=== PATIENT | male | born 1960 | race Caucasian/White ===

== ENCOUNTER 2024-03-27 13:15 | Inpatient (IN) | payer MEDICAID ==
[~2024-03-27] VITALS: Ht 172.7 cm; Wt 81.8 kg
--- NOTE | 2024-03-27 13:41 | ED.PDOC ---
GI ASSESSMENT HPI Comments 63y M who presents to the ED via EMS for chief complaint of GI bleed. Per EMS, pt is heavy drinker and states he drinks beer daily and states he has had bloody emesis episode last night at approx 2230. Pt states he had last drink 1 days ago prior to emesis episode. Pt now in the ED,noted to have shaking chills in the ED. EMS states they noted bloody emesis in bag prior to ED arrival and was hypotensive upon ED arrival. Pt otherwise denies chest pain, shortness of breath, fever, cough, chills, diarrhea, headache or dizziness. Pt otherwise denies any other symptoms at this time. Chief Complaint: GI Bleed Time Seen by MD: 13:38 Primary Care Provider: NONE Reviewed Notes: Medications, Allergies Allergies: Coded Allergies: NO KNOWN ALLERGIES (Unverified , 03/15/16) Information Source: Patient, Emergency Med Personnel Mode of Arrival: EMS Brought in by: EMS Past Medical History PAST MEDICAL HISTORY: DM Surgical History: Denies all surgeries Family History Family History: Unknown Social History Smoker: Cigarettes Alcohol: Heavy Drugs: Denies Drug Use Lives In: Home Constitutional: denies: chills, diaphoresis, fatigue, fever, malaise, sweats, weakness, others EENTM: denies: blurred vision, double vision, ear bleeding, ear discharge, ear drainage, ear pain, ear ringing, eye pain, eye redness, hearing loss, mouth pain, mouth swelling, nasal discharge, nose bleeding, nose congestion, nose pain, photophobia, tearing, throat pain, throat swelling, voice changes, others Respiratory: denies: cough, hemoptysis, orthopnea, SOB at rest, shortness of breath, SOB with excertion, stridor, wheezing, others Cardiovascular: denies: chest pain, dizzy spells, diaphoresis, Dyspnea on exertion, edema, irregular heart beat, left arm pain, lightheadedness, palpitations, PND, syncope, others Gastrointestinal: reports: hematemesis, nausea, vomiting; denies: abdomen distended, abdominal pain, blood streaked bowels, constipated, diarrhea, dysphagia, difficulty swallowing, melena, poor appetite, poor fluid intake, rectal bleeding, rectal pain, others Genitourinary: denies: burning, dysuria, flank pain, frequency, hematuria, incontinence, penile discharge, penile sore, pain, testicle pain, testicle swelling, urgency, others Neurological: denies: dizziness, fainting, headache, left sided numbness, left sided weakness, numbness, paresthesia, pre-existing deficit, right sided numbness, right sided weakness, seizure, speech problems, tingling, tremors, weakness, others Musculoskeletal: denies: back pain, gout, joint pain, joint swelling, muscle pain, muscle stiffness, neck pain, others Integumetry: denies: bruises, change in color, change in hair/nails, dryness, laceration, lesions, lumps, rash, wounds, others Allergic/Immunocompromised: denies: Difficulty Healing, Frequent Infections, Hives, Itching, others Hematologic/Lymphatic: denies: anemia, blood clots, easy bleeding, easy bruising, swollen glands, others Endocrine: denies: excessive hunger, excessive sweating, excessive thirst, excessive urination, flushing, intolerance to cold, intolerance to heat, unex plained weight gain, unexplained weight loss, others Psychiatric: denies: anxiety, bipolar disorder, depression, hopeless, panic disorder, schizophrenia, sleepless, suicidal, others All Other Systems: Reviewed and Negative Physical Exam General Appearance: Moderate Distress HEENT: Scleral Icterus (L), Scleral Icterus (R) Neck: Full Range of Motion, Non-Tender, Normal, Normal Inspection Respiratory: Chest Non-Tender, Lungs Clear, No Accessory Muscle Use, No Respiratory Distress, Normal Breath Sounds Cardiovascular: No Edema, No JVD, No Murmur, No Gallop, Normal Peripheral Pulses, Regular Rate/Rhythm Breast Exam: Deferred Gastrointestinal: Distended Genitalia: Deferred Pelvic: Deferred Rectal: Deferred Extremities: No calf tenderness, Normal capillary refill, Normal inspection, Normal range of motion, Non-tender, No pedal edema Musculoskeletal : Apperance: Normal Neurologic: Alert Cerebellar Function: NOT DONE Reflexes: NOT DONE Skin: Jaundice Peripheral Pulses: 3+ Radial (R), 3+ Radial (L) Lymphatic: No Adenopathy Was a procedure done? Was a procedure done?: No GI differential Dx Differential Diagnosis: Constipation, Diverticular disease, Esophagitis, Gastritis/PUD, Gastroenteritis, GI hemorrhage, Dehydration, Diabetes/ DKA, Esophageal Varicies, Stress Ulcer Other Differential Diagnosis esophageal varices, ETOH abuse, ETOH withdrawal, liver disease X-Ray, Labs, Meds, VS Vital Signs Date Time Temp Pulse Resp B/P (MAP) Pulse Ox O2 Delivery O2 Flow Rate FiO2 03/27/24 14:20 98 13 91/61 (71) 96 03/27/24 14:20 94 Room Air* 0 21 03/27/24 14:08 100 19 96/63 (74) 90 03/27/24 13:26 98.6 98 16 101/60 (74) 100 Lab Test 03/27/24 13:41 Range/Units White Blood Count 19.2 H 4.4-10.8 10^3/uL Red Blood Count 2.99 L 4.5-5.90 10^6/uL Hemoglobin 10.7 L 13.5-17.5 g/dL Hematocrit 31.3 L 41.0-53.0 % Mean Corpuscular Volume 104.6 H 80.0-100.0 fL Mean Corpuscular Hemoglobin 35.6 H 28.0-32.0 pg Mean Corpuscular Hemoglobin Concent 34.1 32.0-36.0 g/dL Red Cell Distribution Width 13.4 11.8-14.3 % Platelet Count 164 140-450 10^3/uL Mean Platelet Volume 8.8 6.9-10.8 fL Neutrophils (%) (Auto) 87.2 H 37.0-80.0 % Lymphocytes (%) (Auto) 6.8 L 10.0-50.0 % Monocytes (%) (Auto) 5.9 0.0-12.0 % Eosinophils (%) (Auto) 0.0 0.0-7.0 % Basophils (%) (Auto) 0.1 0.0-2.0 % Neutrophils # (Auto) 16.8 H 1.6-8.6 10 ^3/uL Lymphocytes # (Auto) 1.3 0.4-5.4 10 ^3/uL Monocytes # (Auto) 1.1 0-1.3 10 ^3/uL Eosinophils # (Auto) 0 0-0.8 10 ^3/uL Basophils # (Auto) 0 0-0.2 10 ^3/uL Nucleated Red Blood Cells 0.0 % Sodium Level 134 L 136-145 mmol/L Potassium Level 5.3 H 3.5-5.1 mmol/L Chloride Level 98 98-107 mmol/L Carbon Dioxide Level 21 20-31 mmol/L Anion Gap 15 5-15 Blood Urea Nitrogen 38 H 9-23 mg/dL Creatinine 1.32 H 0.700-1.30 mg/dL Glomerular Filtration Rate Calc 61 >90 mL/min BUN/Creatinine Ratio 28.8 H 10.0-20.0 Serum Glucose 247 H 74-106 mg/dL Calcium Level 8.3 L 8.7-10.4 mg/dL Total Bilirubin 2.3 H 0.2-1.0 mg/dL Aspartate Amino Transferase (AST) 71 H 13-40 U/L Alanine Aminotransferase (ALT) 36 7-40 U/L Alkaline Phosphatase 121 H 46-116 U/L Total Protein 5.7 5.7-8.2 g/dL Albumin 2.8 L 3.2-4.8 g/dL Plasma/Serum Blood Alcohol < 3.0 <10 mg/dL Current Medications Medications (Trade) Dose Ordered Sig/Peg Route Start Time Stop Time Status Last Admin Thiamine HCl 100 mg ONCE ONCE IV 03/27/24 13:45 03/27/24 13:46 DC 03/27/24 14:11 Lorazepam (Ativan Inj) 1 mg ONCE ONCE IV 03/27/24 13:45 03/27/24 13:46 DC 03/27/24 14:11 Pantoprazole Sodium 50 ml @ 10 mls/hr Q5H ONCE IV 03/27/24 13:45 03/27/24 18:44 03/27/24 14:11 PROCEDURE(s): ABPL - CT AB PEL WO CON-NO ORAL OR IV IMPRESSION: 1. Colonic diverticulosis with no CT evidence for diverticulitis. 2. No small bowel obstruction. Normal-appearing appendix. 3. Heterogeneous liver with numerous small subcentimeter low-attenuation lesions, possibly very small cysts or biliary hamartomas, too small to characterize. 4. Increased density in the gallbladder, possible sludge and/or small gallstones. 5. Small to moderate fat containing umbilical hernia. Minimal stranding in the hernia sac. Strangulation not excluded. Correlate with clinical findings. 6. Additional findings as detailed above. Patient alert. Shaking. Alcohol withdrawal. Vitals stable. Last drink was yesterday. States that he drinks beer. Has been drinking for many years. Establish intravenous access. Was given fluids. Was given thiamine. Possible esophageal varices. Was given Protonix. Reviewed his history. Explained to the patient. Time of 1ST Reevaluation: 14:10 Reevaluation 1ST: Unchanged Patient Education/Counseling: Diagnosis, Treatment Family Education/Counseling: No Family Present Departure 1 Departure Time of Disposition: 13:43 Impression: Primary Impression: GI bleed Qualified Codes: K92.2 - Gastrointestinal hemorrhage, unspecified Additional Impressions: Alcohol withdrawal Qualified Codes: F10.939 - Alcohol use, unspecified with withdrawal, unspecified Liver disease Disposition: ADMITTED INPATIENT Admit to: Med Surg Condition: Guarded Critical Care Note Critical Care Time?: Yes (45 min-critical care time only) Stability Stability form required: No Heart Score Heart Score: Heart Score Response (Comments) Value History N/A 0 EKG N/A 0 Age N/A 0 Risk Factors N/A 0 Troponin N/A 0 Total 0 I personally scribed for PARKER TILLMAN MD ([email or web address]) on 03/27/24 at 13:41. Electronically submitted by Mj Caal ([email or web address]). I personally scribed for PARKER TILLMAN MD (SHIVA) on 03/27/24 at 16:59. Electronically submitted by Mj PERALTA). PARKER TILLMAN MD Mar 27, 2024 13:41
[2024-03-27 14:05] LABS: Basophils # (auto) 0 10 ^3/uL (0-0.2); Basophils % (auto) 0.1 % (0.0-2.0); Eosinophils # (auto) 0 10 ^3/uL (0-0.8); Hematocrit 31.3 % (41.0-53.0); Hemoglobin 10.7 g/dL (13.5-17.5); Lymphocytes # (auto) 1.3 10 ^3/uL (0.4-5.4); Lymphocytes % (auto) 6.8 % (10.0-50.0); Mean Corpuscular Hemoglobin 35.6 pg (28.0-32.0); Mean Corpuscular Hgb Conc. 34.1 g/dL (32.0-36.0); Mean Corpuscular Volume 104.6 fL (80.0-100.0); Monocytes # (auto) 1.1 10 ^3/uL (0-1.3); Monocytes % (auto) 5.9 % (0.0-12.0); Neutrophils # (auto) 16.8 10 ^3/uL (1.6-8.6); Neutrophils % (auto) 87.2 % (37.0-80.0); Platelet Count (auto) 164 10^3/uL (140-450); Red Blood Cells 2.99 10^6/uL (4.5-5.90); Red Cell Distribution Width 13.4 % (11.8-14.3); White Blood Cell 19.2 10^3/uL (4.4-10.8)
[2024-03-27] MEDS: PANTOPRAZOLE 40mg/50ML NS AE 50 ML IV ONE (14:11)
[2024-03-27] MEDS: LORazepam 2MG/ML-1ML VIAL IV ONE (14:11)
[2024-03-27] MEDS: THIAMINE 100mg/ml INJ (200mg/2ml VIAL) IV ONE (14:11)
[2024-03-27 14:16] LABS: Alanine Aminotransferase 36 U/L (7-40); Albumin 2.8 g/dL (3.2-4.8); Alkaline Phosphatase 121 U/L (46-116); Anion Gap 15 (5-15); Aspartate Aminotransferase 71 U/L (13-40); BUN/Creatinine Ratio 28.8 (10.0-20.0); Blood Alcohol < 3.0 mg/dL (<10); Blood Urea Nitrogen 38 mg/dL (9-23); Calcium 8.3 mg/dL (8.7-10.4); Carbon Dioxide 21 mmol/L (20-31); Chloride 98 mmol/L (98-107); Glucose 247 mg/dL (74-106); Potassium 5.3 mmol/L (3.5-5.1); Sodium 134 mmol/L (136-145)
[2024-03-27 14:17] LABS: Bilirubin, Total 2.3 mg/dL (0.2-1.0); Total Protein 5.7 g/dL (5.7-8.2)
[2024-03-27 14:20] VITALS: O2SAT 94
--- NOTE | 2024-03-27 14:27 | DVH ---
CLINICAL INFORMATION: 63 years old, Male; gibleed. TECHNIQUE: Axial CT images of the abdomen and pelvis were obtained without IV contrast. Coronal and sagittal reformatted images were obtained, reviewed, and stored. Evaluation of the parenchymal organs is limited without IV contrast. Evaluation of the bowel and mesentery is limited without oral contra st. All CT scans at this medical facility are performed using dose modulation techniques as appropria te to a performed exam including the following: Automated exposure control was utilized; adjustment o f the MA and/or KV according to patient size; and use of iterative reconstruction technique. CTDIvol = 6.51 mGy DLP = 350.31 mGy-cm COMPARISON: None FINDINGS: Lung bases: Lung bases are clear. Liver: Heterogeneous liver with numerous small subcentimeter low-attenuation lesions, possibly cysts or biliary hamartomas. Too small to characterize. Biliary: Increased density within the gallbladder, possibly sludge and/or small gallstones. Spleen: Unremarkable. Pancreas: Grossly unremarkable in its noncontrast enhanced appearance. Adrenal glands: Unremarkable. No mass. Kidneys: No hydronephrosis. No renal or ureteral calculi. Aorta/Vascular: Dense arterial calcification. No abdominal aortic aneurysm. Retroperitoneum: No mass or lymphadenopathy. Bowel/mesentery: No small bowel obstruction. Appendix is visualized and appears unremarkable. Scatte red colonic diverticula. No inflammatory stranding is seen to suggest diverticulitis. Pelvic organs: Grossly unremarkable. Bladder: Grossly unremarkable. Abdominal wall: Small to moderate fat containing umbilical hernia. Minimal stranding within the corky ia sac. Bones: No acute fracture or suspicious intraosseous lesion. IMPRESSION: 1. Colonic diverticulosis with no CT evidence for diverticulitis. 2. No small bowel obstruction. Normal-appearing appendix. 3. Heterogeneous liver with numerous small subcentimeter low-attenuation lesions, possibly very small cysts or biliary hamartomas, too small to characterize. 4. Increased density in the gallbladder, possible sludge and/or small gallstones. 5. Small to moderate fat containing umbilical hernia. Minimal stranding in the hernia sac. Strangula tion not excluded. Correlate with clinical findings. 6. Additional findings as detailed above.
[2024-03-27 19:20] LABS: Urine Bacteria FEW /hpf (None Seen); Urine Blood Negative /uL (Negative); Urine Clarity Clear (Clear); Urine Color Light-Orange (Yellow); Urine Hyaline Cast FEW /lpf (0 - 2); Urine Mucus FEW (None Seen); Urine Protein, UAD Negative (Negative); Urine Specific Gravity 1.017 (1.001-1.035); Urine Sperm PRESENT /hpf (None Seen); Urine Urobilinogen Normal (Negative); Urine WBC 1 /hpf (0 - 3); Urine pH 5.5 (5.0-9.0)
[2024-03-27] MEDS: SODIUM CHLORIDE 0.9% 1,000 ML IV ONE ×2 (19:22→21:23)
[2024-03-27 20:09] VITALS: PULSE 105; RESP 16; O2SAT 96
[2024-03-27] MEDS: CEFEPIME 2GM/50ML NS 50 ML IV ONE (21:14)
[2024-03-27] MEDS: PANTOPRAZOLE 40 MG/10 ML VIAL INJ IV ONE (21:14)
[2024-03-27] MEDS: PANTOPRAZOLE 40mg/50ML NS AE 50 ML IV SCH (21:30)
[2024-03-27] MEDS: SODIUM CHLORIDE 0.9% 1,000 ML IV SCH (21:30)
[2024-03-27] MEDS ORDERED: ONDANSETRON HCL 4 MG/2 ML VIAL IV PRN (21:30)
[2024-03-27] MEDS ORDERED: DEXTROSE (50%) 50ML SYRG IV PRN (21:30)
[2024-03-27] MEDS ORDERED: NITROGLYCERIN 0.4 MG SL TAB SL PRN (21:30)
[2024-03-27] MEDS ORDERED: MORPHINE SULFATE INJ 2 MG/ml SYRG IV PRN (21:30)
[2024-03-27] MEDS ORDERED: chlordiazePOXIDE HCL 25 MG CAP PO PRN (21:30)
[2024-03-27 21:41] LABS: Basophils # (auto) 0 10 ^3/uL (0-0.2); Basophils % (auto) 0.2 % (0.0-2.0); Eosinophils # (auto) 0 10 ^3/uL (0-0.8); Hemoglobin 8.8 g/dL (13.5-17.5); Lymphocytes # (auto) 2.9 10 ^3/uL (0.4-5.4); Lymphocytes % (auto) 17.7 % (10.0-50.0); Monocytes # (auto) 1.6 10 ^3/uL (0-1.3); Platelet Count (auto) 138 10^3/uL (140-450)
[2024-03-27 21:43] LABS: Hematocrit 25.4 % (41.0-53.0); Mean Corpuscular Hemoglobin 35.7 pg (28.0-32.0); Mean Corpuscular Hgb Conc. 34.7 g/dL (32.0-36.0); Mean Corpuscular Volume 103.1 fL (80.0-100.0); Monocytes % (auto) 9.5 % (0.0-12.0); Neutrophils # (auto) 11.9 10 ^3/uL (1.6-8.6); Neutrophils % (auto) 72.6 % (37.0-80.0); Red Blood Cells 2.47 10^6/uL (4.5-5.90); Red Cell Distribution Width 13.4 % (11.8-14.3); White Blood Cell 16.4 10^3/uL (4.4-10.8)
[2024-03-27 21:45] LABS: Chloride 105 mmol/L (98-107); Potassium 4.5 mmol/L (3.5-5.1); Sodium 138 mmol/L (136-145)
[2024-03-27 21:46] LABS: Anion Gap 4 (5-15); Carbon Dioxide 29 mmol/L (20-31)
[2024-03-27 21:47] LABS: Calcium 7.6 mg/dL (8.7-10.4)
[2024-03-27 21:51] LABS: Glucose 195 mg/dL (74-106)
[2024-03-27 21:52] LABS: BUN/Creatinine Ratio 43.5 (10.0-20.0); Blood Urea Nitrogen 40 mg/dL (9-23)
[2024-03-27] MEDS: SODIUM ZIRCONIUM CYCL 10 GM PAK PO ONE (22:04)
[2024-03-27] MEDS: ALBUMIN 5% 250 ML IV ONE (22:06)
[2024-03-27 23:15] VITALS: BP 87/46; PULSE 88; RESP 18; O2SAT 94
[2024-03-27] MEDS: PHENYLEPHRINE IV 250 ML IV SCH (23:28)
[2024-03-27 23:30] VITALS: BP 91/49; PULSE 84; RESP 19; O2SAT 95
[2024-03-27 23:45] VITALS: BP 77/36; PULSE 89; RESP 15; O2SAT 95
[2024-03-27 23:55] LABS: INR 1.41 (0.9-1.15); Partial Thromboplastin Time 29.9 SEC (24.5-34.5); Prothrombin Time 14.8 sec (9.3-11.8)
[2024-03-28] VITALS (100 sets, daily range): BP systolic 74–131; BP diastolic 30–68; PULSE 64–98; RESP 11–21; TEMP 98–99.2; O2SAT 92–100
[2024-03-28] MEDS: ACCU-CHEK COMFORT CURVE STRIP VI SCH (00:52)
[2024-03-28] MEDS: InsuLIN REG 1unit/0.01ml Soln (100units/ml) SC SCH (01:00)
[2024-03-28 05:10] LABS: Basophils # (auto) 0.1 10 ^3/uL (0-0.2); Basophils % (auto) 0.5 % (0.0-2.0); Eosinophils # (auto) 0.1 10 ^3/uL (0-0.8); Eosinophils % (auto) 0.3 % (0.0-7.0); Hematocrit 24.4 % (41.0-53.0); Hemoglobin 8.3 g/dL (13.5-17.5); Lymphocytes # (auto) 4.9 10 ^3/uL (0.4-5.4); Lymphocytes % (auto) 21.8 % (10.0-50.0); Mean Corpuscular Hgb Conc. 33.9 g/dL (32.0-36.0); Mean Corpuscular Volume 103.2 fL (80.0-100.0); Monocytes # (auto) 1.7 10 ^3/uL (0-1.3); Monocytes % (auto) 7.5 % (0.0-12.0); Neutrophils # (auto) 15.6 10 ^3/uL (1.6-8.6); Neutrophils % (auto) 69.9 % (37.0-80.0); Platelet Count (auto) 158 10^3/uL (140-450); Red Blood Cells 2.37 10^6/uL (4.5-5.90); Red Cell Distribution Width 13.5 % (11.8-14.3); White Blood Cell 22.4 10^3/uL (4.4-10.8)
[2024-03-28 05:11] LABS: Alanine Aminotransferase 28 U/L (7-40); Albumin 2.7 g/dL (3.2-4.8); Alkaline Phosphatase 93 U/L (46-116); Anion Gap 5 (5-15); Aspartate Aminotransferase 59 U/L (13-40); BUN/Creatinine Ratio 38.1 (10.0-20.0); Calcium 7.5 mg/dL (8.7-10.4); Carbon Dioxide 27 mmol/L (20-31); Chloride 111 mmol/L (98-107); Glucose 128 mg/dL (74-106); Potassium 3.6 mmol/L (3.5-5.1); Sodium 143 mmol/L (136-145)
[2024-03-28 05:12] LABS: Bilirubin, Total 1.7 mg/dL (0.2-1.0); Total Protein 4.9 g/dL (5.7-8.2)
[2024-03-28] MEDS: NOREPINEPHRINE 8 MG/250ML KIT 250 ML IV SCH ×2 (05:15→12:06)
[2024-03-28 05:17] LABS: Blood Urea Nitrogen 24 mg/dL (9-23)
--- NOTE | 2024-03-28 06:49 | DVHHP2 ---
History of Present Illness Reason for Visit: GI bleed History of Present Illness 63-year-old male presents for evaluation of GI bleed. Patient reports a one day history of coffee-ground emesis. He reports being a heavy drinker and having his last drink yesterday prior to the event. Denies any dizziness, chest pain or shortness for breath. Denies melena. No other acute complaints reported. Past Medical History Diabetes mellitus, liver cirrhosis Past Surgical History Denies Family History Noncontributory Smoke: <1 pack per day ALCOHOL: heavy Drugs: None Review of Systems Review of Systems Constituitional: Negative for fever HENT: Negative for Headache, Negative for Sore Throat Eyes: Negative for pain and change in vision Respirartory: Negative for Shortness of Breath Cardiovascular: Negative for Chest Pain Gastrointestinal: Negative for abdominal pain, swelling Endocrine: Negative for polyuria, Polydipsia Genitourinary: Negative for dysuria Musculoskeletal: Negative for skeletal pain Skin Negative for rash Neurological: Negative for headache and weakness All other systems reviewed and negative Allergies: Coded Allergies: NO KNOWN ALLERGIES (Unverified , 03/15/16) Medications Current Medications Medications Dose Ordered Sig/Peg Route Start Time Stop Time Status Last Admin Dose Admin Chlordiazepoxide HCl 25 mg Q6HPRN PRN PO 03/27/24 21:30 Folic Acid 1 mg/ Magnesium Sulfate 8 meq/ Multivitamins 10 ml/Thiamine HCl 100 mg/Sodium Chloride 1,013.2 ml @ 126.247 mls/hr DAILY@1800 INJ 03/28/24 18:00 Sodium Chloride 1,000 ml @ 85 mls/hr [id number] IV 03/27/24 21:30 03/27/24 21:30 85 MLS/HR Ceftriaxone Sodium 50 ml @ 100 mls/hr DAILY@09 IV 03/28/24 09:00 Pantoprazole Sodium 50 ml @ 10 mls/hr Q5H IV 03/27/24 21:30 03/28/24 02:22 10 MLS/HR Diagnostic Test (Pha) 1 strip Q6HR 03/28/24 00:00 03/28/24 05:36 1 STRIP Insulin Human Regular Q6HR SC 03/28/24 00:00 03/28/24 01:00 3 UNITS Dextrose 50 ml UD PRN IV 03/27/24 21:30 Ondansetron HCl 4 mg Q4HP PRN IV 03/27/24 21:30 Nitroglycerin 0.4 mg Q5MINP PRN SL 03/27/24 21:30 Morphine Sulfate 2 mg Q30M PRN IV 03/27/24 21:30 Phenylephrine HCl 250 ml @ 30 mls/hr Q8H20M IV 03/27/24 23:15 03/28/24 05:14 135 MLS/HR Norepinephrine Bitartrate 250 ml @ 3.75 mls/hr Q24H IV 03/28/24 05:15 Exam Vital Signs Vital Signs Date Time Temp Pulse Resp B/P (MAP) Pulse Ox O2 Delivery O2 Flow Rate FiO2 03/28/24 06:15 85 12 108/45 (66) 95 03/28/24 06:00 Nasal Cannula* 2 03/28/24 04:00 98.1 98.1 Exam Gen: 63-year-old in mild distress Skin: Warm, dry, normal color and texture, no rash. HEENT: Normocephalic atraumatic, mucous membranes moist and pink. Neck: Cervical and supraclavicular nodes normal without enlargement, trachea is midline, thyroid gland is normal without masses. Pulmonary: Clear to auscultation and percussion bilaterally. Cardiac: Regular rate and rhythm. No murmur Abdomen: Soft, nontender, nondistended, bowel sounds present all 4 quadrants, no guarding, no rigidity, no organomegaly. Extremities: No cyanosis, clubbing, no edema Neuro: Cranial nerves II through XII grossly intact, normal affect and speech, no focal motor deficits. Labs/Xrays ORDERING PHYSICIAN: PARKER TILLMAN MD PROCEDURE(s): ABPL - CT AB PEL WO CON-NO ORAL OR IV REASON: gibleed ORDER NUMBER(s): [id number], ACCESSION NUMBER(s): [id number] CLINICAL INFORMATION: 63 years old, Male; gibleed. TECHNIQUE: Axial CT images of the abdomen and pelvis were obtained without IV contrast. Coronal and sagittal reformatted images were obtained, reviewed, and stored. Evaluation of the parenchymal organs is limited without IV contrast. Evaluation of the bowel and mesentery is limited without oral contrast. All CT scans at this medical facility are performed using dose modulation techniques as appropriate to a performed exam including the following: Automated exposure control was utilized; adjustment of the MA and/or KV according to patient size; and use of iterative reconstruction technique. CTDIvol = 6.51 mGy DLP = 350.31 mGy-cm COMPARISON: None FINDINGS: Lung bases: Lung bases are clear. Liver: Heterogeneous liver with numerous small subcentimeter low-attenuation lesions, possibly cysts or biliary hamartomas. Too small to characterize. Biliary: Increased density within the gallbladder, possibly sludge and/or small gallstones. Spleen: Unremarkable. Pancreas: Grossly unremarkable in its noncontrast enhanced appearance. Adrenal glands: Unremarkable. No mass. Kidneys: No hydronephrosis. No renal or ureteral calculi. Aorta/Vascular: Dense arterial calcification. No abdominal aortic aneurysm. Retroperitoneum: No mass or lymphadenopathy. Bowel/mesentery: No small bowel obstruction. Appendix is visualized and appears unremarkable. Scattered colonic diverticula. No inflammatory stranding is seen to suggest diverticulitis. Pelvic organs: Grossly unremarkable. Bladder: Grossly unremarkable. Abdominal wall: Small to moderate fat containing umbilical hernia. Minimal stranding within the hernia sac. Bones: No acute fracture or suspicious intraosseous lesion. IMPRESSION: 1. Colonic diverticulosis with no CT evidence for diverticulitis. 2. No small bowel obstruction. Normal-appearing appendix. 3. Heterogeneous liver with numerous small subcentimeter low-attenuation lesions, possibly very small cysts or biliary hamartomas, too small to characterize. 4. Increased density in the gallbladder, possible sludge and/or small gallstones. 5. Small to moderate fat containing umbilical hernia. Minimal stranding in the hernia sac. Strangulation not excluded. Correlate with clinical findings. 6. Additional findings as detailed above. Labs Test 03/28/24 05:35 03/28/24 04:44 03/27/24 21:10 03/27/24 19:01 Range/Units POC Glucose 131 H 70-106 mg/dl White Blood Count 22.4 #H 4.4-10.8 10^3/uL Red Blood Count 2.37 L 4.5-5.90 10^6/uL Hemoglobin 8.3 L 13.5-17.5 g/dL Hematocrit 24.4 L 41.0-53.0 % Mean Corpuscular Volume 103.2 H 80.0-100.0 fL Mean Corpuscular Hemoglobin 35.0 H 28.0-32.0 pg Mean Corpuscular Hemoglobin Concent 33.9 32.0-36.0 g/dL Red Cell Distribution Width 13.5 11.8-14.3 % Platelet Count 158 140-450 10^3/uL Mean Platelet Volume 8.4 6.9-10.8 fL Neutrophils (%) (Auto) 69.9 37.0-80.0 % Lymphocytes (%) (Auto) 21.8 10.0-50.0 % Monocytes (%) (Auto) 7.5 0.0-12.0 % Eosinophils (%) (Auto) 0.3 0.0-7.0 % Basophils (%) (Auto) 0.5 0.0-2.0 % Neutrophils # (Auto) 15.6 H 1.6-8.6 10 ^3/uL Lymphocytes # (Auto) 4.9 0.4-5.4 10 ^3/uL Monocytes # (Auto) 1.7 H 0-1.3 10 ^3/uL Eosinophils # (Auto) 0.1 0-0.8 10 ^3/uL Basophils # (Auto) 0.1 0-0.2 10 ^3/uL Nucleated Red Blood Cells 0.0 % Sodium Level 143 # 136-145 mmol/L Potassium Level 3.6 3.5-5.1 mmol/L Chloride Level 111 H 98-107 mmol/L Carbon Dioxide Level 27 20-31 mmol/L Anion Gap 5 5-15 Blood Urea Nitrogen 24 #H 9-23 mg/dL Creatinine 0.63 L 0.700-1.30 mg/dL Glomerular Filtration Rate Calc 107 >90 mL/min BUN/Creatinine Ratio 38.1 H 10.0-20.0 Serum Glucose 128 H 74-106 mg/dL Calcium Level 7.5 L 8.7-10.4 mg/dL Total Bilirubin 1.7 H 0.2-1.0 mg/dL Aspartate Amino Transferase (AST) 59 H 13-40 U/L Alanine Aminotransferase (ALT) 28 7-40 U/L Alkaline Phosphatase 93 46-116 U/L Total Protein 4.9 L 5.7-8.2 g/dL Albumin 2.7 L 3.2-4.8 g/dL Prothrombin Time 14.8 H 9.3-11.8 sec Prothrombin Time INR 1.41 H 0.9-1.15 Activated Partial Thromboplast Time 29.9 24.5-34.5 SEC Urine Color Light-orange Yellow Urine Clarity Clear Clear Urine pH 5.5 5.0-9.0 Urine Specific [place] 1.017 1.001-1.035 Urine Protein Negative Negative Urine Ketones Trace Negative Urine Blood Negative Negative /uL Urine Nitrite Negative Negative Urine Bilirubin Negative Negative Urine Urobilinogen Normal Negative mg/dL Urine Leukocyte Esterase Negative Negative /uL Urine RBC 2 0 - 3 /hpf Urine WBC 1 0 - 3 /hpf Urine Squamous Epithelial Cells Few <5 /hpf Urine Bacteria Few H None Seen /hpf Urine Hyaline Casts Few 0 - 2 /lpf Urine Mucus Few None Seen Urine Sperm Present None Seen /hpf Urine Glucose Normal Normal mg/dL Test 03/27/24 13:41 Range/Units Plasma/Serum Blood Alcohol < 3.0 <10 mg/dL Assessment/Plan Assessment/Plan Assessment GI bleed Alcohol withdrawal Leukocytosis Liver cirrhosis Acute kidney injury Diabetes mellitus Hypotension Plan Admit the patient to ICU to the hospitalist Continue Beau-Synephrine GI consult NPO Maintenance IV fluids Continue treatment per orders. Total critical care time excluding procedures performed is 50 minutes. Plan discussed with: Patient My Orders Orders - SHAILESH BORREGO AGACNP Procedure Category Date Status Time Blood Culture ELZA 03/27/24 In Process 21:18 * Gi Dvh It Web Development Consultant CONS 03/27/24 Transmitted 21:18 Chlordiazepoxide Hcl PHA 03/27/24 In Process Capsule (Librium Ca 21:30 Folic Acid... PHA 03/28/24 In Process 18:00 Sodium Chloride 0.9% PHA 03/27/24 In Process 21:30 Ceftriaxone 1gm/50ml PHA 03/28/24 In Process D5w (Rocephin) 09:00 Pantoprazole PHA 03/27/24 In Process 40mg/50ml Ns Ae 21:30 Glucose Blood PHA 03/28/24 In Process (Accu-Chek Comfort 00:00 Insulin R (Human) PHA 03/28/24 In Process (Insulin R) 00:00 Dextrose 50% Syringe PHA 03/27/24 In Process 21:30 Admit ADMIT 03/27/24 Transmitted 21:18 Ondansetron Hcl PHA 03/27/24 In Process (Zofran) 21:30 Npo (Nothing By DIET 03/28/24 Transmitted Mouth) Diet Breakfast Condition: Fair [facility] 03/27/24 In Process 21:18 Bedrest With Bathroom [facility] 03/27/24 In Process Privileg 21:18 Nitroglycerin [facility] 03/27/24 In Process Sublingual (Ntrostat 21:30 Morphine Sulfate PHA 03/27/24 In Process Injection 21:30 Stat Ekg For Chest [facility] 03/27/24 In Process Pain 21:18 Notify Md Of Changes [facility] 03/27/24 In Process From Base 21:18 Roper Operator For [facility] 03/27/24 In Process 24 Hours 21:18 Emergency Dysrhythmia [facility] 03/27/24 In Process Protocol 21:18 Rhythm Strips Once [facility] 03/27/24 In Process Every Shift 21:18 Oxygen By Nasal RT 03/27/24 Transmitted Cannula 21:18 Phenylephrine Iv PHA 03/27/24 In Process (Phenylephrine/Ns) 23:15 Transfer Orders XFER 03/27/24 Transmitted 23:03 Norepinephrine 8 PHA 03/28/24 In Process Mg/250ml Kit 05:15 Date of Service: Mar 27, 2024 Billing Provider: SHAILESH BORREGO Common Visit Codes: [id number] CARE 30-74 MIN SHAILESH BORREGO Mar 28, 2024 06:49
[2024-03-28] MEDS: cefTRIAXone 1GM/50ML D5W 50 ML IV SCH (07:43)
[2024-03-28] MEDS ORDERED: FOLIC ACID 1 MG in D5W 5% 50 ML INJ SCH (14:30)
[2024-03-28] MEDS ORDERED: OCTREOTIDE ACETATE 500 MCG in SODIUM CHL 0.9% 99 ML IV SCH (14:30)
[2024-03-28 14:43] LABS: Basophils # (auto) 0.1 10 ^3/uL (0-0.2); Eosinophils # (auto) 0.1 10 ^3/uL (0-0.8); Eosinophils % (auto) 0.5 % (0.0-7.0); Hemoglobin 8.1 g/dL (13.5-17.5); Lymphocytes # (auto) 3.5 10 ^3/uL (0.4-5.4); Red Cell Distribution Width 13.7 % (11.8-14.3)
[2024-03-28 14:44] LABS: Basophils % (auto) 0.3 % (0.0-2.0); Hematocrit 24.2 % (41.0-53.0); Lymphocytes % (auto) 20.5 % (10.0-50.0); Mean Corpuscular Hgb Conc. 33.4 g/dL (32.0-36.0); Mean Corpuscular Volume 104.8 fL (80.0-100.0); Monocytes # (auto) 1.5 10 ^3/uL (0-1.3); Monocytes % (auto) 8.7 % (0.0-12.0); Neutrophils # (auto) 11.9 10 ^3/uL (1.6-8.6); Nucleated Red Blood Cells % 0.1 %; Platelet Count (auto) 135 10^3/uL (140-450); Red Blood Cells 2.31 10^6/uL (4.5-5.90); White Blood Cell 17.1 10^3/uL (4.4-10.8)
[2024-03-28 14:58] LABS: Chloride 114 mmol/L (98-107); Potassium 3.5 mmol/L (3.5-5.1); Sodium 144 mmol/L (136-145)
[2024-03-28 14:59] LABS: Anion Gap 6 (5-15); Calcium 7.4 mg/dL (8.7-10.4); Carbon Dioxide 24 mmol/L (20-31)
[2024-03-28 15:04] LABS: BUN/Creatinine Ratio 26.8 (10.0-20.0); Blood Urea Nitrogen 15 mg/dL (9-23); Glucose 181 mg/dL (74-106)
[2024-03-28] MEDS: OCTREOTIDE ACETATE 500 MCG in SODIUM CHL 0.9% 99 ML IV SCH (15:15)
--- NOTE | 2024-03-28 15:23 | DVH ---
AP portable chest REASON FOR EXAM: CENTRAL LINE PLACEMENT Technique: AP portable chest FINDINGS: Central line tip in the high superior vena cava. Heart size is enlarged. There are no infil trates or effusions. Degenerative changes in the thoracic spine. IMPRESSION: 1. Central line tip high superior vena cava above the atriocaval junction
--- NOTE | 2024-03-28 16:24 | DVHPN2 ---
Subjective 63-year-old male with alcohol use disorder, and history of alcohol withdrawal admitted for GI bleed. Patient is seen by me today during rounds On phenylephrine peripherally, map of 60s, vomiting stopped, he reported having melena for the past couple of weeks. Has been taking ibuprofen for years. Seen by GI, unstable to scope. Placed triple-lumen catheter, switch from phenylephrine to Levophed, monitor H&H Q 12, start octreotide and IV ppi. POCUS done today and interpreted by me Cardiac: Technically difficult study, no pericardial effusion, IVC 1-2 cm with more than 50% excursion on inspiration Lung: No B-lines Total critical care time spent on this patient more than 30 minutes including evaluation, chart review, formulating plan and communication with team, excluding any procedures Reviewed: Care Plan, H&P, Labs, Medications, Previous Orders, Radiology Changes from previous H/P or p: No Changes Objective Vitals Vital Signs Date Time Temp Pulse Resp B/P (MAP) Pulse Ox O2 Delivery O2 Flow Rate FiO2 03/28/24 16:07 16 99 Room Air* 0 21 03/28/24 13:53 75/35 03/28/24 13:47 77 03/28/24 12:00 99.2 99.2 Intake/Output Intake and Output 03/28/24 07:00 Intake Total 2606.000 ml Output Total 450 ml Balance 2156.000 ml Intake Oral 100 ml IV Total 2506.000 ml Output Urine Total 450 ml Exam Alert, oriented x3 PERRLA Right IJ TLC No JVD Clear breath sounds bilaterally S1-S2 regular rate Abdomen soft nontender Equal strength bilaterally on upper and lower extremities No lower extremity edema Medications Current Medications Medications Dose Ordered Sig/Peg Route Start Time Stop Time Status Last Admin Dose Admin Folic Acid 1 mg/ Magnesium Sulfate 8 meq/ Multivitamins 10 ml/Thiamine HCl 100 mg/Sodium Chloride 1,013.2 ml @ 126.247 mls/hr DAILY@1800 INJ 03/28/24 18:00 Sodium Chloride 1,000 ml @ 85 mls/hr [id number] IV 03/27/24 21:30 03/28/24 09:50 85 MLS/HR Ceftriaxone Sodium 50 ml @ 100 mls/hr DAILY@09 IV 03/28/24 09:00 03/28/24 07:43 100 MLS/HR Pantoprazole Sodium 50 ml @ 10 mls/hr Q5H IV 03/27/24 21:30 03/28/24 09:45 10 MLS/HR Diagnostic Test (Pha) 1 strip Q6HR 03/28/24 00:00 03/28/24 11:52 1 STRIP Insulin Human Regular Q6HR SC 03/28/24 00:00 03/28/24 01:00 3 UNITS Dextrose 50 ml UD PRN IV 03/27/24 21:30 Ondansetron HCl 4 mg Q4HP PRN IV 03/27/24 21:30 Nitroglycerin 0.4 mg Q5MINP PRN SL 03/27/24 21:30 Morphine Sulfate 2 mg Q30M PRN IV 03/27/24 21:30 Norepinephrine Bitartrate 250 ml @ 3.75 mls/hr Q24H IV 03/28/24 12:15 03/28/24 12:06 3.75 MLS/HR Octreotide Acetate 500 mcg/ Sodium Chloride 100 ml @ 10 mls/hr Q10H IV 03/28/24 15:15 Laboratory Results Laboratory Tests 03/28/24 14:24 Chemistry Test 03/27/24 21:10 03/28/24 04:44 03/28/24 14:24 Calcium Level 7.6 mg/dL (8.7-10.4) L 7.5 mg/dL (8.7-10.4) L 7.4 mg/dL (8.7-10.4) L Albumin 2.7 g/dL (3.2-4.8) L Total Protein 4.9 g/dL (5.7-8.2) L Coagulation Test 03/27/24 21:10 Prothrombin Time 14.8 sec (9.3-11.8) H Prothrombin Time INR 1.41 (0.9-1.15) H Activated Partial Thromboplast Time 29.9 SEC (24.5-34.5) LFT Test 03/28/24 04:44 Alanine Aminotransferase (ALT) 28 U/L (7-40) Alkaline Phosphatase 93 U/L (46-116) Aspartate Amino Transferase (AST) 59 U/L (13-40) H Total Bilirubin 1.7 mg/dL (0.2-1.0) H Urinalysis Test 03/27/24 19:01 Urine Color Light-orange (Yellow) Urine Clarity Clear (Clear) Urine pH 5.5 (5.0-9.0) Urine Specific [place] 1.017 (1.001-1.035) Urine Protein Negative (Negative) Urine Ketones Trace (Negative) Urine Blood Negative /uL (Negative) Urine Nitrite Negative (Negative) Urine Bilirubin Negative (Negative) Urine Urobilinogen Normal mg/dL (Negative) Urine Leukocyte Esterase Negative /uL (Negative) Urine RBC 2 /hpf (0 - 3) Urine WBC 1 /hpf (0 - 3) Urine Squamous Epithelial Cells Few /hpf (<5) Urine Bacteria Few /hpf (None Seen) H Urine Hyaline Casts Few /lpf (0 - 2) Urine Mucus Few (None Seen) Urine Sperm Present /hpf (None Seen) Urine Glucose Normal mg/dL (Normal) Labs and/or images reviewed: Labs reviewed by me, Image(s) reviewed by me Assessment/Plan Assessment/Plan Not Possible hemorrhagic shock, can not rule out septic shock Upper GI bleed Alcohol use disorder History of alcohol withdrawal Possible cirrhosis Possible peptic ulcer disease Hypokalemia Macrocytic anemia Elevated INR Transaminitis Admit to ICU TLC placed in a Continue with Levophed, maintain map above 60 GI consult appreciated, stabilization prior to scope Continue with octreotide Continue with IV ppi Transfuse to keep hemoglobin above7 Bolus1 L NS Collect blood culture Vanc and a ertapenem empirically H&H every12 hours [facility] protocol Librium taper P.r.n. 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 W/Octreotide 15:15 Date of Service: Mar 28, 2024 Billing Provider: YUE MELGOZA MD Common Visit Codes: [id number] INP/OBS CARE(HIGH), [id number] CARE 30-74 MIN, PROCEDURE ONLY (Cardiac point of care ultrasound [id number]) YUE MELGOZA MD Mar 28, 2024 16:24
[2024-03-28] MEDS: SODIUM CHLORIDE 0.9% 1,000 ML IV ONE (16:35)
--- NOTE | 2024-03-28 16:38 | DVHNC2 ---
Central Line Recorder of insertion practice: Roll Forming Supervisor Occupation of hearing care professional: Attending Physician Indication: Hypotension Room prepared for procedure: Yes Roll Forming Supervisor performed hand hygien: Yes Maximal sterile barrier precau: Mask/Eye shield, Sterile gown, Cap, Sterlie gloves, Large sterlie drape Skin Preparation: Chlorhexidine gluconate Skin preparation completely dr: Yes Insertion site: Right, Internal jugular Central line catheter type: [id number] dialysis Number of lumens: 3 Post Assessment: Chest X-Ray, Proper placement, No Pneumothorax Informed consent obtained: Yes Risks/benefits/alt described: Yes Date of Service: Mar 28, 2024 Billing Provider: YUE MELGOZA MD Cardiology Common Codes: PROCEDURE ONLY (78588) YUE MELGOZA MD Mar 28, 2024 16:38
[2024-03-28] MEDS: FOLIC ACID 1 MG, MAGNESIUM SULF SDV 50% 8 MEQ, MULTIPLE VITAMIN 10 ML, THIAMINE INJ 100... INJ SCH (17:17)
[2024-03-28] MEDS: OCTREOTIDE ACETATE 500 MCG in D5W 5% 99 ML IV SCH (18:03)
[2024-03-28] MEDS: OCTREOTIDE ACETATE 100 MCG in SODIUM CHL 0.9% 50 ML IV ONE (18:03)
[2024-03-28] MEDS ORDERED: VANCOMYCIN PER PHARMACY 0 MG IV SCH (20:15)
[2024-03-28] MEDS: VANCOMYCIN 1GM/200ML PREMIX IV SCH (20:50)
--- NOTE | 2024-03-28 23:02 | DVH ---
INDICATION: Pain. TECHNIQUE: Multiple real-time sonographic images of the abdomen were obtained. COMPARISON: None FINDINGS: Hepatic parenchyma appears echogenic suggesting steatosis.. The liver measures 17.8 cm. No intrahepatic biliary ductal dilatation is noted. The gallbladder wall measures 0.74 cm and is . thickened. Sludge is noted in the gallbladder. The common duct measures 8.9 mm which is dilated. No pericholecystic fluid is noted. Negative ultrasoun d Garcia's sign is elicited. The right kidney measures 11.58 cm. No hydronephrosis. The pancreas is not well visualized due to obscuration from bowel gas. IMPRESSION: 1. Thickened gallbladder wall with sludge in the gallbladder and dilated common bile duct of 8.9 mm. There is a small amount of pericholecystic fluid. A negative ultrasound Garcia's sign is elicited.
[2024-03-29] VITALS (92 sets, daily range): BP systolic 82–116; BP diastolic 32–69; PULSE 65–110; RESP 8–27; TEMP 98.3–98.8; O2SAT 86–100
[2024-03-29] MEDS: OCTREOTIDE ACETATE 100 MCG/ML VL ONE (01:59)
[2024-03-29 02:46] LABS: Basophils # (auto) 0.2 10 ^3/uL (0-0.2); Basophils % (auto) 1.2 % (0.0-2.0); Eosinophils # (auto) 0.2 10 ^3/uL (0-0.8); Eosinophils % (auto) 1.7 % (0.0-7.0); Hematocrit 25.1 % (41.0-53.0); Hemoglobin 8.1 g/dL (13.5-17.5); Lymphocytes # (auto) 2.9 10 ^3/uL (0.4-5.4); Lymphocytes % (auto) 20.4 % (10.0-50.0); Mean Corpuscular Hemoglobin 34.7 pg (28.0-32.0); Mean Corpuscular Hgb Conc. 32.2 g/dL (32.0-36.0); Mean Corpuscular Volume 108.1 fL (80.0-100.0); Monocytes # (auto) 1.2 10 ^3/uL (0-1.3); Monocytes % (auto) 8.8 % (0.0-12.0); Neutrophils # (auto) 9.5 10 ^3/uL (1.6-8.6); Neutrophils % (auto) 67.9 % (37.0-80.0); Nucleated Red Blood Cells % 0.1 %; Platelet Count (auto) 141 10^3/uL (140-450); Red Blood Cells 2.32 10^6/uL (4.5-5.90); Red Cell Distribution Width 14.2 % (11.8-14.3)
[2024-03-29 02:48] LABS: Chloride 114 mmol/L (98-107); Potassium 3.5 mmol/L (3.5-5.1); Sodium 145 mmol/L (136-145)
[2024-03-29 02:49] LABS: Calcium 7.3 mg/dL (8.7-10.4); Carbon Dioxide 22 mmol/L (20-31)
[2024-03-29 02:54] LABS: BUN/Creatinine Ratio 15.1 (10.0-20.0); Blood Urea Nitrogen 8 mg/dL (9-23); Glucose 130 mg/dL (74-106)
[2024-03-29 02:55] LABS: Magnesium 2.1 mg/dL (1.6-2.6)
[2024-03-29 02:56] LABS: Phosphorus 2.4 mg/dL (2.4-5.1)
[2024-03-29 03:52] LABS: Anion Gap 9 (5-15)
[2024-03-29] MEDS ORDERED: VANCOMYCIN 1GM/200ML PREMIX IV ONE (06:00)
--- NOTE | 2024-03-29 06:12 | DVHINCON2 ---
GI Consult Consult Note Date of Consultation: March 28, 2024 Chief Complaint: GI bleed history Referring Physician: Cirilo H&P: Patient is a 63-year-old male with a history of alcohol abuse, admitted with coffee-ground emesis. Patient has a prior history of diabetes. Patient has no prior history of GI bleed. He drinks beer heavily and daily. He denies history of melena. Patient was admitted with findings consistent with anemia from GI bleeding as well as chronic disease with macrocytosis due to nutritional deficiencies associated with his alcohol abuse history. He denies any fevers or chills, chest pain or shortness of breath. Patient did have leukocytosis as well. But once the patient was stabilized GI consultation was obtained for evaluation. Patient is currently on Protonix drip. Past Medical History: As above Past Surgical History: Noncontributory Social History: Heavy alcohol abuse Family History: No Gastrointestinal diseases or malignancies Current Medications Medications (Trade) Dose Ordered Sig/Peg Route Start Time Stop Time Status Last Admin Dose Admin Folic Acid 1 mg/ Magnesium Sulfate 8 meq/ Multivitamins 10 ml/Thiamine HCl 100 mg/Sodium Chloride 1,013.2 ml @ 126.247 mls/hr DAILY@1800 INJ 03/28/24 18:00 03/28/24 17:17 126.247 MLS/HR Sodium Chloride 1,000 ml @ 85 mls/hr [id number] IV 03/27/24 21:30 03/28/24 21:50 85 MLS/HR Pantoprazole Sodium 50 ml @ 10 mls/hr Q5H IV 03/27/24 21:30 03/29/24 01:35 10 MLS/HR Diagnostic Test (Pha) (Accu-Chek Comfort Curve T) 1 strip Q6HR 03/28/24 00:00 03/28/24 23:57 1 STRIP Insulin Human Regular (InsuLIN R) Q6HR SC 03/28/24 00:00 03/28/24 23:58 2 UNITS Dextrose 50 ml UD PRN IV 03/27/24 21:30 Ondansetron HCl (Zofran) 4 mg Q4HP PRN IV 03/27/24 21:30 Nitroglycerin (Ntrostat Sublingual) 0.4 mg Q5MINP PRN SL 03/27/24 21:30 Morphine Sulfate 2 mg Q30M PRN IV 03/27/24 21:30 Norepinephrine Bitartrate 250 ml @ 3.75 mls/hr Q24H IV 03/28/24 12:15 03/29/24 02:27 15 MLS/HR Thiamine HCl 100 mg DAILY IV 03/29/24 10:00 Folic Acid 1 mg/ Dextrose 50.2 ml @ 200 mls/hr Q16M INJ 03/28/24 14:30 Cancel Lorazepam (Ativan Inj) 1 mg Q2HPRN PRN IV 03/28/24 14:30 Octreotide Acetate 500 mcg/ Dextrose 100 ml @ 10 mls/hr Q10H IV 03/28/24 17:30 03/29/24 02:00 10 MLS/HR Ertapenem 1 gm/ Sodium Chloride 50 ml @ 100 mls/hr DAILY IV 03/29/24 10:00 Vancomycin HCl 0 ml @ 0 mls/hr UD IV 03/28/24 20:15 Review of Systems: Denies chest pain new line denies fevers or chills Denies dysuria or hematuria Denies arthralgias or myalgias Dorsalis history of stroke or seizure Denies history of hypothyroidism dose of diabetes Denies any significant rashes or bruises Vital Signs Date Time Temp Pulse Resp B/P (MAP) Pulse Ox O2 Delivery O2 Flow Rate FiO2 03/29/24 05:22 87/37 03/29/24 04:30 76 14 90 03/29/24 02:09 Room Air* 0 21 03/29/24 00:00 98.6 98.6 Physical exam: General: Alert and oriented HEENT: NC/AT, PERRLA, opiate clear Chest CTA bilateral Heart: RRR, Abdomen: Mild epigastric tenderness to palpation egaly Extremities: no edema, no cyanosis Neurological: CN II-XII intact, sensation intact in all extremities, 5+ strength in all extremities, no asterixis Labs: Laboratory Tests Test 03/27/24 13:41 03/27/24 19:01 03/27/24 21:10 03/28/24 00:50 Range/Units White Blood Count 19.2 H 16.4 H 4.4-10.8 10^3/uL Red Blood Count 2.99 L 2.47 L 4.5-5.90 10^6/uL Hemoglobin 10.7 L 8.8 #L 13.5-17.5 g/dL Hematocrit 31.3 L 25.4 #L 41.0-53.0 % Mean Corpuscular Volume 104.6 H 103.1 H 80.0-100.0 fL Mean Corpuscular Hemoglobin 35.6 H 35.7 H 28.0-32.0 pg Mean Corpuscular Hemoglobin Concent 34.1 34.7 32.0-36.0 g/dL Red Cell Distribution Width 13.4 13.4 11.8-14.3 % Platelet Count 164 138 L 140-450 10^3/uL Mean Platelet Volume 8.8 8.7 6.9-10.8 fL Neutrophils (%) (Auto) 87.2 H 72.6 37.0-80.0 % Lymphocytes (%) (Auto) 6.8 L 17.7 10.0-50.0 % Monocytes (%) (Auto) 5.9 9.5 0.0-12.0 % Eosinophils (%) (Auto) 0.0 0.0 0.0-7.0 % Basophils (%) (Auto) 0.1 0.2 0.0-2.0 % Neutrophils # (Auto) 16.8 H 11.9 H 1.6-8.6 10 ^3/uL Lymphocytes # (Auto) 1.3 2.9 0.4-5.4 10 ^3/uL Monocytes # (Auto) 1.1 1.6 H 0-1.3 10 ^3/uL Eosinophils # (Auto) 0 0 0-0.8 10 ^3/uL Basophils # (Auto) 0 0 0-0.2 10 ^3/uL Nucleated Red Blood Cells 0.0 0.0 % Sodium Level 134 L 138 136-145 mmol/L Potassium Level 5.3 H 4.5 3.5-5.1 mmol/L Chloride Level 98 105 98-107 mmol/L Carbon Dioxide Level 21 29 20-31 mmol/L Anion Gap 15 4 L 5-15 Blood Urea Nitrogen 38 H 40 H 9-23 mg/dL Creatinine 1.32 H 0.92 0.700-1.30 mg/dL Glomerular Filtration Rate Calc 61 93 >90 mL/min BUN/Creatinine Ratio 28.8 H 43.5 H 10.0-20.0 Serum Glucose 247 H 195 H 74-106 mg/dL Calcium Level 8.3 L 7.6 L 8.7-10.4 mg/dL Total Bilirubin 2.3 H 0.2-1.0 mg/dL Aspartate Amino Transferase (AST) 71 H 13-40 U/L Alanine Aminotransferase (ALT) 36 7-40 U/L Alkaline Phosphatase 121 H 46-116 U/L Total Protein 5.7 5.7-8.2 g/dL Albumin 2.8 L 3.2-4.8 g/dL Plasma/Serum Blood Alcohol < 3.0 <10 mg/dL Urine Color Light-orange Yellow Urine Clarity Clear Clear Urine pH 5.5 5.0-9.0 Urine Specific [place] 1.017 1.001-1.035 Urine Protein Negative Negative Urine Ketones Trace Negative Urine Blood Negative Negative /uL Urine Nitrite Negative Negative Urine Bilirubin Negative Negative Urine Urobilinogen Normal Negative mg/dL Urine Leukocyte Esterase Negative Negative /uL Urine RBC 2 0 - 3 /hpf Urine WBC 1 0 - 3 /hpf Urine Squamous Epithelial Cells Few <5 /hpf Urine Bacteria Few H None Seen /hpf Urine Hyaline Casts Few 0 - 2 /lpf Urine Mucus Few None Seen Urine Sperm Present None Seen /hpf Urine Glucose Normal Normal mg/dL Prothrombin Time 14.8 H 9.3-11.8 sec Prothrombin Time INR 1.41 H 0.9-1.15 Activated Partial Thromboplast Time 29.9 24.5-34.5 SEC POC Glucose 179 H 70-106 mg/dl Test 03/28/24 04:44 03/28/24 05:35 03/28/24 11:44 03/28/24 14:24 Range/Units White Blood Count 22.4 #H 17.1 H 4.4-10.8 10^3/uL Red Blood Count 2.37 L 2.31 L 4.5-5.90 10^6/uL Hemoglobin 8.3 L 8.1 L 13.5-17.5 g/dL Hematocrit 24.4 L 24.2 L 41.0-53.0 % Mean Corpuscular Volume 103.2 H 104.8 H 80.0-100.0 fL Mean Corpuscular Hemoglobin 35.0 H 35.0 H 28.0-32.0 pg Mean Corpuscular Hemoglobin Concent 33.9 33.4 32.0-36.0 g/dL Red Cell Distribution Width 13.5 13.7 11.8-14.3 % Platelet Count 158 135 L 140-450 10^3/uL Mean Platelet Volume 8.4 8.3 6.9-10.8 fL Neutrophils (%) (Auto) 69.9 70.0 37.0-80.0 % Lymphocytes (%) (Auto) 21.8 20.5 10.0-50.0 % Monocytes (%) (Auto) 7.5 8.7 0.0-12.0 % Eosinophils (%) (Auto) 0.3 0.5 0.0-7.0 % Basophils (%) (Auto) 0.5 0.3 0.0-2.0 % Neutrophils # (Auto) 15.6 H 11.9 H 1.6-8.6 10 ^3/uL Lymphocytes # (Auto) 4.9 3.5 0.4-5.4 10 ^3/uL Monocytes # (Auto) 1.7 H 1.5 H 0-1.3 10 ^3/uL Eosinophils # (Auto) 0.1 0.1 0-0.8 10 ^3/uL Basophils # (Auto) 0.1 0.1 0-0.2 10 ^3/uL Nucleated Red Blood Cells 0.0 0.1 % Sodium Level 143 # 144 136-145 mmol/L Potassium Level 3.6 3.5 3.5-5.1 mmol/L Chloride Level 111 H 114 H 98-107 mmol/L Carbon Dioxide Level 27 24 20-31 mmol/L Anion Gap 5 6 5-15 Blood Urea Nitrogen 24 #H 15 9-23 mg/dL Creatinine 0.63 L 0.56 L 0.700-1.30 mg/dL Glomerular Filtration Rate Calc 107 111 >90 mL/min BUN/Creatinine Ratio 38.1 H 26.8 H 10.0-20.0 Serum Glucose 128 H 181 H 74-106 mg/dL Calcium Level 7.5 L 7.4 L 8.7-10.4 mg/dL Total Bilirubin 1.7 H 0.2-1.0 mg/dL Aspartate Amino Transferase (AST) 59 H 13-40 U/L Alanine Aminotransferase (ALT) 28 7-40 U/L Alkaline Phosphatase 93 46-116 U/L Total Protein 4.9 L 5.7-8.2 g/dL Albumin 2.7 L 3.2-4.8 g/dL POC Glucose 131 H 167 H 70-106 mg/dl Lactic Acid Level 1.3 0.4-2.0 mmol/L Troponin I High Sensitivity 9 </=54 ng/L Test 03/28/24 17:07 03/28/24 23:42 03/29/24 02:26 Range/Units POC Glucose 189 H 141 H 70-106 mg/dl White Blood Count 14.0 H 4.4-10.8 10^3/uL Red Blood Count 2.32 L 4.5-5.90 10^6/uL Hemoglobin 8.1 L 13.5-17.5 g/dL Hematocrit 25.1 L 41.0-53.0 % Mean Corpuscular Volume 108.1 H 80.0-100.0 fL Mean Corpuscular Hemoglobin 34.7 H 28.0-32.0 pg Mean Corpuscular Hemoglobin Concent 32.2 32.0-36.0 g/dL Red Cell Distribution Width 14.2 11.8-14.3 % Platelet Count 141 140-450 10^3/uL Mean Platelet Volume 8.2 6.9-10.8 fL Neutrophils (%) (Auto) 67.9 37.0-80.0 % Lymphocytes (%) (Auto) 20.4 10.0-50.0 % Monocytes (%) (Auto) 8.8 0.0-12.0 % Eosinophils (%) (Auto) 1.7 0.0-7.0 % Basophils (%) (Auto) 1.2 0.0-2.0 % Neutrophils # (Auto) 9.5 H 1.6-8.6 10 ^3/uL Lymphocytes # (Auto) 2.9 0.4-5.4 10 ^3/uL Monocytes # (Auto) 1.2 0-1.3 10 ^3/uL Eosinophils # (Auto) 0.2 0-0.8 10 ^3/uL Basophils # (Auto) 0.2 0-0.2 10 ^3/uL Nucleated Red Blood Cells 0.1 % Sodium Level 145 136-145 mmol/L Potassium Level 3.5 3.5-5.1 mmol/L Chloride Level 114 H 98-107 mmol/L Carbon Dioxide Level 22 20-31 mmol/L Anion Gap 9 5-15 Blood Urea Nitrogen 8 L 9-23 mg/dL Creatinine 0.53 L 0.700-1.30 mg/dL Glomerular Filtration Rate Calc 113 >90 mL/min BUN/Creatinine Ratio 15.1 10.0-20.0 Serum Glucose 130 H 74-106 mg/dL Calcium Level 7.3 L 8.7-10.4 mg/dL Phosphorus Level 2.4 2.4-5.1 mg/dL Magnesium Level 2.1 1.6-2.6 mg/dL Random Vancomycin Level 17.4 H 5-10 ug/mL Imaging: IMPRESSION: 1. Colonic diverticulosis with no CT evidence for diverticulitis. 2. No small bowel obstruction. Normal-appearing appendix. 3. Heterogeneous liver with numerous small subcentimeter low-attenuation lesions, possibly very small cysts or biliary hamartomas, too small to characterize. 4. Increased density in the gallbladder, possible sludge and/or small gallstones. 5. Small to moderate fat containing umbilical hernia. Minimal stranding in the hernia sac. Strangulation not excluded. Correlate with clinical findings. 6. Additional findings as detailed above. Assessment: # # alcohol abuse # hematemesis # anemia # transaminitis # leukocytosis # hepatomegaly Plan: 1. Follow H&H 2. Continue with Protonix and current medication 3. Alcohol withdrawal precautions 4. Continue antibiotics 5. Consider EGD when stable THOMAS MI MD Mar 29, 2024 06:12
[2024-03-29] MEDS: THIAMINE 100mg/ml INJ (200mg/2ml VIAL) IV SCH (09:00)
[2024-03-29] MEDS: ERTAPENEM SOD INJ 1 GM in SODIUM CHL 0.9% 50 ML IV SCH (09:32)
--- NOTE | 2024-03-29 11:46 | DVHPN2 ---
Subjective 63-year-old male with alcohol use disorder, and history of alcohol withdrawal admitted for GI bleed. Patient is seen by me today during rounds On Levophed, titrating down, maintain map above 65. IV hydration. Pending stabilization for GI to scope. Continue with octreotide and PPI drip Total critical care time spent on this patient more than 30 minutes including evaluation, chart review, formulating plan and communication with team, excluding any procedures Reviewed: Care Plan, H&P, Labs, Medications, Previous Orders, Radiology Changes from previous H/P or p: No Changes Objective Vitals Vital Signs Date Time Temp Pulse Resp B/P (MAP) Pulse Ox O2 Delivery O2 Flow Rate FiO2 03/29/24 09:33 108/57 03/29/24 08:00 86 03/29/24 06:45 13 95 03/29/24 06:15 Room Air* 0 21 03/29/24 04:00 98.7 98.7 Intake/Output Intake and Output 03/29/24 07:00 Intake Total 3724.25 ml Output Total 3575 ml Balance 149.25 ml IV Total 3724.25 ml Output Urine Total 3575 ml Exam Alert, oriented x3 PERRLA Right IJ TLC No JVD Clear breath sounds bilaterally S1-S2 regular rate Abdomen soft nontender Equal strength bilaterally on upper and lower extremities No lower extremity edema Medications Current Medications Medications Dose Ordered Sig/Peg Route Start Time Stop Time Status Last Admin Dose Admin Folic Acid 1 mg/ Magnesium Sulfate 8 meq/ Multivitamins 10 ml/Thiamine HCl 100 mg/Sodium Chloride 1,013.2 ml @ 126.247 mls/hr DAILY@1800 INJ 03/28/24 18:00 03/28/24 17:17 126.247 MLS/HR Sodium Chloride 1,000 ml @ 85 mls/hr [id number] IV 03/27/24 21:30 03/29/24 09:01 85 MLS/HR Pantoprazole Sodium 50 ml @ 10 mls/hr Q5H IV 03/27/24 21:30 03/29/24 06:34 10 MLS/HR Diagnostic Test (Pha) 1 strip Q6HR 03/28/24 00:00 03/29/24 06:24 1 STRIP Insulin Human Regular Q6HR SC 03/28/24 00:00 03/28/24 23:58 2 UNITS Dextrose 50 ml UD PRN IV 03/27/24 21:30 Ondansetron HCl 4 mg Q4HP PRN IV 03/27/24 21:30 Nitroglycerin 0.4 mg Q5MINP PRN SL 03/27/24 21:30 Morphine Sulfate 2 mg Q30M PRN IV 03/27/24 21:30 Norepinephrine Bitartrate 250 ml @ 3.75 mls/hr Q24H IV 03/28/24 12:15 03/29/24 02:27 15 MLS/HR Thiamine HCl 100 mg DAILY IV 03/29/24 10:00 03/29/24 09:00 100 MG Folic Acid 1 mg/ Dextrose 50.2 ml @ 200 mls/hr Q16M INJ 03/28/24 14:30 Cancel Lorazepam 1 mg Q2HPRN PRN IV 03/28/24 14:30 Octreotide Acetate 500 mcg/ Dextrose 100 ml @ 10 mls/hr Q10H IV 03/28/24 17:30 03/29/24 02:00 10 MLS/HR Ertapenem 1 gm/ Sodium Chloride 50 ml @ 100 mls/hr DAILY IV 03/29/24 10:00 03/29/24 09:32 100 MLS/HR Vancomycin HCl 0 ml @ 0 mls/hr UD IV 03/28/24 20:15 Vancomycin HCl 250 ml @ 200 mls/hr Q12H IV 03/29/24 16:00 Laboratory Results Laboratory Tests 03/29/24 02:26 Chemistry Test 03/28/24 14:24 03/29/24 02:26 Calcium Level 7.4 mg/dL (8.7-10.4) L 7.3 mg/dL (8.7-10.4) L Magnesium Level 2.1 mg/dL (1.6-2.6) Phosphorus Level 2.4 mg/dL (2.4-5.1) Urinalysis Test 03/27/24 19:01 Urine Color Light-orange (Yellow) Urine Clarity Clear (Clear) Urine pH 5.5 (5.0-9.0) Urine Specific [place] 1.017 (1.001-1.035) Urine Protein Negative (Negative) Urine Ketones Trace (Negative) Urine Blood Negative /uL (Negative) Urine Nitrite Negative (Negative) Urine Bilirubin Negative (Negative) Urine Urobilinogen Normal mg/dL (Negative) Urine Leukocyte Esterase Negative /uL (Negative) Urine RBC 2 /hpf (0 - 3) Urine WBC 1 /hpf (0 - 3) Urine Squamous Epithelial Cells Few /hpf (<5) Urine Bacteria Few /hpf (None Seen) H Urine Hyaline Casts Few /lpf (0 - 2) Urine Mucus Few (None Seen) Urine Sperm Present /hpf (None Seen) Urine Glucose Normal mg/dL (Normal) Microbiology Microbiology Date/Time Source Procedure Growth Status 03/27/24 22:40 Blood Blood Culture - Preliminary NO GROWTH AFTER 24 HOURS OF INCUBATION. Resulted Labs and/or images reviewed: Labs reviewed by me, Image(s) reviewed by me Assessment/Plan Assessment/Plan Possible hemorrhagic shock, can not rule out septic shock Upper GI bleed Alcohol use disorder History of alcohol withdrawal Possible cirrhosis Possible peptic ulcer disease Hypokalemia Macrocytic anemia Elevated INR Transaminitis Admit to ICU TLC placed in a Continue with Levophed, maintain map above 60 GI consult appreciated, stabilization prior to scope Continue with octreotide Continue with IV ppi Transfuse to keep hemoglobin above7 Bolus1 L NS Collect blood culture Vanc and a ertapenem empirically H&H every12 hours [facility] protocol Librium taper P.r.n. 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 [phone] Plan discussed with: Patient My Orders Orders - YUE MELGOZA MD Procedure Category Date Status Time Communication Order ORDERS 03/28/24 Transmitted 12:02 Norepinephrine 8 PHA 03/28/24 In Process Mg/250ml Kit 12:15 Chest Portable XY 03/28/24 Resulted 14:46 Thiamine Inj PHA 03/29/24 In Process 10:00 Lorazepam 2mg/Ml Inj PHA 03/28/24 In Process (Ativan Inj) 14:30 D5w 5% (Dextrose 5%) PHA 03/28/24 In Process W/Octreotide Acetat 17:30 LIVER US 03/28/24 Resulted 19:09 Strict I & O JOHNNA 03/28/24 In Process 19:10 Ertapenem Sod Inj PHA 03/29/24 In Process (Invanz) 10:00 Vancomycin Per JOHNNA 03/28/24 In Process Pharmacy Protoc 19:11 Mrsa Screen ELZA 03/28/24 Logged 19:11 Vancomycin Per PHA 03/28/24 In Process Pharmacy 20:15 Echo 2d Mode Cardiac US 03/29/24 Logged DOP 16:31 Vancomycin PHA 03/29/24 In Process 1.25gm/250ml 16:00 Vancomycin,Trough LAB 03/31/24 Verified 03:00 Complete Blood Count LAB 03/30/24 Verified 04:00 Creatinine LAB 03/30/24 Verified 04:00 Vancomycin Per JOHNNA 03/29/24 In Process Pharmacy Protoc 08:40 Date of Service: Mar 29, 2024 Billing Provider: YUE MELGOZA MD Common Visit Codes: [id number] INP/OBS CARE(HIGH), [id number] CARE 30-74 MIN YUE MELGOZA MD Mar 29, 2024 11:46
[2024-03-29] MEDS: SODIUM PHOSPHATES 20 MEQ in SODIUM CHL 0.9% 100 ML IV ONE (13:19)
--- NOTE | 2024-03-29 15:45 | DVHSR ---
APPROVED REPORT EXAM: Two-dimensional and M-mode echocardiogram with Doppler and color Doppler. Blood Pressure: 104/45 mmHg INDICATION Shock RISK FACTORS Height: 5'8", Weight: 180 DIMENSIONS LVDd4.9 (3.8-5.7cm)LA (2D)4.4 (1.9-4.0cm)Aortic Root3.8 (2.0-3.7cm) LVDs2.5 (2.5-4.0cm)LA (MM) (1.9-4.0cm)Aortic Cusp Exc1.8 (1.5-2.0cm) EF (%) 80.0 (55-70%)Rt. Atrium5.0 (1.9-4.0cm)Asc. Aorta3.3 cm IVSd0.9 (0.7-1.1cm)RV (D) (1.8-2.4cm) PWd0.8 (0.7-1.1cm) Mitral Valve MitralMitral Stenosis E wave0.77m/sMV Mean GR.mmHg A wave0.73m/sMV Peak GR.mmHg E/A ratio1.12D MVAcm2 DECEL [id number] 1/2 Timems Aortic Valve Aortic ValveAortic Stenosis V11.43m/Mary Jo Mean GR.5mmHg V21.58m/Mary Jo Peak GR.10mmHg LVOT Diameter2.3 (1.8-2.4cm)Doppler AVA3.76cm2 Pulmonic Valve V20.87m/s Tricuspid Valve TR Velocity2.35m/s [id number] Other Information Quality : Technically LimitedRhythm : Technically limited study due to body habitus. Conclusion Normal left ventricular size and dimension. Normal left ventricular systolic function estimated ejec tion fraction 55%. There is a grade 1 diastolic dysfunction. Normal right ventricular size and dimension. Normal right ventricular systolic function. Normal biatrial size and dimension. Normal aortic valve structure and function. Normal mitral valve structure and function. Normal tricuspid valve structure and function. The pulmonary valve is grossly normal No pericardial effusion.
[2024-03-29] MEDS: VANCOMYCIN 1.25GM/250ML 250 ML IV SCH (17:32)
[2024-03-29] MEDS: LORazepam 2MG/ML-1ML VIAL IV PRN (17:42)
[2024-03-30] VITALS (83 sets, daily range): BP systolic 87–126; BP diastolic 42–72; PULSE 66–86; RESP 8–26; TEMP 98–98.7; O2SAT 86–100
[2024-03-30 04:58] LABS: Basophils # (auto) 0 10 ^3/uL (0-0.2); Basophils % (auto) 0.2 % (0.0-2.0); Eosinophils # (auto) 0.3 10 ^3/uL (0-0.8); Hemoglobin 7.6 g/dL (13.5-17.5); Neutrophils # (auto) 6.7 10 ^3/uL (1.6-8.6)
[2024-03-30 05:00] LABS: Eosinophils % (auto) 3.2 % (0.0-7.0); Hematocrit 22.4 % (41.0-53.0); Lymphocytes # (auto) 1.7 10 ^3/uL (0.4-5.4); Lymphocytes % (auto) 17.4 % (10.0-50.0); Mean Corpuscular Hgb Conc. 33.7 g/dL (32.0-36.0); Monocytes % (auto) 10.3 % (0.0-12.0); Neutrophils % (auto) 68.9 % (37.0-80.0); Platelet Count (auto) 118 10^3/uL (140-450); Red Cell Distribution Width 13.7 % (11.8-14.3); White Blood Cell 9.7 10^3/uL (4.4-10.8)
--- NOTE | 2024-03-30 11:43 | DVHPN2 ---
Subjective 63-year-old male with alcohol use disorder, and history of alcohol withdrawal admitted for GI bleed. Patient is seen by me today during rounds 1. On Levophed, titrating down, maintain map above 65. IV hydration. Pending stabilization for GI to scope. Continue with octreotide and PPI drip 2. Levophed titrating down and off, turned on again overnight now running on to. Turned off during rounds. Called patient's son [phone] as per patient's request as he is the power of banking attorney to get consent for EGD. Total critical care time spent on this patient more than 30 minutes including evaluation, chart review, formulating plan and communication with team, excluding any procedures More than 30 minutes spent in advanced care planning, including discussing code status, medical decision maker, goals of care and disposition planning. Reviewed: Care Plan, H&P, Labs, Medications, Previous Orders, Radiology Changes from previous H/P or p: No Changes Objective Vitals Vital Signs Date Time Temp Pulse Resp B/P (MAP) Pulse Ox O2 Delivery O2 Flow Rate FiO2 03/30/24 11:31 70 18 98/57 (71) 99 03/30/24 10:00 Nasal Cannula* 2 28 03/30/24 08:01 98.7 98.7 Intake/Output Intake and Output 03/30/24 07:00 Intake Total 4369.000 ml Output Total 2180 ml Balance 2189.000 ml Intake Oral 0 ml IV Total 4369.000 ml Output Urine Total 2180 ml Exam Alert, oriented x3 PERRLA Right IJ TLC No JVD Clear breath sounds bilaterally S1-S2 regular rate Abdomen soft nontender Equal strength bilaterally on upper and lower extremities No lower extremity edema Medications Current Medications Medications Dose Ordered Sig/Peg Route Start Time Stop Time Status Last Admin Dose Admin Folic Acid 1 mg/ Magnesium Sulfate 8 meq/ Multivitamins 10 ml/Thiamine HCl 100 mg/Sodium Chloride 1,013.2 ml @ 126.247 mls/hr DAILY@1800 INJ 03/28/24 18:00 03/29/24 17:42 126.247 MLS/HR Sodium Chloride 1,000 ml @ 85 mls/hr [id number] IV 03/27/24 21:30 03/30/24 08:53 85 MLS/HR Pantoprazole Sodium 50 ml @ 10 mls/hr Q5H IV 03/27/24 21:30 03/30/24 07:37 10 MLS/HR Diagnostic Test (Pha) 1 strip Q6HR 03/28/24 00:00 03/30/24 06:47 1 STRIP Insulin Human Regular Q6HR SC 03/28/24 00:00 03/29/24 12:45 3 UNITS Dextrose 50 ml UD PRN IV 03/27/24 21:30 Ondansetron HCl 4 mg Q4HP PRN IV 03/27/24 21:30 Nitroglycerin 0.4 mg Q5MINP PRN SL 03/27/24 21:30 Morphine Sulfate 2 mg Q30M PRN IV 03/27/24 21:30 Norepinephrine Bitartrate 250 ml @ 3.75 mls/hr Q24H IV 03/28/24 12:15 03/29/24 02:27 15 MLS/HR Thiamine HCl 100 mg DAILY IV 03/29/24 10:00 03/30/24 09:03 100 MG Folic Acid 1 mg/ Dextrose 50.2 ml @ 200 mls/hr Q16M INJ 03/28/24 14:30 Cancel Lorazepam 1 mg Q2HPRN PRN IV 03/28/24 14:30 03/29/24 17:42 1 MG Octreotide Acetate 500 mcg/ Dextrose 100 ml @ 10 mls/hr Q10H IV 03/28/24 17:30 03/30/24 08:58 10 MLS/HR Ertapenem 1 gm/ Sodium Chloride 50 ml @ 100 mls/hr DAILY IV 03/29/24 10:00 03/30/24 09:08 100 MLS/HR Vancomycin HCl 0 ml @ 0 mls/hr UD IV 03/28/24 20:15 Vancomycin HCl 250 ml @ 200 mls/hr Q12H IV 03/29/24 16:00 03/30/24 03:46 200 MLS/HR Laboratory Results Laboratory Tests 03/29/24 02:26 03/30/24 04:38 Urinalysis Test 03/27/24 19:01 Urine Color Light-orange (Yellow) Urine Clarity Clear (Clear) Urine pH 5.5 (5.0-9.0) Urine Specific [place] 1.017 (1.001-1.035) Urine Protein Negative (Negative) Urine Ketones Trace (Negative) Urine Blood Negative /uL (Negative) Urine Nitrite Negative (Negative) Urine Bilirubin Negative (Negative) Urine Urobilinogen Normal mg/dL (Negative) Urine Leukocyte Esterase Negative /uL (Negative) Urine RBC 2 /hpf (0 - 3) Urine WBC 1 /hpf (0 - 3) Urine Squamous Epithelial Cells Few /hpf (<5) Urine Bacteria Few /hpf (None Seen) H Urine Hyaline Casts Few /lpf (0 - 2) Urine Mucus Few (None Seen) Urine Sperm Present /hpf (None Seen) Urine Glucose Normal mg/dL (Normal) Microbiology Microbiology Date/Time Source Procedure Growth Status 03/27/24 22:40 Blood Blood Culture - Preliminary NO GROWTH AFTER 48 HOURS OF INCUBATION. Resulted Labs and/or images reviewed: Labs reviewed by me, Image(s) reviewed by me Assessment/Plan Assessment/Plan Possible hemorrhagic shock, can not rule out septic shock Upper GI bleed Alcohol use disorder History of alcohol withdrawal Possible cirrhosis Possible peptic ulcer disease Hypokalemia Macrocytic anemia Elevated INR Transaminitis Admit to ICU TLC placed in left IJ Titrate down Levophed IV NS bolus GI consult appreciated, stabilization prior to scope Continue with octreotide Continue with IV ppi Transfuse to keep hemoglobin above7 Collect blood culture Vanc and a ertapenem empirically H&H every12 hours CIWA protocol Librium taper P.r.n. Ativan Keep potassium 4, phosphorus 3,magnesium2 Strict I&O Daily weights Keep him blood glucose between 150-200 Prognosis poor Condition critical Power of banking attorney Josseline Berg (son) [phone] Code status full code Plan discussed with: Patient My Orders Orders - YUE MELGOZA MD Procedure Category Date Status Time Basic Metabolic Panel LAB 03/31/24 Verified 04:00 Complete Blood Count LAB 03/31/24 Verified 04:00 Mrsa Screen ELZA 03/30/24 In Process 09:30 Date of Service: Mar 30, 2024 Billing Provider: YUE MELGOZA MD Common Visit Codes: [id number] INP/OBS CARE(HIGH), [id number] CARE 30-74 MIN Secondary Visit Codes: [id number] CARE PLAN 30 MINUTES YUE MELGOZA MD Mar 30, 2024 11:43
[2024-03-30] MEDS: SODIUM CHLORIDE 0.9% 1,000 ML IV ONE (12:32)
[2024-03-30] MEDS ORDERED: LIDOCAINE VISCOUS 2% 15ML UD ONE (15:25)
--- NOTE | 2024-03-30 16:07 | DVHOP2 ---
Operative Report DATE OF OPERATION: 03/30/24 PROCEDURE: Upper Endoscopy with biopsy. PREOPERATIVE INDICATION: The patient is a 63 -year-old male undergoing endoscopy for anemia and melena and GI bleed POSTOPERATIVE DIAGNOSES: 1. Moderate to severe duodenitis with postbulbar superficial duodenal ulcers Mario classification C with no active bleeding 2. Moderate gastropathy gastritis and antral gastric erosions 3. 1-2 cm sliding-type hiatal hernia with grade B erosive esophagitis 4. Otherwise normal examination up to the 2nd and 3rd part of the duodenum with no fresh or old blood in the stomach no active GI bleeding and no evidence of varices PROCEDURE PERFORMED BY: Farhan Lassiter GI NURSE: Rodrigue SCOPE: Olympus videoendoscope. ASA CLASS: 3. PREOPERATIVE MEDICATIONS: Dr. Teresita Brown PROCEDURE IN DETAIL: After obtaining an informed consent, the patient was placed on left lateral decubitus position. The patient was then sedated with the above medications. A bite block was placed between his teeth. The endoscope was then passed through the oropharynx, into the esophagus, and through the stomach and pylorus up to the second and third part of the duodenum. The endoscope was then withdrawn. The 2nd and 3rd part of the duodenum were normal. Duodenal bulb and postbulbar area showed [id number] duodenitis Patient had superficial duodenal ulcers and erosions Mario classification C with no visible vessel. Duodenal biopsies were obtained There was no fresh or old blood in the upper GI tract. The pre-pyloric area and antrum showed gastritis with erosions On retroflexion the patient had moderate gastropathy involving the proximal stomach. Gastric biopsies were obtained. The endoscope was then withdrawn into the distal esophagus where he had a 1-2 cm sliding-type hiatal hernia with grade B erosive esophagitis The remaining distal and proximal esophagus and oropharynx were unremarkable. There were no varices The patient tolerated the procedure well without difficulty. COMPLICATIONS : None SPECIMENS: Duodenal biopsies Gastric biopsies DISPOSITION: Transfer back to the floor Stable PLAN: 1. Await for biopsy result 2. Will place pt on Protonix 40 mg bid and three Carafate suspension 1 g p.o. 4 times a day 3. Full liquid diet advance to soft mechanical 4. DC aspirin NSAIDs smoking alcohol 5. Taper off IV octreotide drip 6. If hemoglobin drops below 7.5 we will transfuse him 1 unit PRBC and 1 unit of FFP, continue to monitor labs FARHAN LASSITER MD Mar 30, 2024 16:06
[2024-03-30] MEDS: SUCRALFATE 1 GM/10 ML ORAL SUSP PO SCH (17:25)
[2024-03-30] MEDS: FERROUS SULFATE 325mg EC TAB PO SCH (17:25)
[2024-03-31] VITALS (66 sets, daily range): BP systolic 75–142; BP diastolic 31–103; PULSE 60–108; RESP 12–35; TEMP 97.8–99; O2SAT 34–100
[2024-03-31 05:18] LABS: Chloride 112 mmol/L (98-107); Potassium 3.4 mmol/L (3.5-5.1); Sodium 141 mmol/L (136-145)
[2024-03-31 05:19] LABS: Anion Gap 7 (5-15); Calcium 7.4 mg/dL (8.7-10.4); Carbon Dioxide 22 mmol/L (20-31)
[2024-03-31 05:24] LABS: Blood Urea Nitrogen 9 mg/dL (9-23)
[2024-03-31 05:30] LABS: Glucose 258 mg/dL (74-106)
[2024-03-31 05:35] LABS: Basophils # (auto) 0.1 10 ^3/uL (0-0.2); Basophils % (auto) 0.5 % (0.0-2.0); Eosinophils # (auto) 0 10 ^3/uL (0-0.8); Hematocrit 28.4 % (41.0-53.0); Hemoglobin 9.1 g/dL (13.5-17.5); Lymphocytes # (auto) 0.9 10 ^3/uL (0.4-5.4); Lymphocytes % (auto) 6.5 % (10.0-50.0); Mean Corpuscular Hemoglobin 34.8 pg (28.0-32.0); Mean Corpuscular Hgb Conc. 32.2 g/dL (32.0-36.0); Mean Corpuscular Volume 108.3 fL (80.0-100.0); Monocytes # (auto) 0.7 10 ^3/uL (0-1.3); Monocytes % (auto) 5.4 % (0.0-12.0); Neutrophils # (auto) 11.8 10 ^3/uL (1.6-8.6); Neutrophils % (auto) 87.6 % (37.0-80.0); Platelet Count (auto) 154 10^3/uL (140-450); Red Blood Cells 2.62 10^6/uL (4.5-5.90); Red Cell Distribution Width 14.1 % (11.8-14.3); White Blood Cell 13.5 10^3/uL (4.4-10.8)
--- NOTE | 2024-03-31 08:42 | DVHPN2 ---
Subjective 63-year-old male with alcohol use disorder, and history of alcohol withdrawal admitted for GI bleed. Patient is seen by me today during rounds 1. On Levophed, titrating down, maintain map above 65. IV hydration. Pending stabilization for GI to scope. Continue with octreotide and PPI drip 2. Levophed titrating down and off, turned on again overnight now running on to. Turned off during rounds. Called patient's son [phone] as per patient's request as he is the power of eclectic doctor to get consent for EGD. 3. Status post EGD, duodenitis with for his classification C duodenal ulcer, erosive gastritis and hiatal hernia. Continue levo today we will use IV bolus to keep blood pressure up, DC octreotide and Protonix IV drip switch to Protonix IV push and sucralfate per GI. Social service consult for smoking cessation and alcohol cessation. Downgrade to the OU Total critical care time spent on this patient more than 30 minutes including evaluation, chart review, formulating plan and communication with team, excluding any procedures Reviewed: Care Plan, H&P, Labs, Medications, Previous Orders, Radiology Changes from previous H/P or p: No Changes Objective Vitals Vital Signs Date Time Temp Pulse Resp B/P (MAP) Pulse Ox O2 Delivery O2 Flow Rate FiO2 03/31/24 08:00 98.2 83 122/65 (84) 96 98.2 03/31/24 06:15 18 03/31/24 06:00 Nasal Cannula* 2 28 Intake/Output Intake and Output 03/31/24 07:00 Intake Total 4179.582 ml Output Total 1900 ml Balance 2279.582 ml Intake Oral 900 ml IV Total 3279.582 ml Output Urine Total 1900 ml Exam Alert, oriented x3 PERRLA Right IJ TLC No JVD Clear breath sounds bilaterally S1-S2 regular rate Abdomen soft nontender Equal strength bilaterally on upper and lower extremities No lower extremity edema Medications Current Medications Medications Dose Ordered Sig/Peg Route Start Time Stop Time Status Last Admin Dose Admin Folic Acid 1 mg/ Magnesium Sulfate 8 meq/ Multivitamins 10 ml/Thiamine HCl 100 mg/Sodium Chloride 1,013.2 ml @ 126.247 mls/hr DAILY@1800 INJ 03/28/24 18:00 03/30/24 17:25 126.247 MLS/HR Sodium Chloride 1,000 ml @ 85 mls/hr [id number] IV 03/27/24 21:30 03/30/24 08:53 85 MLS/HR Pantoprazole Sodium 50 ml @ 10 mls/hr Q5H IV 03/27/24 21:30 03/31/24 00:30 10 MLS/HR Diagnostic Test (Pha) 1 strip Q6HR 03/28/24 00:00 03/31/24 05:50 1 STRIP Insulin Human Regular Q6HR SC 03/28/24 00:00 03/31/24 05:45 8 UNITS Dextrose 50 ml UD PRN IV 03/27/24 21:30 Ondansetron HCl 4 mg Q4HP PRN IV 03/27/24 21:30 Nitroglycerin 0.4 mg Q5MINP PRN SL 03/27/24 21:30 Morphine Sulfate 2 mg Q30M PRN IV 03/27/24 21:30 Norepinephrine Bitartrate 250 ml @ 3.75 mls/hr Q24H IV 03/28/24 12:15 03/31/24 02:41 3.75 MLS/HR Thiamine HCl 100 mg DAILY IV 03/29/24 10:00 03/30/24 09:03 100 MG Folic Acid 1 mg/ Dextrose 50.2 ml @ 200 mls/hr Q16M INJ 03/28/24 14:30 Cancel Lorazepam 1 mg Q2HPRN PRN IV 03/28/24 14:30 03/29/24 17:42 1 MG Octreotide Acetate 500 mcg/ Dextrose 100 ml @ 10 mls/hr Q10H IV 03/28/24 17:30 03/30/24 22:57 10 MLS/HR Ertapenem 1 gm/ Sodium Chloride 50 ml @ 100 mls/hr DAILY IV 03/29/24 10:00 03/30/24 09:08 100 MLS/HR Sucralfate 1 gm QID@0600,1130,1700,2200 PO 03/30/24 17:00 03/30/24 21:18 1 GM Folic Acid 1 mg DAILY PO 03/31/24 10:00 Ferrous Sulfate 325 mg BIDWM PO 03/30/24 18:00 03/30/24 17:25 325 MG Laboratory Results Laboratory Tests 03/31/24 04:53 Chemistry Test 03/31/24 04:53 Calcium Level 7.4 mg/dL (8.7-10.4) L Urinalysis Test 03/27/24 19:01 Urine Color Light-orange (Yellow) Urine Clarity Clear (Clear) Urine pH 5.5 (5.0-9.0) Urine Specific [place] 1.017 (1.001-1.035) Urine Protein Negative (Negative) Urine Ketones Trace (Negative) Urine Blood Negative /uL (Negative) Urine Nitrite Negative (Negative) Urine Bilirubin Negative (Negative) Urine Urobilinogen Normal mg/dL (Negative) Urine Leukocyte Esterase Negative /uL (Negative) Urine RBC 2 /hpf (0 - 3) Urine WBC 1 /hpf (0 - 3) Urine Squamous Epithelial Cells Few /hpf (<5) Urine Bacteria Few /hpf (None Seen) H Urine Hyaline Casts Few /lpf (0 - 2) Urine Mucus Few (None Seen) Urine Sperm Present /hpf (None Seen) Urine Glucose Normal mg/dL (Normal) Microbiology Microbiology Date/Time Source Procedure Growth Status 03/30/24 09:28 Nose MRSA Screen - Final Complete 03/27/24 22:40 Blood Blood Culture - Preliminary NO GROWTH AFTER 72 HOURS OF INCUBATION. Resulted Assessment/Plan Assessment/Plan Possible hemorrhagic shock, can not rule out septic shock Upper GI bleed, status post EGD, gastropathy gastritis, duodenitis with force see ulcer, no active bleeding Alcohol use disorder History of alcohol withdrawal Possible cirrhosis Hypokalemia Macrocytic anemia Elevated INR Transaminitis Admit to ICU TLC placed in left IJ Discontinue vanc, continue with ertapenem IV NS bolus GI consult appreciated, stabilization prior to scope Switch PPI to Protonix 40 IV b.i.d. Sucralfate for GI Discontinue octreotide DC levo Removed TLC tomorrow Social service consult for alcohol and smoking cessation Transfuse to keep hemoglobin above7 Collect blood culture H&H daily CIWA protocol Librium taper P.r.n. Ativan Keep potassium 4, phosphorus 3,magnesium2 Strict I&O Daily weights Keep him blood glucose between 150-200 Prognosis poor Condition critical Power of eclectic doctor Josseline Berg (son) [phone] Code status full code Plan discussed with: Patient My Orders Orders - YUE MELGOZA MD Procedure Category Date Status Time Pantoprazole PHA 03/31/24 Logged (Protonix) 10:00 Insulin Lantus PHA 03/31/24 Logged (Glargine) (Lantus) 08:45 Potassium Effervesent PHA 03/31/24 Logged Tab (Klor-Con/Ef) 08:45 Date of Service: Mar 31, 2024 Billing Provider: YUE MELGOZA MD Common Visit Codes: [id number] INP/OBS CARE(HIGH), [id number] CARE 30-74 MIN YUE MELGOZA MD Mar 31, 2024 08:42
[2024-03-31] MEDS: PANTOPRAZOLE 40 MG/10 ML VIAL INJ IV SCH (09:05)
[2024-03-31] MEDS: FOLIC ACID 1 MG TAB PO SCH (09:05)
[2024-03-31] MEDS: POTASSIUM EFFERVESENT TAB 25 MEQ PO ONE (09:06)
[2024-03-31] MEDS: INSULIN LANTUS (GLARGINE) 1 /0.01ml (100units/ml) SC SCH (09:07)
[2024-03-31] MEDS: MAGNESIUM OXIDE 400 MG TAB PO SCH (17:20)
[2024-03-31] MEDS: MULTIPLE VITAMIN TAB PO SCH (17:20)
[2024-03-31] MEDS ORDERED: MULTIPLE VITAMIN TAB PO ONE (18:00)
[2024-03-31] MEDS ORDERED: MAGNESIUM OXIDE 400 MG TAB PO ONE (18:00)
[2024-03-31] MEDS ORDERED: THIAMINE HCL 100 MG TAB PO ONE (18:00)
[2024-03-31] MEDS ORDERED: FOLIC ACID 1 MG TAB PO ONE (18:00)
--- NOTE | 2024-03-31 18:01 | DVHPN2 ---
Progress Note Date Seen: Mar 31, 2024 Resident Creating Document: CISCO DOMINGUEZ RESIDENT Medical Necessity Reason Pt with a Central, PICC or Fol: Yes The following are medically ne: PICC Line, Clark Catheter Medical Necessity Reason This is a 63-year-old male with a history of diabetes, and alcohol abuse who was admitted with coffee-ground emesis. Patient has no prior history of GI bleed. He drinks beer daily heavily, but denied any history of melena. In the ED patient was found to have anemia with a hemoglobin level of 10.7, hematocrit of 31.3, and platelet level of 164. Patient admitted for anemia likely from the upper GI as well as chronic disease with macrocytosis due to nutritional deficiencies associated with his alcohol abuse history. He denies any fevers or chills, chest pain or shortness of breath. Patient did have leukocytosis as well. Subjective Review of Systems Constitutional: No fever no chills no feeling of malaise HEENT: No headache, no ear pain, no ear discharges no conjunctivitis or scleral icterus Cardiovascular: Denies chest pain, palpitation, orthopnea, PND, pedal edema Respiratory: Patient denies cough, sputum production, shortness of breath, hemoptysis, GI: patient is status post EGD. Evidence of varices, but no bleeding. : Denies dysuria or hematuria Endocrine: Denies history of hypothyroidism Remy: no easy bruising, no bleeding disorders, epistasis, Psych: Denies depression, carlo, suicidal ideation Objective vital signs Vital Sign Date Time Temp Pulse Resp B/P (MAP) Pulse Ox O2 Delivery O2 Flow Rate FiO2 03/31/24 15:15 96 17 109/55 (73) 96 03/31/24 14:00 Nasal Cannula* 2 28 03/31/24 12:00 98.8 98.8 Total Intake and Output 03/30/24 03/30/24 03/31/24 14:59 22:59 06:59 Intake Total 938.75 ml 1971.955 ml 1377.627 ml Output Total 1200 ml 700 ml Balance 938.75 ml 771.955 ml 677.627 ml medications Current Medications Medications Dose Ordered Sig/Peg Route Start Time Stop Time Status Last Admin Dose Admin Folic Acid 1 mg/ Magnesium Sulfate 8 meq/ Multivitamins 10 ml/Thiamine HCl 100 mg/Sodium Chloride 1,013.2 ml @ 126.247 mls/hr DAILY@1800 INJ 03/28/24 18:00 03/31/24 17:59 03/30/24 17:25 126.247 MLS/HR Sodium Chloride 1,000 ml @ 85 mls/hr [id number] IV 03/27/24 21:30 03/31/24 10:12 85 MLS/HR Diagnostic Test (Pha) 1 strip Q6HR 03/28/24 00:00 03/31/24 17:20 1 STRIP Insulin Human Regular Q6HR SC 03/28/24 00:00 03/31/24 17:23 2 UNITS Dextrose 50 ml UD PRN IV 03/27/24 21:30 Ondansetron HCl 4 mg Q4HP PRN IV 03/27/24 21:30 Nitroglycerin 0.4 mg Q5MINP PRN SL 03/27/24 21:30 Morphine Sulfate 2 mg Q30M PRN IV 03/27/24 21:30 Thiamine HCl 100 mg DAILY IV 03/29/24 10:00 03/31/24 09:07 100 MG Folic Acid 1 mg/ Dextrose 50.2 ml @ 200 mls/hr Q16M INJ 03/28/24 14:30 Cancel Lorazepam 1 mg Q2HPRN PRN IV 03/28/24 14:30 03/29/24 17:42 1 MG Octreotide Acetate 500 mcg/ Dextrose 100 ml @ 10 mls/hr Q10H IV 03/28/24 17:30 03/31/24 07:35 10 MLS/HR Ertapenem 1 gm/ Sodium Chloride 50 ml @ 100 mls/hr DAILY IV 03/29/24 10:00 03/31/24 09:07 100 MLS/HR Sucralfate 1 gm QID@0600,1130,1700,2200 PO 03/30/24 17:00 03/31/24 17:20 1 GM Folic Acid 1 mg DAILY PO 03/31/24 10:00 03/31/24 09:05 1 MG Ferrous Sulfate 325 mg BIDWM PO 03/30/24 18:00 03/31/24 17:20 325 MG Pantoprazole Sodium 40 mg BID IV 03/31/24 10:00 03/31/24 09:05 40 MG Insulin Glargine 9 units QAM SC 03/31/24 08:45 03/31/24 09:07 9 UNITS Multivitamins 1 tab DAILY PO 03/31/24 18:00 03/31/24 17:20 1 TAB Magnesium Oxide 400 mg DAILY PO 03/31/24 18:00 03/31/24 17:20 400 MG Examination General examination-patient is alert and oriented x3 HEENT- PERRLA, no icterus sclera Cardiovascular- S1-S2 audible, rate and rhythm regular, no murmur Respiratory- CTAB, no wheeze or rhonchi Gastrointestinal-abdomen abdomen is soft and nontender, patient is status post EGD yesterday. Had his fall 1st bowel movement this morning during my round it was dark in color this is likely due to the iron tablets that I gave to the patient we will continue to follow Musculoskeletal-Equal strength bilaterally on upper and lower extremities Lower extremity- no leg edema Psychiatry- denies depression or SI or HI Skin- jaundice or rashes noted laboratory and microbiology Laboratory Tests 03/31/24 04:53 Test 03/31/24 04:53 Range/Units Serum Glucose 258 #H 74-106 mg/dL Microbiology Date/Time Source Procedure Growth Status 03/30/24 09:28 Nose MRSA Screen - Final Complete 03/27/24 22:40 Blood Blood Culture - Preliminary NO GROWTH AFTER 72 HOURS OF INCUBATION. Resulted Problem List/Assessment/Plan Problem List/Assessment/Plan 1. Anemia and upper GI bleed status post EGD --> Moderate to severe duodenitis with postbulbar superficial duodenal ulcers Mario classification C with no active bleeding --> Moderate gastropathy gastritis and antral gastric erosions --> Sliding-type hiatal hernia with grade B erosive esophagitis 2. Alcohol abuse--> Extensive education on alcohol cessation 3. Transaminitis--> Trending down 4. leukocytosis--> Trending down 5. Hepatomegaly Plan Continue protonix 40 mg bid and three Carafate suspension 1 g p.o. 4 times a day Soft mechanical DC aspirin NSAIDs, smoking, alcohol Recommended out patient follow up in the GI clinic with Dr. Lassiter Goal of care discussed for more than 19 minutes: Full code Case and plan discussed with Dr. Lassiter Plan discussed with: Patient, Other (Nurses) Dietary Evaluation Review Comments: Avoid aocohol, join a rehab program. Advance diet to as tolerated after NPO and any needed procedures. Monitor PO intake to meet 75% of his needs Expected Outcomes/Goals: Recovered alcoholic. CISCO DOMINGUEZ RESIDENT Mar 31, 2024 18:01
[2024-04-01] VITALS (24 sets, daily range): BP systolic 82–135; BP diastolic 28–70; PULSE 56–78; RESP 12–22; TEMP 97.9–98.7; O2SAT 89–100
[2024-04-01] MEDS: SODIUM CHLORIDE 0.9% 500 ML IV ONE (05:00)
[2024-04-01] MEDS ORDERED: NOREPINEPHRINE 8 MG/250ML KIT 250 ML IV SCH (06:15)
--- NOTE | 2024-04-01 08:38 | DVHPN2 ---
Subjective 63-year-old male with alcohol use disorder, and history of alcohol withdrawal admitted for GI bleed. Patient is seen by me today during rounds 1. On Levophed, titrating down, maintain map above 65. IV hydration. Pending stabilization for GI to scope. Continue with octreotide and PPI drip 2. Levophed titrating down and off, turned on again overnight now running on to. Turned off during rounds. Called patient's son [phone] as per patient's request as he is the power of commonwealth attorney to get consent for EGD. 3. Status post EGD, duodenitis with for his classification C duodenal ulcer, erosive gastritis and hiatal hernia. Continue levo today we will use IV bolus to keep blood pressure up, DC octreotide and Protonix IV drip switch to Protonix IV push and sucralfate per GI. Social service consult for smoking cessation and alcohol cessation. Downgrade to the OU 4. patient took out TLC overnight, hypotensive episode resolved with IV bolus, levo was not restarted. starting midodrine and bolus + maintenance. downgrade to tele. Total critical care time spent on this patient more than 30 minutes including evaluation, chart review, formulating plan and communication with team, excluding any procedures Reviewed: Care Plan, H&P, Labs, Medications, Previous Orders, Radiology Changes from previous H/P or p: No Changes Objective Vitals Vital Signs Date Time Temp Pulse Resp B/P (MAP) Pulse Ox O2 Delivery O2 Flow Rate FiO2 04/01/24 08:01 58 19 110/53 (72) 96 04/01/24 07:00 98.3 98.3 04/01/24 06:00 Nasal Cannula* 2 28 Intake/Output Intake and Output 04/01/24 07:00 Intake Total 3305 ml Balance 3305 ml Intake Oral 500 ml IV Total 2805 ml # Voids 8 # Bowel Movements 4 Exam Alert, oriented x3 PERRLA no hematoma on RIJ, wound from TLC suture No JVD Clear breath sounds bilaterally S1-S2 regular rate Abdomen soft nontender Equal strength bilaterally on upper and lower extremities no asterixis No lower extremity edema Medications Current Medications Medications Dose Ordered Sig/Peg Route Start Time Stop Time Status Last Admin Dose Admin Sodium Chloride 1,000 ml @ 85 mls/hr [id number] IV 03/27/24 21:30 04/01/24 05:55 85 MLS/HR Diagnostic Test (Pha) 1 strip Q6HR 03/28/24 00:00 04/01/24 06:16 1 STRIP Insulin Human Regular Q6HR SC 03/28/24 00:00 04/01/24 06:15 2 UNITS Dextrose 50 ml UD PRN IV 03/27/24 21:30 Ondansetron HCl 4 mg Q4HP PRN IV 03/27/24 21:30 Nitroglycerin 0.4 mg Q5MINP PRN SL 03/27/24 21:30 Morphine Sulfate 2 mg Q30M PRN IV 03/27/24 21:30 Thiamine HCl 100 mg DAILY IV 03/29/24 10:00 03/31/24 09:07 100 MG Folic Acid 1 mg/ Dextrose 50.2 ml @ 200 mls/hr Q16M INJ 03/28/24 14:30 Cancel Lorazepam 1 mg Q2HPRN PRN IV 03/28/24 14:30 03/29/24 17:42 1 MG Octreotide Acetate 500 mcg/ Dextrose 100 ml @ 10 mls/hr Q10H IV 03/28/24 17:30 04/01/24 07:41 10 MLS/HR Ertapenem 1 gm/ Sodium Chloride 50 ml @ 100 mls/hr DAILY IV 03/29/24 10:00 03/31/24 09:07 100 MLS/HR Sucralfate 1 gm QID@0600,1130,1700,2200 PO 03/30/24 17:00 04/01/24 06:16 1 GM Folic Acid 1 mg DAILY PO 03/31/24 10:00 03/31/24 09:05 1 MG Ferrous Sulfate 325 mg BIDWM PO 03/30/24 18:00 04/01/24 07:40 325 MG Pantoprazole Sodium 40 mg BID IV 03/31/24 10:00 03/31/24 21:54 40 MG Insulin Glargine 9 units QAM SC 03/31/24 08:45 04/01/24 06:16 9 UNITS Multivitamins 1 tab DAILY PO 03/31/24 18:00 03/31/24 17:20 1 TAB Magnesium Oxide 400 mg DAILY PO 03/31/24 18:00 03/31/24 17:20 400 MG Norepinephrine Bitartrate 250 ml @ 3.75 mls/hr Q24H IV 04/01/24 06:15 Laboratory Results Laboratory Tests 03/31/24 04:53 Urinalysis Test 03/27/24 19:01 Urine Color Light-orange (Yellow) Urine Clarity Clear (Clear) Urine pH 5.5 (5.0-9.0) Urine Specific [place] 1.017 (1.001-1.035) Urine Protein Negative (Negative) Urine Ketones Trace (Negative) Urine Blood Negative /uL (Negative) Urine Nitrite Negative (Negative) Urine Bilirubin Negative (Negative) Urine Urobilinogen Normal mg/dL (Negative) Urine Leukocyte Esterase Negative /uL (Negative) Urine RBC 2 /hpf (0 - 3) Urine WBC 1 /hpf (0 - 3) Urine Squamous Epithelial Cells Few /hpf (<5) Urine Bacteria Few /hpf (None Seen) H Urine Hyaline Casts Few /lpf (0 - 2) Urine Mucus Few (None Seen) Urine Sperm Present /hpf (None Seen) Urine Glucose Normal mg/dL (Normal) Microbiology Microbiology Date/Time Source Procedure Growth Status 03/30/24 09:28 Nose MRSA Screen - Final Complete 03/27/24 22:40 Blood Blood Culture - Preliminary NO GROWTH AFTER 72 HOURS OF INCUBATION. Resulted Labs and/or images reviewed: Labs reviewed by me, Image(s) reviewed by me Assessment/Plan Assessment/Plan Possible hemorrhagic shock, can not rule out septic shock, improved hypotension likely from cirrhosis Upper GI bleed, status post EGD, gastropathy gastritis, duodenitis with force see ulcer, no active bleeding Alcohol use disorder History of alcohol withdrawal Possible cirrhosis Hypokalemia Macrocytic anemia Elevated INR Transaminitis downgrade to tele TLC removed Discontinue vanc, continue with ertapenem IV NS bolus GI consult appreciated, stabilization prior to scope Switch PPI to Protonix 40 IV b.i.d. Sucralfate for GI Discontinue octreotide DC levo Social service consult for alcohol and smoking cessation Transfuse to keep hemoglobin above7 Collect blood culture, NGTD H&H daily out of window for withdrawal P.r.n. Ativan Keep potassium 4, phosphorus 3,magnesium2 Strict I&O iv bolus and maintenance Daily weights midodrine 10mg TID Keep him blood glucose between 150-200 Prognosis poor Condition critical Power of commonwealth attorney Josseline Berg (son) [phone] Code status full code Plan discussed with: Patient My Orders Orders - YUE MELGOZA MD Procedure Category Date Status Time Insulin Lantus PHA 03/31/24 In Process (Glargine) (Lantus) 08:45 Transfer Orders XFER 03/31/24 Transmitted 08:42 Midodrine Tablet PHA 04/01/24 Logged (Proamatine Tablet) 12:00 Transfer Orders XFER 04/01/24 Transmitted 08:28 Complete Blood Count LAB 04/01/24 Logged 08:28 Basic Metabolic Panel LAB 04/01/24 Logged 08:28 Magnesium LAB 04/01/24 Logged 08:28 Phosphorus LAB 04/01/24 Logged 08:28 Date of Service: Apr 01, 2024 Billing Provider: YUE MELGOZA MD Common Visit Codes: [id number] INP/OBS CARE(HIGH), [id number] CARE 30-74 MIN YUE MELGOZA MD Apr 01, 2024 08:38
[2024-04-01] MEDS: SODIUM CHLORIDE 0.9% 1,000 ML IV ONE ×2 (09:36→13:45)
[2024-04-01] MEDS ORDERED: THIAMINE HCL 100 MG TAB PO SCH (10:00)
[2024-04-01] MEDS ORDERED: MAGNESIUM OXIDE 400 MG TAB PO SCH (10:00)
[2024-04-01] MEDS ORDERED: FOLIC ACID 1 MG TAB PO SCH (10:00)
[2024-04-01] MEDS ORDERED: MULTIPLE VITAMIN TAB PO SCH (10:00)
[2024-04-01 10:38] LABS: Chloride 112 mmol/L (98-107); Potassium 2.8 mmol/L (3.5-5.1); Sodium 142 mmol/L (136-145)
[2024-04-01 10:39] LABS: Anion Gap 4 (5-15); Calcium 7.3 mg/dL (8.7-10.4); Carbon Dioxide 26 mmol/L (20-31)
[2024-04-01 10:42] LABS: Basophils # (auto) 0 10 ^3/uL (0-0.2); Basophils % (auto) 0.2 % (0.0-2.0); Eosinophils # (auto) 0.2 10 ^3/uL (0-0.8); Hemoglobin 7.7 g/dL (13.5-17.5); Monocytes # (auto) 1.8 10 ^3/uL (0-1.3); Red Cell Distribution Width 13.7 % (11.8-14.3); White Blood Cell 13.2 10^3/uL (4.4-10.8)
[2024-04-01 10:44] LABS: BUN/Creatinine Ratio 11.1 (10.0-20.0); Blood Urea Nitrogen 6 mg/dL (9-23); Glucose 172 mg/dL (74-106)
[2024-04-01 10:45] LABS: Eosinophils % (auto) 1.6 % (0.0-7.0); Hematocrit 22.4 % (41.0-53.0); Lymphocytes # (auto) 1.9 10 ^3/uL (0.4-5.4); Lymphocytes % (auto) 14.1 % (10.0-50.0); Magnesium 1.6 mg/dL (1.6-2.6); Mean Corpuscular Hemoglobin 36.1 pg (28.0-32.0); Mean Corpuscular Hgb Conc. 34.4 g/dL (32.0-36.0); Mean Corpuscular Volume 105.1 fL (80.0-100.0); Monocytes % (auto) 13.5 % (0.0-12.0); Neutrophils # (auto) 9.3 10 ^3/uL (1.6-8.6); Neutrophils % (auto) 70.6 % (37.0-80.0); Platelet Count (auto) 112 10^3/uL (140-450); Red Blood Cells 2.13 10^6/uL (4.5-5.90)
[2024-04-01 10:46] LABS: Phosphorus 1.6 mg/dL (2.4-5.1)
[2024-04-01] MEDS: MIDODRINE HCL 10 MG TAB PO SCH (11:37)
[2024-04-01] MEDS: POTASSIUM EFFERVESENT TAB 25 MEQ PO ONE (11:37)
[2024-04-01] MEDS: MAGNESIUM SULFATE 1GM/100ML 100 ML IV SCH (11:38)
[2024-04-01] MEDS: POTASSIUM CHL 20MEQ/100ML 100 ML IV SCH (13:42)
--- NOTE | 2024-04-01 17:47 | DVHPN2 ---
Progress Note Date Seen: Apr 01, 2024 Resident Creating Document: CISCO DOMINGUEZ Medical Necessity Reason Pt with a Central, PICC or Fol: Yes The following are medically ne: PICC Line, Clark Catheter Medical Necessity Reason S/P EGD for coffee-ground emesis. Downgrade to tele per PRIMARY team Subjective Review of Systems Constitutional: No fever no chills no feeling of malaise HEENT: No headache, no ear pain, no ear discharges no conjunctivitis or scleral icterus Cardiovascular: Denies chest pain, palpitation, orthopnea, PND, pedal edema Respiratory: Patient denies cough, sputum production, shortness of breath, hemoptysis, GI: S/P EGD. Evidence of varices, but no bleeding. : Denies dysuria or hematuria Endocrine: Denies history of hypothyroidism Remy: no easy bruising, no bleeding disorders, epistasis, Psych: Denies depression, carlo, suicidal ideation Objective vital signs Vital Sign Date Time Temp Pulse Resp B/P (MAP) Pulse Ox O2 Delivery O2 Flow Rate FiO2 04/01/24 17:00 69 18 120/63 (82) 98 04/01/24 16:00 98.2 98.2 04/01/24 16:00 Nasal Cannula* 2 28 Total Intake and Output 03/31/24 03/31/24 04/01/24 15:00 23:00 07:00 Intake Total 870 ml 1260 ml 1175 ml Balance 870 ml 1260 ml 1175 ml medications Current Medications Medications Dose Ordered Sig/Peg Route Start Time Stop Time Status Last Admin Dose Admin Sodium Chloride 1,000 ml @ 85 mls/hr [id number] IV 03/27/24 21:30 04/01/24 05:55 85 MLS/HR Diagnostic Test (Pha) 1 strip Q6HR 03/28/24 00:00 04/01/24 11:38 1 STRIP Insulin Human Regular Q6HR SC 03/28/24 00:00 04/01/24 11:49 2 UNITS Dextrose 50 ml UD PRN IV 03/27/24 21:30 Ondansetron HCl 4 mg Q4HP PRN IV 03/27/24 21:30 Nitroglycerin 0.4 mg Q5MINP PRN SL 03/27/24 21:30 Morphine Sulfate 2 mg Q30M PRN IV 03/27/24 21:30 Thiamine HCl 100 mg DAILY IV 03/29/24 10:00 04/01/24 09:36 100 MG Folic Acid 1 mg/ Dextrose 50.2 ml @ 200 mls/hr Q16M INJ 03/28/24 14:30 Cancel Lorazepam 1 mg Q2HPRN PRN IV 03/28/24 14:30 03/29/24 17:42 1 MG Ertapenem 1 gm/ Sodium Chloride 50 ml @ 100 mls/hr DAILY IV 03/29/24 10:00 04/01/24 09:45 100 MLS/HR Sucralfate 1 gm QID@0600,1130,1700,2200 PO 03/30/24 17:00 04/01/24 16:48 1 GM Folic Acid 1 mg DAILY PO 03/31/24 10:00 04/01/24 09:36 1 MG Ferrous Sulfate 325 mg BIDWM PO 03/30/24 18:00 04/01/24 07:40 325 MG Pantoprazole Sodium 40 mg BID IV 03/31/24 10:00 04/01/24 09:36 40 MG Insulin Glargine 9 units QAM SC 03/31/24 08:45 04/01/24 06:16 9 UNITS Multivitamins 1 tab DAILY PO 03/31/24 18:00 04/01/24 09:36 1 TAB Magnesium Oxide 400 mg DAILY PO 03/31/24 18:00 04/01/24 09:36 400 MG Midodrine 10 mg TID@0600,1200,1800 PO 04/01/24 12:00 04/01/24 11:37 10 MG Ferric Sodium Gluconate Complex 110 ml @ 110 mls/hr DAILY@1200 IV 04/02/24 12:00 04/06/24 12:59 Examination General examination-patient is alert and oriented x3 HEENT- PERRLA, no icterus sclera Cardiovascular- S1-S2 audible, rate and rhythm regular, no murmur Respiratory- CTAB, no wheeze or rhonchi Abdomen- Distended, hard. dry. BS+, Hepatomegaly Musculoskeletal-Equal strength bilaterally on upper and lower extremities Lower extremity- +1 pitting edema Psychiatry- denies depression or SI or HI Skin- dry laboratory and microbiology Laboratory Tests 04/01/24 10:17 Test 04/01/24 10:17 Range/Units Serum Glucose 172 H 74-106 mg/dL Microbiology Date/Time Source Procedure Growth Status 03/30/24 09:28 Nose MRSA Screen - Final Complete 03/27/24 22:40 Blood Blood Culture - Preliminary NO GROWTH AFTER 72 HOURS OF INCUBATION. Resulted Problem List/Assessment/Plan Problem List/Assessment/Plan 1. Anemia and upper GI bleed status post EGD --> Moderate to severe duodenitis with postbulbar superficial duodenal ulcers Mario classification C with no active bleeding --> Moderate gastropathy gastritis and antral gastric erosions --> Sliding-type hiatal hernia with grade B erosive esophagitis --> Hgb/Hct: 7.7/22.4 2. Alcohol abuse--> Extensive education on alcohol cessation 3. Transaminitis--> Trending down 4. leukocytosis--> Trending down 5. Hepatomegaly Plan IV iron given Monitor lab closely Continue protonix 40 mg bid and three Carafate suspension 1 g p.o. 4 times a day Soft mechanical DC aspirin NSAIDs, smoking, alcohol Downgrade to tele per PRIMARY team Recommended outpatient follow up in the GI clinic with Dr. Lassiter for outpatient colonoscopy Goal of care discussed for more than 19 minutes: Full code Case and plan discussed with Dr. Lassiter Plan discussed with: Patient Dietary Evaluation Review Comments: Avoid aocohol, join a rehab program. Advance diet to as tolerated after NPO and any needed procedures. Monitor PO intake to meet 75% of his needs Expected Outcomes/Goals: Recovered alcoholic. CISCO DOMINGUEZ RESIDENT Apr 01, 2024 17:47
[2024-04-02] VITALS (7 sets, daily range): BP systolic 96–115; BP diastolic 47–65; PULSE 68–86; RESP 18–20; TEMP 98–100.2; O2SAT 92–100
--- NOTE | 2024-04-02 08:40 | MEDREC ---
[facility] ASP Intervention Section I [facility] ASP Intervention: Review courses of therapy (PATIENT HAS BEEN ON ANTIBIOTICS FOR EMPIRIC TREATMENT. FINAL BLOOD CULTURE RESULTED NO GROWTH. PLEASE CONSIDER DISCONTINUE ANTIBIOTICS IF THERE IS NO MORE CONCERN FOR INFECTION) JIHAN PITT Apr 02, 2024 08:40
[2024-04-02 09:59] LABS: Basophils # (auto) 0 10 ^3/uL (0-0.2); Basophils % (auto) 0.3 % (0.0-2.0); Eosinophils % (auto) 1.2 % (0.0-7.0); Hemoglobin 8.7 g/dL (13.5-17.5); Neutrophils # (auto) 8.7 10 ^3/uL (1.6-8.6); White Blood Cell 12.8 10^3/uL (4.4-10.8)
[2024-04-02 10:01] LABS: Eosinophils # (auto) 0.1 10 ^3/uL (0-0.8); Hematocrit 25.4 % (41.0-53.0); Lymphocytes # (auto) 1.9 10 ^3/uL (0.4-5.4); Lymphocytes % (auto) 14.9 % (10.0-50.0); Mean Corpuscular Hemoglobin 36.3 pg (28.0-32.0); Mean Corpuscular Hgb Conc. 34.4 g/dL (32.0-36.0); Mean Corpuscular Volume 105.6 fL (80.0-100.0); Monocytes % (auto) 15.4 % (0.0-12.0); Neutrophils % (auto) 68.2 % (37.0-80.0); Platelet Count (auto) 129 10^3/uL (140-450); Red Cell Distribution Width 14.1 % (11.8-14.3)
[2024-04-02 10:44] LABS: Alanine Aminotransferase 53 U/L (7-40); Albumin 2.4 g/dL (3.2-4.8); Alkaline Phosphatase 146 U/L (46-116); Anion Gap 5 (5-15); Aspartate Aminotransferase 93 U/L (13-40); Calcium 7.3 mg/dL (8.7-10.4); Carbon Dioxide 25 mmol/L (20-31); Chloride 111 mmol/L (98-107); Glucose 153 mg/dL (74-106); Sodium 141 mmol/L (136-145)
[2024-04-02 10:45] LABS: Total Protein 4.9 g/dL (5.7-8.2)
[2024-04-02 10:57] LABS: BUN/Creatinine Ratio 9.6 (10.0-20.0); Blood Urea Nitrogen < 5 mg/dL (9-23)
[2024-04-02] MEDS: SODIUM FERR GLUC 62.5MG/5ML 110 ML IV SCH (12:10)
[2024-04-02] MEDS ORDERED: MIDO10TA3 PO ×2 (12:45→13:01)
[2024-04-02] MEDS ORDERED: PANT40TA2 PO ×2 (12:45→13:01)
[2024-04-02] MEDS ORDERED: SUCR1SUS26 PO ×2 (12:45→13:01)
--- NOTE | 2024-04-02 12:47 | DVHDS2 ---
Discharge Summary Date of Admission Mar 27, 2024 at 21:18 Date of Discharge: Apr 02, 2024 Labs/Diagnostic Data: Laboratory Results Test 04/02/24 11:44 04/02/24 09:35 04/01/24 10:17 03/29/24 15:05 POC Glucose 171 mg/dl (70-106) White Blood Count 12.8 10^3/uL (4.4-10.8) Red Blood Count 2.40 10^6/uL (4.5-5.90) Hemoglobin 8.7 g/dL (13.5-17.5) Hematocrit 25.4 % (41.0-53.0) Mean Corpuscular Volume 105.6 fL (80.0-100.0) Mean Corpuscular Hemoglobin 36.3 pg (28.0-32.0) Mean Corpuscular Hemoglobin Concent 34.4 g/dL (32.0-36.0) Red Cell Distribution Width 14.1 % (11.8-14.3) Platelet Count 129 10^3/uL (140-450) Mean Platelet Volume 8.6 fL (6.9-10.8) Neutrophils (%) (Auto) 68.2 % (37.0-80.0) Lymphocytes (%) (Auto) 14.9 % (10.0-50.0) Monocytes (%) (Auto) 15.4 % (0.0-12.0) Eosinophils (%) (Auto) 1.2 % (0.0-7.0) Basophils (%) (Auto) 0.3 % (0.0-2.0) Neutrophils # (Auto) 8.7 10 ^3/uL (1.6-8.6) Lymphocytes # (Auto) 1.9 10 ^3/uL (0.4-5.4) Monocytes # (Auto) 2.0 10 ^3/uL (0-1.3) Eosinophils # (Auto) 0.1 10 ^3/uL (0-0.8) Basophils # (Auto) 0 10 ^3/uL (0-0.2) Nucleated Red Blood Cells 0.0 % Sodium Level 141 mmol/L (136-145) Potassium Level 3.0 mmol/L (3.5-5.1) Chloride Level 111 mmol/L (98-107) Carbon Dioxide Level 25 mmol/L (20-31) Anion Gap 5 (5-15) Blood Urea Nitrogen < 5 mg/dL (9-23) Creatinine 0.52 mg/dL (0.700-1.30) Glomerular Filtration Rate Calc 113 mL/min (>90) BUN/Creatinine Ratio 9.6 (10.0-20.0) Serum Glucose 153 mg/dL (74-106) Calcium Level 7.3 mg/dL (8.7-10.4) Total Bilirubin 1.0 mg/dL (0.2-1.0) Aspartate Amino Transferase (AST) 93 U/L (13-40) Alanine Aminotransferase (ALT) 53 U/L (7-40) Alkaline Phosphatase 146 U/L (46-116) Total Protein 4.9 g/dL (5.7-8.2) Albumin 2.4 g/dL (3.2-4.8) Phosphorus Level 1.6 mg/dL (2.4-5.1) Magnesium Level 1.6 mg/dL (1.6-2.6) Ammonia 15 umol/L (11-32) Test 03/29/24 02:26 03/28/24 14:24 03/27/24 21:10 03/27/24 19:01 Random Vancomycin Level 17.4 ug/mL (5-10) Lactic Acid Level 1.3 mmol/L (0.4-2.0) Troponin I High Sensitivity 9 ng/L (</=54) Prothrombin Time 14.8 sec (9.3-11.8) Prothrombin Time INR 1.41 (0.9-1.15) Activated Partial Thromboplast Time 29.9 SEC (24.5-34.5) Urine Color Light-orange (Yellow) Urine Clarity Clear (Clear) Urine pH 5.5 (5.0-9.0) Urine Specific [place] 1.017 (1.001-1.035) Urine Protein Negative (Negative) Urine Ketones Trace (Negative) Urine Blood Negative /uL (Negative) Urine Nitrite Negative (Negative) Urine Bilirubin Negative (Negative) Urine Urobilinogen Normal mg/dL (Negative) Urine Leukocyte Esterase Negative /uL (Negative) Urine RBC 2 /hpf (0 - 3) Urine WBC 1 /hpf (0 - 3) Urine Squamous Epithelial Cells Few /hpf (<5) Urine Bacteria Few /hpf (None Seen) Urine Hyaline Casts Few /lpf (0 - 2) Urine Mucus Few (None Seen) Urine Sperm Present /hpf (None Seen) Urine Glucose Normal mg/dL (Normal) Test 03/27/24 13:41 Plasma/Serum Blood Alcohol < 3.0 mg/dL (<10) Other Laboratory Tests 04/02/24 09:35 Brief Hx & Hospital Course: 63-year-old male presents for evaluation of GI bleed. Patient reports a one day history of coffee-ground emesis. He reports being a heavy drinker and having his last drink yesterday prior to the event. CT abdomen without con shows no acute process. liver ultrasound shows gallbladder with sludge and dilated common bile duct. Labs show leukocytosis, anemia with hemoglobin 10, neutrophilia, macrocytosis, JAYLENE with creatinine 1.3, hyperkalemia, hyperbilirubinemia at 2.3. Patient is admitted for upper GI bleed, started on PPI b.i.d. he did require Levophed initially. Octreotide and PPI drips were continued. EGD is done showing duodenal ulcer, erosive gastritis and hiatal hernia. Levo and octreotide or discontinued and Protonix was switched to IV push and Carafate. Monitoring and started. Patient improves, without any further hematemesis or melena. Hemoglobin is stable. Plan is made with GI to follow-up outpatient. Oxygen is weaned off, he is saturating well on room air. See see list below for final discharge plan. diagnosis: hypotension likely from cirrhosis Upper GI bleed, status post EGD, gastropathy gastritis, duodenitis with force see ulcer, no active bleeding Alcohol use disorder History of alcohol withdrawal Possible cirrhosis Hypokalemia Macrocytic anemia Elevated INR Transaminitis discharge plan - start midodrine 10mg 3x/day -Continue protonix 40 mg 2x/day and three Carafate suspension 1g 4x/day - diet to remain Soft mechanical . avoid any aspirin NSAIDs, smoking, alcohol - f/u with GI outpatient - f/u with PCP for discharge review - continue other home meds not mentioned above. Visitation and planning required 35 minutes Condition at Discharge: Fair Final Diagnosis/Problems List Upper GI bleed, status post EGD, gastropathy gastritis, duodenitis Discharge Disposition: Home Discharge Instruct/Medications Diet: Cardiac 2g Na,low cholest Diet comment: low salt. Activity: No Restrictions, As Tolerated Follow Up/Referral: GI, PCP Medications: as below Discharge Statement: "Patient was advised to return to the ER or call 911 if any headaches, dizziness, shortness of breath, chest pain, abdominal pain, bleeding, fevers, or worsening of medical condition. Patient was counseled about treatment plan, medications, possible side effects, patientverbalized understanding. All questions were answered to the best of my ability. This discharge took greater then 30 minutes in planning, reviewing documentation, counseling the patient, and discussing with other team members." ASSESSMENT ASSESSMENT Assessment Upper GI bleed, status post EGD, gastropathy gastritis, duodenitis Date of Service: Apr 02, 2024 Billing Provider: AKASH WALKER MD Common Visit Codes: [id number] DISCH DAY >30min AKASH WALKER MD Apr 02, 2024 12:47
[2024-04-02] MEDS: POTASSIUM CHLORIDE 40 MEQ, LIDOCAINE 1% (LOCAL ANESTH.) 4 ML in SODIUM CHL 0.9% 250 ML IV ONE (14:05)
--- NOTE | 2024-04-02 20:27 | DVHPN2 ---
Progress Note Date Seen: Apr 02, 2024 Resident Creating Document: CISCO DOMINGUEZ RESIDENT Medical Necessity Reason Pt with a Central, PICC or Fol: Yes The following are medically ne: PICC Line, Clark Catheter Subjective Review of Systems Constitutional: No fever no chills no feeling of malaise HEENT: No headache, no ear pain, no ear discharges no conjunctivitis or scleral icterus Cardiovascular: Denies chest pain, palpitation, orthopnea, PND, pedal edema Respiratory: Patient denies cough, sputum production, shortness of breath, hemoptysis, GI: no nausea or vomiting : Denies dysuria or hematuria Endocrine: Denies history of hypothyroidism Remy: no easy bruising, no bleeding disorders, epistasis, Psych: Denies depression, carlo, suicidal ideation Objective vital signs Vital Sign Date Time Temp Pulse Resp B/P (MAP) Pulse Ox O2 Delivery O2 Flow Rate FiO2 04/02/24 17:01 100.2 86 18 111/65 (80) 92 100.2 04/02/24 08:05 Room Air* 0 21 Total Intake and Output 04/01/24 04/01/24 04/02/24 15:00 23:00 07:00 Intake Total 1780 ml 550 ml 390 ml Output Total 800 ml Balance 1780 ml 550 ml -410 ml medications Current Medications Medications Dose Ordered Sig/Peg Route Start Time Stop Time Status Last Admin Dose Admin Folic Acid 1 mg/ Dextrose 50.2 ml @ 200 mls/hr Q16M INJ 03/28/24 14:30 Cancel Examination General examination-patient is alert and oriented x3 HEENT- PERRLA, mild icterus sclera Cardiovascular- S1-S2 audible, rate and rhythm regular, no murmur Respiratory- CTAB, no wheeze or rhonchi Abdomen- Distended, hard. dry. BS+, Hepatomegaly, umbilical hernia Musculoskeletal-Equal strength bilaterally on upper and lower extremities Lower extremity- +1 pitting edema Psychiatry- denies depression or SI or HI Skin- dry laboratory and microbiology Laboratory Tests 04/02/24 09:35 Test 04/02/24 09:35 Range/Units Serum Glucose 153 H 74-106 mg/dL Microbiology Date/Time Source Procedure Growth Status 03/30/24 09:28 Nose MRSA Screen - Final Complete 03/27/24 22:40 Blood Blood Culture - Final NO GROWTH AFTER 5 DAYS OF INCUBATION. Complete Problem List/Assessment/Plan Problem List/Assessment/Plan 1. Anemia and upper GI bleed status post EGD --> Moderate to severe duodenitis with postbulbar superficial duodenal ulcers Mario classification C with no active bleeding --> Moderate gastropathy gastritis and antral gastric erosions --> Sliding-type hiatal hernia with grade B erosive esophagitis --> Hgb/Hct: 8.7/25.4 2. Alcohol abuse--> Extensive education on alcohol cessation 3. Transaminitis--> Trending down 4. leukocytosis--> Trending down 5. Hepatomegaly Plan Continue protonix 40 mg bid and three Carafate suspension 1 g p.o. 4 times a day Soft mechanical DC aspirin NSAIDs, smoking, alcohol Stable for discharge from GI standpoint Recommended outpatient follow up in the GI clinic with Dr. Lassiter for outpatient colonoscopy Goal of care discussed for more than 18 minutes: Full code Case and plan discussed with Dr. Lassiter Plan discussed with: Patient, Other Dietary Evaluation Review Comments: Avoid aocohol, join a rehab program. Advance diet to as tolerated after NPO and any needed procedures. Monitor PO intake to meet 75% of his needs Expected Outcomes/Goals: Recovered alcoholic. CISCO DOMINGUEZ RESIDENT Apr 02, 2024 20:27
== END 2024-04-02 17:45 | disposition home or self-care (01) | DRG 241 ==
LOC: ER 13:15 → EDBD 13:15 → TELE 21:18 → DOU IN ICU 03-29 18:50 → ICU CENTRL 03-29 20:45 → DOU IN ICU 03-31 17:16 → TELE-CENTR 04-01 18:03
PROVIDERS: ADMIT Student in an Organized Health Care Education/Training Program; ATTEND Student in an Organized Health Care Education/Training Program
PROC: 02HV33Z Insertion of Infusion Device into Superior Vena Cava, Percutaneous Approach (ICD-10-PCS; 2024-03-28)
PROC: 0DB68ZX Excision of Stomach, Via Natural or Artificial Opening Endoscopic, Diagnostic (ICD-10-PCS; 2024-03-30)
PROC: 0DB98ZX Excision of Duodenum, Via Natural or Artificial Opening Endoscopic, Diagnostic (ICD-10-PCS; principal; 2024-03-30 15:49)
DX: K29.01 Acute gastritis with bleeding (principal); N17.0 Acute kidney failure with tubular necrosis; K22.11 Ulcer of esophagus with bleeding; E44.0 Moderate protein-calorie malnutrition; K74.60 Unspecified cirrhosis of liver; I95.9 Hypotension, unspecified; R16.0 Hepatomegaly, not elsewhere classified; D53.9 Nutritional anemia, unspecified; E11.9 Type 2 diabetes mellitus without complications; K26.4 Chronic or unspecified duodenal ulcer with hemorrhage; D72.829 Elevated white blood cell count, unspecified; F17.210 Nicotine dependence, cigarettes, uncomplicated; E87.6 Hypokalemia; K31.9 Disease of stomach and duodenum, unspecified; K44.9 Diaphragmatic hernia without obstruction or gangrene; F10.130 Alcohol abuse with withdrawal, uncomplicated; R74.01 Elevation of levels of liver transaminase levels; E87.5 Hyperkalemia; Z79.4 Long term (current) use of insulin; Z79.899 Other long term (current) drug therapy; Y90.9 Presence of alcohol in blood, level not specified; Z68.27 Body mass index [BMI] 27.0-27.9, adult
CPT/HCPCS: 36415; 71045; 74176; 76705; 80048; 80053; 80202; 80320; 81001; 82140; 82565; 82962; 83605; 83735; 84100; 84484; 85025; 85610; 85730; 86850; 86900; 86901; 87040; 87081; 93306; 99291; G0378; J0692; J1335; J1815; J2003; J2470; J3480; J7060

== ENCOUNTER 2024-04-09 16:19 | Inpatient (IN) | payer MEDICAID ==
[~2024-04-09] VITALS: Ht 175.3 cm; Wt 87.0 kg
[~2024-04-09 16:19] MED LIST: MIDO10TA3 PO; PANT40TA2 PO; SUCR1SUS26 PO
[2024-04-09 18:45] VITALS: O2SAT 93
[2024-04-09] MEDS: ALBUTEROL SULF 2.5 MG/0.5ML(0.5%) NEB SOLN NEB ONE (18:45)
[2024-04-09] MEDS: IPRATROPIUM BROM 0.5 MG/2.5ML INH SOL NEB ONE (18:45)
--- NOTE | 2024-04-09 18:47 | ED.PDOC ---
History of Present Illness HPI Comments 63 y.o male presents to the ED for an evaluation of bilateral leg swelling associated with lower abdominal pain that started about one month ago. Patient was brought in by daughter who reported to the triage nurse that patient was diagnosed with liver cirrhosis one week ago, has had increased confusion and is still drinking and smoking heavily. Daughter is no longer with patient during assessment. Patient is a poor historian but is able to state feels generally weak and has had difficulty ambulating due to the leg swelling. He denies fever, nausea or vomiting. He does state he has had constipation. He denies dysuria. No further information obtained. Chief Complaint: General Weakness Time Seen by MD: 18:12 Primary Care Provider: NONE Reviewed Notes: Nurses Notes, Medications, Allergies Allergies: Coded Allergies: NO KNOWN ALLERGIES (Unverified , 03/15/16) Home Meds Active Scripts Sucralfate (CARAFATE SUSP) 1 Gm/10 Ml Ss, 10 ML PO QID for 30 Days, #1200 ML 1 Refill Prov:AKASH WALKER MD 04/02/24 Pantoprazole Sodium Sesquihydr (Protonix) 40 Mg Tab, 40 MG PO BID for 30 Days, #60 TAB 0 Refills Prov:AKASH WALKER MD 04/02/24 Midodrine Hcl (Midodrine Hcl) 10 Mg Tab, 10 MG PO TID for 30 Days, #90 TAB 0 Refills Prov:AKASH WALKER MD 04/02/24 Information Source: Patient Mode of Arrival: Wheelchair Severity: Moderate Timing: Months Duration: Since onset Past Medical History PAST MEDICAL HISTORY: DM, Liver Past Medical History (Other): Alcohol use disorder, gastritis, history of GI bleeding Surgical History: Denies all surgeries Family History Family History: Unknown Social History Smoker: Cigarettes Alcohol: Heavy Drugs: Denies Drug Use Lives In: Home Constitutional: denies: chills, diaphoresis, fatigue, fever, malaise, sweats, weakness, others EENTM: denies: blurred vision, double vision, ear bleeding, ear discharge, ear drainage, ear pain, ear ringing, eye pain, eye redness, hearing loss, mouth pain, mouth swelling, nasal discharge, nose bleeding, nose congestion, nose pain, photophobia, tearing, throat pain, throat swelling, voice changes, others Respiratory: denies: cough, hemoptysis, orthopnea, SOB at rest, shortness of breath, SOB with excertion, stridor, wheezing, others Cardiovascular: denies: chest pain, dizzy spells, diaphoresis, Dyspnea on exertion, edema, irregular heart beat, left arm pain, lightheadedness, palpitations, PND, syncope, others Gastrointestinal: reports: abdominal pain; denies: abdomen distended, blood streaked bowels, constipated, diarrhea, dysphagia, difficulty swallowing, hematemesis, melena, nausea, poor appetite, poor fluid intake, rectal bleeding, rectal pain, vomiting, others Genitourinary: denies: burning, dysuria, flank pain, frequency, hematuria, incontinence, penile discharge, penile sore, pain, testicle pain, testicle swelling, urgency, others Neurological: denies: dizziness, fainting, headache, left sided numbness, left sided weakness, numbness, paresthesia, pre-existing deficit, right sided numbness, right sided weakness, seizure, speech problems, tingling, tremors, weakness, others Musculoskeletal: reports: others (Bilateral leg swelling ); denies: back pain, gout, joint pain, joint swelling, muscle pain, muscle stiffness, neck pain Integumetry: denies: bruises, change in color, change in hair/nails, dryness, laceration, lesions, lumps, rash, wounds, others Allergic/Immunocompromised: denies: Difficulty Healing, Frequent Infections, Hives, Itching, others Hematologic/Lymphatic: denies: anemia, blood clots, easy bleeding, easy bruising, swollen glands, others Endocrine: denies: excessive hunger, excessive sweating, excessive thirst, excessive urination, flushing, intolerance to cold, intolerance to heat, unexplained weight gain, unexplained weight loss, others Psychiatric: denies: anxiety, bipolar disorder, depression, hopeless, panic disorder, schizophrenia, sleepless, suicidal, others All Other Systems: Reviewed and Negative Physical Exam General Appearance: No Apparent Distress, Obese HEENT: Normal ENT Inspection Neck: Full Range of Motion, Normal Inspection Respiratory: Decreased Breath Sounds, No Accessory Muscle Use, No Respiratory Distress, Rales (At bilateral bases) Cardiovascular: No JVD, Regular Rate/Rhythm Breast Exam: Deferred Gastrointestinal: Soft, Tenderness (Mid abdominal tenderness to palpation. Nontender to percussion. No rebound or guarding.) Genitalia: Deferred Pelvic: Deferred Rectal: Deferred Extremities: Leg edema, Normal range of motion, Pedal edema Neurologic: Alert (Difficulty answering questions, moves all extremities, no facial asymmetry), Normal Affect, Normal Mood Cerebellar Function: NOT DONE Reflexes: NOT DONE Skin: Dry, Pallor, Warm Lymphatic: NOT DONE Was a procedure done? Was a procedure done?: No EKG EKG : Comments 63-year-old male with a history of alcohol dependence, liver cirrhosis, gastritis and GI bleed presenting with worsening lower extremity edema, confusion and abdominal pain. Differential Dx Considerations may include: Fluid overload, CHF, decompensated liver failure, electrolyte imbalance, CVA, TIA, encephalopathy, ETOH abuse/withdrawal, gastritis, gastroenteritis, bowel obstruction, cholecystitis, hernia pain, among others X-Ray, Labs, Meds, VS Vital Signs Date Time Temp Pulse Resp B/P (MAP) Pulse Ox O2 Delivery O2 Flow Rate FiO2 04/09/24 18:45 20 93 Nasal Cannula* 4 36 04/09/24 18:45 88 04/09/24 18:37 91 17 95 Nasal Cannula 3.0 04/09/24 18:37 97.9 91 17 118/38 (64) 95 97.9 04/09/24 17:08 96 04/09/24 17:08 97.4 138 19 119/54 (75) 98 Lab Test 04/09/24 20:03 04/09/24 19:00 Range/Units Lactic Acid Level Pending Troponin I High Sensitivity Pending 6 </=54 ng/L White Blood Count 25.2 H 4.4-10.8 10^3/uL Red Blood Count 2.80 L 4.5-5.90 10^6/uL Hemoglobin 9.9 L 13.5-17.5 g/dL Hematocrit 29.6 L 41.0-53.0 % Mean Corpuscular Volume 105.4 H 80.0-100.0 fL Mean Corpuscular Hemoglobin 35.2 H 28.0-32.0 pg Mean Corpuscular Hemoglobin Concent 33.4 32.0-36.0 g/dL Red Cell Distribution Width 15.5 H 11.8-14.3 % Platelet Count 186 140-450 10^3/uL Mean Platelet Volume 8.7 6.9-10.8 fL Neutrophils (%) (Auto) 37.0-80.0 % Lymphocytes (%) (Auto) 10.0-50.0 % Monocytes (%) (Auto) 0.0-12.0 % Basophils (%) (Auto) 0.0-2.0 % Neutrophils # (Auto) 1.6-8.6 10 ^3/uL Lymphocytes # (Auto) 0.4-5.4 10 ^3/uL Monocytes # (Auto) 0-1.3 10 ^3/uL Differential Total Cells Counted 100.0 100 Neutrophils % (Manual) 83 H 37.0-80.0 Band Neutrophils % (Manual) 5 Lymphocytes % (Manual) 9 L 10.0-50.0 Monocytes % (Manual) 3 0-12 Eosinophils % (Manual) 0 0-7 Basophils % (Manual) 0 0.0-2.0 Metamyelocytes % (manual) 0 Myelocytes % (Manual) 0 Promyelocytes % (Manual) 0 Blast Cells % (Manual) 0 Reactive Lymphocytes 0 Platelet Estimate Adequate Macrocytosis Slight Sodium Level 140 136-145 mmol/L Potassium Level 3.6 3.5-5.1 mmol/L Chloride Level 105 98-107 mmol/L Carbon Dioxide Level 27 20-31 mmol/L Anion Gap 8 5-15 Blood Urea Nitrogen 29 H 9-23 mg/dL Creatinine 1.08 0.700-1.30 mg/dL Glomerular Filtration Rate Calc 77 >90 mL/min BUN/Creatinine Ratio 26.9 H 10.0-20.0 Serum Glucose 222 H 74-106 mg/dL Calcium Level 8.5 L 8.7-10.4 mg/dL Total Bilirubin 2.1 H 0.2-1.0 mg/dL Aspartate Amino Transferase (AST) 112 H 13-40 U/L Alanine Aminotransferase (ALT) 81 H 7-40 U/L Alkaline Phosphatase 253 H 46-116 U/L Ammonia 30 11-32 umol/L B-Type Natriuretic Peptide 129.38 0-100 pg/mL Total Protein 5.5 L 5.7-8.2 g/dL Albumin 2.5 L 3.2-4.8 g/dL Plasma/Serum Blood Alcohol < 3.0 <10 mg/dL Current Medications Medications (Trade) Dose Ordered Sig/Peg Route Start Time Stop Time Status Last Admin Albuterol (Ventolin Medneb) 5 mg ONCE ONCE NEB 04/09/24 18:45 04/09/24 18:46 DC 04/09/24 18:45 Ipratropium Salkum (Atrovent Medneb) 0.5 mg ONCE ONCE NEB 04/09/24 18:45 04/09/24 18:46 DC 04/09/24 18:45 PROCEDURE(s): HWOCT - HEAD WITHOUT CONTRAST REASON: altered mental status ORDER NUMBER(s): [id number], ACCESSION NUMBER(s): [id number] CT BRAIN WITHOUT CONTRAST HISTORY: altered mental status TECHNIQUE: Axial scans were obtained from the skull base through the vertex without contrast. Sagittal and coronal reformats were generated. One or more of the following radiation dose reduction techniques were used for this examination: automated exposure control, adjustment of the mA and/or kV according to patient size, use of iterative reconstruction technique. COMPARISON: None FINDINGS: No acute intracranial hemorrhage or evidence of large vessel territorial in farction identified at this time. No midline shift. The basilar cisterns are patent. The visualized paranasal sinuses and mastoid air cells are clear. No grossly displaced calvarial abnormalities identified. IMPRESSION: No acute intracranial findings. ATED BY: NIKUNJ MONDRAGON MD PROCEDURE(s): CXRP - CHEST PORTABLE REASON: edema ORDER NUMBER(s): [id number], ACCESSION NUMBER(s): [id number] EXAM: XY CHEST PORTABLE TECHNIQUE: Single frontal chest radiograph CLINICAL HISTORY: edema COMPARISON: XY CHEST PORTABLE on DOS: 03/28/24 Findings/Impression: Frontal chest radiograph demonstrates no acute osseous or superficial soft tissue abnormalities. The trachea is midline. The cardiac silhouette and mediastinum are within normal limits. Mild pulmonary vascular congestion and edema. No pneumothorax, pleural effusions, or consolidations. EDURE(s): ABPL - CT AB PEL WO CON-NO ORAL OR IV REASON: mid abd pain, constipation ORDER NUMBER(s): [id number], ACCESSION NUMBER(s): [id number] Exam: CT CT AB PEL WO CON-NO ORAL OR IV History: mid abd pain, constipation Comparison Study: None available at time of dictation. TECHNIQUE: Multidetector CT of the abdomen was performed from lung bases to pubic symphysis. Imaging was performed without IV contrast. Axial, coronal and sagittal multiplanar reformats were obtained from the axial data set by the technologist. Radiation Dose Information: CT Dose: CTDI volume is 10.01 mGy. Dose-length product is 530.58 mGy*cm FINDINGS: Evaluation of solid organs is limited due to lack of intravenous contrast use. Findings: Lung Bases: Development of ground-glass infiltrates in both bases. Normal heart size. Scattered coronary artery calcifications. Trace pericardial effusion. Liver: The liver is normal in size. No focal lesions. Gallbladder and Biliary Tree: Unremarkable Spleen: Unremarkable Pancreas: Somewhat globular enlargement of the tail of the pancreas. Can not exclude mass consider MRCP. Adrenal Glands: Unremarkable Kidneys: Kidneys are grossly normal without calculi or hydronephrosis. Bladder: Grossly unremarkable for degree of distention. Bowel: The stomach is grossly normal in appearance. Small bowel and colon are normal in caliber and distribution. The appendix is not visualized; however, no secondary findings of acute appendicitis identified. Ascites: Small amount of ascites around the liver and spleen Lymphadenopathy: No mesenteric, retroperitoneal or periportal lymphadenopathy. Abdominal Wall and Mesentery: Unremarkable. Vasculature: The visualized abdominal aorta is normal in size and caliber. Evaluation of abdominal and pelvic vessels is limited due to lack of intravenous contrast. Pelvic Organs: Unremarkable Musculoskeletal: No aggressive focal bony lesions, acute fractures or disl ocation. Soft tissues: Unremarkable IMPRESSION: 1. Development of ground-glass infiltrates in both bases when compared to previous CT of 03/27/2024. 2. 3.7 x 4.7 cm globular appearance to the tail of the pancreas can not exclude pancreatic mass consider MRCP for further evaluation. 3. Scattered ascites throughout the abdomen and pelvis Radiation optimization: All CT scans at this facility use at least one of these dose optimization techniques: automated exposure control mA and/or kV adjustme nt per patient size (includes targeted exams where dose is matched to clinical indication) or iterative reconstruction. HS:Y X-Ray, Labs, Meds, VS Comment 63-year-old male with a history of liver disease, gastritis, GI bleed, alcohol dependence presenting with worsening lower extremity edema, abdominal pain and confusion. Vitals remarkable for temperature 97.4, heart rate 138, blood pressure 118/38, O2 sat 93% on 4 L nasal cannula Exam remarkable for 2+ pitting edema bilateral lower extremities and generalized mid abdominal tenderness to palpation. No tenderness to percussion. No rebound or guarding. CT head unremarkable Chest x-ray Findings/Impression: Frontal chest radiograph demonstrates no acute osseous or superficial soft tissue abnormalities. The trachea is midline. The cardiac silhouette and mediastinum are within normal limits. Mild pulmonary vascular congestion and edema. No pneumothorax, pleural effusions, or consolidations. CT abdomen and pelvis IMPRESSION: 1. Development of ground-glass infiltrates in both bases when compared to previous CT of 03/27/2024. 2. 3.7 x 4.7 cm globular appearance to the tail of the pancreas can not exclude pancreatic mass consider MRCP for further evaluation. 3. Scattered ascites throughout the abdomen and pelvis CBC remarkable for WBC 25.2, CMP remarkable for BUN 29, total bilirubin 2.1, AST 112, ALT 81, alkaline phos 253 BNP 129.38, troponin negative, ETOH less than 3 Ammonia normal Lactate and UA pending, urine drug screen pending Patient received the following treatment in the ED: Albumin 25% 100 mL IV, Lasix 40 mg IV, Aldactone 50 mg p.o., albuterol 5 mg/Atrovent 0.5 mg nebulized Zosyn 4.5 g IV, vancomycin 1 g IV. On re-evaluation, patient was saturating normally on nasal cannula oxygen, is in no respiratory distress, and blood pressure is stable. Heart rate is normal. Plan is to admit the patient for IV antibiotics, diuresis and further evaluation of his altered mental status Time of 1ST Reevaluation: 18:44 Reevaluation 1ST: Unchanged Time of 2ND Reevaluation: 20:23 Reevaluation 2ND: Improved Patient Education/Counseling: Other Family Education/Counseling: No Family Present Departure 1 Departure Time of Disposition: 20:23 Impression: Primary Impression: Fluid overload Qualified Codes: E87.70 - Fluid overload, unspecified Additional Impressions: Pneumonia Qualified Codes: J18.9 - Pneumonia, unspecified organism Encephalopathy Qualified Codes: G93.40 - Encephalopathy, unspecified Disposition: 09 ADMITTED INPATIENT Admit to: Tele Condition: Guarded Critical Care Note Critical Care Time?: No Stability Stability form required: No I personally scribed for ALEC CERVANTES MD ([email or web address]) on 04/09/24 at 18:47. Electronically submitted by Renetta Edouard ([facility]). ALEC CERVANTES MD Apr 09, 2024 18:47
[2024-04-09 19:15] LABS: Hematocrit 29.6 % (41.0-53.0); Hemoglobin 9.9 g/dL (13.5-17.5); Mean Corpuscular Hemoglobin 35.2 pg (28.0-32.0); Mean Corpuscular Hgb Conc. 33.4 g/dL (32.0-36.0); Mean Corpuscular Volume 105.4 fL (80.0-100.0); Platelet Count (auto) 186 10^3/uL (140-450); Red Cell Distribution Width 15.5 % (11.8-14.3); White Blood Cell 25.2 10^3/uL (4.4-10.8)
[2024-04-09 19:16] LABS: Basophils % (manual) 0 (0.0-2.0); Blast Cells 0; Eosinophils % (manual) 0 (0-7); Metamyelocytes % 0; Myelocytes % 0; Promyelocytes % 0; Reactive Lymphocytes 0
[2024-04-09 19:31] LABS: Alanine Aminotransferase 81 U/L (7-40); Albumin 2.5 g/dL (3.2-4.8); Alkaline Phosphatase 253 U/L (46-116); Anion Gap 8 (5-15); Aspartate Aminotransferase 112 U/L (13-40); BUN/Creatinine Ratio 26.9 (10.0-20.0); Blood Alcohol < 3.0 mg/dL (<10); Blood Urea Nitrogen 29 mg/dL (9-23); Calcium 8.5 mg/dL (8.7-10.4); Carbon Dioxide 27 mmol/L (20-31); Chloride 105 mmol/L (98-107); Glucose 222 mg/dL (74-106); Potassium 3.6 mmol/L (3.5-5.1); Sodium 140 mmol/L (136-145)
[2024-04-09 19:32] LABS: Bilirubin, Total 2.1 mg/dL (0.2-1.0); Total Protein 5.5 g/dL (5.7-8.2)
--- NOTE | 2024-04-09 19:38 | DVH ---
EXAM: XY CHEST PORTABLE TECHNIQUE: Single frontal chest radiograph CLINICAL HISTORY: edema COMPARISON: XY CHEST PORTABLE on DOS: 03/28/24 Findings/Impression: Frontal chest radiograph demonstrates no acute osseous or superficial soft tissue abnormalities. The trachea is midline. The cardiac silhouette and mediastinum are within normal limits. Mild pulmonary vascular congestion and edema. No pneumothorax, pleural effusions, or consolidations.
--- NOTE | 2024-04-09 19:38 | DVH ---
CT BRAIN WITHOUT CONTRAST HISTORY: altered mental status TECHNIQUE: Axial scans were obtained from the skull base through the vertex without contrast. Sagitta l and coronal reformats were generated. One or more of the following radiation dose reduction techniq ues were used for this examination: automated exposure control, adjustment of the mA and/or kV accord ing to patient size, use of iterative reconstruction technique. COMPARISON: None FINDINGS: No acute intracranial hemorrhage or evidence of large vessel territorial infarction identified at thi s time. No midline shift. The basilar cisterns are patent. The visualized paranasal sinuses and mastoid air cells are clear. No grossly displaced calvarial abno rmalities identified. IMPRESSION: No acute intracranial findings.
[2024-04-09 19:45] VITALS: PULSE 98; O2SAT 99
--- NOTE | 2024-04-09 19:56 | DVH ---
Exam: CT CT AB PEL WO CON-NO ORAL OR IV History: mid abd pain, constipation Comparison Study: None available at time of dictation. TECHNIQUE: Multidetector CT of the abdomen was performed from lung bases to pubic symphysis. Imaging was performed without IV contrast. Axial, coronal and sagittal multiplanar reformats were obtained fr om the axial data set by the technologist. Radiation Dose Information: CT Dose: CTDI volume is 10.01 mGy. Dose-length product is 530.58 mGy*cm FINDINGS: Evaluation of solid organs is limited due to lack of intravenous contrast use. Findings: Lung Bases: Development of ground-glass infiltrates in both bases. Normal heart size. Scattered benito nary artery calcifications. Trace pericardial effusion. Liver: The liver is normal in size. No focal lesions. Gallbladder and Biliary Tree: Unremarkable Spleen: Unremarkable Pancreas: Somewhat globular enlargement of the tail of the pancreas. Can not exclude mass consider MR CP. Adrenal Glands: Unremarkable Kidneys: Kidneys are grossly normal without calculi or hydronephrosis. Bladder: Grossly unremarkable for degree of distention. Bowel: The stomach is grossly normal in appearance. Small bowel and colon are normal in caliber and d istribution. The appendix is not visualized; however, no secondary findings of acute appendicitis id entified. Ascites: Small amount of ascites around the liver and spleen Lymphadenopathy: No mesenteric, retroperitoneal or periportal lymphadenopathy. Abdominal Wall and Mesentery: Unremarkable. Vasculature: The visualized abdominal aorta is normal in size and caliber. Evaluation of abdominal a nd pelvic vessels is limited due to lack of intravenous contrast. Pelvic Organs: Unremarkable Musculoskeletal: No aggressive focal bony lesions, acute fractures or dislocation. Soft tissues: Unremarkable IMPRESSION: 1. Development of ground-glass infiltrates in both bases when compared to previous CT of 03/27/2024. 2. 3.7 x 4.7 cm globular appearance to the tail of the pancreas can not exclude pancreatic mass consi candelario MRCP for further evaluation. 3. Scattered ascites throughout the abdomen and pelvis Radiation optimization: All CT scans at this facility use at least one of these dose optimization darci hniques: automated exposure control mA and/or kV adjustment per patient size (includes targeted exam s where dose is matched to clinical indication) or iterative reconstruction. HS:Y
[2024-04-09 20:21] LABS: Band Neutrophils % (manual) 5; Lymphocytes % (manual) 9 (10.0-50.0)
[2024-04-09 20:22] LABS: Macrocytosis Slight; Monocytes % (manual) 3 (0-12); Platelet Estimate Adequate
[2024-04-09] MEDS: ALBUMIN 25% 100 ML IV ONE ×2 (21:24→23:07)
[2024-04-09 21:36] LABS: Lactic Acid w/Reflex 5.1 mmol/L (0.4-2.0)
[2024-04-09] MEDS: PIPERACILLIN-TAZO 4.5GM 100 ML IV ONE (22:14)
[2024-04-09] MEDS ORDERED: VANCOMYCIN PER PHARMACY 0 MG IV SCH (22:15)
[2024-04-09] MEDS: LACTULOSE 20Gm/30ML SOLN PO ONE (22:15)
[2024-04-09] MEDS ORDERED: IBUPROFEN 600 MG TAB PO PRN (22:15)
[2024-04-09] MEDS ORDERED: DEXTROSE (50%) 50ML SYRG IV PRN (22:15)
[2024-04-09] MEDS ORDERED: HYDROcodone-ACET 5/325MG TAB PO PRN (22:15)
[2024-04-09] MEDS: chlordiazePOXIDE HCL 25 MG CAP PO STA (22:15)
[2024-04-09] MEDS ORDERED: ONDANSETRON HCL 4 MG/2 ML VIAL IV PRN (22:15)
[2024-04-09] MEDS: SPIRONOLACTONE 25 MG TAB PO ONE (22:18)
[2024-04-09] MEDS: LORazepam 2MG/ML-1ML VIAL IV ONE (22:21)
[2024-04-09] MEDS: FUROSEMIDE 40 MG/4 ML VIAL IV ONE (22:34)
[2024-04-09] MEDS: VANCOMYCIN 1GM/250ML KIT 200 ML IV ONE (23:00)
--- NOTE | 2024-04-09 23:11 | DVHHP2 ---
History of Present Illness Reason for Visit: Sepsis, unspecified organism History of Present Illness Patient is a 63-year-old male past medical history of DM, liver disease, alcohol abuse, gastritis, and GI bleeding who presented to [facility] ED for evaluation of generalized weakness. Patient reports symptoms progressively get worse with lower abdominal pain, bilateral leg swelling, increased confusion, getting worse that prompted this visit. Patient is a poor historian but is able to state feels generally weak and has had difficulty ambulating due to the leg swelling. Patient was seen and evaluated in the ED, laboratory data shows elevated WBC 25.2, hemoglobin 9.9, hematocrit 29.6, platelets 186, sodium 140, potassium 3.6, BUN 29, creatinine 1.08, glucose 222, calcium 8.5, total bilirubin 2.1, AST 112, ALT 81, albumin 2.5, protein 5.5, BNP 129.38, troponin 6, ammonia 30, lactic acid 5.1 trending down to 3.3, blood pressure 118/38, heart rate 88, temperature 97.9 F, O2 saturation 93% on oxygen. Chest x-ray revealing mild pulmonary vascular congestion and edema; abdomen/pelvis CT revealing development of ground-glass infiltrates in both lung bases, no pneumothorax, pleural effusions, or consolidations. Patient was started on IV antibiotic regimen vancomycin, IV azithromycin, please see medication orders section in the computer. On my assessment, patient denied chest pain, no headache, no dizziness, no diaphoresis, currently on oxygen, no nausea, no vomiting, no fever, no chills. Patient was admitted for further evaluation and medical management. Past Medical History DM, Liver disease, Alcohol use disorder, gastritis, GI bleeding Past Surgical History Denies all surgeries Family History Reviewed, noncontributory to the management of this case. Past Social History Patient lives at home, smokes cigarettes, drinks alcohol heavily, denies illicit drugs abuse. Review of Systems Constitutional: Yes: Weakness; No: Fever, Chills, Sweats, Malaise, Other Eyes: No: Pain, Vision change, Conjunctivae inflammation, Eyelid inflammation, Other, Redness ENT: No: Ear pain, Ear discharge, Nose pain, Nose discharge, Nose congestion, Mouth pain, Mouth swelling, Throat pain, Throat swelling, Other Respiratory: Shortness of breath; No: Cough, Dry, SOB with excertion, Wheezing, Hemoptysis, Pleuritic Pain, Sputum, Wheezing, Other Cardiovascular: No: Chest Pain, Palpitations, Orthopnea, Paroxysmal Noc. Dyspnea, Edema, Lt Headedness, Other Gastrointestinal: Abdominal Pain; No: Nausea, Vomiting, Diarrhea, Constipation, Melena, Hematochezia, Other Genitourinary: No Dysuria, No Frequency, No Incontinence, No Hematuria, No Retention, No Other Musculoskeletal: other (Bilateral leg swelling); No: neck pain, shoulder pain, arm pain, back pain, hand pain, leg pain, foot pain Skin: No: Rash, Lesions, Jaundice, Bruising, Other Neurological: No: Weakness, Numbness, Incoordination, Change in speech, Confusion, Seizures, Other Allergies: Coded Allergies: NO KNOWN ALLERGIES (Unverified , 03/15/16) Medications Current Medications Medications Dose Ordered Sig/Peg Route Start Time Stop Time Status Last Admin Dose Admin Azithromycin 250 ml @ 125 mls/hr DAILY IV 04/10/24 10:00 Vancomycin HCl 0 ml @ 0 mls/hr UD IV 04/09/24 22:15 UNV Lactulose 30 ml BID PO 04/10/24 10:00 Spironolactone 25 mg DAILY PO 04/10/24 10:00 Ibuprofen 600 mg Q6HP PRN PO 04/09/24 22:15 Albuterol 2.5 mg Q4HPRN PRN NEB 04/09/24 22:15 Ipratropium [place] 0.5 mg Q4HPRN PRN NEB 04/09/24 22:15 Midodrine 10 mg TID@0600,1200,1800 PO 04/10/24 06:00 Diagnostic Test (Pha) 1 strip ACHS 04/10/24 07:00 Insulin Human Regular HS SC 04/10/24 22:00 Insulin Human Regular AC SC 04/10/24 07:00 Dextrose 50 ml UD PRN IV 04/09/24 22:15 Sodium Chloride 10 ml Q8HR IV 04/10/24 06:00 Acetaminophen/ Hydrocodone Bitart 1 tab Q4HP PRN PO 04/09/24 22:15 Ondansetron HCl 4 mg Q4HP PRN IV 04/09/24 22:15 Pantoprazole Sodium 40 mg DAILY IV 04/10/24 10:00 Exam Vital Signs Vital Signs Date Time Temp Pulse Resp B/P (MAP) Pulse Ox O2 Delivery O2 Flow Rate FiO2 04/09/24 22:34 96/50 04/09/24 20:00 88 04/09/24 18:45 20 93 Nasal Cannula* 4 36 04/09/24 18:37 97.9 97.9 General Appearance: Alert, Oriented X3, Cooperative, No acute distress HEENT: Atraumatic, PERRLA, EOMI, Mucous membr. moist/pink Respiratory: Clear to auscultation, Normal air movement Cardiovascular: Regular rate, Normal S1, Normal S2, No murmurs Abdominal: Normal bowel sounds, Soft, No hepatospenomegaly, No masses Extremities: No clubbing, No cyanosis, No edema, Normal pulses, No tenderness/swelling Skin: No rashes, No breakdown, No significant lesion Neuro: Normal speech, Normal tone, Sensation intact, Cranial nerves 3-12 NL, Reflexes 2+, Other (Generalized weakness) Psych/Mental Status: Mental status NL, Mood NL Labs/Xrays Labs Test 04/09/24 22:08 04/09/24 20:03 04/09/24 19:00 Range/Units Lactic Acid Level 3.3 *H 0.4-2.0 mmol/L Troponin I High Sensitivity 6 </=54 ng/L White Blood Count 25.2 H 4.4-10.8 10^3/uL Red Blood Count 2.80 L 4.5-5.90 10^6/uL Hemoglobin 9.9 L 13.5-17.5 g/dL Hematocrit 29.6 L 41.0-53.0 % Mean Corpuscular Volume 105.4 H 80.0-100.0 fL Mean Corpuscular Hemoglobin 35.2 H 28.0-32.0 pg Mean Corpuscular Hemoglobin Concent 33.4 32.0-36.0 g/dL Red Cell Distribution Width 15.5 H 11.8-14.3 % Platelet Count 186 140-450 10^3/uL Mean Platelet Volume 8.7 6.9-10.8 fL Neutrophils (%) (Auto) 37.0-80.0 % Lymphocytes (%) (Auto) 10.0-50.0 % Monocytes (%) (Auto) 0.0-12.0 % Basophils (%) (Auto) 0.0-2.0 % Neutrophils # (Auto) 1.6-8.6 10 ^3/uL Lymphocytes # (Auto) 0.4-5.4 10 ^3/uL Monocytes # (Auto) 0-1.3 10 ^3/uL Differential Total Cells Counted 100.0 100 Neutrophils % (Manual) 83 H 37.0-80.0 Band Neutrophils % (Manual) 5 Lymphocytes % (Manual) 9 L 10.0-50.0 Monocytes % (Manual) 3 0-12 Eosinophils % (Manual) 0 0-7 Basophils % (Manual) 0 0.0-2.0 Metamyelocytes % (manual) 0 Myelocytes % (Manual) 0 Promyelocytes % (Manual) 0 Blast Cells % (Manual) 0 Reactive Lymphocytes 0 Platelet Estimate Adequate Macrocytosis Slight Sodium Level 140 136-145 mmol/L Potassium Level 3.6 3.5-5.1 mmol/L Chloride Level 105 98-107 mmol/L Carbon Dioxide Level 27 20-31 mmol/L Anion Gap 8 5-15 Blood Urea Nitrogen 29 H 9-23 mg/dL Creatinine 1.08 0.700-1.30 mg/dL Glomerular Filtration Rate Calc 77 >90 mL/min BUN/Creatinine Ratio 26.9 H 10.0-20.0 Serum Glucose 222 H 74-106 mg/dL Calcium Level 8.5 L 8.7-10.4 mg/dL Total Bilirubin 2.1 H 0.2-1.0 mg/dL Aspartate Amino Transferase (AST) 112 H 13-40 U/L Alanine Aminotransferase (ALT) 81 H 7-40 U/L Alkaline Phosphatase 253 H 46-116 U/L Ammonia 30 11-32 umol/L B-Type Natriuretic Peptide 129.38 0-100 pg/mL Total Protein 5.5 L 5.7-8.2 g/dL Albumin 2.5 L 3.2-4.8 g/dL Plasma/Serum Blood Alcohol < 3.0 <10 mg/dL PATIENT: ALICIA PURDY ACCT: [id number] UNIT: [id number] : 1960 LOC: ER ROOM / BED: / AGE / SEX: 63 / M ADM STATUS: REG ER SERVICE 16 ORDERING PHYSICIAN: ALEC CERVANTES MD PROCEDURE(s): ABPL - CT AB PEL WO CON-NO ORAL OR IV REASON: mid abd pain, constipation ORDER NUMBER(s): [id number], ACCESSION NUMBER(s): [id number] Exam: CT CT AB PEL WO CON-NO ORAL OR IV History: mid abd pain, constipation Comparison Study: None available at time of dictation. TECHNIQUE: Multidetector CT of the abdomen was performed from lung bases to pubic symphysis. Imaging was performed without IV contrast. Axial, coronal and sagittal multiplanar reformats were obtained from the axial data set by the technologist. Radiation Dose Information: CT Dose: CTDI volume is 10.01 mGy. Dose-length product is 530.58 mGy*cm FINDINGS: Evaluation of solid organs is limited due to lack of intravenous contrast use. Findings: Lung Bases: Development of ground-glass infiltrates in both bases. Normal heart size. Scattered coronary artery calcifications. Trace pericardial effusion. Liver: The liver is normal in size. No focal lesions. Gallbladder and Biliary Tree: Unremarkable Spleen: Unremarkable Pancreas: Somewhat globular enlargement of the tail of the pancreas. Can not exclude mass consider MRCP. Adrenal Glands: Unremarkable Kidneys: Kidneys are grossly normal without calculi or hydronephrosis. Bladder: Grossly unremarkable for degree of distention. Bowel: The stomach is grossly normal in appearance. Small bowel and colon are normal in caliber and distribution. The appendix is not visualized; however, no secondary findings of acute appendicitis identified. Ascites: Small amount of ascites around the liver and spleen Lymphadenopathy: No mesenteric, retroperitoneal or periportal lymphadenopathy. Abdominal Wall and Mesentery: Unremarkable. Vasculature: The visualized abdominal aorta is normal in size and caliber. Evaluation of abdominal and pelvic vessels is limited due to lack of intravenous contrast. Pelvic Organs: Unremarkable Musculoskeletal: No aggressive focal bony lesions, acute fractures or dislocation. Soft tissues: Unremarkable IMPRESSION: 1. Development of ground-glass infiltrates in both bases when compared to previous CT of 03/27/2024. 2. 3.7 x 4.7 cm globular appearance to the tail of the pancreas can not exclude pancreatic mass consider MRCP for further evaluation. 3. Scattered ascites throughout the abdomen and pelvis ORDERING PHYSICIAN: ALEC CERVANTES MD PROCEDURE(s): CXRP - CHEST PORTABLE REASON: edema ORDER NUMBER(s): [id number], ACCESSION NUMBER(s): [id number] EXAM: XY CHEST PORTABLE TECHNIQUE: Single frontal chest radiograph CLINICAL HISTORY: edema COMPARISON: XY CHEST PORTABLE on DOS: 03/28/24 Findings/Impression: Frontal chest radiograph demonstrates no acute osseous or superficial soft tissue abnormalities. The trachea is midline. The cardiac silhouette and mediastinum are within normal limits. Mild pulmonary vascular congestion and edema. No pneumothorax, pleural effusions, or consolidations. ORDERING PHYSICIAN: ALEC CERVANTES MD PROCEDURE(s): HWOCT - HEAD WITHOUT CONTRAST REASON: altered mental status ORDER NUMBER(s): [id number], ACCESSION NUMBER(s): [id number] CT BRAIN WITHOUT CONTRAST HISTORY: altered mental status TECHNIQUE: Axial scans were obtained from the skull base through the vertex without contrast. Sagittal and coronal reformats were generated. One or more of the following radiation dose reduction techniques were used for this examination: automated exposure control, adjustment of the mA and/or kV according to patient size, use of iterative reconstruction technique. COMPARISON: None FINDINGS: No acute intracranial hemorrhage or evidence of large vessel territorial inf arction identified at this time. No midline shift. The basilar cisterns are patent. The visualized paranasal sinuses and mastoid air cells are clear. No grossly displaced calvarial abnormalities identified. IMPRESSION: No acute intracranial findings. Assessment/Plan Assessment/Plan Fluid overload Hypotension Generalized weakness Altered mental status Pulmonary edema Anemia of chronic disease Sepsis, unspecified organism Fluid overload, unspecified Pneumonia, unspecified organism Encephalopathy, unspecified Plan 1. Admit to intensive care unit 2. Breathing treatment 3. Pain control management 4. IV antibiotic management 5. Management of fluids and electrolytes 6. Consultation for Cardiology 7. Diagnostic test chest x-ray 8. DVT prophylaxis on SCDs 9. Repeat labs CBC, CMP in a.m. 10. Home medication reviewed and reconciled 11. Continue with current medical management 12. Treatment plan discussed with patient and RN. Patient verbalized understanding. Plan discussed with: Patient, Daughter, Other (RN) My Orders Orders - LISSA TORRES DNP Procedure Category Date Status Time Consistent DIET 04/10/24 Transmitted Carb(Ccho)Diabetes Breakfast Azithromycin 500mg/ PHA 04/10/24 In Process 250ml (Zithromax 50 10:00 Vancomycin Per PHA 04/09/24 Pending Pharmacy 22:15 Lactulose Oral PHA 04/10/24 In Process 10:00 Spironolactone PHA 04/10/24 In Process (Aldactone) 10:00 Ibuprofen Tablet PHA 04/09/24 In Process (Motrin Tablet) 22:15 Albuterol Medneb PHA 04/09/24 In Process (Ventolin Medneb) 22:15 Ipratropium Medneb PHA 04/09/24 In Process (Atrovent Medneb) 22:15 Type And Screen BBK 04/09/24 Logged 22:07 Midodrine Tablet PHA 04/10/24 In Process (Proamatine Tablet) 06:00 Glucose Blood PHA 04/10/24 In Process (Accu-Chek Comfort 07:00 Insulin R (Human) PHA 04/10/24 In Process (Insulin R) 22:00 Insulin R (Human) PHA 04/10/24 In Process (Insulin R) 07:00 Dextrose 50% Syringe PHA 04/09/24 In Process 22:15 Allergies JOHNNA 04/09/24 In Process 22:07 Code Status CODE 04/09/24 Transmitted 22:07 Sodium Chloride Lock PHA 04/10/24 In Process (Saline Lock Ns) 06:00 Oxygen Per Hour RT 04/09/24 Transmitted 22:07 Hydrocodone-Acet PHA 04/09/24 In Process 5/325mg Tab ([place] 22:15 Ondansetron Hcl PHA 04/09/24 In Process (Zofran) 22:15 Fall Risk Precautions JOHNNA 04/09/[address] 22:07 Complete Blood Count LAB 04/10/24 Verified 04:00 Comprehensive LAB 04/10/24 Verified Metabolic Panel 04:00 Condition: Serious JOHNNA 04/09/24 In Process 22:07 Sequential JOHNNA 04/09/24 In Process Compression Device Pantoprazole PHA 04/10/24 In Process (Protonix) 10:00 Vancomycin 1gm/200ml PHA 04/09/24 In Process Premix 22:45 Problem List: (1) Fluid overload (2) Pneumonia, unspecified organism (3) Altered mental status (4) Hypotension (5) Fluid overload, unspecified (6) Generalized weakness (7) Pulmonary edema (8) Encephalopathy, unspecified (9) Sepsis, unspecified organism (10) Anemia of chronic disease Date of Service: Apr 09, 2024 Common Visit Codes: [id number] INP/OBS CARE (HIGH) LISSA TORRES DNP Apr 09, 2024 23:11
[2024-04-09 23:15] VITALS: BP 96/50; PULSE 88; RESP 20; TEMP 97.9; O2SAT 95
[2024-04-09] MEDS ORDERED: NITROGLYCERIN 0.4 MG SL TAB SL PRN (23:15)
[2024-04-09] MEDS ORDERED: MORPHINE SULFATE INJ 2 MG/ml SYRG IV PRN (23:15)
[2024-04-09] MEDS: MIDODRINE HCL 10 MG TAB PO ONE (23:52)
[2024-04-10] VITALS (9 sets, daily range): BP systolic 99–124; BP diastolic 52–60; PULSE 70–86; RESP 14–20; O2SAT 92–97
[2024-04-10] MEDS: NOREPINEPHRINE 8 MG/250ML KIT 250 ML IV SCH (01:10)
[2024-04-10] MEDS: NOREPINEPHRINE 8 MG/250ML KIT 250 ML IV ONE (01:14)
[2024-04-10] MEDS: ALBUTEROL SULF 2.5 MG/0.5ML(0.5%) NEB SOLN NEB PRN (01:17)
[2024-04-10] MEDS: IPRATROPIUM BROM 0.5 MG/2.5ML INH SOL NEB PRN (01:21)
[2024-04-10 01:25] LABS: COVID19 ANTIGEN SOFIA FIA NEGATIVE (NEGATIVE)
[2024-04-10] MEDS: VANCOMYCIN 1GM/200ML PREMIX IV ONE (02:32)
[2024-04-10 03:24] LABS: Urine Bacteria None Seen /hpf (None Seen)
[2024-04-10 03:47] LABS: Amphetamine Screen, Urine Neg (NEGATIVE); Barbiturate Scree,Urine Neg (NEGATIVE); Benzodiazephine Screen, Urine Neg (NEGATIVE); Cannabinoid Screen, Urine Neg (NEGATIVE); Cocaine Screen, Urine Neg (NEGATIVE); Opiate Scree,Urine Neg (NEGATIVE); Phencyclidine Screen, Urine Neg (NEGATIVE)
[2024-04-10 04:16] LABS: Urine Blood Negative /uL (Negative); Urine Clarity Clear (Clear); Urine Color Yellow (Yellow); Urine Hyaline Cast FEW /lpf (0 - 2); Urine Mucus FEW (None Seen); Urine Protein, UAD Negative (Negative); Urine Specific Gravity 1.021 (1.001-1.035); Urine Urobilinogen Normal (Negative); Urine WBC 2 /hpf (0 - 3)
[2024-04-10 05:07] LABS: Base Excess 1.5 mmol/L (-2.0-3.0)
[2024-04-10] MEDS: SODIUM CHLOR 0.9% PF (SALINE LOCK) 10ML VIAL/SYR IV SCH (05:57)
[2024-04-10] MEDS ORDERED: MIDODRINE HCL 10 MG TAB PO SCH (06:00)
[2024-04-10] MEDS: MIDODRINE HCL 10 MG TAB PO SCH (06:00)
[2024-04-10 06:14] LABS: Basophils # (auto) 0.1 10 ^3/uL (0-0.2); Basophils % (auto) 0.3 % (0.0-2.0); Eosinophils # (auto) 0.4 10 ^3/uL (0-0.8); Monocytes # (auto) 0.7 10 ^3/uL (0-1.3); Platelet Count (auto) 154 10^3/uL (140-450); White Blood Cell 18.4 10^3/uL (4.4-10.8)
[2024-04-10] MEDS: ACCU-CHEK COMFORT CURVE STRIP VI SCH ×2 (06:17→18:10)
[2024-04-10 06:18] LABS: Eosinophils % (auto) 2.2 % (0.0-7.0); Hemoglobin 9.2 g/dL (13.5-17.5); Lymphocytes # (auto) 2.3 10 ^3/uL (0.4-5.4); Lymphocytes % (auto) 12.7 % (10.0-50.0); Mean Corpuscular Hemoglobin 35.6 pg (28.0-32.0); Mean Corpuscular Volume 104.9 fL (80.0-100.0); Monocytes % (auto) 3.6 % (0.0-12.0); Neutrophils % (auto) 81.2 % (37.0-80.0); Nucleated Red Blood Cells % 0.1 %; Red Blood Cells 2.58 10^6/uL (4.5-5.90); Red Cell Distribution Width 15.7 % (11.8-14.3)
[2024-04-10 06:30] LABS: Alanine Aminotransferase 65 U/L (7-40); Alkaline Phosphatase 219 U/L (46-116); Anion Gap 9 (5-15); Aspartate Aminotransferase 78 U/L (13-40); BUN/Creatinine Ratio 24.2 (10.0-20.0); Blood Urea Nitrogen 23 mg/dL (9-23); Calcium 8.7 mg/dL (8.7-10.4); Carbon Dioxide 28 mmol/L (20-31); Chloride 106 mmol/L (98-107); Glucose 203 mg/dL (74-106); Potassium 3.3 mmol/L (3.5-5.1); Sodium 143 mmol/L (136-145)
[2024-04-10 06:31] LABS: Bilirubin, Total 2.1 mg/dL (0.2-1.0); Total Protein 5.8 g/dL (5.7-8.2)
[2024-04-10] MEDS: InsuLIN REG 1unit/0.01ml Soln (100units/ml) SC SCH ×2 (08:00→18:16)
[2024-04-10 08:24] LABS: Anisocytosis Slight; Macrocytosis Slight; Platelet Estimate Adequate; Target Cell FEW
--- NOTE | 2024-04-10 08:45 | ECG ---
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
[2024-04-10] MEDS: POTASSIUM CHL 20MEQ/100ML 100 ML IV SCH ×2 (09:17→16:07)
[2024-04-10] MEDS: FUROSEMIDE 20 MG/2 ML VIAL IV ONE ×2 (09:41→13:41)
[2024-04-10] MEDS: SPIRONOLACTONE 25 MG TAB PO SCH (10:00)
[2024-04-10] MEDS: LACTULOSE 20Gm/30ML SOLN PO SCH (10:00)
[2024-04-10] MEDS ORDERED: EPINEPHrine HCL 250 ML IV SCH (10:15)
[2024-04-10] MEDS: AZITHROMYCIN 500MG/ 250ML 250 ML IV SCH (11:07)
[2024-04-10] MEDS: FUROSEMIDE 20 MG/2 ML VIAL IV SCH ×2 (11:48→22:03)
[2024-04-10] MEDS: PANTOPRAZOLE 40 MG/10 ML VIAL INJ IV SCH (11:49)
[2024-04-10] MEDS ORDERED: DEXTROSE (50%) 50ML SYRG IV PRN (12:15)
[2024-04-10] MEDS: MEROPENEM 1GM IVPB 50 ML IV ONE (12:16)
--- NOTE | 2024-04-10 12:30 | DVHPNRES ---
Progress Note Date Seen: Apr 10, 2024 Resident Creating Document: VALENTINE MAR RESIDENT Medical Necessity Reason Pt with a Central, PICC or Fol: Yes The following are medically ne: [place] Catheter Subjective Review of Systems pt seen and examined at bedside. he is currently altered. Objective vital signs Vital Sign Date Time Temp Pulse Resp B/P (MAP) Pulse Ox O2 Delivery O2 Flow Rate FiO2 04/10/24 11:48 124/60 04/10/24 10:22 80 92 Facial BiPAP Mask 50 04/10/24 09:15 13 04/10/24 07:25 10 04/10/24 07:25 97.8 97.8 Total Intake and Output 04/09/24 04/09/24 04/10/24 15:00 23:00 07:00 Intake Total 100 ml Output Total 1700 ml Balance -1600 ml medications Current Medications Medications Dose Ordered Sig/Peg Route Start Time Stop Time Status Last Admin Dose Admin Azithromycin 250 ml @ 125 mls/hr DAILY IV 04/10/24 10:00 04/10/24 11:07 125 MLS/HR Vancomycin HCl 0 ml @ 0 mls/hr UD IV 04/09/24 22:15 Lactulose 30 ml BID PO 04/10/24 10:00 Spironolactone 25 mg DAILY PO 04/10/24 10:00 Ibuprofen 600 mg Q6HP PRN PO 04/09/24 22:15 Albuterol 2.5 mg Q4HPRN PRN NEB 04/09/24 22:15 04/10/24 07:07 2.5 MG Ipratropium [place] 0.5 mg Q4HPRN PRN NEB 04/09/24 22:15 04/10/24 07:07 0.5 MG Midodrine 10 mg TID@0600,1200,1800 PO 04/10/24 06:00 Cancel Diagnostic Test (Pha) 1 strip ACHS 04/10/24 07:00 04/10/24 06:17 1 STRIP Insulin Human Regular HS SC 04/10/24 22:00 Insulin Human Regular AC SC 04/10/24 07:00 04/10/24 08:00 6 UNITS Dextrose 50 ml UD PRN IV 04/09/24 22:15 Sodium Chloride 10 ml Q8HR IV 04/10/24 06:00 04/10/24 05:57 10 ML Acetaminophen/ Hydrocodone Bitart 1 tab Q4HP PRN PO 04/09/24 22:15 Ondansetron HCl 4 mg Q4HP PRN IV 04/09/24 22:15 Pantoprazole Sodium 40 mg DAILY IV 04/10/24 10:00 04/10/24 11:49 40 MG Nitroglycerin 0.4 mg Q5MINP PRN SL 04/09/24 23:15 Morphine Sulfate 2 mg Q30M PRN IV 04/09/24 23:15 Midodrine 10 mg TID@0600,1200,1800 PO 04/10/24 06:00 Norepinephrine Bitartrate 250 ml @ 3.75 mls/hr Q24H IV 04/10/24 01:00 04/10/24 11:16 37.5 MLS/HR Melatonin 5 mg HS PO 04/10/24 22:00 Furosemide 20 mg DAILY IV 04/10/24 10:00 04/10/24 11:48 20 MG Potassium Chloride 100 ml @ 50 mls/hr Q2H IV 04/10/24 09:00 04/10/24 12:59 04/10/24 11:41 50 MLS/HR Vancomycin HCl 150 ml @ 150 mls/hr Q12H IV 04/10/24 12:00 Meropenem 50 ml @ 17 mls/hr Q8H IV 04/10/24 18:00 Vasopressin 20 units/Sodium Chloride 100 ml @ 9 mls/hr Q11H7M IV 04/10/24 11:45 Examination Examination General Appearance: Altered HEENT: EOMI Respiratory: Clear to auscultation, Normal air movement Cardiovascular: Regular rate, Normal S1, Normal S2 Abdominal: Normal bowel sounds Extremities: No cyanosis, No edema, Normal pulses, No tenderness/swelling Skin: No rashes, No breakdown Neuro: Altered laboratory and microbiology Laboratory Tests 04/10/24 05:42 Test 04/10/24 05:42 Range/Units Serum Glucose 203 H 74-106 mg/dL Labs and/or images reviewed: Labs reviewed by me, Image(s) reviewed by me Problem List/Assessment/Plan Problem List/Assessment/Plan Assessment/Plan Neurology # metabolic encephalopathy due to sepsis, ? Hepatic encephalopathy -head CT UDS B12, TSH, folate Cardiology # shock, septic -recent echo showed ejection fraction 55% Currently on norepinephrine, use vasopressin of the 2nd drip considering history of liver cirrhosis Respiratory # acute hypoxic respiratory failure due to volume overload, x-ray shows bilateral congestion -currently on BiPAP -panculture #?PNEUMONIA -Xray bilateral congestion -IV vancomycin plus meropenem plus azithromycin -Nebulized with albuterol as needed GI # history of cirrhosis -liver ultrasound # questionable hepatic encephalopathy Lactulose # history of colitis and GI bleed -IV Protonix #pancreatic mass ?pancreatitis -ordered lipase nephrology #hypokalemia -Monitor BMP #Septic shock -avoid IV fluids considering volume overload -panculture Lactic acid Endocrine Diabetes mellitus -sliding scale insulin Psychiatry -alcohol use disorder, alcohol withdrawal - no use of benzodiazepine as patient is altered Full code Lines Drips Norepinephrine Discussion with Dr. Sheehan Will get bedside explained about the condition of the patient Critical time care excluding procedure is greater than 85 minutes Plan discussed with: Patient My Orders My Orders Orders - VALENTINE MAR Procedure Category Date Status Time Meropenem 1gm Ivpb PHA 04/10/24 In Process (Merrem 1gm/ Ns) 11:15 Meropenem 1gm Ivpb PHA 04/10/24 In Process (Merrem 1gm/ Ns) 18:00 Chest Portable XY 04/10/24 Taken 11:07 Sodium Chl 0.9% PHA 04/10/24 In Process (So... W/Vasopressin 11:45 Date of Service: Apr 10, 2024 Billing Provider: CALLUM SHEEHAN MD Common Visit Codes: [id number] CARE 30-74 MIN VALENTINE MAR Apr 10, 2024 12:30 CALLUM SHEEHAN MD Apr 13, 2024 17:54
--- NOTE | 2024-04-10 12:50 | DVH ---
CHEST RADIOGRAPH Indication:congestion Technique: Single frontal view of the chest was obtained COMPARISON: XY CHEST PORTABLE on DOS: 04/09/24, XY CHEST PORTABLE on DOS: 03/28/24 FINDINGS: Lines and Tubes: None Lungs: Diffuse increased interstitial prominence Pleura: No effusion. No pneumothorax. Cardiomediastinal contours: Unremarkable Bones: Unremarkable IMPRESSION: Increased pulmonary vascular congestion versus viral pneumonitis.
[2024-04-10 13:33] LABS: Lymphocytes # (auto) 1.7 10 ^3/uL (0.4-5.4); Nucleated Red Blood Cells % 0.2 %
[2024-04-10 13:34] LABS: Basophils # (auto) 0.1 10 ^3/uL (0-0.2); Basophils % (auto) 0.4 % (0.0-2.0); Eosinophils # (auto) 0.3 10 ^3/uL (0-0.8); Eosinophils % (auto) 1.8 % (0.0-7.0); Hematocrit 30.3 % (41.0-53.0); Lymphocytes % (auto) 9.3 % (10.0-50.0); Mean Corpuscular Hemoglobin 35.4 pg (28.0-32.0); Mean Corpuscular Volume 107.5 fL (80.0-100.0); Monocytes # (auto) 0.7 10 ^3/uL (0-1.3); Monocytes % (auto) 3.8 % (0.0-12.0); Neutrophils # (auto) 15.8 10 ^3/uL (1.6-8.6); Neutrophils % (auto) 84.7 % (37.0-80.0); Platelet Count (auto) 153 10^3/uL (140-450); Red Blood Cells 2.82 10^6/uL (4.5-5.90); Red Cell Distribution Width 16.3 % (11.8-14.3); White Blood Cell 18.7 10^3/uL (4.4-10.8)
[2024-04-10] MEDS: VASOPRESSIN 20 UNITS in SODIUM CHL 0.9% 99 ML IV SCH (13:44)
[2024-04-10 13:47] LABS: Base Excess 4.4 mmol/L (-2.0-3.0)
[2024-04-10 13:53] LABS: INR 1.75 (0.9-1.15); Partial Thromboplastin Time 34.9 SEC (24.5-34.5); Prothrombin Time 17.8 sec (9.3-11.8)
[2024-04-10 13:57] LABS: Lactic Acid w/Reflex 2.1 mmol/L (0.4-2.0)
[2024-04-10] MEDS: VANCOMYCIN 750mg/150ml 150 ML IV SCH (14:20)
--- NOTE | 2024-04-10 14:23 | DVH ---
INDICATION: Pain. TECHNIQUE: Multiple real-time sonographic images of the abdomen were obtained. COMPARISON: US LIVER on DOS: 03/28/24 FINDINGS: The liver parenchyma shows increased echogenicity consistent with steatosis.. The liver elsa sures 13.43 cm. No intrahepatic biliary ductal dilatation is noted. Ascites right upper right lower and left upper quadrant. Contour of the liver appears somewhat nodular suggesting cirrhotic liver di sease. The gallbladder wall measures 0.21 cm and is unremarkable. No gallstones or sludge is seen. The co mmon duct not visualized. No pericholecystic fluid is noted. The right kidney measures 11.39 cm. No hydronephrosis. The left kidney measures 11.52 cm. No hydron ephrosis. Renal parenchyma is somewhat echogenic bilaterally suggesting chronic renal disease. The spleen not visualized. The echogenicity is within normal limits. The pancreas is not well visualized due to obscuration from bowel gas. The visualized portions of the IVC and aorta are grossly unremarkable. IMPRESSION: 1. Liver measures 13.43 cm in length with parenchymal changes suggesting steatosis. 2. Right kidney measures 11.39 cm. Left kidney measures 11.52 cm. Renal parenchyma is slightly echo genic suggesting chronic renal disease. No cortical thinning. 3. Small amount of ascites. HS:Y
[2024-04-10] MEDS: THIAMINE 100mg/ml INJ (200mg/2ml VIAL) IV ONE (14:31)
[2024-04-10 14:45] LABS: Chloride 108 mmol/L (98-107); Sodium 146 mmol/L (136-145)
[2024-04-10 14:48] LABS: Anion Gap 8 (5-15); Calcium 8.3 mg/dL (8.7-10.4); Carbon Dioxide 30 mmol/L (20-31)
[2024-04-10 14:53] LABS: Alkaline Phosphatase 233 U/L (46-116); Glucose 195 mg/dL (74-106)
[2024-04-10 14:54] LABS: BUN/Creatinine Ratio 23.5 (10.0-20.0); Blood Urea Nitrogen 20 mg/dL (9-23); Lipase 99 U/L (12-53); Potassium 3.2 mmol/L (3.5-5.1)
[2024-04-10 14:55] LABS: Aspartate Aminotransferase 80 U/L (13-40); Total Protein 5.7 g/dL (5.7-8.2)
[2024-04-10] MEDS: FOLIC ACID 1 MG in D5W 5% 50 ML INJ ONE (15:05)
[2024-04-10 15:07] LABS: Alanine Aminotransferase 65 U/L (7-40); Albumin 3.1 g/dL (3.2-4.8)
[2024-04-10 15:23] LABS: Rapid Influenza A Negative (Negative); Rapid Influenza B Negative (Negative)
--- NOTE | 2024-04-10 15:35 | DVHINCON2 ---
Date of service: Apr 10, [address] Mary Reason for Consultation Acute respiratory distress History of Present Illness 63-year-old man history of alcohol abuse, liver disease, diabetes mellitus type 2, prior GI hemorrhage who presented with generalized weakness. He was found to have abdominal pain and bilateral lower extremity swelling. He noted. Some increased confusion. He was initiated on noninvasive positive pressure ventilation to decrease respiratory distress. Chest x-ray was notable for mild pulmonary vascular congestion. CT abdomen and pelvis lung windows demonstrated ground-glass opacities in bilateral lung bases. He was initiated on IV antibiotics. He was currently requiring pressors for hemodynamic support. Pulmonary consultation is called due to acute hypoxic respiratory failure and noninvasive positive pressure ventilation management. Review of systems: Unable to obtain due to patient's critical condition. Past medical history: Diabetes mellitus type 2, liver disease, alcohol use disorder, gastritis, GI hemorrhage Past surgical history: Denies any prior surgeries. Medications: Reviewed Allergies: No known drug allergies. Family history: No family history of premature CAD. No family history of lung disease Social history: Smokes cigarettes. Drinks alcohol heavily. No illicit drug use. Lives at home. Family History: Alcoholism G8 BROTHER Diabetes mellitus G8 BROTHER FH: alcoholism FH: drug dependence G8 MOTHER Allergies: Coded Allergies: NO KNOWN ALLERGIES (Unverified , 03/15/16) Home Meds Active Scripts Sucralfate (CARAFATE SUSP) 1 Gm/10 Ml Ss, 10 ML PO QID for 30 Days, #1200 ML 1 Refill Prov:AKASH WALKER MD 04/02/24 Pantoprazole Sodium Sesquihydr (Protonix) 40 Mg Tab, 40 MG PO BID for 30 Days, #60 TAB 0 Refills Prov:AKASH WALKER MD 04/02/24 Midodrine Hcl (Midodrine Hcl) 10 Mg Tab, 10 MG PO TID for 30 Days, #90 TAB 0 Refills Prov:AKASH WALKER MD 04/02/24 Current Medications Current Medications Medications (Trade) Dose Ordered Sig/Peg Route PRN Reason Start Time Stop Time Status Last Admin Chlordiazepoxide HCl (Librium Capsule) 50 mg ONCE STAT PO 04/09/24 21:53 04/09/24 21:56 DC 04/09/24 22:15 Azithromycin 250 ml @ 125 mls/hr DAILY IV 04/10/24 10:00 04/10/24 11:07 Vancomycin HCl 0 ml @ 0 mls/hr UD IV 04/09/24 22:15 Lactulose 30 ml BID PO 04/10/24 10:00 Spironolactone (Aldactone) 25 mg DAILY PO 04/10/24 10:00 04/10/24 12:28 DC Ibuprofen (Motrin Tablet) 600 mg Q6HP PRN PO PAIN SCALE 1-3 OR TEMP>100.4 04/09/24 22:15 04/10/24 12:28 DC Albuterol (Ventolin Medneb) 2.5 mg Q4HPRN PRN NEB SHORTNESS OF BREATH 04/09/24 22:15 04/10/24 07:07 Ipratropium [place] (Atrovent Medneb) 0.5 mg Q4HPRN PRN NEB SHORTNESS OF BREATH 04/09/24 22:15 04/10/24 07:07 Midodrine (Proamatine Tablet) 10 mg TID@0600,1200,1800 PO 04/10/24 06:00 Cancel Diagnostic Test (Pha) (Accu-Chek Comfort Curve T) 1 strip ACHS 04/10/24 07:00 04/10/24 12:28 DC 04/10/24 11:30 Insulin Human Regular (InsuLIN R) HS SC 04/10/24 22:00 04/10/24 12:28 DC Insulin Human Regular (InsuLIN R) AC SC 04/10/24 07:00 04/10/24 12:28 DC 04/10/24 12:13 Dextrose 50 ml UD PRN IV Blood Sugar LESS THAN 60 04/09/24 22:15 04/10/24 12:28 DC Sodium Chloride (Saline Lock Ns) 10 ml Q8HR IV 04/10/24 06:00 04/10/24 14:02 Acetaminophen/ Hydrocodone Bitart (Evangeline 5/325MG Tab) 1 tab Q4HP PRN PO MODERATE PAIN (4-6 PAIN SCALE) 04/09/24 22:15 04/10/24 12:28 DC Ondansetron HCl (Zofran) 4 mg Q4HP PRN IV NAUSEA / VOMITING 04/09/24 22:15 Pantoprazole Sodium (Protonix) 40 mg DAILY IV 04/10/24 10:00 04/10/24 11:49 Nitroglycerin (Ntrostat Sublingual) 0.4 mg Q5MINP PRN SL FOR CHEST PAIN 04/09/24 23:15 04/10/24 12:28 DC Morphine Sulfate 2 mg Q30M PRN IV FOR CHEST PAIN 04/09/24 23:15 04/10/24 12:28 DC Midodrine (Proamatine Tablet) 10 mg TID@0600,1200,1800 PO 04/10/24 06:00 04/10/24 12:28 DC Norepinephrine Bitartrate 250 ml @ 3.75 mls/hr Q24H IV 04/10/24 01:00 04/10/24 11:16 Melatonin (Melatonin) 5 mg HS PO 04/10/24 22:00 04/10/24 12:37 DC Furosemide (Lasix Injection) 20 mg DAILY IV 04/10/24 10:00 04/10/24 12:28 DC 04/10/24 11:48 Potassium Chloride 100 ml @ 50 mls/hr Q2H IV 04/10/24 09:00 04/10/24 12:59 DC 04/10/24 11:41 Vancomycin HCl 150 ml @ 150 mls/hr Q12H IV 04/10/24 12:00 04/10/24 14:20 Epinephrine HCl 250 ml @ 7.5 mls/hr Q24H IV 04/10/24 10:15 04/10/24 11:45 DC Meropenem 50 ml @ 17 mls/hr Q8H IV 04/10/24 18:00 Vasopressin 20 units/Sodium Chloride 100 ml @ 9 mls/hr Q11H7M IV 04/10/24 11:45 Furosemide (Lasix Injection) 60 mg BID IV 04/10/24 22:00 Diagnostic Test (Pha) (Accu-Chek Comfort Curve T) 1 strip Q6HR 04/10/24 18:00 Insulin Human Regular (InsuLIN R) Q6HR SC 04/10/24 18:00 Dextrose 50 ml UD PRN IV Blood Sugar LESS THAN 60 04/10/24 12:15 Vital Signs Vital Signs Date Time Temp Pulse Resp B/P (MAP) Pulse Ox O2 Delivery O2 Flow Rate FiO2 04/10/24 15:05 121/54 04/10/24 13:57 77 97 Facial BiPAP Mask 40 04/10/24 13:00 17 04/10/24 07:25 10 04/10/24 07:25 97.8 97.8 Physical Exam Gen.: Patient lying in bed in mild apparent distress. On BIPAP Head: Normocephalic, atraumatic Eyes: EOMI/PERRLA. Ears: Normal hearing. Normal anatomy. Neck/trachea: Trachea midline, supple. Nose: Normal external anatomy. Mouth: Moist mucous membranes. Chest: Decreased air entry bilaterally. No wheezing or rhonchi. Cardio vascular: Positive S1, positive S2. Regular rate and rhythm. Abdomen: Positive bowel sounds in all 4 quadrants. Soft, non-tender, non- distended. : Deferred. Rectal: Deferred Skin: Warm, dry. Extremities: 2+ radial pulses bilaterally. No lower extremity edema. Neuro: Awake, alert, oriented x1. Opens eyes to verbal and tactile stimuli. Follows simple commands. No gross motor or sensory deficits. Cranial nerves II through XII intact. Gait not assessed. Labs/Diagnostic Data Labs Test 04/10/24 15:04 04/10/24 13:55 04/10/24 13:42 04/10/24 12:57 Range/Units Blood Gas Specimen Type Arterial Blood Gas Sample Site Left radial Blood Gas Patient Temperature 37.0 Arterial Blood Date Drawn [id number] Arterial Blood pH 7.494 H 7.350-7.450 Arterial Blood Partial Pressure CO2 37.0 35.0-48.0 mmHg Arterial Blood Partial Pressure O2 81.6 L 83.0-108.0 mmHg Arterial Blood HCO3 27.8 21.0-28.0 mmol/L Arterial Blood Oxygen Saturation 95.1 94.0-98.0 % Arterial Blood Base Excess 4.4 H -2.0-3.0 mmol/L Arterial Blood Oxyhemoglobin 93.6 L 94.0-98.0 % Arterial Blood Carboxyhemoglobin 0.9 0.5-1.5 % Arterial Blood Methemoglobin 0.7 0.0-1.5 % Prosper Test Yes Blood Gas Total Hemoglobin 10.20 L 13.5-17.5 g/dL Blood Gas Set Respiration Rate 14.0 Blood Gas Modality Mask - bipap FiO2 % 40.0 Blood Gas EPAP 5 Blood Gas IPAP 12 White Blood Count 18.7 H 4.4-10.8 10^3/uL Red Blood Count 2.82 L 4.5-5.90 10^6/uL Hemoglobin 10.0 L 13.5-17.5 g/dL Hematocrit 30.3 #L 41.0-53.0 % Mean Corpuscular Volume 107.5 H 80.0-100.0 fL Mean Corpuscular Hemoglobin 35.4 H 28.0-32.0 pg Mean Corpuscular Hemoglobin Concent 33.0 32.0-36.0 g/dL Red Cell Distribution Width 16.3 H 11.8-14.3 % Platelet Count 153 140-450 10^3/uL Mean Platelet Volume 9.1 6.9-10.8 fL Neutrophils (%) (Auto) 84.7 H 37.0-80.0 % Lymphocytes (%) (Auto) 9.3 L 10.0-50.0 % Monocytes (%) (Auto) 3.8 0.0-12.0 % Eosinophils (%) (Auto) 1.8 0.0-7.0 % Basophils (%) (Auto) 0.4 0.0-2.0 % Neutrophils # (Auto) 15.8 H 1.6-8.6 10 ^3/uL Lymphocytes # (Auto) 1.7 0.4-5.4 10 ^3/uL Monocytes # (Auto) 0.7 0-1.3 10 ^3/uL Eosinophils # (Auto) 0.3 0-0.8 10 ^3/uL Basophils # (Auto) 0.1 0-0.2 10 ^3/uL Nucleated Red Blood Cells 0.2 % Prothrombin Time 17.8 H 9.3-11.8 sec Prothrombin Time INR 1.75 H 0.9-1.15 Activated Partial Thromboplast Time 34.9 H 24.5-34.5 SEC Sodium Level 146 H 136-145 mmol/L Potassium Level 3.2 L 3.5-5.1 mmol/L Chloride Level 108 H 98-107 mmol/L Carbon Dioxide Level 30 20-31 mmol/L Anion Gap 8 5-15 Blood Urea Nitrogen 20 9-23 mg/dL Creatinine 0.85 0.700-1.30 mg/dL Glomerular Filtration Rate Calc 98 >90 mL/min BUN/Creatinine Ratio 23.5 H 10.0-20.0 Serum Glucose 195 H 74-106 mg/dL Hemoglobin A1c 5.8 H <5.7 % A1C Calcium Level 8.3 L 8.7-10.4 mg/dL Total Bilirubin 2.0 H 0.2-1.0 mg/dL Aspartate Amino Transferase (AST) 80 H 13-40 U/L Alanine Aminotransferase (ALT) 65 H 7-40 U/L Alkaline Phosphatase 233 H 46-116 U/L Ammonia 21 11-32 umol/L Total Protein 5.7 5.7-8.2 g/dL Albumin 3.1 L 3.2-4.8 g/dL Lipase 99 H 12-53 U/L HIV (1&2) Antibody Negative Negative Test 04/10/24 12:07 04/10/24 05:42 04/10/24 03:17 04/10/24 00:36 Range/Units POC Glucose 205 H 70-106 mg/dl Platelet Estimate Adequate Anisocytosis (manual) Slight Macrocytosis Slight Target Cells Few B-Type Natriuretic Peptide 212.48 0-100 pg/mL Thyroid Stimulating Hormone (TSH) 1.06 0.55-4.78 uIU/mL Urine Color Yellow Yellow Urine Clarity Clear Clear Urine pH 6.0 5.0-9.0 Urine Specific [place] 1.021 1.001-1.035 Urine Protein Negative Negative Urine Ketones Trace Negative Urine Blood Negative Negative /uL Urine Nitrite Negative Negative Urine Bilirubin Negative Negative Urine Urobilinogen Normal Negative mg/dL Urine Leukocyte Esterase Negative Negative /uL Urine RBC 1 0 - 3 /hpf Urine WBC 2 0 - 3 /hpf Urine Squamous Epithelial Cells None seen <5 /hpf Urine Bacteria None seen None Seen /hpf Urine Hyaline Casts Few 0 - 2 /lpf Urine Granular Casts Few 0 /lpf Urine Mucus Few None Seen Urine Glucose Normal Normal mg/dL Urine Opiates Screen Neg NEGATIVE Urine Fentanyl Screen Neg NEGATIVE Urine Barbiturates Screen Neg NEGATIVE Urine Phencyclidine Screen Neg NEGATIVE Urine Amphetamines Screen Neg NEGATIVE Urine Benzodiazepines Screen Neg NEGATIVE Urine Cocaine Screen Neg NEGATIVE Urine Cannabinoids Screen Neg NEGATIVE SARS-CoV-2 Antigen (Rapid) Negative NEGATIVE Test 04/09/24 20:03 04/09/24 19:00 Range/Units Troponin I High Sensitivity 6 </=54 ng/L Differential Total Cells Counted 100.0 100 Neutrophils % (Manual) 83 H 37.0-80.0 Band Neutrophils % (Manual) 5 Lymphocytes % (Manual) 9 L 10.0-50.0 Monocytes % (Manual) 3 0-12 Eosinophils % (Manual) 0 0-7 Basophils % (Manual) 0 0.0-2.0 Metamyelocytes % (manual) 0 Myelocytes % (Manual) 0 Promyelocytes % (Manual) 0 Blast Cells % (Manual) 0 Reactive Lymphocytes 0 Plasma/Serum Blood Alcohol < 3.0 <10 mg/dL Assessment Impression: Acute hypoxic respiratory failure On NIPPV ventilator Pulmonary edema Sepsis Pneumonia, likely gram negative Acute metabolic encephalopathy Plan: s/p intubation on mechanical ventilator CXR image and report reviewed. Increased pulmonary vascular congestion. No pleural effusion or pneumothorax. ABG reviewed. On BIPAP Titrate FIO2 to keep O2 saturation above 92%. On pressors for hemodynamic support. On Levophed at 10 mcg/min. Titrate to keep MAP above 65 mmHg/SBP above 90 mmHg. Continue antibiotics. F/u cultures. WBC trending down. Monitor renal function. Monitor electrolytes. Supplement as necessary. Diurese with lasix Monitor ins/outs. Nutritional support. Accucheks, ISS. GI/DVT prophylaxis. Condition: Critical Prognosis: Poor given multiple comorbidities. Rest of plan per hospitalist and other consultants. A total of 36 minutes of critical care time was spent reviewing the patient record, examining the patient, making a diagnostic and therapeutic plan, discussing this plan with the medical personnel, following up on diagnostic studies and following the patient for clinical stability excluding any and all procedures. At least 50% of this time was spent in direct, [id number] contact. Thank you Dr. Mary for allowing me to participate in this patient's care. Further recommendations will depend on patient's clinical course. Please do not hesitate to contact me if you have any questions or concerns. This medical document was created using an electronic medical record system with [employer] system. Although this document has been carefully reviewed, there may still be some phonetic and typographical errors. These areas are purely typographical due to imperfections of the software programs, and do not reflect any compromise in the patient's medical care. Plan discussed with: Patient, Other (RN, MD) TIMI ONEIL MD Apr 10, 2024 15:35
[2024-04-10] MEDS: MEROPENEM 1GM IVPB 50 ML IV SCH (18:14)
[2024-04-10] MEDS ORDERED: MELATONIN 5 MG TAB PO SCH (22:00)
[2024-04-10] MEDS ORDERED: InsuLIN REG 1unit/0.01ml Soln (100units/ml) SC SCH (22:00)
[2024-04-11] VITALS (70 sets, daily range): BP systolic 68–139; BP diastolic 39–80; PULSE 60–94; RESP 12–21; TEMP 97.7–98.9; O2SAT 91–98
[2024-04-11 06:01] LABS: Anion Gap 9 (5-15); Calcium 8.2 mg/dL (8.7-10.4); Carbon Dioxide 30 mmol/L (20-31); Chloride 110 mmol/L (98-107); Potassium 3.3 mmol/L (3.5-5.1); Sodium 149 mmol/L (136-145)
[2024-04-11 06:07] LABS: BUN/Creatinine Ratio 18.8 (10.0-20.0); Blood Urea Nitrogen 13 mg/dL (9-23); Glucose 131 mg/dL (74-106)
[2024-04-11 06:08] LABS: Magnesium 1.8 mg/dL (1.6-2.6)
[2024-04-11 07:15] LABS: Basophils # (auto) 0.1 10 ^3/uL (0-0.2); Basophils % (auto) 0.6 % (0.0-2.0); Eosinophils # (auto) 0.4 10 ^3/uL (0-0.8); Hemoglobin 9.9 g/dL (13.5-17.5); Platelet Count (auto) 127 10^3/uL (140-450)
[2024-04-11 07:17] LABS: Eosinophils % (auto) 2.6 % (0.0-7.0); Hematocrit 30.2 % (41.0-53.0); Lymphocytes # (auto) 1.8 10 ^3/uL (0.4-5.4); Lymphocytes % (auto) 10.9 % (10.0-50.0); Mean Corpuscular Hemoglobin 34.7 pg (28.0-32.0); Mean Corpuscular Hgb Conc. 32.9 g/dL (32.0-36.0); Mean Corpuscular Volume 105.6 fL (80.0-100.0); Monocytes # (auto) 0.8 10 ^3/uL (0-1.3); Monocytes % (auto) 5.1 % (0.0-12.0); Neutrophils # (auto) 12.9 10 ^3/uL (1.6-8.6); Neutrophils % (auto) 80.8 % (37.0-80.0); Red Blood Cells 2.86 10^6/uL (4.5-5.90); Red Cell Distribution Width 16.8 % (11.8-14.3)
[2024-04-11 09:42] LABS: Hepatitis A Total Antibody Negative (Negative); Hepatitis B Surface Antibody Positive (Negative); Hepatitis B Surface Antigen Negative (Negative)
[2024-04-11 09:47] LABS: Hepatitis B Core Total AB Positive (Negative); Hepatitis C Antibody Positive (Negative)
[2024-04-11] MEDS: POTASSIUM CHL 20MEQ/100ML 100 ML IV ONE ×2 (10:13→12:54)
[2024-04-11 11:35] LABS: Folate (Folic Acid) 6.18 ng/mL (>5.38)
[2024-04-11 11:43] LABS: Alanine Aminotransferase 63 U/L (7-40); Albumin 2.6 g/dL (3.2-4.8); Alkaline Phosphatase 235 U/L (46-116); Anion Gap 7 (5-15); Aspartate Aminotransferase 104 U/L (13-40); BUN/Creatinine Ratio 20.9 (10.0-20.0); Bilirubin, Total 2.3 mg/dL (0.2-1.0); Blood Urea Nitrogen 14 mg/dL (9-23); Calcium 8.2 mg/dL (8.7-10.4); Carbon Dioxide 32 mmol/L (20-31); Chloride 111 mmol/L (98-107); Glucose 147 mg/dL (74-106); Potassium 3.4 mmol/L (3.5-5.1); Sodium 150 mmol/L (136-145); Total Protein 5.6 g/dL (5.7-8.2)
--- NOTE | 2024-04-11 12:24 | DVHINCON2 ---
GI Consult Consult Note GI consult note Date of Consultation: 04/11/2024 Chief Complaint: Acute hypoxic respiratory failure Referring Physician: Dr. Mary H&P: 63-year-old male admitted with generalized weakness Patient reports progressively worse lower abdominal pain, bilateral leg swelling, increased confusion also Patient is seen in ER bed 17 No nausea or vomiting. No hematemesis. No melena or red blood in stool Patient admits to heavy alcohol use Patient is status post EGD DATE OF OPERATION: 03/30/24 PROCEDURE: Upper Endoscopy with biopsy. PREOPERATIVE INDICATION: The patient is a 63 -year-old male undergoing endoscopy for anemia and melena and GI bleed POSTOPERATIVE DIAGNOSES: 1. Moderate to severe duodenitis with postbulbar superficial duodenal ulcers Mario classification C with no active bleeding 2. Moderate gastropathy gastritis and antral gastric erosions 3. 1-2 cm sliding-type hiatal hernia with grade B erosive esophagitis 4. Otherwise normal examination up to the 2nd and 3rd part of the duodenum with no fresh or old blood in the stomach no active GI bleeding and no evidence of varices PROCEDURE PERFORMED BY: Marilee Lassiter Pathology: Gastritis, duodenitis, + H pylori bacteria Past Medical History: DM, Liver disease, Alcohol use disorder, gastritis, GI bleeding Past Surgical History: Denies Social History: Patient lives at home, smokes cigarettes, drinks alcohol heavily, denies illicit drugs abuse. Family History: Noncontributory Review of Systems: Constitutional: no fever, chill, weight loss Heart: no chest pain, no chest pressure Lung: no cough, no dyspnea with exertion Abdomen: see HPI Physical exam: General: Patient is alert and awake, mild distress Chest: lung johnson clear to auscultation Heart: RRR, no murmur Abdomen: no tenderness to palpation, +BS Labs: Labs Test 04/11/24 11:38 04/11/24 11:05 04/11/24 06:50 04/11/24 05:13 Range/Units POC Glucose 188 H 70-106 mg/dl Sodium Level 150 H 136-145 mmol/L Potassium Level 3.4 L 3.5-5.1 mmol/L Chloride Level 111 H 98-107 mmol/L Carbon Dioxide Level 32 H 20-31 mmol/L Anion Gap 7 5-15 Blood Urea Nitrogen 14 9-23 mg/dL Creatinine 0.67 L 0.700-1.30 mg/dL Glomerular Filtration Rate Calc 105 >90 mL/min BUN/Creatinine Ratio 20.9 H 10.0-20.0 Serum Glucose 147 H 74-106 mg/dL Calcium Level 8.2 L 8.7-10.4 mg/dL Total Bilirubin 2.3 H 0.2-1.0 mg/dL Aspartate Amino Transferase (AST) 104 H 13-40 U/L Alanine Aminotransferase (ALT) 63 H 7-40 U/L Alkaline Phosphatase 235 H 46-116 U/L Total Protein 5.6 L 5.7-8.2 g/dL Albumin 2.6 L 3.2-4.8 g/dL Vancomycin Level Trough 10.6 H 5-10 ug/mL White Blood Count 16.0 H 4.4-10.8 10^3/uL Red Blood Count 2.86 L 4.5-5.90 10^6/uL Hemoglobin 9.9 L 13.5-17.5 g/dL Hematocrit 30.2 L 41.0-53.0 % Mean Corpuscular Volume 105.6 H 80.0-100.0 fL Mean Corpuscular Hemoglobin 34.7 H 28.0-32.0 pg Mean Corpuscular Hemoglobin Concent 32.9 32.0-36.0 g/dL Red Cell Distribution Width 16.8 H 11.8-14.3 % Platelet Count 127 L 140-450 10^3/uL Mean Platelet Volume 9.4 6.9-10.8 fL Neutrophils (%) (Auto) 80.8 H 37.0-80.0 % Lymphocytes (%) (Auto) 10.9 10.0-50.0 % Monocytes (%) (Auto) 5.1 0.0-12.0 % Eosinophils (%) (Auto) 2.6 0.0-7.0 % Basophils (%) (Auto) 0.6 0.0-2.0 % Neutrophils # (Auto) 12.9 H 1.6-8.6 10 ^3/uL Lymphocytes # (Auto) 1.8 0.4-5.4 10 ^3/uL Monocytes # (Auto) 0.8 0-1.3 10 ^3/uL Eosinophils # (Auto) 0.4 0-0.8 10 ^3/uL Basophils # (Auto) 0.1 0-0.2 10 ^3/uL Nucleated Red Blood Cells 0.0 % Magnesium Level 1.8 1.6-2.6 mg/dL Test 04/10/24 15:04 04/10/24 13:55 04/10/24 13:42 04/10/24 12:57 Range/Units Lactic Acid Level 2.0 0.4-2.0 mmol/L Influenza Type A Antigen Negative Negative Influenza Type B Antigen Negative Negative Blood Gas Specimen Type Arterial Blood Gas Sample Site Left radial Blood Gas Patient Temperature 37.0 Arterial Blood Date Drawn [id number] Arterial Blood pH 7.494 H 7.350-7.450 Arterial Blood Partial Pressure CO2 37.0 35.0-48.0 mmHg Arterial Blood Partial Pressure O2 81.6 L 83.0-108.0 mmHg Arterial Blood HCO3 27.8 21.0-28.0 mmol/L Arterial Blood Oxygen Saturation 95.1 94.0-98.0 % Arterial Blood Base Excess 4.4 H -2.0-3.0 mmol/L Arterial Blood Oxyhemoglobin 93.6 L 94.0-98.0 % Arterial Blood Carboxyhemoglobin 0.9 0.5-1.5 % Arterial Blood Methemoglobin 0.7 0.0-1.5 % Prosper Test Yes Blood Gas Total Hemoglobin 10.20 L 13.5-17.5 g/dL Blood Gas Set Respiration Rate 14.0 Blood Gas Modality Mask - bipap FiO2 % 40.0 Blood Gas EPAP 5 Blood Gas IPAP 12 Prothrombin Time 17.8 H 9.3-11.8 sec Prothrombin Time INR 1.75 H 0.9-1.15 Activated Partial Thromboplast Time 34.9 H 24.5-34.5 SEC Hemoglobin A1c 5.8 H <5.7 % A1C Ammonia 21 11-32 umol/L Lipase 99 H 12-53 U/L Hepatitis A Antibody Total Negative Negative Hepatitis B Surface Antigen Negative Negative Hepatitis B Surface Antibody Positive H Negative Hepatitis B Core Total Antibody Positive H Negative Hepatitis C Antibody Positive *A Negative HIV (1&2) Antibody Negative Negative Test 04/10/24 05:42 04/10/24 03:17 04/10/24 00:36 04/09/24 20:03 Range/Units Platelet Estimate Adequate Anisocytosis (manual) Slight Macrocytosis Slight Target Cells Few B-Type Natriuretic Peptide 212.48 0-100 pg/mL Vitamin B12 Level 3262 H 211-911 pg/mL Folic Acid 6.18 >5.38 ng/mL Thyroid Stimulating Hormone (TSH) 1.06 0.55-4.78 uIU/mL Urine Color Yellow Yellow Urine Clarity Clear Clear Urine pH 6.0 5.0-9.0 Urine Specific [place] 1.021 1.001-1.035 Urine Protein Negative Negative Urine Ketones Trace Negative Urine Blood Negative Negative /uL Urine Nitrite Negative Negative Urine Bilirubin Negative Negative Urine Urobilinogen Normal Negative mg/dL Urine Leukocyte Esterase Negative Negative /uL Urine RBC 1 0 - 3 /hpf Urine WBC 2 0 - 3 /hpf Urine Squamous Epithelial Cells None seen <5 /hpf Urine Bacteria None seen None Seen /hpf Urine Hyaline Casts Few 0 - 2 /lpf Urine Granular Casts Few 0 /lpf Urine Mucus Few None Seen Urine Glucose Normal Normal mg/dL Urine Opiates Screen Neg NEGATIVE Urine Fentanyl Screen Neg NEGATIVE Urine Barbiturates Screen Neg NEGATIVE Urine Phencyclidine Screen Neg NEGATIVE Urine Amphetamines Screen Neg NEGATIVE Urine Benzodiazepines Screen Neg NEGATIVE Urine Cocaine Screen Neg NEGATIVE Urine Cannabinoids Screen Neg NEGATIVE SARS-CoV-2 Antigen (Rapid) Negative NEGATIVE Troponin I High Sensitivity 6 </=54 ng/L Test 04/09/24 19:00 Range/Units Differential Total Cells Counted 100.0 100 Neutrophils % (Manual) 83 H 37.0-80.0 Band Neutrophils % (Manual) 5 Lymphocytes % (Manual) 9 L 10.0-50.0 Monocytes % (Manual) 3 0-12 Eosinophils % (Manual) 0 0-7 Basophils % (Manual) 0 0.0-2.0 Metamyelocytes % (manual) 0 Myelocytes % (Manual) 0 Promyelocytes % (Manual) 0 Blast Cells % (Manual) 0 Reactive Lymphocytes 0 Plasma/Serum Blood Alcohol < 3.0 <10 mg/dL Imaging: CT abdomen pelvis IMPRESSION: 1. Development of ground-glass infiltrates in both bases when compared to previous CT of 03/27/2024. 2. 3.7 x 4.7 cm globular appearance to the tail of the pancreas can not exclude pancreatic mass consider MRCP for further evaluation. 3. Scattered ascites throughout the abdomen and pelvis Liver ultrasound IMPRESSION: 1. Liver measures 13.43 cm in length with parenchymal changes suggesting steatosis. 2. Right kidney measures 11.39 cm. Left kidney measures 11.52 cm. Renal parenchyma is slightly echogenic suggesting chronic renal disease. No cortical thinning. 3. Small amount of ascites. Assessment: Liver cirrhosis History GI bleed status post EGD Plan: -discussed with Dr. Lassiter Monitor lab Protonix IV antibiotics Zithromax and ampicillin in view of positive H pylori pathology Discussed plan with patient and RN Thank you for this consult Date of Service: Apr 11, 2024 Billing Provider: JAY TRAMMELL Common Visit Codes: CONSULT ONLY Consultation Codes: [id number] CONSULT <45MIN JAY TRAMMELL Apr 11, 2024 12:24
--- NOTE | 2024-04-11 13:09 | DVH ---
Bilateral Chest Sonogram Date: 04/11/2024 12:48 PM Clinical history: pleural effusion posible toracentesis Technique: Limited sonographic evaluation of the bilateral chest was performed to evaluate for pleur al effusion. Finding/Impression: No definite right pleural effusion. A minimal trace left pleural effusion is present. Small volume abdominal ascites. HS:Y
--- NOTE | 2024-04-11 14:41 | ECG ---
[facility] Test Date: 2024-04-09 Test Time: 17:08:58 Pat Name: ALICIA PURDY Department: ER Room: 0265 Gender: M Rehabilitation Case Coordinator: XAVI : 1960 Requested By: VALENTINE MAR Order Number: [id number] Reading MD: Adrien Mims Measurements Intervals [place] Rate: 96 P: 72 [place]: 128 QRS: 70 QRSD: 90 T: 39 QT: 385 QTc: 487 Interpretive Statements Sinus rhythm Ventricular premature complex Low voltage, precordial leads Minimal ST depression Borderline prolonged QT interval Baseline wander in lead(s) V1 Electronically Signed On 04-21-2024 12:37:14 PST by Adrien Mims Please click the below link to view image of tracing.
--- NOTE | 2024-04-11 14:47 | DVHPNRES ---
Progress Note Date Seen: Apr 11, 2024 Resident Creating Document: JANEL HERNANDEZ RESIDENT Medical Necessity Reason Pt with a Central, PICC or Fol: Yes The following are medically ne: Clark Catheter Subjective Review of Systems A 63y old man history of alcohol abuse, liver disease, diabetes mellitus type 2, prior GI hemorrhage who presented with generalized weakness. He was found to have abdominal pain and bilateral lower extremity swelling. He was initiated on noninvasive positive pressure ventilation to decrease respiratory distress. Chest x-ray was notable for mild pulmonary vascular congestion. CT abdomen and pelvis lung windows demonstrated ground-glass opacities in bilateral lung bases. He was initiated on IV antibiotics. He was currently requiring pressors for hemodynamic support. Pulmonary consultation is called due to acute hypoxic respiratory failure and noninvasive positive pressure ventilation management. Review of systems: Unable to obtain due to patient's critical condition. Past medical history: Diabetes mellitus type 2, liver disease, alcohol use disorder, gastritis, GI hemorrhage Past surgical history: Denies any prior surgeries. Medications: Reviewed Allergies: No known drug allergies. Family history: No family history of premature CAD. No family history of lung disease Social history: Smokes cigarettes. Drinks alcohol heavily. No illicit drug use. Lives at home. Objective vital signs Vital Sign Date Time Temp Pulse Resp B/P (MAP) Pulse Ox O2 Delivery O2 Flow Rate FiO2 04/11/24 12:45 75/45 04/11/24 09:29 77 04/11/24 07:00 15 93 04/11/24 07:00 97.9 97.9 04/11/24 06:12 Oxymizer 5.0 04/11/24 06:12 N/A Total Intake and Output 04/10/24 04/10/24 04/11/24 15:00 23:00 07:00 Intake Total 509.625 ml 423.7 ml 253.5 ml Output Total 2500 ml 800 ml 2400 ml Balance -1990.375 ml -376.3 ml -2146.5 ml medications Current Medications Medications Dose Ordered Sig/Peg Route Start Time Stop Time Status Last Admin Dose Admin Azithromycin 250 ml @ 125 mls/hr DAILY IV 04/10/24 10:00 04/10/24 11:07 125 MLS/HR Lactulose 30 ml BID PO 04/10/24 10:00 Albuterol 2.5 mg Q4HPRN PRN NEB 04/09/24 22:15 04/10/24 07:07 2.5 MG Ipratropium [place] 0.5 mg Q4HPRN PRN NEB 04/09/24 22:15 04/10/24 07:07 0.5 MG Midodrine 10 mg TID@0600,1200,1800 PO 04/10/24 06:00 Cancel Sodium Chloride 10 ml Q8HR IV 04/10/24 06:00 04/11/24 06:00 10 ML Ondansetron HCl 4 mg Q4HP PRN IV 04/09/24 22:15 Pantoprazole Sodium 40 mg DAILY IV 04/10/24 10:00 04/11/24 10:52 40 MG Norepinephrine Bitartrate 250 ml @ 3.75 mls/hr Q24H IV 04/10/24 01:00 04/10/24 11:16 37.5 MLS/HR Meropenem 50 ml @ 17 mls/hr Q8H IV 04/10/24 18:00 04/11/24 02:00 17 MLS/HR Vasopressin 20 units/Sodium Chloride 100 ml @ 9 mls/hr Q11H7M IV 04/10/24 11:45 Furosemide 60 mg BID IV 04/10/24 22:00 04/10/24 22:03 60 MG Diagnostic Test (Pha) 1 strip Q6HR 04/10/24 18:00 04/11/24 11:49 1 STRIP Insulin Human Regular Q6HR SC 04/10/24 18:00 04/11/24 11:54 3 UNITS Dextrose 50 ml UD PRN IV 04/10/24 12:15 Albumin Human 100 ml @ 100 mls/hr Q8H IV 04/11/24 12:45 04/12/24 05:44 Furosemide 40 mg DAILY IV 04/12/24 10:00 UNV Examination Examination Mayra score 12 General Appearance: Altered HEENT: EOMI Respiratory: Clear to auscultation, Normal air movement Cardiovascular: Regular rate, Normal S1, Normal S2 Abdominal: Normal bowel sounds Extremities: No cyanosis, No edema, Normal pulses, No tenderness/swelling Skin: No rashes, No breakdown Neuro: Altered laboratory and microbiology Laboratory Tests 04/11/24 11:05 04/11/24 06:50 Test 04/11/24 11:05 Range/Units Serum Glucose 147 H 74-106 mg/dL Microbiology Date/Time Source Procedure Growth Status 04/10/24 15:30 Nose MRSA Screen - Final Complete Problem List/Assessment/Plan Problem List/Assessment/Plan Neurology # metabolic encephalopathy due to sepsis, ? Hepatic encephalopathy -head CT: normal Ammnoia levels normal [place] fluctuatin Not need of intubation at the moment Cardiology # possible septic shock due to pneumonia gram +/ gram neg -recent echo showed ejection fraction 55% Currently on norepinephrine, use vasopressin of the 2nd drip considering history of liver cirrhosis Respiratory # acute hypoxic respiratory failure due to volume overload, possible penumonia possible ARDS at the moment on supplemental oxygen x-ray shows bilateral congestion ABG: ph 7.48 pco2 32.7 po2 64.7 hco3 24 keep an eye due to possible deterioration on mental status #?possible septic shock due to pneumonia gram +/ gram neg -Xray bilateral congestion -IV vancomycin plus meropenem plus azithromycin -Nebulized with albuterol as needed GI #Possible liver failure # history of cirrhosis due to alcohol and possible chronic hepatitis infection # questionable hepatic encephalopathy INR 1.75 BT 2.3 Maddrey's Discriminant Function for Alcoholic Hepatitis: 31 Lactulose # history of colitis and GI bleed -IV Protonix #pancreatic mass ?pancreatitis nephrology #hypokalemia #hypernatremia #Septic shock -avoid IV fluids considering volume overload cultures are pending Lactic acid 5.1 - 3.3 -2.1 Endocrine Diabetes mellitus hba1c 5.8 -sliding scale insulin Psychiatry -alcohol use disorder, alcohol withdrawal - no use of benzodiazepine as patient is altered Full code Drips Norepinephrine Discussion with Dr. Moser Critical time care excluding procedure is greater than 85 minutes Plan discussed with: Patient, Daughter, Other (rn) My Orders My Orders Orders - JANEL HERNANDEZ Procedure Category Date Status Time * Picc Line Consult CONS 04/11/24 Transmitted 10:16 * [facility] Counselor CONS 04/11/24 Transmitted 12:32 Chest Ultrasound US 04/11/24 Resulted 12:33 Albumin 25% (Albutein) PHA 04/11/24 In Process 12:45 Furosemide Injection PHA 04/12/24 Logged (Lasix Injection) 10:00 Date of Service: Apr 11, 2024 Billing Provider: ANAND MOSER MD Common Visit Codes: [id number] CARE 30-74 MIN JANEL HERNANDEZ Apr 11, 2024 14:47 ANAND MOSER MD Apr 13, 2024 13:12
[2024-04-11] MEDS: LIDOCAINE 1% (LOCAL ANESTH.) PF 5ml SDV ID ONE (16:41)
[2024-04-11] MEDS: FUROSEMIDE 40 MG/4 ML VIAL IV ONE (17:15)
[2024-04-11] MEDS ORDERED: AZITHROMYCIN 500MG/ 250ML 250 ML IV ONE (17:15)
[2024-04-11] MEDS: ALBUMIN 25% 100 ML IV SCH (17:25)
[2024-04-11] MEDS: methylPREDNISolone SOD SUCC 40 MG/ML VL IV SCH (22:42)
[2024-04-11] MEDS: SODIUM CHLOR 0.9% PF (SALINE LOCK) 10ML VIAL/SYR IV SCH (22:42)
[2024-04-11] MEDS: NOREPINEPHRINE BITARTRATE 32 MG in SODIUM CHL 0.9% 218 ML IV SCH (22:44)
[2024-04-12] VITALS (94 sets, daily range): BP systolic 86–132; BP diastolic 32–72; PULSE 39–90; RESP 11–25; TEMP 97.4–98.8; O2SAT 91–99
[2024-04-12 04:57] LABS: Basophils # (auto) 0 10 ^3/uL (0-0.2); Basophils % (auto) 0.2 % (0.0-2.0); Eosinophils # (auto) 0 10 ^3/uL (0-0.8); Eosinophils % (auto) 0.1 % (0.0-7.0); Hematocrit 24.5 % (41.0-53.0); Hemoglobin 8.1 g/dL (13.5-17.5); Lymphocytes # (auto) 0.6 10 ^3/uL (0.4-5.4); Mean Corpuscular Hemoglobin 34.9 pg (28.0-32.0); Monocytes # (auto) 0.3 10 ^3/uL (0-1.3); Monocytes % (auto) 2.1 % (0.0-12.0); Neutrophils # (auto) 11.6 10 ^3/uL (1.6-8.6); Neutrophils % (auto) 92.6 % (37.0-80.0); Platelet Count (auto) 82 10^3/uL (140-450); Red Blood Cells 2.31 10^6/uL (4.5-5.90); Red Cell Distribution Width 17.5 % (11.8-14.3); White Blood Cell 12.6 10^3/uL (4.4-10.8)
[2024-04-12 05:14] LABS: Alanine Aminotransferase 43 U/L (7-40); Albumin 2.6 g/dL (3.2-4.8); Alkaline Phosphatase 171 U/L (46-116); Anion Gap 8 (5-15); Aspartate Aminotransferase 67 U/L (13-40); BUN/Creatinine Ratio 22.6 (10.0-20.0); Blood Urea Nitrogen 14 mg/dL (9-23); Calcium 7.6 mg/dL (8.7-10.4); Carbon Dioxide 34 mmol/L (20-31); Chloride 114 mmol/L (98-107); Glucose 170 mg/dL (74-106); Potassium 3.3 mmol/L (3.5-5.1)
[2024-04-12 05:15] LABS: Bilirubin, Total 2.2 mg/dL (0.2-1.0)
[2024-04-12 05:28] LABS: Sodium 156 mmol/L (136-145)
[2024-04-12 05:37] LABS: Lipase 66 U/L (12-53)
[2024-04-12 05:57] LABS: Anisocytosis Slight; Macrocytosis Moderate; Platelet Estimate Decreased; Stomatocytes Moderate
[2024-04-12 06:58] LABS: Triglycerides 68 mg/dL (< 150)
[2024-04-12 06:59] LABS: LDL Cholesterol 35 mg/dL (< 100)
[2024-04-12 07:00] LABS: Cholesterol 59 mg/dL (< 200); HDL Cholesterol < 5 mg/dL (40-59)
[2024-04-12 07:09] LABS: INR 1.91 (0.9-1.15); Partial Thromboplastin Time 43.9 SEC (24.5-34.5); Prothrombin Time 19.3 sec (9.3-11.8)
[2024-04-12] MEDS: D5W/SOD CHL 0.45%/KCL 40MEQ 1,000 ML IV SCH (07:45)
--- NOTE | 2024-04-12 07:56 | DVH ---
Exam: US US GUIDED VASCULAR ACCESS Date: 04/11/2024 06:59 AM Clinical History: PICC LINE INSERTION Comparison: None Findings: Targeted sonographic evaluation of the left arm was obtained utilizing grayscale and color Doppler im aging. IMPRESSION: Sonographic assistance for central line placement. Please refer to procedural report for detailed fin dings.
--- NOTE | 2024-04-12 07:57 | DVH ---
CHEST RADIOGRAPH Indication:dysnea Technique: Single frontal view of the chest was obtained COMPARISON: XY CHEST PORTABLE on DOS: 04/10/24, XY CHEST PORTABLE on DOS: 04/09/24, XY CHEST PORTABLE on DOS: 03/28/24 FINDINGS: Lines and Tubes: Left PICC in satisfactory position. Lungs: Multifocal airspace disease. Pleura: No effusion. No pneumothorax. Cardiomediastinal contours: Unremarkable Bones: Unremarkable IMPRESSION: Left PICC in satisfactory position overlying the superior vena cava.
[2024-04-12] MEDS: FUROSEMIDE 40 MG/4 ML VIAL IV SCH (10:16)
--- NOTE | 2024-04-12 11:38 | DVHPNRES ---
Progress Note Date Seen: Apr 12, 2024 Resident Creating Document: JANEL HERNANDEZ RESIDENT Medical Necessity Reason Pt with a Central, PICC or Fol: Yes The following are medically ne: Clark Catheter Subjective Review of Systems A 63y old man history of alcohol abuse, liver disease, diabetes mellitus type 2, prior GI hemorrhage who presented with generalized weakness. He was found to have abdominal pain and bilateral lower extremity swelling. He was initiated on noninvasive positive pressure ventilation to decrease respiratory distress. Chest x-ray was notable for mild pulmonary vascular congestion. CT abdomen and pelvis lung windows demonstrated ground-glass opacities in bilateral lung bases. He was initiated on IV antibiotics. He was currently requiring pressors for hemodynamic support. Pulmonary consultation is called due to acute hypoxic respiratory failure and noninvasive positive pressure ventilation management. Review of systems: Unable to obtain due to patient's critical condition. Past medical history: Diabetes mellitus type 2, liver disease, alcohol use disorder, gastritis, GI hemorrhage Past surgical history: Denies any prior surgeries. Medications: Reviewed Allergies: No known drug allergies. Family history: No family history of premature CAD. No family history of lung disease Social history: Smokes cigarettes. Drinks alcohol heavily. No illicit drug use. Lives at home. Objective vital signs Vital Sign Date Time Temp Pulse Resp B/P (MAP) Pulse Ox O2 Delivery O2 Flow Rate FiO2 04/12/24 10:16 106/51 04/12/24 08:45 82 14 94 04/12/24 08:00 98.0 98.0 04/12/24 08:00 Hi-Flow NC 8 N/A Total Intake and Output 04/11/24 04/11/24 04/12/24 14:59 22:59 06:59 Intake Total 253.75 ml 525.25 ml 301.753 ml Output Total 1000 ml 1400 ml Balance 253.75 ml -474.75 ml -1098.247 ml medications Current Medications Medications Dose Ordered Sig/Peg Route Start Time Stop Time Status Last Admin Dose Admin Azithromycin 250 ml @ 125 mls/hr DAILY IV 04/10/24 10:00 04/11/24 17:07 125 MLS/HR Lactulose 30 ml BID PO 04/10/24 10:00 Albuterol 2.5 mg Q4HPRN PRN NEB 04/09/24 22:15 04/10/24 07:07 2.5 MG Ipratropium [place] 0.5 mg Q4HPRN PRN NEB 04/09/24 22:15 04/10/24 07:07 0.5 MG Midodrine 10 mg TID@0600,1200,1800 PO 04/10/24 06:00 Cancel Sodium Chloride 10 ml Q8HR IV 04/10/24 06:00 04/12/24 06:18 10 ML Ondansetron HCl 4 mg Q4HP PRN IV 04/09/24 22:15 Pantoprazole Sodium 40 mg DAILY IV 04/10/24 10:00 04/12/24 10:16 40 MG Meropenem 50 ml @ 17 mls/hr Q8H IV 04/10/24 18:00 04/12/24 10:16 17 MLS/HR Vasopressin 20 units/Sodium Chloride 100 ml @ 9 mls/hr Q11H7M IV 04/10/24 11:45 Diagnostic Test (Pha) 1 strip Q6HR 04/10/24 18:00 04/12/24 06:27 1 STRIP Insulin Human Regular Q6HR SC 04/10/24 18:00 04/12/24 06:28 3 UNITS Dextrose 50 ml UD PRN IV 04/10/24 12:15 Furosemide 40 mg DAILY IV 04/12/24 10:00 04/12/24 10:16 40 MG Methylprednisolone Sodium Succinate 40 mg Q8HR IV 04/11/24 22:00 04/12/24 06:18 40 MG Sodium Chloride 10 ml QSHIFT@10,22 IV 04/11/24 22:00 04/12/24 10:16 10 ML Norepinephrine Bitartrate 32 mg/ Sodium Chloride 250 ml @ 0.938 mls/ hr Q24H IV 04/11/24 21:45 04/11/24 22:44 7.5 MLS/HR Potassium Chloride/Dextrose/ Sod Cl 1,000 ml @ 100 mls/hr Q10H IV 04/12/24 06:45 04/12/24 07:45 100 MLS/HR Enoxaparin Sodium 40 mg DAILY SC 04/13/24 10:00 Future Hold Enteral Nutritional Formula 1,000 ml 40ML/HR GT 04/12/24 11:00 Examination Examination Mayra score 12 General Appearance: Altered HEENT: EOMI Respiratory: Clear to auscultation, Normal air movement Cardiovascular: Regular rate, Normal S1, Normal S2 Abdominal: Normal bowel sounds Extremities: No cyanosis, No edema, Normal pulses, No tenderness/swelling Skin: No rashes, No breakdown Neuro: Altered laboratory and microbiology Laboratory Tests 04/12/24 04:32 Test 04/12/24 04:32 Range/Units Serum Glucose 170 H 74-106 mg/dL Microbiology Date/Time Source Procedure Growth Status 04/11/24 08:55 Blood Blood Culture - Preliminary NO GROWTH AFTER 24 HOURS OF INCUBATION. Resulted 04/10/24 15:30 Nose MRSA Screen - Final Complete Problem List/Assessment/Plan Problem List/Assessment/Plan Neurology # metabolic encephalopathy due to sepsis, ? Hepatic encephalopathy -head CT: normal Ammonia levels normal [place] fluctuatin Not need of intubation at the moment Cardiology # septic shock due to pneumonia gram +/ gram neg -recent echo showed ejection fraction 55% Currently on norepinephrine, use vasopressin of the 2nd drip considering history of liver cirrhosis Respiratory # acute hypoxic respiratory failure due to possible penumonia with ARDS at the moment on oxymizer 8 lt x-ray shows multifocal opacities ABG: ph 7.48 pco2 32.7 po2 64.7 hco3 24 keep an eye due to possible deterioration on mental status # septic shock due to pneumonia gram +/ gram neg x-ray shows multifocal opacities -IV vancomycin plus meropenem plus azithromycin -Nebulized with albuterol as needed GI #Possible liver failure # history of cirrhosis due to alcohol and possible chronic hepatitis infection # questionable hepatic encephalopathy INR 1.75 BT 2.3 Maddrey's Discriminant Function for Alcoholic Hepatitis: 31 Lactulose Hepatitis C antibody + Hep Bs antigen and core total AB + Case discussed with Dr Lassiter: solumedrik 40 mg q 8h # history of colitis and GI bleed -IV Protonix #pancreatic mass ?pancreatitis f/u ng tube: start feeding nephrology #hypokalemia: 3.3 #hypernatremia: 156 Potassium in D5W was given now on free water #Septic shock -avoid IV fluids considering volume overload cultures are pending Lactic acid 5.1 - 3.3 -2.1 Endocrine Diabetes mellitus hba1c 5.8 -sliding scale insulin: patient is on steroids Psychiatry -alcohol use disorder, alcohol withdrawal - no use of benzodiazepine as patient is altered Heme/ onc Anemia possible megaloblastic on chronic alcoholism folate and vit b12 ordered Full code Drips Norepinephrine Discussion with Dr. Dang Time spent on critical care 81 min Plan discussed with: Patient, Other (rn) My Orders My Orders Orders - JANEL HERNANDEZ Procedure Category Date Status Time * Gi [facility] Turning Lathe Operator CONS 04/11/24 Transmitted 12:32 Chest Ultrasound US 04/11/24 Resulted 12:33 Furosemide Injection PHA 04/12/24 In Process (Lasix Injection) 10:00 Methylprednisolone PHA 04/11/24 In Process Sod Succ (Solu Medrol 22:00 Change Dressing Prn JOHNNA 04/11/24 In Process 16:53 Sodium Chloride Lock PHA 04/11/24 In Process (Saline Lock Ns) 22:00 Do Not Use Picc For [facility] 04/11/24 In Process Blood Cult 16:53 May Draw Blood From [facility] 04/11/24 In Process Picc 16:53 Ok To Use Picc [facility] 04/11/24 In Process 16:53 Change Picc Dressing [facility] 04/11/24 In Process Q7 Days 16:53 Abg W/ Co-Ox RT 04/12/24 Logged 04:00 Chest Xray 1 View XY 04/12/24 Resulted 04:00 Us Guided Vascular US 04/11/24 Resulted Access 17:43 D5w/Sod Chl 0.45%/Kcl PHA 04/12/24 In Process 40meq 06:45 Basic Metabolic Panel LAB 04/12/24 Logged 12:00 * Wound Consult CONS 04/12/24 Transmitted Enoxaparin Sodium PHA 04/13/24 In Process (Lovenox) 10:00 Place Ng ORDERS 04/12/24 Transmitted 10:50 Chest Xray 1 View XY 04/12/24 Taken 10:50 Date of Service: Apr 12, 2024 Billing Provider: ANAND DANG MD Common Visit Codes: [id number] CARE 30-74 MIN JANEL HERNANDEZ Apr 12, 2024 11:38 ANAND DANG MD Apr 13, 2024 13:23
--- NOTE | 2024-04-12 11:55 | DVH ---
CHEST RADIOGRAPH Indication:NGT PLACEMENT VERIFICATION Technique: Single frontal view of the chest was obtained Comparison: XY CHEST XRAY 1 VIEW on DOS: 04/12/24, XY CHEST PORTABLE on DOS: 04/10/24, XY CHEST MARVA BLE on DOS: 04/09/24, XY CHEST PORTABLE on DOS: 03/28/24 FINDINGS: Lines and Tubes: NG tube tip in stomach. Left CVC with tip in IVC. Lungs: Multifocal opaciites. Pleura: No effusion. No pneumothorax. Cardiomediastinal contours: Unremarkable Bones: No acute osseous abnormality. IMPRESSION: NG tube tip in stomach. No interval change.
[2024-04-12] MEDS: Jevity 1.2 Cal/Fiber 1 Liter GT SCH (14:18)
[2024-04-12 15:46] LABS: Chloride 114 mmol/L (98-107); Potassium 3.7 mmol/L (3.5-5.1); Sodium 153 mmol/L (136-145)
[2024-04-12 15:49] LABS: Anion Gap 5 (5-15); Calcium 8.3 mg/dL (8.7-10.4); Carbon Dioxide 34 mmol/L (20-31)
[2024-04-12 15:54] LABS: BUN/Creatinine Ratio 19.5 (10.0-20.0); Blood Urea Nitrogen 15 mg/dL (9-23); Glucose 256 mg/dL (74-106)
[2024-04-12] MEDS ORDERED: IPRATROPIUM BROM 0.5 MG/2.5ML INH SOL NEB SCH ×2 (18:00→20:00)
[2024-04-12] MEDS: FREE WATER GT SCH (18:00)
[2024-04-12] MEDS ORDERED: ALBUTEROL SULF 2.5 MG/0.5ML(0.5%) NEB SOLN NEB SCH ×2 (18:00→20:00)
--- NOTE | 2024-04-12 18:20 | DVHPN2 ---
Progress Note - Dictate Date Seen: Apr 12, 2024 Medical Necessity Reason Pt with a Central, PICC or Fol: Yes The following are medically ne: Clark Catheter Subjective Patient was seen at bedside He was on supplemental oxygen Patient was pulling off his oxygen cannula He was noted to be hypoxic and desaturating but pt has since stabilized Patient has pulmonary vascular congestion and bilateral pulmonary opacities He is on IV antibiotics;leukocytosis improving No active GI bleeding is reported ;Hb 8.1 Liver enzymes improving and ammonia level is normal NGT was inserted for meds and supplemental feedings vital signs Vital Sign Date Time Temp Pulse Resp B/P (MAP) Pulse Ox O2 Delivery O2 Flow Rate FiO2 04/12/24 17:00 75 20 102/51 (68) 04/12/24 16:45 95 04/12/24 16:34 8.0 64 04/12/24 16:00 Oxymizer 04/12/24 16:00 98.4 98.4 Total Intake and Output 04/11/24 04/11/24 04/12/24 15:00 23:00 07:00 Intake Total 238.75 ml 649.75 ml 181.941 ml Output Total 1000 ml 1400 ml Balance 238.75 ml -350.25 ml -1218.059 ml medications Current Medications Medications Dose Ordered Sig/Peg Route Start Time Stop Time Status Last Admin Dose Admin Azithromycin 250 ml @ 125 mls/hr DAILY IV 04/10/24 10:00 04/11/24 17:07 125 MLS/HR Lactulose 30 ml BID PO 04/10/24 10:00 Midodrine 10 mg TID@0600,1200,1800 PO 04/10/24 06:00 Cancel Sodium Chloride 10 ml Q8HR IV 04/10/24 06:00 04/12/24 14:18 10 ML Ondansetron HCl 4 mg Q4HP PRN IV 04/09/24 22:15 Pantoprazole Sodium 40 mg DAILY IV 04/10/24 10:00 04/12/24 10:16 40 MG Meropenem 50 ml @ 17 mls/hr Q8H IV 04/10/24 18:00 04/12/24 10:16 17 MLS/HR Vasopressin 20 units/Sodium Chloride 100 ml @ 9 mls/hr Q11H7M IV 04/10/24 11:45 Diagnostic Test (Pha) 1 strip Q6HR 04/10/24 18:00 04/12/24 12:16 1 STRIP Insulin Human Regular Q6HR SC 04/10/24 18:00 04/12/24 12:17 6 UNITS Dextrose 50 ml UD PRN IV 04/10/24 12:15 Furosemide 40 mg DAILY IV 04/12/24 10:00 04/12/24 10:16 40 MG Methylprednisolone Sodium Succinate 40 mg Q8HR IV 04/11/24 22:00 04/12/24 14:18 40 MG Sodium Chloride 10 ml QSHIFT@10,22 IV 04/11/24 22:00 04/12/24 10:16 10 ML Norepinephrine Bitartrate 32 mg/ Sodium Chloride 250 ml @ 0.938 mls/ hr Q24H IV 04/11/24 21:45 04/11/24 22:44 7.5 MLS/HR Enoxaparin Sodium 40 mg DAILY SC 04/13/24 10:00 Future Hold Enteral Nutritional Formula 1,000 ml 40ML/HR GT 04/12/24 11:00 04/12/24 14:18 1,000 ML Purified Water 200 ml Q6HR GT 04/12/24 18:00 Albuterol 2.5 mg Q6H NEB 04/12/24 18:00 UNV Ipratropium [place] 0.5 mg Q6H NEB 04/12/24 18:00 UNV objective General: Patient was lethargic, mild respiratory distress Chest: lung johnson Heart: RRR, no murmur Abdomen: no tenderness to palpation, +BS laboratory and microbiology Laboratory Tests 04/12/24 15:16 04/12/24 04:32 Test 04/12/24 15:16 Range/Units Serum Glucose 256 H 74-106 mg/dL Problems(with codes): (1) Anemia of chronic disease (2) Fluid overload, unspecified (3) Generalized weakness (4) Pneumonia, unspecified organism (5) Encephalopathy, unspecified (6) Duodenal ulcer disease Prognosis PLAN Continue IV PPI and Carafate Patient's Maddrey discrimination function was high and he has been started on methylprednisolone Continue to monitor labs and if hemoglobin drops below seven we will transfuse 1 unit PRBC Clear liquid diet advance slowly as tolerated Supportive care Prognosis is guarded Plan discussed with: Other (NEY Nurse) FARHAN INGRAM MD Apr 12, 2024 18:20
[2024-04-12] MEDS: ALBUTEROL SULF 2.5 MG/0.5ML(0.5%) NEB SOLN NEB SCH (18:52)
[2024-04-12] MEDS: IPRATROPIUM BROM 0.5 MG/2.5ML INH SOL NEB SCH (18:52)
[2024-04-13] VITALS (104 sets, daily range): BP systolic 83–131; BP diastolic 44–74; PULSE 57–84; RESP 9–23; TEMP 97.5–98; O2SAT 86–100
--- NOTE | 2024-04-13 04:58 | DVH ---
CHEST RADIOGRAPH Indication:dyspnea Technique: Single frontal view of the chest was obtained COMPARISON: XY CHEST XRAY 1 VIEW on DOS: 04/12/24, XY CHEST XRAY 1 VIEW on DOS: 04/12/24, XY CHEST PO RTABLE on DOS: 04/10/24 FINDINGS: Lines and Tubes: Enteric catheter in satisfactory position. Left PICC in satisfactory position. Lungs: Multifocal airspace disease. Pleura: No effusion. No pneumothorax. Cardiomediastinal contours: Unremarkable Bones: Unremarkable IMPRESSION: Enteric catheter in satisfactory position. Unchanged multifocal airspace disease.
[2024-04-13 05:26] LABS: Basophils # (auto) 0 10 ^3/uL (0-0.2); Eosinophils # (auto) 0 10 ^3/uL (0-0.8); Hematocrit 25.2 % (41.0-53.0); Hemoglobin 8.2 g/dL (13.5-17.5); Lymphocytes # (auto) 1.1 10 ^3/uL (0.4-5.4); Lymphocytes % (auto) 5.7 % (10.0-50.0); Mean Corpuscular Hemoglobin 34.7 pg (28.0-32.0); Mean Corpuscular Hgb Conc. 32.4 g/dL (32.0-36.0); Mean Corpuscular Volume 106.9 fL (80.0-100.0); Monocytes # (auto) 1.3 10 ^3/uL (0-1.3); Monocytes % (auto) 6.6 % (0.0-12.0); Neutrophils # (auto) 16.8 10 ^3/uL (1.6-8.6); Neutrophils % (auto) 87.7 % (37.0-80.0); Platelet Count (auto) 71 10^3/uL (140-450); Red Blood Cells 2.35 10^6/uL (4.5-5.90); Red Cell Distribution Width 18.2 % (11.8-14.3); White Blood Cell 19.2 10^3/uL (4.4-10.8)
[2024-04-13 05:42] LABS: Alanine Aminotransferase 52 U/L (7-40); Albumin 2.7 g/dL (3.2-4.8); Alkaline Phosphatase 181 U/L (46-116); Anion Gap 7 (5-15); Aspartate Aminotransferase 79 U/L (13-40); BUN/Creatinine Ratio 23.9 (10.0-20.0); Bilirubin, Total 1.7 mg/dL (0.2-1.0); Blood Urea Nitrogen 17 mg/dL (9-23); Calcium 8.1 mg/dL (8.7-10.4); Carbon Dioxide 33 mmol/L (20-31); Chloride 116 mmol/L (98-107); Glucose 348 mg/dL (74-106); Magnesium 2.2 mg/dL (1.6-2.6); Potassium 3.5 mmol/L (3.5-5.1); Sodium 156 mmol/L (136-145); Total Protein 4.9 g/dL (5.7-8.2)
[2024-04-13 06:10] LABS: Folate (Folic Acid) 16.05 ng/mL (>5.38)
[2024-04-13 08:07] LABS: Base Excess 7.3 mmol/L (-2.0-3.0)
[2024-04-13] MEDS: FUROSEMIDE 40 MG/4 ML VIAL IV SCH (09:17)
[2024-04-13] MEDS ORDERED: ENOXAPARIN SOD 40 MG/0.4 ML SYRINGE SC SCH (10:00)
[2024-04-13] MEDS: NOREPINEPHRINE BITARTRATE 32 MG in SODIUM CHL 0.9% 218 ML IV SCH (11:25)
[2024-04-13] MEDS: FREE WATER GT SCH (11:53)
[2024-04-13] MEDS: acetaZOLAMIDE SODIUM 500 MG VL IV ONE (12:04)
--- NOTE | 2024-04-13 13:15 | DVHPNRES ---
Progress Note Date Seen: Apr 13, 2024 Resident Creating Document: JANEL HERNANDEZ RESIDENT Has the PT tested + for MRSA If YES, has PT been informed?: Yes Medical Necessity Reason Pt with a Central, PICC or Fol: Yes The following are medically ne: Clark Catheter Subjective Review of Systems A 63y old man history of alcohol abuse, liver disease, diabetes mellitus type 2, prior GI hemorrhage who presented with generalized weakness. He was found to have abdominal pain and bilateral lower extremity swelling. He was initiated on noninvasive positive pressure ventilation to decrease respiratory distress. Chest x-ray was notable for mild pulmonary vascular congestion. CT abdomen and pelvis lung windows demonstrated ground-glass opacities in bilateral lung bases. He was initiated on IV antibiotics. He was currently requiring pressors for hemodynamic support. Pulmonary consultation is called due to acute hypoxic respiratory failure and noninvasive positive pressure ventilation management. Review of systems: Unable to obtain due to patient's critical condition. Past medical history: Diabetes mellitus type 2, liver disease, alcohol use disorder, gastritis, GI hemorrhage Past surgical history: Denies any prior surgeries. Medications: Reviewed Allergies: No known drug allergies. Family history: No family history of premature CAD. No family history of lung disease Social history: Smokes cigarettes. Drinks alcohol heavily. No illicit drug use. Lives at home. Objective vital signs Vital Sign Date Time Temp Pulse Resp B/P (MAP) Pulse Ox O2 Delivery O2 Flow Rate FiO2 04/13/24 12:53 70 14 93 04/13/24 12:47 Oxymizer 11.0 04/13/24 12:47 N/A 04/13/24 12:04 103/59 04/13/24 08:00 97.8 97.8 Total Intake and Output 04/12/24 04/12/24 04/13/24 15:00 23:00 07:00 Intake Total 782.814 ml 256.628 ml 336.191 ml Output Total 1650 ml 400 ml Balance 782.814 ml -1393.372 ml -63.809 ml medications Current Medications Medications Dose Ordered Sig/Peg Route Start Time Stop Time Status Last Admin Dose Admin Azithromycin 250 ml @ 125 mls/hr DAILY IV 04/10/24 10:00 04/13/24 11:23 125 MLS/HR Lactulose 30 ml BID PO 04/10/24 10:00 04/13/24 09:31 30 ML Midodrine 10 mg TID@0600,1200,1800 PO 04/10/24 06:00 Cancel Sodium Chloride 10 ml Q8HR IV 04/10/24 06:00 04/13/24 06:14 10 ML Ondansetron HCl 4 mg Q4HP PRN IV 04/09/24 22:15 Pantoprazole Sodium 40 mg DAILY IV 04/10/24 10:00 04/13/24 09:31 40 MG Meropenem 50 ml @ 17 mls/hr Q8H IV 04/10/24 18:00 04/13/24 09:31 17 MLS/HR Vasopressin 20 units/Sodium Chloride 100 ml @ 9 mls/hr Q11H7M IV 04/10/24 11:45 Diagnostic Test (Pha) 1 strip Q6HR 04/10/24 18:00 04/13/24 05:39 1 STRIP Insulin Human Regular Q6HR SC 04/10/24 18:00 04/13/24 05:40 10 UNITS Dextrose 50 ml UD PRN IV 04/10/24 12:15 Methylprednisolone Sodium Succinate 40 mg Q8HR IV 04/11/24 22:00 04/13/24 05:30 40 MG Sodium Chloride 10 ml QSHIFT@10,22 IV 04/11/24 22:00 04/13/24 09:31 10 ML Enoxaparin Sodium 40 mg DAILY SC 04/13/24 10:00 Hold Albuterol 2.5 mg Q6H NEB 04/12/24 18:00 04/13/24 12:47 2.5 MG Ipratropium [place] 0.5 mg Q6H NEB 04/12/24 18:00 04/13/24 12:47 0.5 MG Furosemide 40 mg BIDD IV 04/13/24 08:30 04/13/24 09:17 40 MG Norepinephrine Bitartrate 32 mg/ Sodium Chloride 250 ml @ 0.469 mls/ hr Q24H IV 04/13/24 11:15 04/13/24 11:25 1.406 MLS/HR Purified Water 250 ml Q6HR GT 04/13/24 12:00 04/13/24 11:53 250 ML Enteral Nutritional Formula 1,000 ml 40ML/HR GT 04/13/24 11:15 Examination Examination alert, more oriented General Appearance: Altered HEENT: EOMI Respiratory: Clear to auscultation, Normal air movement Cardiovascular: Regular rate, Normal S1, Normal S2 Abdominal: Normal bowel sounds Extremities: No cyanosis, No edema, Normal pulses, No tenderness/swelling Skin: No rashes, No breakdown laboratory and microbiology Laboratory Tests 04/13/24 04:44 Test 04/13/24 04:44 Range/Units Serum Glucose 348 H 74-106 mg/dL Microbiology Date/Time Source Procedure Growth Status 04/12/24 04:50 Sputum Gram Stain Pending Resulted 04/12/24 04:50 Sputum Respiratory Culture - Preliminary Resulted 04/12/24 04:30 Nose MRSA Screen - Final Complete 04/11/24 08:55 Blood Blood Culture - Preliminary NO GROWTH AFTER 48 HOURS OF INCUBATION. Resulted 04/11/24 08:45 Voided Urine Urine Culture - Preliminary Resulted Problem List/Assessment/Plan Problem List/Assessment/Plan Neurology # metabolic encephalopathy due to sepsis, ? Hepatic encephalopathy -head CT: normal Ammonia levels trending high Mental status getting better: patient is more oriented Not need of intubation at the moment Cardiology # septic shock due to pneumonia gram +/ gram neg -recent echo showed ejection fraction 55% Currently on norepinephrine 2 Respiratory # acute hypoxic respiratory failure due to possible penumonia with ARDS at the moment on oxymizer 11 lt x-ray shows multifocal opacities pH 7.52 pCo2 38.4 HCO3 30.7 PO2 60.3 increase lasix BMP at 2 pm acetazolamide given # septic shock due to pneumonia gram +/ gram neg x-ray shows multifocal opacities -IV vancomycin plus meropenem plus azithromycin -Nebulized with albuterol as needed GI #Possible liver failure # history of cirrhosis due to alcohol and possible chronic hepatitis infection # questionable hepatic encephalopathy INR 1.91 BT 1.7 Maddrey's Discriminant Function for Alcoholic Hepatitis: 31 Lactulose Hepatitis C antibody + Hep Bs antigen and core total AB + Case discussed with Dr Lassiter decrease solumedrol 40 mg q12h # history of colitis and GI bleed -IV Protonix #pancreatic mass ?pancreatitis f/u ng tube: start feeding nephrology #hypokalemia: 3.3 #hypernatremia: 156 Potassium in D5W was given now on free water #Septic shock -avoid IV fluids considering volume overload cultures are pending Lactic acid 5.1 - 3.3 -2.1 Endocrine Diabetes mellitus hba1c 5.8 -sliding scale insulin: patient is on steroids lantus 15 Psychiatry -alcohol use disorder, alcohol withdrawal - no use of benzodiazepine as patient is altered Heme/ onc 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 Dang Time spent on critical care 81 min Plan discussed with: Patient, Other (rn) My Orders My Orders Orders - JANEL HERNANDEZ Procedure Category Date Status Time * Dietary Consult CONS 04/12/24 Transmitted 14:43 Cleanse Wound With JOHNNA 04/12/24 In Process Mild Soap A 10:25 Chest Xray 1 View XY 04/13/24 Resulted 04:00 Abg W/ Co-Ox RT 04/13/24 Logged 04:00 Furosemide Injection PHA 04/13/24 In Process (Lasix Injection) 08:30 Basic Metabolic Panel LAB 04/13/24 Logged 14:00 Abdomen Limited US 04/13/24 Logged 12:53 Date of Service: Apr 13, 2024 Billing Provider: ANAND DANG MD Common Visit Codes: [id number] CARE 30-74 MIN JANEL HERNANDEZ Apr 13, 2024 13:15 ANAND DANG MD Apr 14, 2024 15:30
--- NOTE | 2024-04-13 13:42 | DVH ---
ULTRASOUND ABDOMEN limited, 4 QUADRANTS INDICATION: Evaluate for ascites. TECHNIQUE: The four quadrants of the abdomen were scanned in bond-scale to assess for the presence of ascites. N o solid organ assessment was performed. FINDINGS/IMPRESSIONS: Small volume ascites.
[2024-04-13 14:33] LABS: Chloride 114 mmol/L (98-107); Potassium 3.2 mmol/L (3.5-5.1); Sodium 155 mmol/L (136-145)
[2024-04-13 14:34] LABS: Anion Gap 5 (5-15); Calcium 8.3 mg/dL (8.7-10.4); Carbon Dioxide 36 mmol/L (20-31)
[2024-04-13 14:39] LABS: Blood Urea Nitrogen 15 mg/dL (9-23)
[2024-04-13 14:48] LABS: Glucose 403 mg/dL (74-106)
[2024-04-13] MEDS ORDERED: DEXTROSE (50%) 50ML SYRG IV PRN (15:45)
[2024-04-13] MEDS: POTASSIUM CHL 20MEQ/100ML 100 ML IV SCH (16:23)
[2024-04-13] MEDS: Glucerna 1.2 Cal 1Liter BOTTLE GT SCH (17:11)
[2024-04-13] MEDS: methylPREDNISolone SOD SUCC 40 MG/ML VL IV SCH (17:32)
[2024-04-13] MEDS: InsuLIN REG 1unit/0.01ml Soln (100units/ml) SC SCH (17:47)
[2024-04-13] MEDS: ACCU-CHEK COMFORT CURVE STRIP VI SCH (18:58)
--- NOTE | 2024-04-13 19:40 | DVHPN2 ---
Progress Note - Dictate Date Seen: Apr 13, 2024 (Late entryPatient seen at 8:00 a.m.) Medical Necessity Reason Pt with a Central, PICC or Fol: Yes The following are medically ne: Clrak Catheter Subjective Patient was seen at bedside He was on supplemental oxygen He has an NG-tube in place which is being used for supplemental feedings and medications Ammonia level is up to 49 One bowel movement recorded No active GI bleeding is reported ;Hb 8.1 Liver enzymes improving and ammonia level is normal NGT was inserted for meds and supplemental feedings vital signs Vital Sign Date Time Temp Pulse Resp B/P (MAP) Pulse Ox O2 Delivery O2 Flow Rate FiO2 04/13/24 18:45 70 19 95/53 (67) 90 04/13/24 18:01 Oxymizer 9 67 67 04/13/24 16:00 97.5 97.5 Total Intake and Output 04/12/24 04/12/24 04/13/24 15:00 23:00 07:00 Intake Total 782.814 ml 256.628 ml 336.191 ml Output Total 1650 ml 400 ml Balance 782.814 ml -1393.372 ml -63.809 ml medications Current Medications Medications Dose Ordered Sig/Peg Route Start Time Stop Time Status Last Admin Dose Admin Azithromycin 250 ml @ 125 mls/hr DAILY IV 04/10/24 10:00 04/13/24 11:23 125 MLS/HR Lactulose 30 ml BID PO 04/10/24 10:00 04/13/24 09:31 30 ML Midodrine 10 mg TID@0600,1200,1800 PO 04/10/24 06:00 Cancel Sodium Chloride 10 ml Q8HR IV 04/10/24 06:00 04/13/24 16:22 10 ML Ondansetron HCl 4 mg Q4HP PRN IV 04/09/24 22:15 Pantoprazole Sodium 40 mg DAILY IV 04/10/24 10:00 04/13/24 09:31 40 MG Meropenem 50 ml @ 17 mls/hr Q8H IV 04/10/24 18:00 04/13/24 17:51 17 MLS/HR Vasopressin 20 units/Sodium Chloride 100 ml @ 9 mls/hr Q11H7M IV 04/10/24 11:45 Diagnostic Test (Pha) 1 strip Q6HR 04/10/24 18:00 04/13/24 13:40 1 STRIP Dextrose 50 ml UD PRN IV 04/10/24 12:15 Sodium Chloride 10 ml QSHIFT@,22 IV 04/11/24 22:00 04/13/24 09:31 10 ML Enoxaparin Sodium 40 mg DAILY SC 04/13/24 10:00 Hold Albuterol 2.5 mg Q6H NEB 04/12/24 18:00 04/13/24 18:02 2.5 MG Ipratropium [place] 0.5 mg Q6H NEB 04/12/24 18:00 04/13/24 18:01 0.5 MG Furosemide 40 mg BIDD IV 04/13/24 08:30 04/13/24 17:32 40 MG Norepinephrine Bitartrate 32 mg/ Sodium Chloride 250 ml @ 0.469 mls/ hr Q24H IV 04/13/24 11:15 04/13/24 11:25 1.406 MLS/HR Purified Water 250 ml Q6HR GT 04/13/24 12:00 04/13/24 18:58 250 ML Enteral Nutritional Formula 1,000 ml 40ML/HR GT 04/13/24 11:15 04/13/24 17:11 1,000 ML Methylprednisolone Sodium Succinate 40 mg Q12H IV 04/13/24 18:00 04/13/24 17:32 40 MG Insulin Glargine 15 units DAILY@1000 SC 04/14/24 10:00 Diagnostic Test (Pha) 1 strip Q6HR 04/13/24 18:00 04/13/24 18:58 1 STRIP Insulin Human Regular Q6HR SC 04/13/24 18:00 04/13/24 17:47 12 UNITS Dextrose 50 ml UD PRN IV 04/13/24 15:45 Potassium Chloride 100 ml @ 50 mls/hr Q2H IV 04/13/24 15:45 04/13/24 21:44 04/13/24 17:48 50 MLS/HR objective General: Patient was more awake;no respiratory distress Chest: Bilateral crackles Heart: RRR, no murmur Abdomen: no tenderness to palpation, +BS laboratory and microbiology Laboratory Tests 04/13/24 14:00 04/13/24 04:44 Test 04/13/24 14:00 Range/Units Serum Glucose 403 *H 74-106 mg/dL Problems(with codes): (1) Duodenal ulcer disease (2) Anemia of chronic disease (3) Sepsis, unspecified organism (4) Pulmonary edema (5) Pneumonia, unspecified organism (6) Encephalopathy, unspecified (7) Generalized weakness (8) Altered mental status (9) Liver disease Prognosis A/P Hepatic encephalopathy: Continue lactulose and add Xifaxan when patient is able to swallow Elevated liver enzymes: Continue to monitor, patient has hepatitis-C antibody positive and will need outpatient further evaluation and treatment; [facility]hepatitis [facility] 39.9 [facility], continue steroids but taper it down to methylprednisone 40 mg q.12 hours and then taper down to daily dose starting tomorrow Multifocal pneumonia: Continue IV antibiotics Gastroduodenitis with ulcers: Continue Protonix 40 mg IV q.12 hours Anemia: Monitor labs and monitor for signs of bleeding, currently H&H is stable; give banana bag Coagulopathy: Vitamin K 10 mg IV daily for three days Altered mental status: Continue NG tube feedings for now H. pylori status positive : Patient is currently on Zithromax Protonix and meropenem and that she would likely cover and treat the H.pylori or Plan discussed with: Other (NEY Nurse) FARHAN INGRAM MD Apr 13, 2024 19:40
[2024-04-13] MEDS: PANTOPRAZOLE 40 MG/10 ML VIAL INJ IV SCH (22:05)
[2024-04-14] VITALS (102 sets, daily range): BP systolic 78–119; BP diastolic 41–71; PULSE 48–98; RESP 8–20; TEMP 97.6–98.1; O2SAT 90–100
[2024-04-14 04:58] LABS: Basophils # (auto) 0.1 10 ^3/uL (0-0.2); Eosinophils # (auto) 0 10 ^3/uL (0-0.8); Monocytes # (auto) 2.2 10 ^3/uL (0-1.3); Red Blood Cells 2.85 10^6/uL (4.5-5.90)
[2024-04-14 05:00] LABS: Basophils % (auto) 0.2 % (0.0-2.0); Hematocrit 30.4 % (41.0-53.0); Hemoglobin 9.6 g/dL (13.5-17.5); Lymphocytes # (auto) 1.6 10 ^3/uL (0.4-5.4); Lymphocytes % (auto) 6.4 % (10.0-50.0); Mean Corpuscular Hemoglobin 33.8 pg (28.0-32.0); Mean Corpuscular Hgb Conc. 31.7 g/dL (32.0-36.0); Mean Corpuscular Volume 106.7 fL (80.0-100.0); Neutrophils # (auto) 20.6 10 ^3/uL (1.6-8.6); Neutrophils % (auto) 84.4 % (37.0-80.0); Platelet Count (auto) 69 10^3/uL (140-450); Red Cell Distribution Width 17.3 % (11.8-14.3); White Blood Cell 24.4 10^3/uL (4.4-10.8)
[2024-04-14 05:13] LABS: Alanine Aminotransferase 69 U/L (7-40); Albumin 2.9 g/dL (3.2-4.8); Alkaline Phosphatase 192 U/L (46-116); Anion Gap 9 (5-15); Aspartate Aminotransferase 92 U/L (13-40); BUN/Creatinine Ratio 20.3 (10.0-20.0); Blood Urea Nitrogen 15 mg/dL (9-23); Calcium 8.7 mg/dL (8.7-10.4); Carbon Dioxide 31 mmol/L (20-31); Chloride 115 mmol/L (98-107); Potassium 3.9 mmol/L (3.5-5.1); Sodium 155 mmol/L (136-145)
[2024-04-14 05:14] LABS: Bilirubin, Total 1.7 mg/dL (0.2-1.0); Total Protein 5.5 g/dL (5.7-8.2)
[2024-04-14 05:23] LABS: Glucose 239 mg/dL (74-106)
--- NOTE | 2024-04-14 05:46 | DVH ---
CHEST RADIOGRAPH Indication:dyspnea Technique: Single frontal view of the chest was obtained COMPARISON: XY CHEST XRAY 1 VIEW on DOS: 04/13/24, XY CHEST XRAY 1 VIEW on DOS: 04/12/24, XY CHEST XR AY 1 VIEW on DOS: 04/12/24 FINDINGS: Lines and Tubes: Left PICC projects posteriorly towards the azygous vein. Enteric catheter in satisfa ctory position. Lungs: Multifocal airspace disease. Pleura: No effusion. No pneumothorax. Cardiomediastinal contours: Unremarkable Bones: Unremarkable IMPRESSION: Left PICC projects into the azygous vein. Clinical correlation advised. Bedside power saline flush b e considered .
[2024-04-14 06:37] LABS: Base Excess 5.3 mmol/L (-2.0-3.0)
[2024-04-14] MEDS: phytonadione 10 MG in SODIUM CHL 0.9% 50 ML IV ONE (10:19)
[2024-04-14] MEDS: INSULIN LANTUS (GLARGINE) 1 /0.01ml (100units/ml) SC SCH (10:59)
[2024-04-14] MEDS: FREE WATER GT SCH (14:58)
[2024-04-14] MEDS: NOREPINEPHRINE 8 MG/250ML KIT 0 ML IV ONE (14:58)
--- NOTE | 2024-04-14 17:30 | DVHPNRES ---
Progress Note Date Seen: Apr 14, 2024 Resident Creating Document: JANEL HERNANDEZ RESIDENT Has the PT tested + for MRSA If YES, has PT been informed?: Yes Medical Necessity Reason Pt with a Central, PICC or Fol: Yes The following are medically ne: Clakr Catheter Subjective Review of Systems A 63y old man history of alcohol abuse, liver disease, diabetes mellitus type 2, prior GI hemorrhage who presented with generalized weakness. He was found to have abdominal pain and bilateral lower extremity swelling. He was initiated on noninvasive positive pressure ventilation to decrease respiratory distress. Chest x-ray was notable for mild pulmonary vascular congestion. CT abdomen and pelvis lung windows demonstrated ground-glass opacities in bilateral lung bases. He was initiated on IV antibiotics. He was currently requiring pressors for hemodynamic support. Pulmonary consultation is called due to acute hypoxic respiratory failure and noninvasive positive pressure ventilation management. Review of systems: Unable to obtain due to patient's critical condition. Past medical history: Diabetes mellitus type 2, liver disease, alcohol use disorder, gastritis, GI hemorrhage Past surgical history: Denies any prior surgeries. Medications: Reviewed Allergies: No known drug allergies. Family history: No family history of premature CAD. No family history of lung disease Social history: Smokes cigarettes. Drinks alcohol heavily. No illicit drug use. Lives at home. Objective vital signs Vital Sign Date Time Temp Pulse Resp B/P (MAP) Pulse Ox O2 Delivery O2 Flow Rate FiO2 04/14/24 16:15 66 15 95/48 (64) 98 04/14/24 16:00 98.0 98.0 04/14/24 16:00 Oxymizer 10 N/A Total Intake and Output 04/13/24 04/13/24 04/14/24 15:00 23:00 07:00 Intake Total 309.440 ml 1159.775 ml 732.594 ml Output Total 925 ml 1150 ml 1550 ml Balance -615.560 ml 9.775 ml -817.406 ml medications Current Medications Medications Dose Ordered Sig/Peg Route Start Time Stop Time Status Last Admin Dose Admin Lactulose 30 ml BID PO 04/10/24 10:00 04/14/24 10:37 30 ML Midodrine 10 mg TID@0600,1200,1800 PO 04/10/24 06:00 Cancel Sodium Chloride 10 ml Q8HR IV 04/10/24 06:00 04/14/24 14:59 10 ML Ondansetron HCl 4 mg Q4HP PRN IV 04/09/24 22:15 Meropenem 50 ml @ 17 mls/hr Q8H IV 04/10/24 18:00 04/14/24 10:37 17 MLS/HR Vasopressin 20 units/Sodium Chloride 100 ml @ 9 mls/hr Q11H7M IV 04/10/24 11:45 Sodium Chloride 10 ml QSHIFT@10,22 IV 04/11/24 22:00 04/14/24 10:37 10 ML Enoxaparin Sodium 40 mg DAILY SC 04/13/24 10:00 Hold Albuterol 2.5 mg Q6H NEB 04/12/24 18:00 04/14/24 13:28 2.5 MG Ipratropium [place] 0.5 mg Q6H NEB 04/12/24 18:00 04/14/24 13:28 0.5 MG Furosemide 40 mg BIDD IV 04/13/24 08:30 04/14/24 05:56 40 MG Norepinephrine Bitartrate 32 mg/ Sodium Chloride 250 ml @ 0.469 mls/ hr Q24H IV 04/13/24 11:15 04/14/24 14:52 1.875 MLS/HR Enteral Nutritional Formula 1,000 ml 40ML/HR GT 04/13/24 11:15 04/13/24 17:11 1,000 ML Insulin Glargine 15 units DAILY@1000 SC 04/14/24 10:00 04/14/24 10:59 15 UNITS Diagnostic Test (Pha) 1 strip Q6HR 04/13/24 18:00 04/14/24 12:00 1 STRIP Insulin Human Regular Q6HR [place] 04/13/24 18:00 04/14/24 13:34 12 UNITS Dextrose 50 ml UD PRN IV 04/13/24 15:45 Pantoprazole Sodium 40 mg BID IV 04/13/24 22:00 04/14/24 10:37 40 MG Purified Water 300 ml Q6HR GT 04/14/24 12:15 04/14/24 14:58 300 ML Methylprednisolone Sodium Succinate 40 mg DAILY IV 04/15/24 10:00 Examination Examination alert, more oriented General Appearance: Altered HEENT: EOMI Respiratory: Clear to auscultation, Normal air movement Cardiovascular: Regular rate, Normal S1, Normal S2 Abdominal: Normal bowel sounds Extremities: No cyanosis, No edema, Normal pulses, No tenderness/swelling Skin: No rashes, No breakdown laboratory and microbiology Laboratory Tests 04/14/24 04:41 Test 04/14/24 04:41 Range/Units Serum Glucose 239 #H 74-106 mg/dL Microbiology Date/Time Source Procedure Growth Status 04/12/24 04:50 Sputum Gram Stain - Final Resulted 04/12/24 04:50 Respiratory Culture - Preliminary Presumptive Talia albicans Resulted 04/12/24 04:30 Nose MRSA Screen - Final Complete 04/11/24 08:55 Blood Blood Culture - Preliminary NO GROWTH AFTER 72 HOURS OF INCUBATION. Resulted 04/11/24 08:45 Voided Urine Urine Culture - Final Complete Problem List/Assessment/Plan Problem List/Assessment/Plan Neurology # metabolic encephalopathy due to sepsis, ? Hepatic encephalopathy -head CT: normal Ammonia levels stable Mental status getting better: patient is more oriented Not need of intubation at the moment Cardiology # septic shock due to pneumonia gram +/ gram neg -recent echo showed ejection fraction 55% Currently on norepinephrine Respiratory #acute hypoxic respiratory failure due to possible penumonia with ARDS at the moment on oxymizer 11 lt x-ray shows multifocal opacities Furosemide 40 mg BID # septic shock due to pneumonia gram +/ gram neg x-ray shows multifocal opacities -IV vancomycin plus meropenem plus azithromycin -Nebulized with albuterol as needed GI #Possible liver failure # history of cirrhosis due to alcohol and possible chronic hepatitis infection # questionable hepatic encephalopathy INR 1.91 BT 1.7 Maddrey's Discriminant Function for Alcoholic Hepatitis: 31 Lactulose Hepatitis C antibody + Hep Bs antigen and core total AB + Case discussed with Dr Lassiter decrease solumedrol 40 mg once # history of colitis and GI bleed -IV Protonix #pancreatic mass ?pancreatitis f/u ng tube: start feeding nephrology #hypokalemia: 3.9 #hypernatremia: 155 now on free water 300 q6h #Septic shock -avoid IV fluids considering volume overload cultures are pending Lactic acid 5.1 - 3.3 -2.1 Endocrine Diabetes mellitus hba1c 5.8 -sliding scale insulin: patient is on steroids lantus 15 Psychiatry -alcohol use disorder, alcohol withdrawal - no use of benzodiazepine as patient is altered Heme/ onc 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 Dang Time spent on critical care 81 min Plan discussed with: Patient, Other (rn) My Orders My Orders Orders - JANEL HERNANDEZ RESIDENT Procedure Category Date Status Time Free Water PHA 04/14/24 In Process 12:15 Methylprednisolone PHA 04/15/24 In Process Sod Succ (Solu Medrol 10:00 Dietary NOTICE 04/14/24 Transmitted Recommendations 16:06 Dietary Evaluation Review Comments: 1) Provide Glucerna 1.2 @ 60ml/hr x24 hrs as tolerated to meet pt estimated needs 2) Advance pt diet when medically feasible to a CCHO 60g diet modified per AGRICULTURAL SERVICES DIRECTOR recommendations 3) Consider DAWN 1 pkt BID for wound 4) Continue current plan of care Expected Outcomes/Goals: 1) Pt to receive adequate nutrition support 2) Pt diet to advance 3) F/U in 2-3 days Date of Service: Apr 14, 2024 Billing Provider: ANAND DANG MD Common Visit Codes: [id number] CARE 30-74 MIN JANEL HERNANDEZ RESIDENT Apr 14, 2024 17:30 ANAND DANG MD Apr 15, 2024 12:59
--- NOTE | 2024-04-14 21:07 | DVHPN2 ---
Progress Note - Dictate Date Seen: Apr 14, 2024 Has the PT tested + for MRSA If YES, has PT been informed?: Yes Medical Necessity Reason Pt with a Central, PICC or Fol: Yes The following are medically ne: Clark Catheter Subjective Patient was seen at bedside He was on supplemental oxygen 11 L Oxymizer He has an NG-tube in place which is being used for supplemental feedings and medications Ammonia level is up to 48 One bowel movement recorded No active GI bleeding is reported ;Hb 9.6 Liver enzymes show chronic mild persistent elevation Patient's sputum showed gram-positive cocci rare Leukocytosis likely related to steroid use vital signs Vital Sign Date Time Temp Pulse Resp B/P (MAP) Pulse Ox O2 Delivery O2 Flow Rate FiO2 04/14/24 19:03 91/49 04/14/24 18:45 70 14 95 04/14/24 18:20 Oxymizer 10 67 67 04/14/24 16:00 98.0 98.0 Total Intake and Output 04/13/24 04/13/24 04/14/24 15:00 23:00 07:00 Intake Total 309.440 ml 1159.775 ml 732.594 ml Output Total 925 ml 1150 ml 1550 ml Balance -615.560 ml 9.775 ml -817.406 ml medications Current Medications Medications Dose Ordered Sig/Peg Route Start Time Stop Time Status Last Admin Dose Admin Lactulose 30 ml BID PO 04/10/24 10:00 04/14/24 10:37 30 ML Midodrine 10 mg TID@0600,1200,1800 PO 04/10/24 06:00 Cancel Sodium Chloride 10 ml Q8HR IV 04/10/24 06:00 04/14/24 14:59 10 ML Ondansetron HCl 4 mg Q4HP PRN IV 04/09/24 22:15 Meropenem 50 ml @ 17 mls/hr Q8H IV 04/10/24 18:00 04/14/24 18:58 17 MLS/HR Vasopressin 20 units/Sodium Chloride 100 ml @ 9 mls/hr Q11H7M IV 04/10/24 11:45 Sodium Chloride 10 ml QSHIFT@10,22 IV 04/11/24 22:00 04/14/24 10:37 10 ML Enoxaparin Sodium 40 mg DAILY SC 04/13/24 10:00 Hold Albuterol 2.5 mg Q6H NEB 04/12/24 18:00 04/14/24 18:25 2.5 MG Ipratropium [place] 0.5 mg Q6H NEB 04/12/24 18:00 04/14/24 18:25 0.5 MG Furosemide 40 mg BIDD IV 04/13/24 08:30 04/14/24 19:03 40 MG Norepinephrine Bitartrate 32 mg/ Sodium Chloride 250 ml @ 0.469 mls/ hr Q24H IV 04/13/24 11:15 04/14/24 14:52 1.875 MLS/HR Enteral Nutritional Formula 1,000 ml 40ML/HR GT 04/13/24 11:15 04/13/24 17:11 1,000 ML Insulin Glargine 15 units DAILY@1000 [place] 04/14/24 10:00 04/14/24 10:59 15 UNITS Diagnostic Test (Pha) 1 strip Q6HR 04/13/24 18:00 04/14/24 19:03 1 STRIP Insulin Human Regular Q6HR [place] 04/13/24 18:00 04/14/24 18:55 4 UNITS Dextrose 50 ml UD PRN IV 04/13/24 15:45 Pantoprazole Sodium 40 mg BID IV 04/13/24 22:00 04/14/24 10:37 40 MG Purified Water 300 ml Q6HR GT 04/14/24 12:15 04/14/24 19:03 300 ML Methylprednisolone Sodium Succinate 40 mg DAILY IV 04/15/24 10:00 objective General: Patient was more awake;no respiratory distress Chest: Bilateral crackles Heart: RRR, no murmur Abdomen: no tenderness to palpation, +BS laboratory and microbiology Laboratory Tests 04/14/24 04:41 Test 04/14/24 04:41 Range/Units Serum Glucose 239 #H 74-106 mg/dL Problems(with codes): (1) Liver disease (2) Duodenal ulcer disease (3) Anemia of chronic disease (4) Sepsis, unspecified organism (5) Pulmonary edema (6) Generalized weakness (7) Pneumonia, unspecified organism (8) Encephalopathy, unspecified Prognosis Plan Taper down steroids to IV Solu-Medrol 40 mg Q 24 hours Continue enteral tube feedings via NG tube Patient is more awake and alert and does not require intubation IV antibiotics got into include vancomycin Continue oral lactulose 30 mL p.o. twice a day Monitor labs; check serum alpha fetoprotein Outpatient follow up with GI Services when he is medically stable for treatment for hep C Dietary Evaluation Review Comments: 1) Provide Glucerna 1.2 @ 60ml/hr x24 hrs as tolerated to meet pt estimated needs 2) Advance pt diet when medically feasible to a CCHO 60g diet modified per WEIGHT ANALYST recommendations 3) Consider DAWN 1 pkt BID for wound 4) Continue current plan of care Expected Outcomes/Goals: 1) Pt to receive adequate nutrition support 2) Pt diet to advance 3) F/U in 2-3 days Plan discussed with: Patient, Other (NEY Nurse) FARHAN INGRAM MD Apr 14, 2024 21:07
[2024-04-15] VITALS (102 sets, daily range): BP systolic 85–126; BP diastolic 39–76; PULSE 60–93; RESP 9–24; TEMP 96.4–98.6; O2SAT 88–100
[2024-04-15 05:18] LABS: Mean Corpuscular Volume 105.6 fL (80.0-100.0)
[2024-04-15 05:21] LABS: Hematocrit 30.3 % (41.0-53.0); Hemoglobin 9.8 g/dL (13.5-17.5); Mean Corpuscular Hemoglobin 34.2 pg (28.0-32.0); Mean Corpuscular Hgb Conc. 32.4 g/dL (32.0-36.0); Platelet Count (auto) 51 10^3/uL (140-450); Red Blood Cells 2.87 10^6/uL (4.5-5.90); Red Cell Distribution Width 17.1 % (11.8-14.3); White Blood Cell 19.5 10^3/uL (4.4-10.8)
[2024-04-15 05:28] LABS: Basophils % (manual) 0 (0.0-2.0); Blast Cells 0; Metamyelocytes % 0; Myelocytes % 0; Promyelocytes % 0; Reactive Lymphocytes 0
[2024-04-15 05:32] LABS: Alanine Aminotransferase 78 U/L (7-40); Alkaline Phosphatase 191 U/L (46-116); Anion Gap 7 (5-15); BUN/Creatinine Ratio 26.5 (10.0-20.0); Blood Urea Nitrogen 18 mg/dL (9-23); Calcium 8.6 mg/dL (8.7-10.4); Carbon Dioxide 36 mmol/L (20-31); Chloride 113 mmol/L (98-107); Potassium 3.4 mmol/L (3.5-5.1); Sodium 156 mmol/L (136-145)
[2024-04-15 05:33] LABS: Albumin 2.6 g/dL (3.2-4.8); Aspartate Aminotransferase 81 U/L (13-40); Bilirubin, Total 1.8 mg/dL (0.2-1.0); Total Protein 5.1 g/dL (5.7-8.2)
[2024-04-15 05:34] LABS: Glucose 127 mg/dL (74-106)
--- NOTE | 2024-04-15 05:39 | DVH ---
EXAM: XY CHEST PORTABLE Indication:ACUTE HYPOXIC RESPIATORY FAILURE Technique: Single frontal view of the chest was obtained Comparison: XY CHEST XRAY 1 VIEW on DOS: 04/14/24, XY CHEST XRAY 1 VIEW on DOS: 04/13/24, XY CHEST XR AY 1 VIEW on DOS: 04/12/24, XY CHEST XRAY 1 VIEW on DOS: 04/12/24, XY CHEST PORTABLE on DOS: 04/10/24 , XY CHEST XRAY 1 VIEW on DOS: 04/14/24 FINDINGS: Lines and Tubes: Left PICC projects posteriorly towards the superior vena cava. Enteric catheter in s atisfactory position. Lungs: Multifocal airspace disease. Pleura: No effusion. No pneumothorax. Cardiomediastinal contours: Unremarkable Bones: Unremarkable IMPRESSION: Interval repositioning of left PICC with tip projecting over the superior vena cava.
[2024-04-15 06:13] LABS: Band Neutrophils % (manual) 1; Eosinophils % (manual) 1 (0-7); Hypochromia Slight; Lymphocytes % (manual) 7 (10.0-50.0); Monocytes % (manual) 6 (0-12); Platelet Estimate Decreased; Stomatocytes Few; Target Cell FEW
--- NOTE | 2024-04-15 09:25 | MEDREC ---
[facility] Intervention Section I [facility] Intervention: Review courses of therapy (WBC HAS BEEN ELEVATED COULD BE CAUSED BY IV STEROID. THE RESPIRATORY CULUTRE (PRELIMINARY) SHOWS PRESUMPTIVE SPENSER ALBICANS AND RARE GRAM POSITIVE RODS AND COCCI. PLEASE CONSIDER ADDING ANTIFUNGAL AND VANCOMYCIN IF CLINICALLY APPROPRIATE) JIHAN PITT PHA Apr 15, 2024 09:25
[2024-04-15] MEDS: methylPREDNISolone SOD SUCC 40 MG/ML VL IV SCH (09:57)
[2024-04-15] MEDS ORDERED: POTASSIUM CHL 20MEQ/100ML 100 ML IV SCH (11:45)
--- NOTE | 2024-04-15 12:47 | DVHPNRES ---
Progress Note Date Seen: Apr 15, 2024 Resident Creating Document: JANEL HERNANDEZ RESIDENT Has the PT tested + for MRSA If YES, has PT been informed?: Yes Medical Necessity Reason Pt with a Central, PICC or Fol: Yes The following are medically ne: Clark Catheter Subjective Review of Systems A 63y old man history of alcohol abuse, liver disease, diabetes mellitus type 2, prior GI hemorrhage who presented with generalized weakness. He was found to have abdominal pain and bilateral lower extremity swelling. He was initiated on noninvasive positive pressure ventilation to decrease respiratory distress. Chest x-ray was notable for mild pulmonary vascular congestion. CT abdomen and pelvis lung windows demonstrated ground-glass opacities in bilateral lung bases. He was initiated on IV antibiotics. He was currently requiring pressors for hemodynamic support. Pulmonary consultation is called due to acute hypoxic respiratory failure and noninvasive positive pressure ventilation management. Review of systems: Unable to obtain due to patient's critical condition. Past medical history: Diabetes mellitus type 2, liver disease, alcohol use disorder, gastritis, GI hemorrhage Past surgical history: Denies any prior surgeries. Medications: Reviewed Allergies: No known drug allergies. Family history: No family history of premature CAD. No family history of lung disease Social history: Smokes cigarettes. Drinks alcohol heavily. No illicit drug use. Lives at home. Objective vital signs Vital Sign Date Time Temp Pulse Resp B/P (MAP) Pulse Ox O2 Delivery O2 Flow Rate FiO2 04/15/24 11:37 62 14 100 04/15/24 11:32 Nasal Cannula 4.0 04/15/24 11:32 36 04/15/24 06:45 98/61 (73) 04/15/24 04:00 98.3 98.3 Total Intake and Output 04/14/24 04/14/24 04/15/24 15:00 23:00 07:00 Intake Total 299.938 ml 833.595 ml 848.752 ml Output Total 1850 ml 1450 ml Balance 299.938 ml -1016.405 ml -601.248 ml medications Current Medications Medications Dose Ordered Sig/Peg Route Start Time Stop Time Status Last Admin Dose Admin Lactulose 30 ml BID PO 04/10/24 10:00 04/15/24 09:57 30 ML Midodrine 10 mg TID@0600,1200,1800 PO 04/10/24 06:00 Cancel Sodium Chloride 10 ml Q8HR IV 04/10/24 06:00 04/15/24 05:14 10 ML Ondansetron HCl 4 mg Q4HP PRN IV 04/09/24 22:15 Meropenem 50 ml @ 17 mls/hr Q8H IV 04/10/24 18:00 04/15/24 09:56 17 MLS/HR Vasopressin 20 units/Sodium Chloride 100 ml @ 9 mls/hr Q11H7M IV 04/10/24 11:45 Sodium Chloride 10 ml QSHIFT@,22 IV 04/11/24 22:00 04/15/24 09:58 10 ML Enoxaparin Sodium 40 mg DAILY SC 04/13/24 10:00 Hold Albuterol 2.5 mg Q6H NEB 04/12/24 18:00 04/15/24 11:32 2.5 MG Ipratropium [place] 0.5 mg Q6H NEB 04/12/24 18:00 04/15/24 11:32 0.5 MG Furosemide 40 mg BIDD IV 04/13/24 08:30 04/15/24 05:14 40 MG Norepinephrine Bitartrate 32 mg/ Sodium Chloride 250 ml @ 0.469 mls/ hr Q24H IV 04/13/24 11:15 04/14/24 14:52 1.875 MLS/HR Enteral Nutritional Formula 1,000 ml 40ML/HR GT 04/13/24 11:15 04/13/24 17:11 1,000 ML Insulin Glargine 15 units DAILY@1000 SC 04/14/24 10:00 04/15/24 09:55 15 UNITS Diagnostic Test (Pha) 1 strip Q6HR 04/13/24 18:00 04/15/24 05:14 1 STRIP Insulin Human Regular Q6HR SC 04/13/24 18:00 04/15/24 05:24 2 UNITS Dextrose 50 ml UD PRN IV 04/13/24 15:45 Pantoprazole Sodium 40 mg BID IV 04/13/24 22:00 04/15/24 09:57 40 MG Purified Water 300 ml Q6HR GT 04/14/24 12:15 04/15/24 05:13 300 ML Methylprednisolone Sodium Succinate 40 mg DAILY IV 04/15/24 10:00 04/15/24 09:57 40 MG Potassium Chloride 100 ml @ 50 mls/hr Q2H IV 04/15/24 09:30 04/15/24 15:29 Albumin Human 100 ml @ 100 mls/hr Q8H IV 04/15/24 11:45 04/16/24 04:44 Potassium Chloride 100 ml @ 50 mls/hr Q2H IV 04/15/24 11:45 04/15/24 15:44 Cancel Examination Examination alert, more oriented General Appearance: Altered HEENT: EOMI Respiratory: Clear to auscultation, Normal air movement Cardiovascular: Regular rate, Normal S1, Normal S2 Abdominal: Normal bowel sounds Extremities: No cyanosis, No edema, Normal pulses, No tenderness/swelling Skin: No rashes, No breakdown laboratory and microbiology Laboratory Tests 04/15/24 05:03 Test 04/15/24 05:03 Range/Units Serum Glucose 127 #H 74-106 mg/dL Microbiology Date/Time Source Procedure Growth Status 04/12/24 04:50 Sputum Gram Stain - Final Complete 04/12/24 04:50 Respiratory Culture - Final Presumptive Talia albicans Complete 04/12/24 04:30 Nose MRSA Screen - Final Complete 04/11/24 08:55 Blood Blood Culture - Preliminary NO GROWTH AFTER 72 HOURS OF INCUBATION. Resulted 04/11/24 08:45 Voided Urine Urine Culture - Final Complete Problem List/Assessment/Plan Problem List/Assessment/Plan Neurology # metabolic encephalopathy due to sepsis, ? Hepatic encephalopathy -head CT: normal Ammonia levels stable Mental status getting better: patient is more oriented Not need of intubation at the moment Cardiology # septic shock due to pneumonia gram +/ gram neg -recent echo showed ejection fraction 55% Currently on norepinephrine start albumin Respiratory #acute hypoxic respiratory failure due to possible penumonia with ARDS at the moment on oxymizer 11 lt x-ray shows multifocal opacities Furosemide 40 mg BID # septic shock due to pneumonia gram +/ gram neg x-ray shows multifocal opacities -IV meropenem -Nebulized with albuterol as needed GI #Possible liver failure # history of cirrhosis due to alcohol and possible chronic hepatitis infection # questionable hepatic encephalopathy INR 1.91 BT 1.7 Ladan's Discriminant Function for Alcoholic Hepatitis: 31 Lactulose Hepatitis C antibody + Hep Bs antigen and core total AB + Case discussed with Dr Lassiter decrease solumedrol 40 mg once # history of colitis and GI bleed -IV Protonix #pancreatic mass ?pancreatitis f/u ng tube: continue nephrology #hypokalemia: 3.4 #hypernatremia: 156 now on free water 300 q6h #Septic shock -avoid IV fluids considering volume overload cultures are pending Lactic acid 5.1 - 3.3 -2.1 Endocrine Diabetes mellitus hba1c 5.8 -sliding scale insulin: patient is on steroids lantus 15 Psychiatry -alcohol use disorder, alcohol withdrawal - no use of benzodiazepine as patient is altered Heme/ onc 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 Dang Time spent on critical care 81 min Plan discussed with: Patient, Other (rn) My Orders My Orders Orders - JANEL HERNANDEZ RESIDENT Procedure Category Date Status Time Dietary NOTICE 04/14/24 Transmitted Recommendations 16:06 Pt Request For Service PT 04/15/24 Logged 06:58 * Swallow Request ST 04/15/24 Transmitted 06:58 Pt Request For Service PT 04/15/24 Logged 09:19 * High School Counselor CONS 04/15/24 Transmitted Consult Potassium Chl PHA 04/15/24 In Process 20meq/100ml 09:30 Albumin 25% (Albutein) PHA 04/15/24 In Process 11:45 * Swallow Request ST 04/15/24 Transmitted 11:54 Dietary Evaluation Review Comments: 1) Provide Glucerna 1.2 @ 60ml/hr x24 hrs as tolerated to meet pt estimated needs 2) Advance pt diet when medically feasible to a CCHO 60g diet modified per WINDING LATHE OPERATOR recommendations 3) Consider DAWN 1 pkt BID for wound 4) Continue current plan of care Expected Outcomes/Goals: 1) Pt to receive adequate nutrition support 2) Pt diet to advance 3) F/U in 2-3 days Date of Service: Apr 15, 2024 Billing Provider: ANAND DANG MD Common Visit Codes: [id number] CARE 30-74 MIN JANEL HERNANDEZ RESIDENT Apr 15, 2024 12:47 ANAND DANG MD Apr 15, 2024 13:42
[2024-04-15] MEDS: ALBUMIN 25% 100 ML IV SCH (12:48)
[2024-04-15] MEDS: POTASSIUM CHL 20MEQ/100ML 100 ML IV SCH (12:48)
[2024-04-15] MEDS ORDERED: VANCOMYCIN PER PHARMACY 0 MG IV SCH (13:00)
--- NOTE | 2024-04-15 16:39 | DVHTSRES ---
Transfer Summary Transfer Summary Resident Creating Document: JANEL HERNANDEZ RESIDENT Date of Admission Apr 09, 2024 at 23:09 Date of Transfer: Apr 15, 2024 Transfer Diagnosis septic shock pneumonia liver cirrhosis Brief Hx & Hospital Course: pmhx liver cirrhosis alcholic and hep c, ams, pt was found in septic shock and acute hypoxic respiratory failure, pt didnt required intubation, at the moment in meropenem and low dose of levophed, albumin challenge, patient is getting better, after wean off levophed maybe downgrade, wbc was trending high. also taper down on steroids pt lives alone, but he has 2 children, PT and SS consult Transfer Status unstable, still on levophed JANEL HERNANDEZ RESIDENT Apr 15, 2024 16:39 ANAND MOSER MD Apr 25, 2024 17:30
[2024-04-15] MEDS: Juven Orange Powder PACKET 27.5gm PO SCH (18:28)
[2024-04-15] MEDS: NOREPINEPHRINE 8 MG/250ML KIT 250 ML IV SCH (18:29)
--- NOTE | 2024-04-15 18:34 | DVHPN2 ---
Progress Note - Dictate Date Seen: Apr 15, 2024 Has the PT tested + for MRSA If YES, has PT been informed?: Yes Medical Necessity Reason Pt with a Central, PICC or Fol: Yes The following are medically ne: Clark Catheter Subjective Patient is saturating well 4 L nasal cannula Patient underwent swallow evaluation today and he can tolerate pureed diet Ammonia level is normal at 27 2 bowel movements recorded No active GI bleeding is reported ;Hb 9.8 Liver enzymes show chronic mild persistent elevation Patient's sputum showed gram-positive cocci rare Leukocytosis likely related to steroid use improving vital signs Vital Sign Date Time Temp Pulse Resp B/P (MAP) Pulse Ox O2 Delivery O2 Flow Rate FiO2 04/15/24 14:02 104/60 04/15/24 13:40 66 16 98 4.0 36 04/15/24 11:32 Nasal Cannula 04/15/24 08:00 97.3 97.3 Total Intake and Output 04/14/24 04/14/24 04/15/24 15:00 23:00 07:00 Intake Total 299.938 ml 833.595 ml 848.752 ml Output Total 1850 ml 1450 ml Balance 299.938 ml -1016.405 ml -601.248 ml medications Current Medications Medications Dose Ordered Sig/Peg Route Start Time Stop Time Status Last Admin Dose Admin Lactulose 30 ml BID PO 04/10/24 10:00 04/15/24 09:57 30 ML Midodrine 10 mg TID@0600,1200,1800 PO 04/10/24 06:00 Cancel Sodium Chloride 10 ml Q8HR IV 04/10/24 06:00 04/15/24 14:31 10 ML Ondansetron HCl 4 mg Q4HP PRN IV 04/09/24 22:15 Meropenem 50 ml @ 17 mls/hr Q8H IV 04/10/24 18:00 04/15/24 09:56 17 MLS/HR Vasopressin 20 units/Sodium Chloride 100 ml @ 9 mls/hr Q11H7M IV 04/10/24 11:45 Sodium Chloride 10 ml QSHIFT@10,22 IV 04/11/24 22:00 04/15/24 09:58 10 ML Enoxaparin Sodium 40 mg DAILY SC 04/13/24 10:00 Hold Albuterol 2.5 mg Q6H NEB 04/12/24 18:00 04/15/24 11:32 2.5 MG Ipratropium [place] 0.5 mg Q6H NEB 04/12/24 18:00 04/15/24 11:32 0.5 MG Furosemide 40 mg BIDD IV 04/13/24 08:30 04/15/24 05:14 40 MG Enteral Nutritional Formula 1,000 ml 40ML/HR GT 04/13/24 11:15 04/13/24 17:11 1,000 ML Insulin Glargine 15 units DAILY@1000 SC 04/14/24 10:00 04/15/24 09:55 15 UNITS Diagnostic Test (Pha) 1 strip Q6HR 04/13/24 18:00 04/15/24 12:53 1 STRIP Insulin Human Regular Q6HR SC 04/13/24 18:00 04/15/24 12:54 8 UNITS Dextrose 50 ml UD PRN IV 04/13/24 15:45 Pantoprazole Sodium 40 mg BID IV 04/13/24 22:00 04/15/24 09:57 40 MG Purified Water 300 ml Q6HR GT 04/14/24 12:15 04/15/24 12:48 300 ML Methylprednisolone Sodium Succinate 40 mg DAILY IV 04/15/24 10:00 04/15/24 09:57 40 MG Albumin Human 100 ml @ 100 mls/hr Q8H IV 04/15/24 11:45 04/16/24 04:44 04/15/24 12:48 100 MLS/HR Potassium Chloride 100 ml @ 50 mls/hr Q2H IV 04/15/24 11:45 04/15/24 15:44 Cancel Norepinephrine Bitartrate 250 ml @ 7.5 mls/hr Q24H IV 04/15/24 16:45 Enteral Nutritional Formula 27.5 gm BIDWM PO 04/15/24 18:00 objective General: Patient was more awake;no respiratory distress Chest: Bilateral crackles Heart: RRR, no murmur Abdomen: no tenderness to palpation, +BS laboratory and microbiology Laboratory Tests 04/15/24 05:03 Test 04/15/24 05:03 Range/Units Serum Glucose 127 #H 74-106 mg/dL Problems(with codes): (1) Pancreatic mass (2) Liver disease (3) Duodenal ulcer disease (4) Anemia of chronic disease (5) Generalized weakness (6) Encephalopathy, unspecified (7) Pneumonia (8) Altered mental status (9) Pulmonary edema (10) Sepsis, unspecified organism Prognosis Assessment plan Patient undergoing PT evaluation and we will start him on a pureed diet and if he tolerates it DC be NG-tube Continue IV antibiotics Continue IV fluid hydration with free water flushes I suspect that the patient has a pancreatic mass possible pancreatic malignancy His initial CT scan showed a 4 cm globular appearance of the tail of the pancreas His CA 19-9 is elevated to 374 suggestive of possible pancreatic malignancy Recommend getting an MRI of the abdomen possible MRCP when patient is more stable and able to undergo the test Dietary Evaluation Review Comments: 1) Provide Glucerna 1.2 @ 60ml/hr x24 hrs as tolerated to meet pt estimated needs 2) Advance pt diet when medically feasible to a CCHO 60g diet modified per SCOOP MACHINE OPERATOR recommendations 3) Consider DAWN 1 pkt BID for wound 4) Continue current plan of care Expected Outcomes/Goals: 1) Pt to receive adequate nutrition support 2) Pt diet to advance 3) F/U in 2-3 days Plan discussed with: Other (None) FARHAN INGRAM MD Apr 15, 2024 18:34
[2024-04-16] VITALS (88 sets, daily range): BP systolic 92–145; BP diastolic 35–72; PULSE 51–103; RESP 10–23; TEMP 97.8–98.6; O2SAT 89–100
[2024-04-16 06:21] LABS: Base Excess 6.3 mmol/L (-2.0-3.0)
--- NOTE | 2024-04-16 06:29 | DVH ---
CHEST RADIOGRAPH Indication:dyspnea Technique: Single frontal view of the chest was obtained COMPARISON: XY CHEST PORTABLE on DOS: 04/15/24, XY CHEST XRAY 1 VIEW on DOS: 04/14/24, XY CHEST XRAY 1 VIEW on DOS: 04/13/24 FINDINGS: Lines and Tubes: None Lungs: Pulmonary vascular congestion Pleura: No effusion. No pneumothorax. Cardiomediastinal contours: Unremarkable Bones: Unremarkable IMPRESSION: Pulmonary vascular congestion . no significant interval change.
[2024-04-16 07:09] LABS: Basophils # (auto) 0 10 ^3/uL (0-0.2); Eosinophils # (auto) 0.5 10 ^3/uL (0-0.8); Mean Corpuscular Hgb Conc. 33.9 g/dL (32.0-36.0)
[2024-04-16 07:10] LABS: Eosinophils % (auto) 2.6 % (0.0-7.0); Hematocrit 26.9 % (41.0-53.0); Hemoglobin 9.1 g/dL (13.5-17.5); Lymphocytes # (auto) 3.9 10 ^3/uL (0.4-5.4); Lymphocytes % (auto) 21.8 % (10.0-50.0); Mean Corpuscular Hemoglobin 35.3 pg (28.0-32.0); Mean Corpuscular Volume 104.1 fL (80.0-100.0); Monocytes # (auto) 1.6 10 ^3/uL (0-1.3); Monocytes % (auto) 8.9 % (0.0-12.0); Neutrophils % (auto) 66.7 % (37.0-80.0); Platelet Count (auto) 34 10^3/uL (140-450); Red Blood Cells 2.59 10^6/uL (4.5-5.90); Red Cell Distribution Width 16.7 % (11.8-14.3)
[2024-04-16 07:29] LABS: Alanine Aminotransferase 72 U/L (7-40); Albumin 3.3 g/dL (3.2-4.8); Alkaline Phosphatase 175 U/L (46-116); Anion Gap 6 (5-15); Aspartate Aminotransferase 82 U/L (13-40); BUN/Creatinine Ratio 24.2 (10.0-20.0); Blood Urea Nitrogen 16 mg/dL (9-23); Calcium 9.1 mg/dL (8.7-10.4); Carbon Dioxide 36 mmol/L (20-31); Chloride 106 mmol/L (98-107); Glucose 70 mg/dL (74-106); Potassium 3.8 mmol/L (3.5-5.1)
[2024-04-16 07:30] LABS: Bilirubin, Total 2.2 mg/dL (0.2-1.0); Total Protein 5.7 g/dL (5.7-8.2)
[2024-04-16 07:43] LABS: Sodium 148 mmol/L (136-145)
--- NOTE | 2024-04-16 21:08 | DVHPN2 ---
Subjective CHART REVIWED- DENIES ANY COMPLAINTS Changes from previous H/P or p: No Changes Eyes: No Pain, No Vision change, No Conjunctivae inflammation, No Eyelid inflammation, No Other, No Redness ENT: No Ear pain, No Ear discharge, No Nose pain, No Nose discharge, No Nose congestion, No Mouth pain, No Mouth swelling, No Throat pain, No Throat swelling, No Other Cardiovascular: No Chest Pain, No Palpitations, No Orthopnea, No Paroxysmal Noc. Dyspnea, No Edema, No Lt Headedness, No Other Respiratory: No Cough, No Dry; Shortness of breath; No SOB with excertion, No Wheezing, No Hemoptysis, No Pleuritic Pain, No Sputum, No Other Gastrointestinal: No Nausea, No Vomiting; Abdominal Pain; No Diarrhea, No Constipation, No Melena, No Hematochezia, No Other Genitourinary: No Dysuria, No Frequency, No Incontinence, No Hematuria, No Retention, No Other Musculoskeletal: other (Bilateral leg swelling); No neck pain, No shoulder pain, No arm pain, No back pain, No hand pain, No leg pain, No foot pain Skin: No Rash, No Lesions, No Jaundice, No Bruising, No Other Objective Vitals Vital Signs Date Time Temp Pulse Resp B/P (MAP) Pulse Ox O2 Delivery O2 Flow Rate FiO2 04/16/24 20:00 19 94 Nasal Cannula* 2 28 04/16/24 20:00 94 04/16/24 18:45 94/50 (65) 04/16/24 16:00 98.4 98.4 Intake/Output Intake and Output 04/16/24 07:00 Intake Total 2381.000 ml Output Total 2600 ml Balance -219.000 ml Intake Oral 1200 ml IV Total 921.000 ml Tube Feeding 260 ml Output Urine Total 2600 ml # Bowel Movements 1 General Appearance: Alert, Oriented X3, Cooperative Lungs: Clear to auscultation Cardiovascular: Regular rate, Normal S1, Normal S2 Abdomen: Normal bowel sounds, Soft, Other Musculoskeletal: Normal sensory function, Normal motor function Neuro: Normal speech, Strength at 5/5 X4 ext Psych/Mental Status: Mental status NL Medications Current Medications Medications Dose Ordered Sig/Peg Route Start Time Stop Time Status Last Admin Dose Admin Lactulose 30 ml BID PO 04/10/24 10:00 04/16/24 09:19 30 ML Midodrine 10 mg TID@0600,1200,1800 PO 04/10/24 06:00 Cancel Sodium Chloride 10 ml Q8HR IV 04/10/24 06:00 04/16/24 14:00 10 ML Ondansetron HCl 4 mg Q4HP PRN IV 04/09/24 22:15 Meropenem 50 ml @ 17 mls/hr Q8H IV 04/10/24 18:00 04/16/24 18:14 17 MLS/HR Vasopressin 20 units/Sodium Chloride 100 ml @ 9 mls/hr Q11H7M IV 04/10/24 11:45 Sodium Chloride 10 ml QSHIFT@, IV 04/11/24 22:00 04/16/24 09:20 10 ML Enoxaparin Sodium 40 mg DAILY SC 04/13/24 10:00 Hold Albuterol 2.5 mg Q6H NEB 04/12/24 18:00 04/16/24 18:12 2.5 MG Ipratropium [place] 0.5 mg Q6H NEB 04/12/24 18:00 04/16/24 18:12 0.5 MG Furosemide 40 mg BIDD IV 04/13/24 08:30 04/16/24 18:14 40 MG Enteral Nutritional Formula 1,000 ml 40ML/HR GT 04/13/24 11:15 04/13/24 17:11 1,000 ML Insulin Glargine 15 units DAILY@1000 SC 04/14/24 10:00 04/16/24 09:21 15 UNITS Diagnostic Test (Pha) 1 strip Q6HR 04/13/24 18:00 04/16/24 18:20 1 STRIP Insulin Human Regular Q6HR SC 04/13/24 18:00 04/16/24 18:21 20 UNITS Dextrose 50 ml UD PRN IV 04/13/24 15:45 Pantoprazole Sodium 40 mg BID IV 04/13/24 22:00 04/16/24 09:19 40 MG Purified Water 300 ml Q6HR GT 04/14/24 12:15 04/16/24 18:14 300 ML Methylprednisolone Sodium Succinate 40 mg DAILY IV 04/15/24 10:00 04/16/24 09:19 40 MG Potassium Chloride 100 ml @ 50 mls/hr Q2H IV 04/15/24 11:45 04/15/24 15:44 Cancel Norepinephrine Bitartrate 250 ml @ 7.5 mls/hr Q24H IV 04/15/24 16:45 04/16/24 18:13 5.625 MLS/HR Enteral Nutritional Formula 27.5 gm BIDWM PO 04/15/24 18:00 04/16/24 09:20 27.5 GM Laboratory Results Laboratory Tests 04/16/24 06:56 Chemistry Test 04/16/24 06:56 Albumin 3.3 g/dL (3.2-4.8) Calcium Level 9.1 mg/dL (8.7-10.4) Total Protein 5.7 g/dL (5.7-8.2) LFT Test 04/16/24 06:56 Alanine Aminotransferase (ALT) 72 U/L (7-40) H Alkaline Phosphatase 175 U/L (46-116) H Aspartate Amino Transferase (AST) 82 U/L (13-40) H Total Bilirubin 2.2 mg/dL (0.2-1.0) H Urinalysis Test 04/10/24 03:17 Urine Color Yellow (Yellow) Urine Clarity Clear (Clear) Urine pH 6.0 (5.0-9.0) Urine Specific [place] 1.021 (1.001-1.035) Urine Protein Negative (Negative) Urine Ketones Trace (Negative) Urine Blood Negative /uL (Negative) Urine Nitrite Negative (Negative) Urine Bilirubin Negative (Negative) Urine Urobilinogen Normal mg/dL (Negative) Urine Leukocyte Esterase Negative /uL (Negative) Urine RBC 1 /hpf (0 - 3) Urine WBC 2 /hpf (0 - 3) Urine Squamous Epithelial Cells None seen /hpf (<5) Urine Bacteria None seen /hpf (None Seen) Urine Hyaline Casts Few /lpf (0 - 2) Urine Granular Casts Few /lpf (0) Urine Mucus Few (None Seen) Urine Glucose Normal mg/dL (Normal) Blood Gas Results Test 04/16/24 06:16 Arterial Blood pH 7.492 (7.350-7.450) FiO2 % 28.0 Microbiology Microbiology Date/Time Source Procedure Growth Status 04/12/24 04:50 Sputum Gram Stain - Final Complete 04/12/24 04:50 Respiratory Culture - Final Presumptive Talia albicans Complete 04/12/24 04:30 Nose MRSA Screen - Final Complete 04/11/24 08:55 Blood Blood Culture - Final NO GROWTH AFTER 5 DAYS OF INCUBATION. Complete 04/11/24 08:45 Voided Urine Urine Culture - Final Complete Assessment/Plan Assessment/Plan sepsis secondary to pneumonia- improved acute respiratory failure secondary to pneumonia improved liver cirrhosis secondary to hepatitis c and alcohol thromboytopenia due to above leucocytosisi -monitor closely /secondary to steroids/ Plan discussed with: Patient, Other Date of Service: Apr 16, 2024 Billing Provider: LOUISA JOSÉ MD Common Visit Codes: [id number] SAME DATE (MOD) LOUISA JOSÉ MD Apr 16, 2024 21:08
--- NOTE | 2024-04-16 21:36 | DVHPN2 ---
Progress Note - Dictate Date Seen: Apr 16, 2024 Has the PT tested + for MRSA If YES, has PT been informed?: Yes Medical Necessity Reason Pt with a Central, PICC or Fol: Yes The following are medically ne: Clark Catheter Subjective Patient is saturating well 4 L nasal cannula Patient is tolerating diet He also underwent some physical therapy and was out of bed to chair No active GI bleeding is reported ;Hb 9.8 Liver enzymes show chronic mild persistent elevation Patient's sputum showed gram-positive cocci rare Leukocytosis likely related to steroid use improving Patient CA 19-9 is elevated to 374 and he has a suspected pancreatic mass in the tail of the pancreas vital signs Vital Sign Date Time Temp Pulse Resp B/P (MAP) Pulse Ox O2 Delivery O2 Flow Rate FiO2 04/16/24 20:00 19 94 Nasal Cannula* 2 28 04/16/24 20:00 94 04/16/24 18:45 94/50 (65) 04/16/24 16:00 98.4 98.4 Total Intake and Output 04/15/24 04/15/24 04/16/24 15:00 23:00 07:00 Intake Total 317.875 ml 1653.125 ml 410.0 ml Output Total 1450 ml 1150 ml Balance 317.875 ml 203.125 ml -740.0 ml medications Current Medications Medications Dose Ordered Sig/Peg Route Start Time Stop Time Status Last Admin Dose Admin Lactulose 30 ml BID PO 04/10/24 10:00 04/16/24 09:19 30 ML Midodrine 10 mg TID@0600,1200,1800 PO 04/10/24 06:00 Cancel Sodium Chloride 10 ml Q8HR IV 04/10/24 06:00 04/16/24 14:00 10 ML Ondansetron HCl 4 mg Q4HP PRN IV 04/09/24 22:15 Meropenem 50 ml @ 17 mls/hr Q8H IV 04/10/24 18:00 04/16/24 18:14 17 MLS/HR Vasopressin 20 units/Sodium Chloride 100 ml @ 9 mls/hr Q11H7M IV 04/10/24 11:45 Sodium Chloride 10 ml QSHIFT@, IV 04/11/24 22:00 04/16/24 09:20 10 ML Enoxaparin Sodium 40 mg DAILY SC 04/13/24 10:00 Hold Albuterol 2.5 mg Q6H NEB 04/12/24 18:00 04/16/24 18:12 2.5 MG Ipratropium [place] 0.5 mg Q6H NEB 04/12/24 18:00 04/16/24 18:12 0.5 MG Furosemide 40 mg BIDD IV 04/13/24 08:30 04/16/24 18:14 40 MG Enteral Nutritional Formula 1,000 ml 40ML/HR GT 04/13/24 11:15 04/13/24 17:11 1,000 ML Insulin Glargine 15 units DAILY@1000 SC 04/14/24 10:00 04/16/24 09:21 15 UNITS Diagnostic Test (Pha) 1 strip Q6HR 04/13/24 18:00 04/16/24 18:20 1 STRIP Insulin Human Regular Q6HR SC 04/13/24 18:00 04/16/24 18:21 20 UNITS Dextrose 50 ml UD PRN IV 04/13/24 15:45 Pantoprazole Sodium 40 mg BID IV 04/13/24 22:00 04/16/24 09:19 40 MG Purified Water 300 ml Q6HR GT 04/14/24 12:15 04/16/24 18:14 300 ML Methylprednisolone Sodium Succinate 40 mg DAILY IV 04/15/24 10:00 04/16/24 09:19 40 MG Potassium Chloride 100 ml @ 50 mls/hr Q2H IV 04/15/24 11:45 04/15/24 15:44 Cancel Norepinephrine Bitartrate 250 ml @ 7.5 mls/hr Q24H IV 04/15/24 16:45 04/16/24 18:13 5.625 MLS/HR Enteral Nutritional Formula 27.5 gm BIDWM PO 04/15/24 18:00 04/16/24 09:20 27.5 GM objective General: Patient was more awake;no respiratory distress Chest: Bilateral crackles Heart: RRR, no murmur Abdomen: no tenderness to palpation, +BS laboratory and microbiology Laboratory Tests 04/16/24 06:56 Test 04/16/24 06:56 Range/Units Serum Glucose 70 L 74-106 mg/dL Problems(with codes): (1) Pancreatic mass (2) Liver disease (3) Duodenal ulcer disease (4) Anemia of chronic disease (5) Sepsis, unspecified organism (6) Hypotension (7) Pulmonary edema (8) Fluid overload, unspecified (9) Generalized weakness (10) Pneumonia, unspecified organism (11) Encephalopathy, unspecified Prognosis PLAN Continue IV antibiotics IV PPI Start oral Lactulose Continue IV fluid hydration with free water flushes I suspect that the patient has a pancreatic mass possible pancreatic malignancy His initial CT scan showed a 4 cm globular appearance of the tail of the pancreas His CA 19-9 is elevated to 374 suggestive of possible pancreatic malignancy Recommend getting an MRI of the abdomen possible MRCP when patient is more stable and able to undergo the test Outpatient evaluation and further management of hepatitis-C Prognosis remains guarded Dietary Evaluation Review Comments: 1) Provide Glucerna 1.2 @ 60ml/hr x24 hrs as tolerated to meet pt estimated needs 2) Advance pt diet when medically feasible to a CCHO 60g diet modified per POWER TRUCK DRIVER recommendations 3) Consider DAWN 1 pkt BID for wound 4) Continue current plan of care Expected Outcomes/Goals: 1) Pt to receive adequate nutrition support 2) Pt diet to advance 3) F/U in 2-3 days Plan discussed with: Patient, Other (NEY Nurse) FARHAN INGRAM MD Apr 16, 2024 21:36
--- NOTE | 2024-04-16 22:06 | DVHPN2 ---
Progress Note - Dictate Date Seen: Apr 16, 2024 Has the PT tested + for MRSA If YES, has PT been informed?: Yes Medical Necessity Reason Pt with a Central, PICC or Fol: Yes The following are medically ne: Edward Catheter Reason for edward catheter: Strict I&O Subjective Patient seen and examined at bedside. Remains on supplemental oxygen Overnight events reviewed vital signs Vital Sign Date Time Temp Pulse Resp B/P (MAP) Pulse Ox O2 Delivery O2 Flow Rate FiO2 04/16/24 20:00 19 94 Nasal Cannula* 2 28 04/16/24 20:00 94 04/16/24 18:45 94/50 (65) 04/16/24 16:00 98.4 98.4 Total Intake and Output 04/15/24 04/15/24 04/16/24 15:00 23:00 07:00 Intake Total 317.875 ml 1653.125 ml 410.0 ml Output Total 1450 ml 1150 ml Balance 317.875 ml 203.125 ml -740.0 ml medications Current Medications Medications Dose Ordered Sig/Peg Route Start Time Stop Time Status Last Admin Dose Admin Lactulose 30 ml BID PO 04/10/24 10:00 04/16/24 09:19 30 ML Midodrine 10 mg TID@0600,1200,1800 PO 04/10/24 06:00 Cancel Sodium Chloride 10 ml Q8HR IV 04/10/24 06:00 04/16/24 21:48 10 ML Ondansetron HCl 4 mg Q4HP PRN IV 04/09/24 22:15 Meropenem 50 ml @ 17 mls/hr Q8H IV 04/10/24 18:00 04/16/24 18:14 17 MLS/HR Vasopressin 20 units/Sodium Chloride 100 ml @ 9 mls/hr Q11H7M IV 04/10/24 11:45 Sodium Chloride 10 ml QSHIFT@10,22 IV 04/11/24 22:00 04/16/24 21:49 10 ML Enoxaparin Sodium 40 mg DAILY SC 04/13/24 10:00 Hold Albuterol 2.5 mg Q6H NEB 04/12/24 18:00 04/16/24 18:12 2.5 MG Ipratropium [place] 0.5 mg Q6H NEB 04/12/24 18:00 04/16/24 18:12 0.5 MG Furosemide 40 mg BIDD IV 04/13/24 08:30 04/16/24 18:14 40 MG Enteral Nutritional Formula 1,000 ml 40ML/HR GT 04/13/24 11:15 04/13/24 17:11 1,000 ML Insulin Glargine 15 units DAILY@1000 SC 04/14/24 10:00 04/16/24 09:21 15 UNITS Diagnostic Test (Pha) 1 strip Q6HR 04/13/24 18:00 04/16/24 18:20 1 STRIP Insulin Human Regular Q6HR SC 04/13/24 18:00 04/16/24 18:21 20 UNITS Dextrose 50 ml UD PRN IV 04/13/24 15:45 Pantoprazole Sodium 40 mg BID IV 04/13/24 22:00 04/16/24 21:48 40 MG Purified Water 300 ml Q6HR GT 04/14/24 12:15 04/16/24 18:14 300 ML Methylprednisolone Sodium Succinate 40 mg DAILY IV 04/15/24 10:00 04/16/24 09:19 40 MG Potassium Chloride 100 ml @ 50 mls/hr Q2H IV 04/15/24 11:45 04/15/24 15:44 Cancel Norepinephrine Bitartrate 250 ml @ 7.5 mls/hr Q24H IV 04/15/24 16:45 04/16/24 18:13 5.625 MLS/HR Enteral Nutritional Formula 27.5 gm BIDWM PO 04/15/24 18:00 04/16/24 09:20 27.5 GM objective Gen.: Patient lying in bed in no apparent distress. On supplemental oxygen. Head: Normocephalic, atraumatic. Eyes: EOMI/PERRLA. Ears: Normal hearing. Normal anatomy. Neck/trachea: Trachea midline, supple. Nose: Normal external anatomy. Mouth: Moist mucous membranes. Chest: Decreased air entry bilaterally. No wheezing or rhonchi. Cardiovascular: Positive S1, positive S2. Regular rate and rhythm. Abdomen: Positive bowel sounds in all 4 quadrants. Soft, non-tender, non- distended. : Deferred. Rectal: Deferred. Skin: Warm, dry. Intact. Extremities: 2+ radial pulses bilaterally. No lower extremity edema. Neuro: Awake, alert, oriented x3. No gross motor or sensory deficits. Cranial nerves II through XII intact. Gait not assessed. laboratory and microbiology Laboratory Tests 04/16/24 06:56 Test 04/16/24 06:56 Range/Units Serum Glucose 70 L 74-106 mg/dL Assessment/Plan Impression: Acute hypoxic respiratory failure Pulmonary edema Sepsis Pneumonia, likely gram negative Acute metabolic encephalopathy Events: On supplemental O2 at 2 LPM NC Taper O2 as tolerated On pressors for hemodynamic support Levophed 2 mcg/min Titrate to keep mean arterial pressure greater than 65 mmHg. Continue antibiotics Albumin Potassium supplementation Monitor renal function Labs and imaging reviewed. Rest of plan as noted below. Plan: Supplemental Oxygen Titrate to keep O2 sats above 92%. CXR image and report reviewed. Increased pulmonary vascular congestion. No pleural effusion or pneumothorax. ABG reviewed. On pressors for hemodynamic support. Titrate to keep MAP above 65 mmHg/SBP above 90 mmHg. Continue antibiotics. F/u cultures. WBC trending down. Monitor renal function. Monitor electrolytes. Supplement as necessary. Diurese with lasix Monitor ins/outs. Nutritional support. Accucheks, ISS. GI/DVT prophylaxis. Condition: Critical Prognosis: Poor given multiple comorbidities. Rest of plan per hospitalist and other consultants. A total of 35 minutes of critical care time was spent reviewing the patient record, examining the patient, making a diagnostic and therapeutic plan, discussing this plan with the medical personnel, following up on diagnostic studies and following the patient for clinical stability excluding any and all procedures. At least 50% of this time was spent in direct, [id number] contact. Thank you Dr. Mary for allowing me to participate in this patient's care. Further recommendations will depend on patient's clinical course. Please do not hesitate to contact me if you have any questions or concerns. This medical document was created using an electronic medical record system with [employer] dictation system. Although this document has been carefully reviewed, there may still be some phonetic and typographical errors. These areas are purely typographical due to imperfections of the software programs, and do not reflect any compromise in the patient's medical care. Dietary Evaluation Review Comments: 1) Provide Glucerna 1.2 @ 60ml/hr x24 hrs as tolerated to meet pt estimated needs 2) Advance pt diet when medically feasible [facility] diet modified per BRICK VENEER MAKER recommendations 3) Consider DAWN 1 pkt BID for wound 4) Continue current plan of care Expected Outcomes/Goals: 1) Pt to receive adequate nutrition support 2) Pt diet to advance 3) F/U in 2-3 days Plan discussed with: Other (JENNIFER Fried) Critical Care Time(min): 35 TIMI ONEIL MD Apr 16, 2024 22:06
[2024-04-17] VITALS (99 sets, daily range): BP systolic 89–128; BP diastolic 46–77; PULSE 64–103; RESP 9–33; TEMP 97.4–99.2; O2SAT 84–100
[2024-04-17] MEDS ORDERED: NOREPINEPHRINE 8 MG/250ML KIT 250 ML IV SCH (00:45)
[2024-04-17] MEDS: NOREPINEPHRINE 8 MG/250ML KIT 250 ML IV SCH (02:09)
[2024-04-17 05:14] LABS: Basophils % (auto) 0.3 % (0.0-2.0); Eosinophils # (auto) 0.3 10 ^3/uL (0-0.8); Hemoglobin 8.6 g/dL (13.5-17.5); Lymphocytes # (auto) 3.6 10 ^3/uL (0.4-5.4); Red Cell Distribution Width 16.3 % (11.8-14.3)
[2024-04-17 05:16] LABS: Basophils # (auto) 0.1 10 ^3/uL (0-0.2); Eosinophils % (auto) 1.7 % (0.0-7.0); Hematocrit 25.8 % (41.0-53.0); Lymphocytes % (auto) 20.6 % (10.0-50.0); Mean Corpuscular Hemoglobin 34.6 pg (28.0-32.0); Mean Corpuscular Hgb Conc. 33.4 g/dL (32.0-36.0); Mean Corpuscular Volume 103.6 fL (80.0-100.0); Monocytes # (auto) 1.8 10 ^3/uL (0-1.3); Neutrophils # (auto) 11.9 10 ^3/uL (1.6-8.6); Neutrophils % (auto) 67.4 % (37.0-80.0); Platelet Count (auto) 42 10^3/uL (140-450); Red Blood Cells 2.49 10^6/uL (4.5-5.90); White Blood Cell 17.6 10^3/uL (4.4-10.8)
[2024-04-17 05:39] LABS: Alanine Aminotransferase 64 U/L (7-40); Alkaline Phosphatase 161 U/L (46-116); Anion Gap 3 (5-15); Aspartate Aminotransferase 50 U/L (13-40); Blood Urea Nitrogen 18 mg/dL (9-23); Calcium 8.9 mg/dL (8.7-10.4); Carbon Dioxide 38 mmol/L (20-31); Chloride 103 mmol/L (98-107); Glucose 92 mg/dL (74-106); Potassium 3.2 mmol/L (3.5-5.1); Sodium 144 mmol/L (136-145)
[2024-04-17 05:40] LABS: Albumin 2.8 g/dL (3.2-4.8); Bilirubin, Total 2.2 mg/dL (0.2-1.0)
[2024-04-17] MEDS: POTASSIUM CHL 20MEQ/100ML 100 ML IV ONE (08:09)
--- NOTE | 2024-04-17 09:35 | DVHPN2 ---
Progress Note - Dictate Date Seen: Apr 17, 2024 Has the PT tested + for MRSA If YES, has PT been informed?: Yes Medical Necessity Reason Pt with a Central, PICC or Fol: Yes The following are medically ne: [place] Catheter Subjective Patient is seen at bedside He is much more awake alert Patient is sitting up in bed eating his breakfast He is responding appropriately to all questions Ammonia level mildly elevated to 49 Patient was notified of a suspected pancreatic mass and elevated CA 19-9 No active GI bleeding is reported ; hemoglobin trending down to 8.6 Liver enzymes show chronic mild persistent elevation, bilirubin 2.2 and mild transaminitis Patient has underlying hepatitis-C antibody positive, possible chronic hepatitis-C, serum alpha fetoprotein is normal Patient's sputum showed gram-positive cocci rare Leukocytosis likely related to steroid use, slowly improving Patient CA 19-9 is elevated to 374 and he has a suspected pancreatic mass in the tail of the pancreas vital signs Vital Sign Date Time Temp Pulse Resp B/P (MAP) Pulse Ox O2 Delivery O2 Flow Rate FiO2 04/17/24 08:00 97.9 68 11 110/53 (72) 98 97.9 04/17/24 06:35 Nasal Cannula 2.0 04/17/24 06:35 28 Total Intake and Output 04/16/24 04/16/24 04/17/24 15:00 23:00 07:00 Intake Total 92.250 ml 1667.875 ml 701 ml Output Total 2150 ml 950 ml Balance 92.250 ml -482.125 ml -249 ml medications Current Medications Medications Dose Ordered Sig/Peg Route Start Time Stop Time Status Last Admin Dose Admin Lactulose 30 ml BID PO 04/10/24 10:00 04/16/24 09:19 30 ML Midodrine 10 mg TID@0600,1200,1800 PO 04/10/24 06:00 Cancel Sodium Chloride 10 ml Q8HR IV 04/10/24 06:00 04/17/24 00:01 10 ML Ondansetron HCl 4 mg Q4HP PRN IV 04/09/24 22:15 Meropenem 50 ml @ 17 mls/hr Q8H IV 04/10/24 18:00 04/17/24 02:20 17 MLS/HR Vasopressin 20 units/Sodium Chloride 100 ml @ 9 mls/hr Q11H7M IV 04/10/24 11:45 Sodium Chloride 10 ml QSHIFT@10,22 IV 04/11/24 22:00 04/16/24 21:49 10 ML Enoxaparin Sodium 40 mg DAILY SC 04/13/24 10:00 Hold Albuterol 2.5 mg Q6H NEB 04/12/24 18:00 04/17/24 06:35 2.5 MG Ipratropium [place] 0.5 mg Q6H NEB 04/12/24 18:00 04/17/24 06:35 0.5 MG Furosemide 40 mg BIDD IV 04/13/24 08:30 04/17/24 05:19 40 MG Enteral Nutritional Formula 1,000 ml 40ML/HR GT 04/13/24 11:15 04/13/24 17:11 1,000 ML Insulin Glargine 15 units DAILY@1000 SC 04/14/24 10:00 04/16/24 09:21 15 UNITS Diagnostic Test (Pha) 1 strip Q6HR 04/13/24 18:00 04/17/24 05:19 1 STRIP Insulin Human Regular Q6HR SC 04/13/24 18:00 04/17/24 00:01 4 UNITS Dextrose 50 ml UD PRN IV 04/13/24 15:45 Pantoprazole Sodium 40 mg BID IV 04/13/24 22:00 04/16/24 21:48 40 MG Purified Water 300 ml Q6HR GT 04/14/24 12:15 04/17/24 05:17 300 ML Methylprednisolone Sodium Succinate 40 mg DAILY IV 04/15/24 10:00 04/16/24 09:19 40 MG Potassium Chloride 100 ml @ 50 mls/hr Q2H IV 04/15/24 11:45 04/15/24 15:44 Cancel Enteral Nutritional Formula 27.5 gm BIDWM PO 04/15/24 18:00 04/16/24 09:20 27.5 GM Norepinephrine Bitartrate 250 ml @ 1.875 mls/ hr Q24H IV 04/17/24 01:45 04/17/24 02:09 5.625 MLS/HR objective General: Patient was more awake;no respiratory distress Chest: Bilateral crackles Heart: RRR, no murmur Abdomen: no tenderness to palpation, +BS laboratory and microbiology Laboratory Tests 04/17/24 04:48 Test 04/17/24 04:48 Range/Units Serum Glucose 92 74-106 mg/dL Problems(with codes): (1) Pancreatic mass (2) Liver disease (3) Duodenal ulcer disease (4) Anemia of chronic disease (5) Fluid overload, unspecified (6) Generalized weakness (7) Pneumonia, unspecified organism (8) Altered mental status (9) Encephalopathy (10) Alcohol withdrawal Prognosis Plan IV Protonix 40 mg q.12 hours Carafate 1 g p.o. twice a day Lactulose 30 mL p.o. daily or twice a day Patient was started on IV steroids Patient on IV meropenem Schedule MRI abdomen with and without contrast and possible MRCP if required to further evaluate suspected pancreatic mass If diagnosis is not clear-cut then patient may need outpatient referral to higher level of care for endoscopic ultrasound and FNA Outpatient follow up with GI Services for further evaluation and management of hep C Dietary Evaluation Review Comments: 1) Provide Glucerna 1.2 @ 60ml/hr x24 hrs as tolerated to meet pt estimated needs 2) Advance pt diet when medically feasible to a CCHO 60g diet modified per [employer] SAL[employer] REPRESENTATIVE recommendations 3) Consider DAWN 1 pkt BID for wound 4) Continue current plan of care Expected Outcomes/Goals: 1) Pt to receive adequate nutrition support 2) Pt diet to advance 3) F/U in 2-3 days Plan discussed with: Patient, Other (NEY Nurse) FARHAN INGRAM MD Apr 17, 2024 09:35
--- NOTE | 2024-04-17 12:11 | DVHPN2 ---
Subjective CHART REVIWED- DENIES ANY COMPLAINTS Changes from previous H/P or p: No Changes Eyes: No Pain, No Vision change, No Conjunctivae inflammation, No Eyelid inflammation, No Other, No Redness ENT: No Ear pain, No Ear discharge, No Nose pain, No Nose discharge, No Nose congestion, No Mouth pain, No Mouth swelling, No Throat pain, No Throat swelling, No Other Cardiovascular: No Chest Pain, No Palpitations, No Orthopnea, No Paroxysmal Noc. Dyspnea, No Edema, No Lt Headedness, No Other Respiratory: No Cough, No Dry; Shortness of breath; No SOB with excertion, No Wheezing, No Hemoptysis, No Pleuritic Pain, No Sputum, No Other Gastrointestinal: No Nausea, No Vomiting; Abdominal Pain; No Diarrhea, No Constipation, No Melena, No Hematochezia, No Other Genitourinary: No Dysuria, No Frequency, No Incontinence, No Hematuria, No Retention, No Other Musculoskeletal: other (Bilateral leg swelling); No neck pain, No shoulder pain, No arm pain, No back pain, No hand pain, No leg pain, No foot pain Skin: No Rash, No Lesions, No Jaundice, No Bruising, No Other Objective Vitals Vital Signs Date Time Temp Pulse Resp B/P (MAP) Pulse Ox O2 Delivery O2 Flow Rate FiO2 04/17/24 11:42 73 18 100 04/17/24 11:36 Nasal Cannula 2.0 04/17/24 11:36 28 04/17/24 10:30 151/52 04/17/24 08:00 97.9 97.9 Intake/Output Intake and Output 04/17/24 07:00 Intake Total 2461.125 ml Output Total 3100 ml Balance -638.875 ml Intake Oral 2250 ml IV Total 211.125 ml Output Urine Total 3100 ml General Appearance: Alert, Oriented X3, Cooperative Lungs: Clear to auscultation Cardiovascular: Regular rate, Normal S1, Normal S2 Abdomen: Normal bowel sounds, Soft, Other Musculoskeletal: Normal sensory function, Normal motor function Neuro: Normal speech, Strength at 5/5 X4 ext Psych/Mental Status: Mental status NL Medications Current Medications Medications Dose Ordered Sig/Peg Route Start Time Stop Time Status Last Admin Dose Admin Lactulose 30 ml BID PO 04/10/24 10:00 04/17/24 10:02 30 ML Midodrine 10 mg TID@0600,1200,1800 PO 04/10/24 06:00 Cancel Sodium Chloride 10 ml Q8HR IV 04/10/24 06:00 04/17/24 00:01 10 ML Ondansetron HCl 4 mg Q4HP PRN IV 04/09/24 22:15 Meropenem 50 ml @ 17 mls/hr Q8H IV 04/10/24 18:00 04/17/24 10:01 17 MLS/HR Vasopressin 20 units/Sodium Chloride 100 ml @ 9 mls/hr Q11H7M IV 04/10/24 11:45 Sodium Chloride 10 ml QSHIFT@, IV 04/11/24 22:00 04/17/24 10:01 10 ML Enoxaparin Sodium 40 mg DAILY SC 04/13/24 10:00 Hold Albuterol 2.5 mg Q6H NEB 04/12/24 18:00 04/17/24 11:36 2.5 MG Ipratropium [place] 0.5 mg Q6H NEB 04/12/24 18:00 04/17/24 11:36 0.5 MG Furosemide 40 mg BIDD IV 04/13/24 08:30 04/17/24 05:19 40 MG Enteral Nutritional Formula 1,000 ml 40ML/HR GT 04/13/24 11:15 04/13/24 17:11 1,000 ML Insulin Glargine 15 units DAILY@1000 SC 04/14/24 10:00 04/17/24 10:07 15 UNITS Diagnostic Test (Pha) 1 strip Q6HR 04/13/24 18:00 04/17/24 05:19 1 STRIP Insulin Human Regular Q6HR SC 04/13/24 18:00 04/17/24 00:01 4 UNITS Dextrose 50 ml UD PRN IV 04/13/24 15:45 Pantoprazole Sodium 40 mg BID IV 04/13/24 22:00 04/17/24 10:01 40 MG Purified Water 300 ml Q6HR GT 04/14/24 12:15 04/17/24 05:17 300 ML Methylprednisolone Sodium Succinate 40 mg DAILY IV 04/15/24 10:00 04/17/24 10:02 40 MG Potassium Chloride 100 ml @ 50 mls/hr Q2H IV 04/15/24 11:45 04/15/24 15:44 Cancel Enteral Nutritional Formula 27.5 gm BIDWM PO 04/15/24 18:00 04/17/24 10:01 27.5 GM Norepinephrine Bitartrate 250 ml @ 1.875 mls/ hr Q24H IV 04/17/24 01:45 04/17/24 02:09 5.625 MLS/HR Laboratory Results Laboratory Tests 04/17/24 04:48 Chemistry Test 04/17/24 04:48 Albumin 2.8 g/dL (3.2-4.8) L Calcium Level 8.9 mg/dL (8.7-10.4) Total Protein 5.0 g/dL (5.7-8.2) L LFT Test 04/17/24 04:48 Alanine Aminotransferase (ALT) 64 U/L (7-40) H Alkaline Phosphatase 161 U/L (46-116) H Aspartate Amino Transferase (AST) 50 U/L (13-40) H Total Bilirubin 2.2 mg/dL (0.2-1.0) H Urinalysis Test 04/10/24 03:17 Urine Color Yellow (Yellow) Urine Clarity Clear (Clear) Urine pH 6.0 (5.0-9.0) Urine Specific [place] 1.021 (1.001-1.035) Urine Protein Negative (Negative) Urine Ketones Trace (Negative) Urine Blood Negative /uL (Negative) Urine Nitrite Negative (Negative) Urine Bilirubin Negative (Negative) Urine Urobilinogen Normal mg/dL (Negative) Urine Leukocyte Esterase Negative /uL (Negative) Urine RBC 1 /hpf (0 - 3) Urine WBC 2 /hpf (0 - 3) Urine Squamous Epithelial Cells None seen /hpf (<5) Urine Bacteria None seen /hpf (None Seen) Urine Hyaline Casts Few /lpf (0 - 2) Urine Granular Casts Few /lpf (0) Urine Mucus Few (None Seen) Urine Glucose Normal mg/dL (Normal) Microbiology Microbiology Date/Time Source Procedure Growth Status 04/12/24 04:50 Sputum Gram Stain - Final Complete 04/12/24 04:50 Respiratory Culture - Final Presumptive Talia albicans Complete 04/12/24 04:30 Nose MRSA Screen - Final Complete 04/11/24 08:55 Blood Blood Culture - Final NO GROWTH AFTER 5 DAYS OF INCUBATION. 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
[2024-04-17] MEDS: MIDODRINE HCL 10 MG TAB PO ONE (14:14)
--- NOTE | 2024-04-17 16:40 | DVH ---
CLINICAL HISTORY: Pancreatic tail mass, elevated CA 19-9 TECHNIQUE: Multi sequence multi planar MRI images of the abdomen were obtained prior to and after th e uneventful administration of 15 mL Gadavist contrast. Heavily T2 weighted MRCP images were obtained . 3D MRCP images were created. COMPARISON: CT dated 04/09/[address] dated 03/27/2024. FINDINGS: Motion artifact limits evaluation. Again noted is focal prominence of the distal aspect of the pancreatic tail, demonstrating isointense signal compared to the rest of the pancreatic parenchy ma precontrast sequences, as well as on multiphase postcontrast images. No discrete mass is visualiz ed given the limitations of the examination due to motion artifact. Nodular contour of the liver suggesting cirrhosis. Moderate ascites. Very limited MRCP images. No bi liary ductal dilatation. Pancreatic duct is poorly visualized. Other abnormality identified given the limitations of the examination. IMPRESSION: 1. Limited examination due to motion artifact. 2. Focal prominence of the distal aspect of the pancreatic tail without definite mass demonstrated on precontrast or multiphase postcontrast images, given the limitations of the examination. 3. Moderate ascites. 4. Cirrhotic liver morphology. 5. Very limited MRCP examination. No biliary ductal dilatation. Poorly visualized pancreatic duct.
[2024-04-17] MEDS: MIDODRINE HCL 10 MG TAB PO SCH (18:28)
--- NOTE | 2024-04-17 21:36 | DVHPN2 ---
Progress Note - Dictate Date Seen: Apr 17, 2024 Has the PT tested + for MRSA If YES, has PT been informed?: Yes Medical Necessity Reason Pt with a Central, PICC or Fol: Yes The following are medically ne: Edward Catheter Reason for edward catheter: Strict I&O Subjective Patient seen and examined at bedside. Remains on supplemental oxygen Overnight events reviewed vital signs Vital Sign Date Time Temp Pulse Resp B/P (MAP) Pulse Ox O2 Delivery O2 Flow Rate FiO2 04/17/24 21:15 88 21 115/61 (79) 91 04/17/24 20:00 98.5 98.5 04/17/24 20:00 Nasal Cannula* 2 28 Total Intake and Output 04/16/24 04/16/24 04/17/24 15:00 23:00 07:00 Intake Total 92.250 ml 1667.875 ml 706.625 ml Output Total 2150 ml 950 ml Balance 92.250 ml -482.125 ml -243.375 ml medications Current Medications Medications Dose Ordered Sig/Peg Route Start Time Stop Time Status Last Admin Dose Admin Lactulose 30 ml BID PO 04/10/24 10:00 04/17/24 21:01 30 ML Midodrine 10 mg TID@0600,1200,1800 PO 04/10/24 06:00 Cancel Sodium Chloride 10 ml Q8HR IV 04/10/24 06:00 04/17/24 21:29 10 ML Meropenem 50 ml @ 17 mls/hr Q8H IV 04/10/24 18:00 04/17/24 18:30 17 MLS/HR Sodium Chloride 10 ml QSHIFT@10,22 IV 04/11/24 22:00 04/17/24 21:01 10 ML Albuterol 2.5 mg Q6H NEB 04/12/24 18:00 04/17/24 17:45 2.5 MG Ipratropium [place] 0.5 mg Q6H NEB 04/12/24 18:00 04/17/24 17:45 0.5 MG Insulin Glargine 15 units DAILY@1000 SC 04/14/24 10:00 04/17/24 10:07 15 UNITS Diagnostic Test (Pha) 1 strip Q6HR 04/13/24 18:00 04/17/24 18:31 1 STRIP Insulin Human Regular Q6HR SC 04/13/24 18:00 04/17/24 18:29 16 UNITS Dextrose 50 ml UD PRN IV 04/13/24 15:45 Methylprednisolone Sodium Succinate 40 mg DAILY IV 04/15/24 10:00 04/17/24 10:02 40 MG Potassium Chloride 100 ml @ 50 mls/hr Q2H IV 04/15/24 11:45 04/15/24 15:44 Cancel Enteral Nutritional Formula 27.5 gm BIDWM PO 04/15/24 18:00 04/17/24 18:31 27.5 GM Norepinephrine Bitartrate 250 ml @ 1.875 mls/ hr Q24H IV 04/17/24 01:45 04/17/24 02:09 5.625 MLS/HR Midodrine 10 mg TID@0600,1200,1800 PO 04/17/24 18:00 04/17/24 18:28 10 MG Furosemide 40 mg DAILY PO 04/18/24 10:00 Pantoprazole Sodium 40 mg DAILY@0600 PO 04/18/24 06:00 objective Gen.: Patient lying in bed in no apparent distress. On supplemental oxygen. Head: Normocephalic, atraumatic. Eyes: EOMI/PERRLA. Ears: Normal hearing. Normal anatomy. Neck/trachea: Trachea midline, supple. Nose: Normal external anatomy. Mouth: Moist mucous membranes. Chest: Decreased air entry bilaterally. No wheezing or rhonchi. Cardiovascular: Positive S1, positive S2. Regular rate and rhythm. Abdomen: Positive bowel sounds in all 4 quadrants. Soft, non-tender, non- distended. : Deferred. Rectal: Deferred. Skin: Warm, dry. Intact. Extremities: 2+ radial pulses bilaterally. No lower extremity edema. Neuro: Awake, alert, oriented x3. No gross motor or sensory deficits. Cranial nerves II through XII intact. Gait not assessed. laboratory and microbiology Laboratory Tests 04/17/24 04:48 Test 04/17/24 04:48 Range/Units Serum Glucose 92 74-106 mg/dL Assessment/Plan Impression: Acute hypoxic respiratory failure Pulmonary edema Sepsis Pneumonia, likely gram negative Acute metabolic encephalopathy Events: On supplemental O2 at 2 LPM NC Taper O2 as tolerated On pressors for hemodynamic support Levophed 3 mcg/min Titrate to keep mean arterial pressure greater than 65 mmHg. Continue antibiotics Albumin Continue PT. Potassium supplementation Monitor renal function Labs and imaging reviewed. Rest of plan as noted below. Plan: Supplemental Oxygen Titrate to keep O2 sats above 92%. CXR image and report reviewed. Increased pulmonary vascular congestion. No pleural effusion or pneumothorax. ABG reviewed. On pressors for hemodynamic support. Titrate to keep MAP above 65 mmHg/SBP above 90 mmHg. Continue antibiotics. F/u cultures. WBC trending down. Monitor renal function. Monitor electrolytes. Supplement as necessary. Diurese with lasix Monitor ins/outs. Nutritional support. Accucheks, ISS. GI/DVT prophylaxis. Condition: Critical Prognosis: Poor given multiple comorbidities. Rest of plan per hospitalist and other consultants. A total of 35 minutes of critical care time was spent reviewing the patient record, examining the patient, making a diagnostic and therapeutic plan, discussing this plan with the medical personnel, following up on diagnostic studies and following the patient for clinical stability excluding any and all procedures. At least 50% of this time was spent in direct, [id number] contact. Thank you Dr. Mary for allowing me to participate in this patient's care. Further recommendations will depend on patient's clinical course. Please do not hesitate to contact me if you have any questions or concerns. This medical document was created using an electronic medical record system with [employer] dictation system. Although this document has been carefully reviewed, there may still be some phonetic and typographical errors. These areas are purely typographical due to imperfections of the software programs, and do not reflect any compromise in the patient's medical care. Dietary Evaluation Review Comments: 1) Provide Glucerna 1.2 @ 60ml/hr x24 hrs as tolerated to meet pt estimated needs 2) Advance pt diet when medically feasible to a CCHO 60g diet modified per [employer]OR recommendations 3) Consider DAWN 1 pkt BID for wound 4) Continue current plan of care Expected Outcomes/Goals: 1) Pt to receive adequate nutrition support 2) Pt diet to advance 3) F/U in 2-3 days Plan discussed with: Other (RN) Critical Care Time(min): 35 TIMI ONEIL MD Apr 17, 2024 21:36
[2024-04-18] VITALS (103 sets, daily range): BP systolic 88–128; BP diastolic 30–68; PULSE 55–96; RESP 10–23; TEMP 98.4–98.7; O2SAT 41–100
[2024-04-18] MEDS: PANTOPRAZOLE 40 MG TAB PO SCH (05:06)
[2024-04-18 05:14] LABS: Basophils # (auto) 0.1 10 ^3/uL (0-0.2); Basophils % (auto) 0.3 % (0.0-2.0); Eosinophils # (auto) 0.4 10 ^3/uL (0-0.8); Hemoglobin 8.9 g/dL (13.5-17.5); Lymphocytes # (auto) 3.8 10 ^3/uL (0.4-5.4); Mean Corpuscular Volume 104.1 fL (80.0-100.0); Nucleated Red Blood Cells % 0.1 %; White Blood Cell 20.9 10^3/uL (4.4-10.8)
[2024-04-18 05:17] LABS: Eosinophils % (auto) 1.9 % (0.0-7.0); Hematocrit 26.9 % (41.0-53.0); Lymphocytes % (auto) 18.2 % (10.0-50.0); Mean Corpuscular Hemoglobin 34.5 pg (28.0-32.0); Mean Corpuscular Hgb Conc. 33.2 g/dL (32.0-36.0); Monocytes # (auto) 2.4 10 ^3/uL (0-1.3); Monocytes % (auto) 11.3 % (0.0-12.0); Neutrophils # (auto) 14.3 10 ^3/uL (1.6-8.6); Neutrophils % (auto) 68.3 % (37.0-80.0); Platelet Count (auto) 55 10^3/uL (140-450); Red Blood Cells 2.59 10^6/uL (4.5-5.90); Red Cell Distribution Width 16.6 % (11.8-14.3)
[2024-04-18 05:43] LABS: Alanine Aminotransferase 75 U/L (7-40); Alkaline Phosphatase 177 U/L (46-116); Anion Gap 3 (5-15); Blood Urea Nitrogen 14 mg/dL (9-23); Calcium 8.4 mg/dL (8.7-10.4); Carbon Dioxide 36 mmol/L (20-31); Chloride 103 mmol/L (98-107); Glucose 118 mg/dL (74-106); Potassium 3.4 mmol/L (3.5-5.1); Sodium 142 mmol/L (136-145)
[2024-04-18 05:44] LABS: Albumin 2.7 g/dL (3.2-4.8); Aspartate Aminotransferase 85 U/L (13-40); Bilirubin, Total 1.9 mg/dL (0.2-1.0); Total Protein 4.8 g/dL (5.7-8.2)
[2024-04-18] MEDS: FUROSEMIDE 20 MG TAB PO SCH (09:18)
--- NOTE | 2024-04-18 11:09 | DVHPN2 ---
Subjective The patient seen and examined at bedside. The patient feels better today. Reviewed: Care Plan, H&P, Labs, Medications, Previous Orders, Radiology Changes from previous H/P or p: No Changes Eyes: No Pain, No Vision change, No Conjunctivae inflammation, No Eyelid inflammation, No Other, No Redness ENT: No Ear pain, No Ear discharge, No Nose pain, No Nose discharge, No Nose congestion, No Mouth pain, No Mouth swelling, No Throat pain, No Throat swelling, No Other Cardiovascular: No Chest Pain, No Palpitations, No Orthopnea, No Paroxysmal Noc. Dyspnea, No Edema, No Lt Headedness, No Other Respiratory: No Cough, No Dry; Shortness of breath; No SOB with excertion, No Wheezing, No Hemoptysis, No Pleuritic Pain, No Sputum, No Other Gastrointestinal: No Nausea, No Vomiting; Abdominal Pain; No Diarrhea, No Constipation, No Melena, No Hematochezia, No Other Genitourinary: No Dysuria, No Frequency, No Incontinence, No Hematuria, No Retention, No Other Musculoskeletal: other (Bilateral leg swelling); No neck pain, No shoulder pain, No arm pain, No back pain, No hand pain, No leg pain, No foot pain Skin: No Rash, No Lesions, No Jaundice, No Bruising, No Other Objective Vitals Vital Signs Date Time Temp Pulse Resp B/P (MAP) Pulse Ox O2 Delivery O2 Flow Rate FiO2 04/18/24 09:18 108/54 04/18/24 08:16 86 20 90 04/18/24 08:00 Nasal Cannula* 3 32 04/18/24 08:00 98.7 98.7 Intake/Output Intake and Output 04/18/24 07:00 Intake Total 1857.500 ml Output Total 1650 ml Balance 207.500 ml Intake Oral 1500 ml IV Total 357.500 ml Output Urine Total 1650 ml General Appearance: Alert, Oriented X3, Cooperative Lungs: Clear to auscultation Cardiovascular: Regular rate, Normal S1, Normal S2 Abdomen: Normal bowel sounds, Soft, Other Musculoskeletal: Normal sensory function, Normal motor function Neuro: Normal speech, Strength at 5/5 X4 ext Psych/Mental Status: Mental status NL Medications Current Medications Medications Dose Ordered Sig/Peg Route Start Time Stop Time Status Last Admin Dose Admin Lactulose 30 ml BID PO 04/10/24 10:00 04/18/24 09:17 30 ML Midodrine 10 mg TID@0600,1200,1800 PO 04/10/24 06:00 Cancel Sodium Chloride 10 ml Q8HR IV 04/10/24 06:00 04/18/24 05:05 10 ML Meropenem 50 ml @ 17 mls/hr Q8H IV 04/10/24 18:00 04/18/24 09:22 17 MLS/HR Sodium Chloride 10 ml QSHIFT@ IV 04/11/24 22:00 04/18/24 09:21 10 ML Albuterol 2.5 mg Q6H NEB 04/12/24 18:00 04/18/24 06:08 2.5 MG Ipratropium [place] 0.5 mg Q6H NEB 04/12/24 18:00 04/18/24 06:08 0.5 MG Insulin Glargine 15 units DAILY@1000 SC 04/14/24 10:00 04/18/24 09:29 15 UNITS Diagnostic Test (Pha) 1 strip Q6HR 04/13/24 18:00 04/18/24 06:07 1 STRIP Insulin Human Regular Q6HR SC 04/13/24 18:00 04/18/24 05:07 2 UNITS Dextrose 50 ml UD PRN IV 04/13/24 15:45 Methylprednisolone Sodium Succinate 40 mg DAILY IV 04/15/24 10:00 04/18/24 09:19 40 MG Potassium Chloride 100 ml @ 50 mls/hr Q2H IV 04/15/24 11:45 04/15/24 15:44 Cancel Enteral Nutritional Formula 27.5 gm BIDWM PO 04/15/24 18:00 04/18/24 08:14 27.5 GM Norepinephrine Bitartrate 250 ml @ 1.875 mls/ hr Q24H IV 04/17/24 01:45 04/18/24 06:59 5.625 MLS/HR Midodrine 10 mg TID@0600,1200,1800 PO 04/17/24 18:00 04/18/24 05:06 10 MG Furosemide 40 mg DAILY PO 04/18/24 10:00 04/18/24 09:18 40 MG Pantoprazole Sodium 40 mg DAILY@0600 PO 04/18/24 06:00 04/18/24 05:06 40 MG Laboratory Results Laboratory Tests 04/18/24 04:59 Chemistry Test 04/18/24 04:59 Albumin 2.7 g/dL (3.2-4.8) L Calcium Level 8.4 mg/dL (8.7-10.4) L Total Protein 4.8 g/dL (5.7-8.2) L LFT Test 04/18/24 04:59 Alanine Aminotransferase (ALT) 75 U/L (7-40) H Alkaline Phosphatase 177 U/L (46-116) H Aspartate Amino Transferase (AST) 85 U/L (13-40) H Total Bilirubin 1.9 mg/dL (0.2-1.0) H Urinalysis Test 04/10/24 03:17 Urine Color Yellow (Yellow) Urine Clarity Clear (Clear) Urine pH 6.0 (5.0-9.0) Urine Specific [place] 1.021 (1.001-1.035) Urine Protein Negative (Negative) Urine Ketones Trace (Negative) Urine Blood Negative /uL (Negative) Urine Nitrite Negative (Negative) Urine Bilirubin Negative (Negative) Urine Urobilinogen Normal mg/dL (Negative) Urine Leukocyte Esterase Negative /uL (Negative) Urine RBC 1 /hpf (0 - 3) Urine WBC 2 /hpf (0 - 3) Urine Squamous Epithelial Cells None seen /hpf (<5) Urine Bacteria None seen /hpf (None Seen) Urine Hyaline Casts Few /lpf (0 - 2) Urine Granular Casts Few /lpf (0) Urine Mucus Few (None Seen) Urine Glucose Normal mg/dL (Normal) Microbiology Microbiology Date/Time Source Procedure Growth Status 04/12/24 04:50 Sputum Gram Stain - Final Complete 04/12/24 04:50 Respiratory Culture - Final Presumptive Talia albicans Complete 04/12/24 04:30 Nose MRSA Screen - Final Complete 04/11/24 08:55 Blood Blood Culture - Final NO GROWTH AFTER 5 DAYS OF INCUBATION. 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 The patient is still requiring Levophed. Continuing to titrate off Levophed. Continuing with midodrine. Continuing with IV antibiotic. Continuing with physical therapy to get the patient out of bed and ambulate. Plan discussed with: Patient Date of Service: Apr 18, 2024 Billing Provider: ABRAHAM SHIELDS MD Common Visit Codes: [id number] INP/OBS CARE(HIGH) ABRAHAM SHIELDS MD Apr 18, 2024 11:09
--- NOTE | 2024-04-18 17:49 | DVHPN2 ---
Progress Note - Dictate Date Seen: Apr 18, 2024 Has the PT tested + for MRSA If YES, has PT been informed?: Yes Medical Necessity Reason Pt with a Central, PICC or Fol: Yes The following are medically ne: Edward Catheter Reason for edward catheter: Strict I&O Subjective No new complaints Patient undergoing physical therapy MRI and MRCP was nondiagnostic [place] level mildly elevated to 49 Patient was notified of a suspected pancreatic mass and elevated CA 19-9 No active GI bleeding is reported ; hemoglobin trending down to 8.9 Liver enzymes show chronic mild persistent elevation, bilirubin 1.9 and mild transaminitis Patient has underlying hepatitis-C antibody positive, possible chronic hepatitis-C, serum alpha fetoprotein is normal Patient's sputum showed gram-positive cocci rare Leukocytosis likely related to steroid use, slowly improving vital signs Vital Sign Date Time Temp Pulse Resp B/P (MAP) Pulse Ox O2 Delivery O2 Flow Rate FiO2 04/18/24 17:16 84 15 104/57 (73) 92 04/18/24 16:00 Nasal Cannula* 3 32 04/18/24 11:45 98.4 98.4 Total Intake and Output 04/17/24 04/17/24 04/18/24 15:00 23:00 07:00 Intake Total 95.000 ml 1156.250 ml 606.250 ml Output Total 650 ml 1000 ml Balance 95.000 ml 506.250 ml -393.750 ml medications Current Medications Medications Dose Ordered Sig/Peg Route Start Time Stop Time Status Last Admin Dose Admin Lactulose 30 ml BID PO 04/10/24 10:00 04/18/24 09:17 30 ML Midodrine 10 mg TID@0600,1200,1800 PO 04/10/24 06:00 Cancel Sodium Chloride 10 ml Q8HR IV 04/10/24 06:00 04/18/24 13:38 10 ML Meropenem 50 ml @ 17 mls/hr Q8H IV 04/10/24 18:00 04/18/24 17:30 17 MLS/HR Sodium Chloride 10 ml QSHIFT@ IV 04/11/24 22:00 04/18/24 09:21 10 ML Albuterol 2.5 mg Q6H NEB 04/12/24 18:00 04/18/24 12:03 2.5 MG Ipratropium [place] 0.5 mg Q6H NEB 04/12/24 18:00 04/18/24 12:03 0.5 MG Insulin Glargine 15 units DAILY@1000 SC 04/14/24 10:00 04/18/24 09:29 15 UNITS Diagnostic Test (Pha) 1 strip Q6HR 04/13/24 18:00 04/18/24 17:29 1 STRIP Insulin Human Regular Q6HR SC 04/13/24 18:00 04/18/24 17:36 12 UNITS Dextrose 50 ml UD PRN IV 04/13/24 15:45 Methylprednisolone Sodium Succinate 40 mg DAILY IV 04/15/24 10:00 04/18/24 09:19 40 MG Potassium Chloride 100 ml @ 50 mls/hr Q2H IV 04/15/24 11:45 04/15/24 15:44 Cancel Enteral Nutritional Formula 27.5 gm BIDWM PO 04/15/24 18:00 04/18/24 17:36 27.5 GM Norepinephrine Bitartrate 250 ml @ 1.875 mls/ hr Q24H IV 04/17/24 01:45 04/18/24 06:59 5.625 MLS/HR Midodrine 10 mg TID@0600,1200,1800 PO 04/17/24 18:00 04/18/24 17:30 10 MG Furosemide 40 mg DAILY PO 04/18/24 10:00 04/18/24 09:18 40 MG Pantoprazole Sodium 40 mg DAILY@0600 PO 04/18/24 06:00 04/18/24 05:06 40 MG Fluconazole 100 ml @ 100 mls/hr DAILY IV 04/19/24 10:00 objective General: Patient was more awake;no respiratory distress Chest: Bilateral crackles Heart: RRR, no murmur Abdomen: no tenderness to palpation, +BS laboratory and microbiology Laboratory Tests 04/18/24 04:59 Test 04/18/24 04:59 Range/Units Serum Glucose 118 H 74-106 mg/dL MRI IMPRESSION: 1. Limited examination due to motion artifact. 2. Focal prominence of the distal aspect of the pancreatic tail without definite mass demonstrated on precontrast or multiphase postcontrast images, given the limitations of the examination. 3. Moderate ascites. 4. Cirrhotic liver morphology. 5. Very limited MRCP examination. No biliary ductal dilatation. Poorly visualized pancreatic duct. Problems(with codes): (1) Alcohol withdrawal (2) Pancreatic mass (3) Liver disease (4) Duodenal ulcer disease (5) Anemia of chronic disease (6) Sepsis, unspecified organism (7) Fluid overload, unspecified (8) Encephalopathy, unspecified Prognosis Plan Continue supportive care for now Continue PPI Continue lactulose Monitor labs Physical therapy Patient has been counseled about discontinuing alcohol Recommend outpatient referral for endoscopic ultrasound and possible FNA if needed and monitor CA 19 nine Patient will need outpatient follow up and workup for this I will be signing off on the case at this time If any further GI input or interventions are required please contact [facility] on-call Dietary Evaluation Review Comments: 1) Provide Glucerna 1.2 @ 60ml/hr x24 hrs as tolerated to meet pt estimated needs 2) Advance pt diet when medically feasible to a CCHO 60g diet modified per P[employer] MILL SUPERINTENDENT recommendations 3) Consider DAWN 1 pkt BID for wound 4) Continue current plan of care Expected Outcomes/Goals: 1) Pt to receive adequate nutrition support 2) Pt diet to advance 3) F/U in 2-3 days Plan discussed with: Patient FARHAN INGRAM MD Apr 18, 2024 17:49
--- NOTE | 2024-04-18 22:23 | DVHPN2 ---
Progress Note - Dictate Date Seen: Apr 18, 2024 Has the PT tested + for MRSA If YES, has PT been informed?: Yes Medical Necessity Reason Pt with a Central, PICC or Fol: Yes The following are medically ne: Edward Catheter Reason for edward catheter: Strict I&O Subjective Patient seen and examined at bedside. Remains on supplemental oxygen Overnight events reviewed vital signs Vital Sign Date Time Temp Pulse Resp B/P (MAP) Pulse Ox O2 Delivery O2 Flow Rate FiO2 04/18/24 22:15 73 20 94/48 (63) 90 04/18/24 20:00 Nasal Cannula* 4 36 04/18/24 19:53 98.4 98.4 Total Intake and Output 04/17/24 04/17/24 04/18/24 15:00 23:00 07:00 Intake Total 95.000 ml 1156.250 ml 606.250 ml Output Total 650 ml 1000 ml Balance 95.000 ml 506.250 ml -393.750 ml medications Current Medications Medications Dose Ordered Sig/Peg Route Start Time Stop Time Status Last Admin Dose Admin Lactulose 30 ml BID PO 04/10/24 10:00 04/18/24 21:39 30 ML Midodrine 10 mg TID@0600,1200,1800 PO 04/10/24 06:00 Cancel Sodium Chloride 10 ml Q8HR IV 04/10/24 06:00 04/18/24 21:38 10 ML Meropenem 50 ml @ 17 mls/hr Q8H IV 04/10/24 18:00 04/18/24 17:30 17 MLS/HR Sodium Chloride 10 ml QSHIFT@10,22 IV 04/11/24 22:00 04/18/24 21:39 10 ML Albuterol 2.5 mg Q6H NEB 04/12/24 18:00 04/18/24 18:19 2.5 MG Ipratropium [place] 0.5 mg Q6H NEB 04/12/24 18:00 04/18/24 18:19 0.5 MG Insulin Glargine 15 units DAILY@1000 SC 04/14/24 10:00 04/18/24 09:29 15 UNITS Diagnostic Test (Pha) 1 strip Q6HR 04/13/24 18:00 04/18/24 17:29 1 STRIP Insulin Human Regular Q6HR SC 04/13/24 18:00 04/18/24 17:36 12 UNITS Dextrose 50 ml UD PRN IV 04/13/24 15:45 Methylprednisolone Sodium Succinate 40 mg DAILY IV 04/15/24 10:00 04/18/24 09:19 40 MG Potassium Chloride 100 ml @ 50 mls/hr Q2H IV 04/15/24 11:45 04/15/24 15:44 Cancel Enteral Nutritional Formula 27.5 gm BIDWM PO 04/15/24 18:00 04/18/24 17:36 27.5 GM Norepinephrine Bitartrate 250 ml @ 1.875 mls/ hr Q24H IV 04/17/24 01:45 04/18/24 06:59 5.625 MLS/HR Midodrine 10 mg TID@0600,1200,1800 PO 04/17/24 18:00 04/18/24 17:30 10 MG Furosemide 40 mg DAILY PO 04/18/24 10:00 04/18/24 09:18 40 MG Pantoprazole Sodium 40 mg DAILY@0600 PO 04/18/24 06:00 04/18/24 05:06 40 MG Fluconazole 100 ml @ 100 mls/hr DAILY IV 04/19/24 10:00 objective Gen.: Patient lying in bed in no apparent distress. On supplemental oxygen. Head: Normocephalic, atraumatic. Eyes: EOMI/PERRLA. Ears: Normal hearing. Normal anatomy. Neck/trachea: Trachea midline, supple. Nose: Normal external anatomy. Mouth: Moist mucous membranes. Chest: Decreased air entry bilaterally. No wheezing or rhonchi. Cardiovascular: Positive S1, positive S2. Regular rate and rhythm. Abdomen: Positive bowel sounds in all 4 quadrants. Soft, non-tender, non- distended. : Deferred. Rectal: Deferred. Skin: Warm, dry. Intact. Extremities: 2+ radial pulses bilaterally. No lower extremity edema. Neuro: Awake, alert, oriented x3. No gross motor or sensory deficits. Cranial nerves II through XII intact. Gait not assessed. laboratory and microbiology Laboratory Tests 04/18/24 04:59 Test 04/18/24 04:59 Range/Units Serum Glucose 118 H 74-106 mg/dL Assessment/Plan Impression: Acute hypoxic respiratory failure Pulmonary edema Sepsis Pneumonia, likely gram negative Acute metabolic encephalopathy Events: On supplemental O2 at 4 LPM NC Taper O2 as tolerated On pressors for hemodynamic support Levophed 3 mcg/min Titrate to keep mean arterial pressure greater than 65 mmHg. Started midodrine 10 mg PO q.8 hours. Continue antibiotics Continue diuresis w/ Lasix as tolerated Monitor renal function PT Labs and imaging reviewed. Rest of plan as noted below. Plan: Supplemental Oxygen Titrate to keep O2 sats above 92%. CXR image and report reviewed. Increased pulmonary vascular congestion. No pleural effusion or pneumothorax. ABG reviewed. On pressors for hemodynamic support. Titrate to keep MAP above 65 mmHg/SBP above 90 mmHg. Continue antibiotics. F/u cultures. WBC trending down. Monitor renal function. Monitor electrolytes. Supplement as necessary. Diurese with lasix Monitor ins/outs. Nutritional support. Accucheks, ISS. GI/DVT prophylaxis. Condition: Critical Prognosis: Poor given multiple comorbidities. Rest of plan per hospitalist and other consultants. A total of 35 minutes of critical care time was spent reviewing the patient record, examining the patient, making a diagnostic and therapeutic plan, discussing this plan with the medical personnel, following up on diagnostic studies and following the patient for clinical stability excluding any and all procedures. At least 50% of this time was spent in direct, [id number] contact. Thank you Dr. Mary for allowing me to participate in this patient's care. Further recommendations will depend on patient's clinical course. Please do not hesitate to contact me if you have any questions or concerns. This medical document was created using an electronic medical record system with [employer] dictation system. Although this document has been carefully reviewed, there may still be some phonetic and typographical errors. These areas are purely typographical due to imperfections of the software programs, and do not reflect any compromise in the patient's medical care. Dietary Evaluation Review Comments: 1) Provide Glucerna 1.2 @ 60ml/hr x24 hrs as tolerated to meet pt estimated needs 2) Advance pt diet when medically feasible to a CCHO 60g diet modified per REPORTING CONSULTANT recommendations 3) Consider DAWN 1 pkt BID for wound 4) Continue current plan of care Expected Outcomes/Goals: 1) Pt to receive adequate nutrition support 2) Pt diet to advance 3) F/U in 2-3 days Plan discussed with: Other (RN) Critical Care Time(min): 35 TIMI ONEIL MD Apr 18, 2024 22:23
[2024-04-19] VITALS (107 sets, daily range): BP systolic 83–206; BP diastolic 43–163; PULSE 60–97; RESP 9–26; TEMP 97–99.1; O2SAT 86–100
[2024-04-19 05:48] LABS: Basophils # (auto) 0 10 ^3/uL (0-0.2); Hematocrit 26.7 % (41.0-53.0); Hemoglobin 8.8 g/dL (13.5-17.5); Mean Corpuscular Hgb Conc. 32.9 g/dL (32.0-36.0); Red Cell Distribution Width 16.5 % (11.8-14.3)
[2024-04-19 05:52] LABS: Basophils % (auto) 0.1 % (0.0-2.0); Eosinophils # (auto) 0.6 10 ^3/uL (0-0.8); Eosinophils % (auto) 2.7 % (0.0-7.0); Lymphocytes % (auto) 18.2 % (10.0-50.0); Mean Corpuscular Hemoglobin 34.2 pg (28.0-32.0); Mean Corpuscular Volume 104.1 fL (80.0-100.0); Monocytes # (auto) 2.5 10 ^3/uL (0-1.3); Monocytes % (auto) 11.6 % (0.0-12.0); Neutrophils # (auto) 14.6 10 ^3/uL (1.6-8.6); Neutrophils % (auto) 67.4 % (37.0-80.0); Platelet Count (auto) 67 10^3/uL (140-450); Red Blood Cells 2.57 10^6/uL (4.5-5.90); White Blood Cell 21.7 10^3/uL (4.4-10.8)
[2024-04-19 05:57] LABS: Calcium 8.4 mg/dL (8.7-10.4); Chloride 103 mmol/L (98-107); Potassium 3.3 mmol/L (3.5-5.1); Sodium 143 mmol/L (136-145)
[2024-04-19 05:58] LABS: Anion Gap 4 (5-15); Carbon Dioxide 36 mmol/L (20-31)
[2024-04-19 06:03] LABS: BUN/Creatinine Ratio 26.9 (10.0-20.0); Blood Urea Nitrogen 14 mg/dL (9-23); Glucose 72 mg/dL (74-106)
[2024-04-19] MEDS: FLUCONAZOLE 200MG/100ML 100 ML IV SCH (09:49)
--- NOTE | 2024-04-19 11:12 | DVHPN2 ---
Subjective The patient seen and examined at bedside. The patient feels better today. Patient is still on Levophed. Reviewed: Care Plan, H&P, Labs, Medications, Previous Orders, Radiology Changes from previous H/P or p: No Changes Eyes: No Pain, No Vision change, No Conjunctivae inflammation, No Eyelid inflammation, No Other, No Redness ENT: No Ear pain, No Ear discharge, No Nose pain, No Nose discharge, No Nose congestion, No Mouth pain, No Mouth swelling, No Throat pain, No Throat swelling, No Other Cardiovascular: No Chest Pain, No Palpitations, No Orthopnea, No Paroxysmal Noc. Dyspnea, No Edema, No Lt Headedness, No Other Respiratory: No Cough, No Dry; Shortness of breath; No SOB with excertion, No Wheezing, No Hemoptysis, No Pleuritic Pain, No Sputum, No Other Gastrointestinal: No Nausea, No Vomiting; Abdominal Pain; No Diarrhea, No Constipation, No Melena, No Hematochezia, No Other Genitourinary: No Dysuria, No Frequency, No Incontinence, No Hematuria, No Retention, No Other Musculoskeletal: other (Bilateral leg swelling); No neck pain, No shoulder pain, No arm pain, No back pain, No hand pain, No leg pain, No foot pain Skin: No Rash, No Lesions, No Jaundice, No Bruising, No Other Objective Vitals Vital Signs Date Time Temp Pulse Resp B/P (MAP) Pulse Ox O2 Delivery O2 Flow Rate FiO2 04/19/24 11:08 67 16 97 04/19/24 11:00 106/56 (73) 04/19/24 10:00 Nasal Cannula* 3 32 04/19/24 08:00 97.7 97.7 Intake/Output Intake and Output 04/19/24 07:00 Intake Total 1483.000 ml Output Total 3550 ml Balance -2067.000 ml Intake Oral 1180 ml IV Total 303.000 ml Output Urine Total 3550 ml General Appearance: Alert, Oriented X3, Cooperative Lungs: Clear to auscultation Cardiovascular: Regular rate, Normal S1, Normal S2 Abdomen: Normal bowel sounds, Soft, Other Musculoskeletal: Normal sensory function, Normal motor function Neuro: Normal speech, Strength at 5/5 X4 ext Psych/Mental Status: Mental status NL Medications Current Medications Medications Dose Ordered Sig/Peg Route Start Time Stop Time Status Last Admin Dose Admin Lactulose 30 ml BID PO 04/10/24 10:00 04/19/24 09:46 30 ML Midodrine 10 mg TID@0600,1200,1800 PO 04/10/24 06:00 Cancel Sodium Chloride 10 ml Q8HR IV 04/10/24 06:00 04/19/24 05:16 10 ML Meropenem 50 ml @ 17 mls/hr Q8H IV 04/10/24 18:00 04/19/24 10:40 17 MLS/HR Sodium Chloride 10 ml QSHIFT@ IV 04/11/24 22:00 04/19/24 09:46 10 ML Albuterol 2.5 mg Q6H NEB 04/12/24 18:00 04/19/24 11:08 2.5 MG Ipratropium [place] 0.5 mg Q6H NEB 04/12/24 18:00 04/19/24 11:08 0.5 MG Insulin Glargine 15 units DAILY@1000 SC 04/14/24 10:00 04/19/24 09:55 15 UNITS Diagnostic Test (Pha) 1 strip Q6HR 04/13/24 18:00 04/19/24 05:17 1 STRIP Insulin Human Regular Q6HR SC 04/13/24 18:00 04/18/24 23:18 12 UNITS Dextrose 50 ml UD PRN IV 04/13/24 15:45 Methylprednisolone Sodium Succinate 40 mg DAILY IV 04/15/24 10:00 04/19/24 09:46 40 MG Potassium Chloride 100 ml @ 50 mls/hr Q2H IV 04/15/24 11:45 04/15/24 15:44 Cancel Enteral Nutritional Formula 27.5 gm BIDWM PO 04/15/24 18:00 04/19/24 08:00 27.5 GM Norepinephrine Bitartrate 250 ml @ 1.875 mls/ hr Q24H IV 04/17/24 01:45 04/18/24 06:59 5.625 MLS/HR Midodrine 10 mg TID@0600,1200,1800 PO 04/17/24 18:00 04/19/24 05:16 10 MG Furosemide 40 mg DAILY PO 04/18/24 10:00 04/19/24 09:46 40 MG Pantoprazole Sodium 40 mg DAILY@0600 PO 04/18/24 06:00 04/19/24 05:16 40 MG Fluconazole 100 ml @ 100 mls/hr DAILY IV 04/19/24 10:00 04/19/24 09:49 100 MLS/HR Laboratory Results Laboratory Tests 04/19/24 04:49 Chemistry Test 04/19/24 04:49 Calcium Level 8.4 mg/dL (8.7-10.4) L Urinalysis Test 04/10/24 03:17 Urine Color Yellow (Yellow) Urine Clarity Clear (Clear) Urine pH 6.0 (5.0-9.0) Urine Specific [place] 1.021 (1.001-1.035) Urine Protein Negative (Negative) Urine Ketones Trace (Negative) Urine Blood Negative /uL (Negative) Urine Nitrite Negative (Negative) Urine Bilirubin Negative (Negative) Urine Urobilinogen Normal mg/dL (Negative) Urine Leukocyte Esterase Negative /uL (Negative) Urine RBC 1 /hpf (0 - 3) Urine WBC 2 /hpf (0 - 3) Urine Squamous Epithelial Cells None seen /hpf (<5) Urine Bacteria None seen /hpf (None Seen) Urine Hyaline Casts Few /lpf (0 - 2) Urine Granular Casts Few /lpf (0) Urine Mucus Few (None Seen) Urine Glucose Normal mg/dL (Normal) Microbiology Microbiology Date/Time Source Procedure Growth Status 04/12/24 04:50 Sputum Gram Stain - Final Complete 04/12/24 04:50 Respiratory Culture - Final Presumptive Talia albicans Complete 04/12/24 04:30 Nose MRSA Screen - Final Complete 04/11/24 08:55 Blood Blood Culture - Final NO GROWTH AFTER 5 DAYS OF INCUBATION. 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 The patient is still requiring Levophed. Continuing to titrate off Levophed. Continuing with midodrine. Continuing with IV antibiotic. Continuing with physical therapy to get the patient out of bed and ambulate. Plan discussed with: Patient My Orders Orders - ABRAHAM SHIELDS MD Procedure Category Date Status Time Fluconazole PHA 04/19/24 In Process 200mg/100ml (Diflucan 10:00 Date of Service: Apr 19, 2024 Billing Provider: ABRAHAM SHIELDS MD Common Visit Codes: [id number] INP/OBS CARE(HIGH) ABRAHAM SHIELDS MD Apr 19, 2024 11:12
[2024-04-19] MEDS: POTASSIUM EFFERVESENT TAB 25 MEQ PO ONE (12:00)
--- NOTE | 2024-04-19 21:13 | DVHPN2 ---
Progress Note - Dictate Date Seen: Apr 19, 2024 Has the PT tested + for MRSA If YES, has PT been informed?: Yes Medical Necessity Reason Pt with a Central, PICC or Fol: Yes The following are medically ne: Edward Catheter Reason for edward catheter: Strict I&O Subjective Patient seen and examined at bedside. Remains on supplemental oxygen Overnight events reviewed vital signs Vital Sign Date Time Temp Pulse Resp B/P (MAP) Pulse Ox O2 Delivery O2 Flow Rate FiO2 04/19/24 20:00 98.3 73 16 100/62 (75) 97 98.3 04/19/24 18:00 Nasal Cannula* 4 36 Total Intake and Output 04/18/24 04/18/24 04/19/24 15:00 23:00 07:00 Intake Total 113.000 ml 595.000 ml 775.000 ml Output Total 900 ml 2650 ml Balance 113.000 ml -305.000 ml -1875.000 ml medications Current Medications Medications Dose Ordered Sig/Peg Route Start Time Stop Time Status Last Admin Dose Admin Lactulose 30 ml BID PO 04/10/24 10:00 04/19/24 09:46 30 ML Midodrine 10 mg TID@0600,1200,1800 PO 04/10/24 06:00 Cancel Sodium Chloride 10 ml Q8HR IV 04/10/24 06:00 04/19/24 13:28 10 ML Meropenem 50 ml @ 17 mls/hr Q8H IV 04/10/24 18:00 04/19/24 18:37 17 MLS/HR Sodium Chloride 10 ml QSHIFT@10,22 IV 04/11/24 22:00 04/19/24 09:46 10 ML Albuterol 2.5 mg Q6H NEB 04/12/24 18:00 04/19/24 19:21 2.5 MG Ipratropium [place] 0.5 mg Q6H NEB 04/12/24 18:00 04/19/24 19:21 0.5 MG Insulin Glargine 15 units DAILY@1000 SC 04/14/24 10:00 04/19/24 09:55 15 UNITS Diagnostic Test (Pha) 1 strip Q6HR 04/13/24 18:00 04/19/24 17:27 1 STRIP Insulin Human Regular Q6HR SC 04/13/24 18:00 04/19/24 17:28 20 UNITS Dextrose 50 ml UD PRN IV 04/13/24 15:45 Methylprednisolone Sodium Succinate 40 mg DAILY IV 04/15/24 10:00 04/19/24 09:46 40 MG Potassium Chloride 100 ml @ 50 mls/hr Q2H IV 04/15/24 11:45 04/15/24 15:44 Cancel Enteral Nutritional Formula 27.5 gm BIDWM PO 04/15/24 18:00 04/19/24 17:28 27.5 GM Norepinephrine Bitartrate 250 ml @ 1.875 mls/ hr Q24H IV 04/17/24 01:45 04/19/24 18:38 7.5 MLS/HR Midodrine 10 mg TID@0600,1200,1800 PO 04/17/24 18:00 04/19/24 17:28 10 MG Furosemide 40 mg DAILY PO 04/18/24 10:00 04/19/24 09:46 40 MG Pantoprazole Sodium 40 mg DAILY@0600 PO 04/18/24 06:00 04/19/24 05:16 40 MG Fluconazole 100 ml @ 100 mls/hr DAILY IV 04/19/24 10:00 04/19/24 09:49 100 MLS/HR objective Gen.: Patient lying in bed in no apparent distress. On supplemental oxygen. Head: Normocephalic, atraumatic. Eyes: EOMI/PERRLA. Ears: Normal hearing. Normal anatomy. Neck/trachea: Trachea midline, supple. Nose: Normal external anatomy. Mouth: Moist mucous membranes. Chest: Decreased air entry bilaterally. No wheezing or rhonchi. Cardiovascular: Positive S1, positive S2. Regular rate and rhythm. Abdomen: Positive bowel sounds in all 4 quadrants. Soft, non-tender, non- distended. : Deferred. Rectal: Deferred. Skin: Warm, dry. Intact. Extremities: 2+ radial pulses bilaterally. No lower extremity edema. Neuro: Awake, alert, oriented x3. No gross motor or sensory deficits. Cranial nerves II through XII intact. Gait not assessed. laboratory and microbiology Laboratory Tests 04/19/24 04:49 Test 04/19/24 04:49 Range/Units Serum Glucose 72 L 74-106 mg/dL Assessment/Plan Impression: Acute hypoxic respiratory failure Pulmonary edema Sepsis Pneumonia, likely gram negative Acute metabolic encephalopathy Events: On supplemental O2 at 2 LPM NC Taper O2 as tolerated On pressors for hemodynamic support Levophed 4 mcg/min Titrate to keep mean arterial pressure greater than 65 mmHg. On midodrine 10 mg PO q.8 hours. Continue antibiotics Continue diuresis w/ Lasix as tolerated Monitor renal function PT Supportive care Labs and imaging reviewed. Rest of plan as noted below. Plan: Supplemental Oxygen Titrate to keep O2 sats above 92%. CXR image and report reviewed. Increased pulmonary vascular congestion. No pleural effusion or pneumothorax. ABG reviewed. On pressors for hemodynamic support. Titrate to keep MAP above 65 mmHg/SBP above 90 mmHg. Continue antibiotics. F/u cultures. WBC trending down. Monitor renal function. Monitor electrolytes. Supplement as necessary. Diurese with lasix Monitor ins/outs. Nutritional support. Accucheks, ISS. GI/DVT prophylaxis. Condition: Critical Prognosis: Poor given multiple comorbidities. Rest of plan per hospitalist and other consultants. A total of 35 minutes of critical care time was spent reviewing the patient record, examining the patient, making a diagnostic and therapeutic plan, discussing this plan with the medical personnel, following up on diagnostic studies and following the patient for clinical stability excluding any and all procedures. At least 50% of this time was spent in direct, [id number] contact. Thank you Dr. Mary for allowing me to participate in this patient's care. Further recommendations will depend on patient's clinical course. Please do not hesitate to contact me if you have any questions or concerns. This medical document was created using an electronic medical record system with [employer] dictation system. Although this document has been carefully reviewed, there may still be some phonetic and typographical errors. These areas are purely typographical due to imperfections of the software programs, and do not reflect any compromise in the patient's medical care. Dietary Evaluation Review Comments: 1) Provide Glucerna 1.2 @ 60ml/hr x24 hrs as tolerated to meet pt estimated needs 2) Advance pt diet when medically feasible to a CCHO 60g diet modified per CORRECTIONAL MANAGER recommendations 3) Consider DAWN 1 pkt BID for wound 4) Continue current plan of care Expected Outcomes/Goals: 1) Pt to receive adequate nutrition support 2) Pt diet to advance 3) F/U in 2-3 days Plan discussed with: Other (JENNIFER Butt) Critical Care Time(min): 35 TIMI ONEIL MD Apr 19, 2024 21:13
[2024-04-20] VITALS (96 sets, daily range): BP systolic 93–130; BP diastolic 40–104; PULSE 57–99; RESP 9–22; TEMP 97.5–98.5; O2SAT 85–100
[2024-04-20 05:05] LABS: Basophils # (auto) 0 10 ^3/uL (0-0.2); Basophils % (auto) 0.2 % (0.0-2.0); Eosinophils # (auto) 0.3 10 ^3/uL (0-0.8); Hemoglobin 8.8 g/dL (13.5-17.5)
[2024-04-20 05:08] LABS: Eosinophils % (auto) 1.4 % (0.0-7.0); Hematocrit 26.2 % (41.0-53.0); Lymphocytes % (auto) 13.2 % (10.0-50.0); Mean Corpuscular Hgb Conc. 33.5 g/dL (32.0-36.0); Mean Corpuscular Volume 104.5 fL (80.0-100.0); Monocytes % (auto) 12.9 % (0.0-12.0); Neutrophils # (auto) 16.6 10 ^3/uL (1.6-8.6); Neutrophils % (auto) 72.3 % (37.0-80.0); Nucleated Red Blood Cells % 0.2 %; Platelet Count (auto) 79 10^3/uL (140-450); Red Blood Cells 2.51 10^6/uL (4.5-5.90); Red Cell Distribution Width 17.1 % (11.8-14.3)
[2024-04-20 05:29] LABS: Alanine Aminotransferase 83 U/L (7-40); Albumin 2.7 g/dL (3.2-4.8); Alkaline Phosphatase 186 U/L (46-116); Anion Gap 5 (5-15); Aspartate Aminotransferase 77 U/L (13-40); Bilirubin, Total 1.4 mg/dL (0.2-1.0); Blood Urea Nitrogen 12 mg/dL (9-23); Calcium 8.3 mg/dL (8.7-10.4); Carbon Dioxide 33 mmol/L (20-31); Chloride 102 mmol/L (98-107); Glucose 144 mg/dL (74-106); Potassium 3.8 mmol/L (3.5-5.1); Sodium 140 mmol/L (136-145); Total Protein 4.8 g/dL (5.7-8.2)
--- NOTE | 2024-04-20 08:36 | MEDREC ---
[facility] ASP Intervention Section I [facility] Intervention: Deescalate AB based on CS (11 DAYS ON MEROPENEM ELEVATED WBC COULD BE CAUSED BY IV STEROID - THE RESPIRATORY CULUTRE SHOWS PRESUMPTIVE SPENSER ALBICANS TREATED WITH FLUCONAZOLE AND RARE GRAM POSITIVE RODS AND COCCI IN PAIRS PLEASE CONSIDER DE-ESCALATION IF CLINICALLY APPROPRIATE ) DA HAHN PHARMACIST Apr 20, 2024 08:36
--- NOTE | 2024-04-20 11:17 | DVHPN2 ---
Subjective The patient seen and examined at bedside. No events overnight. The patient remained on Levophed.. Reviewed: Care Plan, H&P, Labs, Medications, Previous Orders, Radiology Changes from previous H/P or p: No Changes Eyes: No Pain, No Vision change, No Conjunctivae inflammation, No Eyelid inflammation, No Other, No Redness ENT: No Ear pain, No Ear discharge, No Nose pain, No Nose discharge, No Nose congestion, No Mouth pain, No Mouth swelling, No Throat pain, No Throat swelling, No Other Cardiovascular: No Chest Pain, No Palpitations, No Orthopnea, No Paroxysmal Noc. Dyspnea, No Edema, No Lt Headedness, No Other Respiratory: No Cough, No Dry; Shortness of breath; No SOB with excertion, No Wheezing, No Hemoptysis, No Pleuritic Pain, No Sputum, No Other Gastrointestinal: No Nausea, No Vomiting; Abdominal Pain; No Diarrhea, No Constipation, No Melena, No Hematochezia, No Other Genitourinary: No Dysuria, No Frequency, No Incontinence, No Hematuria, No Retention, No Other Musculoskeletal: other (Bilateral leg swelling); No neck pain, No shoulder pain, No arm pain, No back pain, No hand pain, No leg pain, No foot pain Skin: No Rash, No Lesions, No Jaundice, No Bruising, No Other Objective Vitals Vital Signs Date Time Temp Pulse Resp B/P (MAP) Pulse Ox O2 Delivery O2 Flow Rate FiO2 04/20/24 11:00 63 14 101/55 (70) 95 04/20/24 10:00 Nasal Cannula 3.0 04/20/24 10:00 32 04/20/24 08:01 98.4 98.4 Intake/Output Intake and Output 04/20/24 07:00 Intake Total 1833.000 ml Output Total 3650 ml Balance -1817.000 ml Intake Oral 1400 ml IV Total 433.000 ml Output Urine Total 3650 ml # Bowel Movements 1 General Appearance: Alert, Oriented X3, Cooperative Lungs: Clear to auscultation Cardiovascular: Regular rate, Normal S1, Normal S2 Abdomen: Normal bowel sounds, Soft, Other Musculoskeletal: Normal sensory function, Normal motor function Neuro: Normal speech, Strength at 5/5 X4 ext Psych/Mental Status: Mental status NL Medications Current Medications Medications Dose Ordered Sig/Peg Route Start Time Stop Time Status Last Admin Dose Admin Lactulose 30 ml BID PO 04/10/24 10:00 04/20/24 09:49 30 ML Midodrine 10 mg TID@0600,1200,1800 PO 04/10/24 06:00 Cancel Sodium Chloride 10 ml Q8HR IV 04/10/24 06:00 04/20/24 07:14 10 ML Meropenem 50 ml @ 17 mls/hr Q8H IV 04/10/24 18:00 04/20/24 03:03 17 MLS/HR Sodium Chloride 10 ml QSHIFT@ IV 04/11/24 22:00 04/20/24 09:49 10 ML Albuterol 2.5 mg Q6H NEB 04/12/24 18:00 04/20/24 06:25 2.5 MG Ipratropium [place] 0.5 mg Q6H NEB 04/12/24 18:00 04/20/24 06:25 0.5 MG Insulin Glargine 15 units DAILY@1000 SC 04/14/24 10:00 04/20/24 09:51 15 UNITS Diagnostic Test (Pha) 1 strip Q6HR 04/13/24 18:00 04/20/24 07:13 1 STRIP Insulin Human Regular Q6HR SC 04/13/24 18:00 04/19/24 23:57 12 UNITS Dextrose 50 ml UD PRN IV 04/13/24 15:45 Methylprednisolone Sodium Succinate 40 mg DAILY IV 04/15/24 10:00 04/20/24 09:49 40 MG Potassium Chloride 100 ml @ 50 mls/hr Q2H IV 04/15/24 11:45 04/15/24 15:44 Cancel Enteral Nutritional Formula 27.5 gm BIDWM PO 04/15/24 18:00 04/20/24 08:30 27.5 GM Norepinephrine Bitartrate 250 ml @ 1.875 mls/ hr Q24H IV 04/17/24 01:45 04/19/24 18:38 7.5 MLS/HR Midodrine 10 mg TID@0600,1200,1800 PO 04/17/24 18:00 04/20/24 07:14 10 MG Furosemide 40 mg DAILY PO 04/18/24 10:00 04/20/24 09:49 40 MG Pantoprazole Sodium 40 mg DAILY@0600 PO 04/18/24 06:00 04/20/24 07:14 40 MG Fluconazole 100 ml @ 100 mls/hr DAILY IV 04/19/24 10:00 04/20/24 09:50 100 MLS/HR Laboratory Results Laboratory Tests 04/20/24 04:50 Chemistry Test 04/20/24 04:50 Albumin 2.7 g/dL (3.2-4.8) L Calcium Level 8.3 mg/dL (8.7-10.4) L Total Protein 4.8 g/dL (5.7-8.2) L LFT Test 04/20/24 04:50 Alanine Aminotransferase (ALT) 83 U/L (7-40) H Alkaline Phosphatase 186 U/L (46-116) H Aspartate Amino Transferase (AST) 77 U/L (13-40) H Total Bilirubin 1.4 mg/dL (0.2-1.0) H Urinalysis Test 04/10/24 03:17 Urine Color Yellow (Yellow) Urine Clarity Clear (Clear) Urine pH 6.0 (5.0-9.0) Urine Specific [place] 1.021 (1.001-1.035) Urine Protein Negative (Negative) Urine Ketones Trace (Negative) Urine Blood Negative /uL (Negative) Urine Nitrite Negative (Negative) Urine Bilirubin Negative (Negative) Urine Urobilinogen Normal mg/dL (Negative) Urine Leukocyte Esterase Negative /uL (Negative) Urine RBC 1 /hpf (0 - 3) Urine WBC 2 /hpf (0 - 3) Urine Squamous Epithelial Cells None seen /hpf (<5) Urine Bacteria None seen /hpf (None Seen) Urine Hyaline Casts Few /lpf (0 - 2) Urine Granular Casts Few /lpf (0) Urine Mucus Few (None Seen) Urine Glucose Normal mg/dL (Normal) Microbiology Microbiology Date/Time Source Procedure Growth Status 04/12/24 04:50 Sputum Gram Stain - Final Complete 04/12/24 04:50 Respiratory Culture - Final Presumptive Talia albicans Complete 04/12/24 04:30 Nose MRSA Screen - Final Complete 04/11/24 08:55 Blood Blood Culture - Final NO GROWTH AFTER 5 DAYS OF INCUBATION. 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 as op - r/o cyst vs cancer/pt aware Leukocytosis -monitor closely /secondary to steroids/ Continuing current management. The patient is still requiring Levophed. Continuing to titrate off Levophed. Continuing with midodrine. Continuing with IV antibiotic. Continuing with physical therapy to get the patient out of bed and ambulate. Plan discussed with: Patient My Orders Orders - ABARHAM SHIELDS MD Procedure Category Date Status Time Cleanse Wound With JOHNNA 04/19/24 In Process Wound Clean 12:12 Date of Service: Apr 20, 2024 Billing Provider: ABRAHAM SHIELDS MD Common Visit Codes: [id number] INP/OBS CARE(HIGH) ABRAHAM SHIELDS MD Apr 20, 2024 11:17
--- NOTE | 2024-04-20 21:17 | DVHPN2 ---
Progress Note - Dictate Date Seen: Apr 20, 2024 Has the PT tested + for MRSA If YES, has PT been informed?: Yes Medical Necessity Reason Pt with a Central, PICC or Fol: Yes The following are medically ne: Edward Catheter Reason for edward catheter: Strict I&O Subjective Patient seen and examined at bedside. Remains on supplemental oxygen Overnight events reviewed vital signs Vital Sign Date Time Temp Pulse Resp B/P (MAP) Pulse Ox O2 Delivery O2 Flow Rate FiO2 04/20/24 20:00 20 96 Nasal Cannula* 3 32 04/20/24 20:00 86 04/20/24 18:46 123/65 (84) 04/20/24 15:15 98.0 98.0 Total Intake and Output 04/19/24 04/19/24 04/20/24 15:00 23:00 07:00 Intake Total 228.0 ml 702.5 ml 902.500 ml Output Total 1700 ml 1950 ml Balance 228.0 ml -997.5 ml -1047.500 ml medications Current Medications Medications Dose Ordered Sig/Peg Route Start Time Stop Time Status Last Admin Dose Admin Lactulose 30 ml BID PO 04/10/24 10:00 04/20/24 09:49 30 ML Midodrine 10 mg TID@0600,1200,1800 PO 04/10/24 06:00 Cancel Sodium Chloride 10 ml Q8HR IV 04/10/24 06:00 04/20/24 13:37 10 ML Meropenem 50 ml @ 17 mls/hr Q8H IV 04/10/24 18:00 04/20/24 17:36 17 MLS/HR Sodium Chloride 10 ml QSHIFT@10,22 IV 04/11/24 22:00 04/20/24 09:49 10 ML Albuterol 2.5 mg Q6H NEB 04/12/24 18:00 04/20/24 18:03 2.5 MG Ipratropium [place] 0.5 mg Q6H NEB 04/12/24 18:00 04/20/24 18:04 0.5 MG Insulin Glargine 15 units DAILY@1000 SC 04/14/24 10:00 04/20/24 09:51 15 UNITS Diagnostic Test (Pha) 1 strip Q6HR 04/13/24 18:00 04/20/24 17:36 1 STRIP Insulin Human Regular Q6HR SC 04/13/24 18:00 04/20/24 17:54 16 UNITS Dextrose 50 ml UD PRN IV 04/13/24 15:45 Methylprednisolone Sodium Succinate 40 mg DAILY IV 04/15/24 10:00 04/20/24 09:49 40 MG Potassium Chloride 100 ml @ 50 mls/hr Q2H IV 04/15/24 11:45 04/15/24 15:44 Cancel Enteral Nutritional Formula 27.5 gm BIDWM PO 04/15/24 18:00 04/20/24 17:36 27.5 GM Norepinephrine Bitartrate 250 ml @ 1.875 mls/ hr Q24H IV 04/17/24 01:45 04/19/24 18:38 7.5 MLS/HR Midodrine 10 mg TID@0600,1200,1800 PO 04/17/24 18:00 04/20/24 17:36 10 MG Furosemide 40 mg DAILY PO 04/18/24 10:00 04/20/24 09:49 40 MG Pantoprazole Sodium 40 mg DAILY@0600 PO 04/18/24 06:00 04/20/24 07:14 40 MG Fluconazole 100 ml @ 100 mls/hr DAILY IV 04/19/24 10:00 04/20/24 09:50 100 MLS/HR objective Gen.: Patient lying in bed in no apparent distress. On supplemental oxygen. Head: Normocephalic, atraumatic. Eyes: EOMI/PERRLA. Ears: Normal hearing. Normal anatomy. Neck/trachea: Trachea midline, supple. Nose: Normal external anatomy. Mouth: Moist mucous membranes. Chest: Decreased air entry bilaterally. No wheezing or rhonchi. Cardiovascular: Positive S1, positive S2. Regular rate and rhythm. Abdomen: Positive bowel sounds in all 4 quadrants. Soft, non-tender, non- distended. : Deferred. Rectal: Deferred. Skin: Warm, dry. Intact. Extremities: 2+ radial pulses bilaterally. No lower extremity edema. Neuro: Awake, alert, oriented x3. No gross motor or sensory deficits. Cranial nerves II through XII intact. Gait not assessed. laboratory and microbiology Laboratory Tests 04/20/24 04:50 Test 04/20/24 04:50 Range/Units Serum Glucose 144 H 74-106 mg/dL Assessment/Plan Impression: Acute hypoxic respiratory failure Pulmonary edema Sepsis Pneumonia, likely gram negative Acute metabolic encephalopathy Events: On supplemental O2 at 3 LPM NC Taper O2 as tolerated On pressors for hemodynamic support Levophed 3 mcg/min Titrate to keep mean arterial pressure greater than 65 mmHg. Improving pressor requirements On midodrine 10 mg PO q.8 hours. Incentive spirometry Continue antibiotics Continue diuresis w/ Lasix as tolerated Monitor renal function PT On puree diet - advance as tolerated. Supportive care Labs and imaging reviewed. Rest of plan as noted below. Plan: Supplemental Oxygen Titrate to keep O2 sats above 92%. CXR image and report reviewed. Increased pulmonary vascular congestion. No pleural effusion or pneumothorax. ABG reviewed. On pressors for hemodynamic support. Titrate to keep MAP above 65 mmHg/SBP above 90 mmHg. Continue antibiotics. F/u cultures. WBC trending down. Monitor renal function. Monitor electrolytes. Supplement as necessary. Diurese with lasix Monitor ins/outs. Nutritional support. Accucheks, ISS. GI/DVT prophylaxis. Condition: Critical Prognosis: Poor given multiple comorbidities. Rest of plan per hospitalist and other consultants. A total of 35 minutes of critical care time was spent reviewing the patient record, examining the patient, making a diagnostic and therapeutic plan, discussing this plan with the medical personnel, following up on diagnostic studies and following the patient for clinical stability excluding any and all procedures. At least 50% of this time was spent in direct, [id number] contact. Thank you Dr. Mary for allowing me to participate in this patient's care. Further recommendations will depend on patient's clinical course. Please do not hesitate to contact me if you have any questions or concerns. This medical document was created using an electronic medical record system with [employer] dictation system. Although this document has been carefully reviewed, there may still be some phonetic and typographical errors. These areas are purely typographical due to imperfections of the software programs, and do not reflect any compromise in the patient's medical care. Dietary Evaluation Review Comments: 1) Provide Glucerna 1.2 @ 60ml/hr x24 hrs as tolerated to meet pt estimated needs 2) Advance pt diet when medically feasible to a CCHO 60g diet modified per RADIO DESPATCHER recommendations 3) Consider DAWN 1 pkt BID for wound 4) Continue current plan of care Expected Outcomes/Goals: 1) Pt to receive adequate nutrition support 2) Pt diet to advance 3) F/U in 2-3 days Plan discussed with: Patient, Other (JENNIFER Butt) TIMI ONEIL MD Apr 20, 2024 21:17
[2024-04-21] VITALS (97 sets, daily range): BP systolic 80–135; BP diastolic 36–77; PULSE 57–108; RESP 9–29; TEMP 97.6–99.6; O2SAT 76–100
[2024-04-21 04:53] LABS: Basophils % (auto) 0.2 % (0.0-2.0); Eosinophils # (auto) 0.2 10 ^3/uL (0-0.8); Lymphocytes # (auto) 2.6 10 ^3/uL (0.4-5.4); Monocytes # (auto) 2.4 10 ^3/uL (0-1.3); Red Cell Distribution Width 16.8 % (11.8-14.3)
[2024-04-21 04:56] LABS: Basophils # (auto) 0.1 10 ^3/uL (0-0.2); Eosinophils % (auto) 0.9 % (0.0-7.0); Hematocrit 28.2 % (41.0-53.0); Hemoglobin 9.3 g/dL (13.5-17.5); Lymphocytes % (auto) 11.7 % (10.0-50.0); Mean Corpuscular Hemoglobin 34.4 pg (28.0-32.0); Mean Corpuscular Hgb Conc. 33.1 g/dL (32.0-36.0); Mean Corpuscular Volume 103.9 fL (80.0-100.0); Monocytes % (auto) 10.7 % (0.0-12.0); Neutrophils # (auto) 17.1 10 ^3/uL (1.6-8.6); Neutrophils % (auto) 76.5 % (37.0-80.0); Platelet Count (auto) 98 10^3/uL (140-450); Red Blood Cells 2.71 10^6/uL (4.5-5.90); White Blood Cell 22.4 10^3/uL (4.4-10.8)
[2024-04-21 05:09] LABS: Alanine Aminotransferase 87 U/L (7-40); Albumin 2.8 g/dL (3.2-4.8); Alkaline Phosphatase 194 U/L (46-116); Anion Gap 5 (5-15); Aspartate Aminotransferase 74 U/L (13-40); BUN/Creatinine Ratio 21.6 (10.0-20.0); Bilirubin, Total 1.3 mg/dL (0.2-1.0); Blood Urea Nitrogen 11 mg/dL (9-23); Calcium 8.8 mg/dL (8.7-10.4); Carbon Dioxide 33 mmol/L (20-31); Chloride 104 mmol/L (98-107); Glucose 150 mg/dL (74-106); Potassium 3.9 mmol/L (3.5-5.1); Sodium 142 mmol/L (136-145); Total Protein 5.1 g/dL (5.7-8.2)
--- NOTE | 2024-04-21 11:34 | DVHPN2 ---
Subjective The patient seen and examined at bedside. No events overnight. The patient remained on Levophed.. Reviewed: Care Plan, H&P, Labs, Medications, Previous Orders, Radiology Changes from previous H/P or p: No Changes Eyes: No Pain, No Vision change, No Conjunctivae inflammation, No Eyelid inflammation, No Other, No Redness ENT: No Ear pain, No Ear discharge, No Nose pain, No Nose discharge, No Nose congestion, No Mouth pain, No Mouth swelling, No Throat pain, No Throat swelling, No Other Cardiovascular: No Chest Pain, No Palpitations, No Orthopnea, No Paroxysmal Noc. Dyspnea, No Edema, No Lt Headedness, No Other Respiratory: No Cough, No Dry; Shortness of breath; No SOB with excertion, No Wheezing, No Hemoptysis, No Pleuritic Pain, No Sputum, No Other Gastrointestinal: No Nausea, No Vomiting; Abdominal Pain; No Diarrhea, No Constipation, No Melena, No Hematochezia, No Other Genitourinary: No Dysuria, No Frequency, No Incontinence, No Hematuria, No Retention, No Other Musculoskeletal: other (Bilateral leg swelling); No neck pain, No shoulder pain, No arm pain, No back pain, No hand pain, No leg pain, No foot pain Skin: No Rash, No Lesions, No Jaundice, No Bruising, No Other Objective Vitals Vital Signs Date Time Temp Pulse Resp B/P (MAP) Pulse Ox O2 Delivery O2 Flow Rate FiO2 04/21/24 09:45 87/65 04/21/24 08:00 99.6 73 20 88 99.6 04/21/24 08:00 Nasal Cannula* 3 32 Intake/Output Intake and Output 04/21/24 07:00 Intake Total 2709.375 ml Output Total 3875 ml Balance -1165.625 ml Intake Oral 2300 ml IV Total 409.375 ml Output Urine Total 3875 ml General Appearance: Alert, Oriented X3, Cooperative Lungs: Clear to auscultation Cardiovascular: Regular rate, Normal S1, Normal S2 Abdomen: Normal bowel sounds, Soft, Other Musculoskeletal: Normal sensory function, Normal motor function Neuro: Normal speech, Strength at 5/5 X4 ext Psych/Mental Status: Mental status NL Medications Current Medications Medications Dose Ordered Sig/Peg Route Start Time Stop Time Status Last Admin Dose Admin Lactulose 30 ml BID PO 04/10/24 10:00 04/21/24 09:48 30 ML Midodrine 10 mg TID@0600,1200,1800 PO 04/10/24 06:00 Cancel Sodium Chloride 10 ml Q8HR IV 04/10/24 06:00 04/21/24 05:31 10 ML Meropenem 50 ml @ 17 mls/hr Q8H IV 04/10/24 18:00 04/21/24 01:47 17 MLS/HR Sodium Chloride 10 ml QSHIFT@ IV 04/11/24 22:00 04/21/24 10:00 10 ML Albuterol 2.5 mg Q6H NEB 04/12/24 18:00 04/21/24 06:37 2.5 MG Ipratropium [place] 0.5 mg Q6H NEB 04/12/24 18:00 04/21/24 06:37 0.5 MG Insulin Glargine 15 units DAILY@1000 SC 04/14/24 10:00 04/21/24 10:04 15 UNITS Diagnostic Test (Pha) 1 strip Q6HR 04/13/24 18:00 04/21/24 05:32 1 STRIP Insulin Human Regular Q6HR SC 04/13/24 18:00 04/20/24 23:45 12 UNITS Dextrose 50 ml UD PRN IV 04/13/24 15:45 Methylprednisolone Sodium Succinate 40 mg DAILY IV 04/15/24 10:00 04/21/24 09:46 40 MG Potassium Chloride 100 ml @ 50 mls/hr Q2H IV 04/15/24 11:45 04/15/24 15:44 Cancel Enteral Nutritional Formula 27.5 gm BIDWM PO 04/15/24 18:00 04/21/24 08:00 27.5 GM Norepinephrine Bitartrate 250 ml @ 1.875 mls/ hr Q24H IV 04/17/24 01:45 04/21/24 05:31 5.625 MLS/HR Midodrine 10 mg TID@0600,1200,1800 PO 04/17/24 18:00 04/21/24 05:31 10 MG Furosemide 40 mg DAILY PO 04/18/24 10:00 04/20/24 09:49 40 MG Pantoprazole Sodium 40 mg DAILY@0600 PO 04/18/24 06:00 04/21/24 05:31 40 MG Fluconazole 100 ml @ 100 mls/hr DAILY IV 04/19/24 10:00 04/21/24 09:50 100 MLS/HR Laboratory Results Laboratory Tests 04/21/24 04:31 Chemistry Test 04/21/24 04:31 Albumin 2.8 g/dL (3.2-4.8) L Calcium Level 8.8 mg/dL (8.7-10.4) Total Protein 5.1 g/dL (5.7-8.2) L LFT Test 04/21/24 04:31 Alanine Aminotransferase (ALT) 87 U/L (7-40) H Alkaline Phosphatase 194 U/L (46-116) H Aspartate Amino Transferase (AST) 74 U/L (13-40) H Total Bilirubin 1.3 mg/dL (0.2-1.0) H Urinalysis Test 04/10/24 03:17 Urine Color Yellow (Yellow) Urine Clarity Clear (Clear) Urine pH 6.0 (5.0-9.0) Urine Specific [place] 1.021 (1.001-1.035) Urine Protein Negative (Negative) Urine Ketones Trace (Negative) Urine Blood Negative /uL (Negative) Urine Nitrite Negative (Negative) Urine Bilirubin Negative (Negative) Urine Urobilinogen Normal mg/dL (Negative) Urine Leukocyte Esterase Negative /uL (Negative) Urine RBC 1 /hpf (0 - 3) Urine WBC 2 /hpf (0 - 3) Urine Squamous Epithelial Cells None seen /hpf (<5) Urine Bacteria None seen /hpf (None Seen) Urine Hyaline Casts Few /lpf (0 - 2) Urine Granular Casts Few /lpf (0) Urine Mucus Few (None Seen) Urine Glucose Normal mg/dL (Normal) Microbiology Microbiology Date/Time Source Procedure Growth Status 04/12/24 04:50 Sputum Gram Stain - Final Complete 04/12/24 04:50 Respiratory Culture - Final Presumptive Talia albicans Complete 04/12/24 04:30 Nose MRSA Screen - Final Complete 04/11/24 08:55 Blood Blood Culture - Final NO GROWTH AFTER 5 DAYS OF INCUBATION. 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 The patient is still requiring Levophed. Continuing to titrate off Levophed. Continuing with midodrine. Continuing with IV antibiotic. Continuing with physical therapy to get the patient out of bed and ambulate. Plan discussed with: Patient My Orders Orders - ABRAHAM SHIELDS MD Procedure Category Date Status Time Complete Blood Count LAB 04/22/24 Verified 04:00 Comprehensive LAB 04/22/24 Verified Metabolic Panel 04:00 Complete Blood Count LAB 04/23/24 Verified 04:00 Comprehensive LAB 04/23/24 Verified Metabolic Panel 04:00 Complete Blood Count LAB 04/24/24 Verified 04:00 Comprehensive LAB 04/24/24 Verified Metabolic Panel 04:00 Complete Blood Count LAB 04/25/24 Verified 04:00 Comprehensive LAB 04/25/24 Verified Metabolic Panel 04:00 Date of Service: Apr 21, 2024 Billing Provider: ABRAHAM SHIELDS MD Common Visit Codes: [id number] INP/OBS CARE(HIGH) ABRAHAM SHIELDS MD Apr 21, 2024 11:34
--- NOTE | 2024-04-21 21:30 | DVHPN2 ---
Progress Note - Dictate Date Seen: Apr 21, 2024 Has the PT tested + for MRSA If YES, has PT been informed?: Yes Medical Necessity Reason Pt with a Central, PICC or Fol: Yes The following are medically ne: Edward Catheter Reason for edward catheter: Strict I&O Subjective Patient seen and examined at bedside. Remains on supplemental oxygen Overnight events reviewed vital signs Vital Sign Date Time Temp Pulse Resp B/P (MAP) Pulse Ox O2 Delivery O2 Flow Rate FiO2 04/21/24 21:15 66 12 92/44 (60) 97 04/21/24 20:00 98.0 98.0 04/21/24 20:00 Nasal Cannula* 3 32 Total Intake and Output 04/20/24 04/20/24 04/21/24 15:00 23:00 07:00 Intake Total 213.000 ml 1407.000 ml 1095.000 ml Output Total 1200 ml 2675 ml Balance 213.000 ml 207.000 ml -1580.000 ml medications Current Medications Medications Dose Ordered Sig/Peg Route Start Time Stop Time Status Last Admin Dose Admin Lactulose 30 ml BID PO 04/10/24 10:00 04/21/24 09:48 30 ML Midodrine 10 mg TID@0600,1200,1800 PO 04/10/24 06:00 Cancel Sodium Chloride 10 ml Q8HR IV 04/10/24 06:00 04/21/24 14:00 10 ML Meropenem 50 ml @ 17 mls/hr Q8H IV 04/10/24 18:00 04/21/24 18:01 17 MLS/HR Sodium Chloride 10 ml QSHIFT@10,22 IV 04/11/24 22:00 04/21/24 10:00 10 ML Albuterol 2.5 mg Q6H NEB 04/12/24 18:00 04/21/24 18:31 2.5 MG Ipratropium [place] 0.5 mg Q6H NEB 04/12/24 18:00 04/21/24 18:31 0.5 MG Insulin Glargine 15 units DAILY@1000 SC 04/14/24 10:00 04/21/24 10:04 15 UNITS Diagnostic Test (Pha) 1 strip Q6HR 04/13/24 18:00 04/21/24 17:42 1 STRIP Insulin Human Regular Q6HR SC 04/13/24 18:00 04/21/24 17:51 16 UNITS Dextrose 50 ml UD PRN IV 04/13/24 15:45 Methylprednisolone Sodium Succinate 40 mg DAILY IV 04/15/24 10:00 04/21/24 09:46 40 MG Potassium Chloride 100 ml @ 50 mls/hr Q2H IV 04/15/24 11:45 04/15/24 15:44 Cancel Enteral Nutritional Formula 27.5 gm BIDWM PO 04/15/24 18:00 04/21/24 08:00 27.5 GM Norepinephrine Bitartrate 250 ml @ 1.875 mls/ hr Q24H IV 04/17/24 01:45 04/21/24 05:31 5.625 MLS/HR Midodrine 10 mg TID@0600,1200,1800 PO 04/17/24 18:00 04/21/24 17:33 10 MG Furosemide 40 mg DAILY PO 04/18/24 10:00 04/20/24 09:49 40 MG Pantoprazole Sodium 40 mg DAILY@0600 PO 04/18/24 06:00 04/21/24 05:31 40 MG Fluconazole 100 ml @ 100 mls/hr DAILY IV 04/19/24 10:00 04/21/24 09:50 100 MLS/HR objective Gen.: Patient lying in bed in no apparent distress. On supplemental oxygen. Head: Normocephalic, atraumatic. Eyes: EOMI/PERRLA. Ears: Normal hearing. Normal anatomy. Neck/trachea: Trachea midline, supple. Nose: Normal external anatomy. Mouth: Moist mucous membranes. Chest: Decreased air entry bilaterally. No wheezing or rhonchi. Cardiovascular: Positive S1, positive S2. Regular rate and rhythm. Abdomen: Positive bowel sounds in all 4 quadrants. Soft, non-tender, non- distended. : Deferred. Rectal: Deferred. Skin: Warm, dry. Intact. Extremities: 2+ radial pulses bilaterally. No lower extremity edema. Neuro: Awake, alert, oriented x3. No gross motor or sensory deficits. Cranial nerves II through XII intact. Gait not assessed. laboratory and microbiology Laboratory Tests 04/21/24 04:31 Test 04/21/24 04:31 Range/Units Serum Glucose 150 H 74-106 mg/dL Assessment/Plan Impression: Acute hypoxic respiratory failure Pulmonary edema Sepsis Pneumonia, likely gram negative Acute metabolic encephalopathy Events: On supplemental O2 at 3 LPM NC Taper O2 as tolerated Patient is out of bed to chair. On pressors for hemodynamic support Levophed 2 mcg/min Titrate to keep mean arterial pressure greater than 65 mmHg. Taper as tolerated. On midodrine 10 mg PO q.8 hours. Incentive spirometry Continue antibiotics Monitor renal function Edward - monitor ins and outs PT Supportive care Labs and imaging reviewed. Rest of plan as noted below. Plan: Supplemental Oxygen Titrate to keep O2 sats above 92%. CXR image and report reviewed. Increased pulmonary vascular congestion. No pleural effusion or pneumothorax. ABG reviewed. On pressors for hemodynamic support. Titrate to keep MAP above 65 mmHg/SBP above 90 mmHg. Continue antibiotics. F/u cultures. WBC trending down. Monitor renal function. Monitor electrolytes. Supplement as necessary. Maintain euvolemia Monitor ins/outs. Nutritional support. Accucheks, ISS. GI/DVT prophylaxis. Condition: Critical Prognosis: Poor given multiple comorbidities. Rest of plan per hospitalist and other consultants. A total of 35 minutes of critical care time was spent reviewing the patient record, examining the patient, making a diagnostic and therapeutic plan, discussing this plan with the medical personnel, following up on diagnostic studies and following the patient for clinical stability excluding any and all procedures. At least 50% of this time was spent in direct, [id number] contact. Thank you Dr. Mary for allowing me to participate in this patient's care. Further recommendations will depend on patient's clinical course. Please do not hesitate to contact me if you have any questions or concerns. This medical document was created using an electronic medical record system with [employer] dictation system. Although this document has been carefully reviewed, there may still be some phonetic and typographical errors. These areas are purely typographical due to imperfections of the software programs, and do not reflect any compromise in the patient's medical care. Dietary Evaluation Review Comments: 1) Provide Glucerna 1.2 @ 60ml/hr x24 hrs as tolerated to meet pt estimated needs 2) Advance pt diet when medically feasible to a CCHO 60g diet modified per GAMMA OPERATOR recommendations 3) Consider DAWN 1 pkt BID for wound 4) Continue current plan of care Expected Outcomes/Goals: 1) Pt to receive adequate nutrition support 2) Pt diet to advance 3) F/U in 2-3 days Plan discussed with: Other (RN August) Critical Care Time(min): 35 TIMI ONEIL MD Apr 21, 2024 21:30
[2024-04-22] VITALS (57 sets, daily range): BP systolic 89–148; BP diastolic 35–92; PULSE 62–99; RESP 9–97; TEMP 97.5–98.6; O2SAT 65–100
[2024-04-22 05:23] LABS: Basophils # (auto) 0 10 ^3/uL (0-0.2); Basophils % (auto) 0.2 % (0.0-2.0); Eosinophils # (auto) 0.2 10 ^3/uL (0-0.8); Eosinophils % (auto) 1.3 % (0.0-7.0); Mean Corpuscular Hgb Conc. 33.4 g/dL (32.0-36.0); Neutrophils # (auto) 11.7 10 ^3/uL (1.6-8.6)
[2024-04-22 05:24] LABS: Hematocrit 24.6 % (41.0-53.0); Hemoglobin 8.2 g/dL (13.5-17.5); Lymphocytes # (auto) 2.1 10 ^3/uL (0.4-5.4); Lymphocytes % (auto) 13.1 % (10.0-50.0); Mean Corpuscular Hemoglobin 34.7 pg (28.0-32.0); Mean Corpuscular Volume 103.8 fL (80.0-100.0); Monocytes # (auto) 1.8 10 ^3/uL (0-1.3); Monocytes % (auto) 11.2 % (0.0-12.0); Neutrophils % (auto) 74.2 % (37.0-80.0); Nucleated Red Blood Cells % 0.1 %; Platelet Count (auto) 86 10^3/uL (140-450); Red Blood Cells 2.37 10^6/uL (4.5-5.90); Red Cell Distribution Width 17.1 % (11.8-14.3); White Blood Cell 15.8 10^3/uL (4.4-10.8)
[2024-04-22 05:35] LABS: Alanine Aminotransferase 80 U/L (7-40); Albumin 2.4 g/dL (3.2-4.8); Alkaline Phosphatase 169 U/L (46-116); Anion Gap 5 (5-15); Aspartate Aminotransferase 61 U/L (13-40); BUN/Creatinine Ratio 28.6 (10.0-20.0); Blood Urea Nitrogen 14 mg/dL (9-23); Calcium 8.3 mg/dL (8.7-10.4); Carbon Dioxide 33 mmol/L (20-31); Chloride 104 mmol/L (98-107); Glucose 182 mg/dL (74-106); Potassium 3.8 mmol/L (3.5-5.1); Sodium 142 mmol/L (136-145); Total Protein 4.4 g/dL (5.7-8.2)
--- NOTE | 2024-04-22 11:02 | DVHPN2 ---
Subjective The patient seen and examined at bedside. No events overnight. Off levophed for 5 hours. Maintain blood pressure. Reviewed: Care Plan, H&P, Labs, Medications, Previous Orders, Radiology Changes from previous H/P or p: No Changes Eyes: No Pain, No Vision change, No Conjunctivae inflammation, No Eyelid inflammation, No Other, No Redness ENT: No Ear pain, No Ear discharge, No Nose pain, No Nose discharge, No Nose congestion, No Mouth pain, No Mouth swelling, No Throat pain, No Throat swelling, No Other Cardiovascular: No Chest Pain, No Palpitations, No Orthopnea, No Paroxysmal Noc. Dyspnea, No Edema, No Lt Headedness, No Other Respiratory: No Cough, No Dry; Shortness of breath; No SOB with excertion, No Wheezing, No Hemoptysis, No Pleuritic Pain, No Sputum, No Other Gastrointestinal: No Nausea, No Vomiting; Abdominal Pain; No Diarrhea, No Constipation, No Melena, No Hematochezia, No Other Genitourinary: No Dysuria, No Frequency, No Incontinence, No Hematuria, No Retention, No Other Musculoskeletal: other (Bilateral leg swelling); No neck pain, No shoulder pain, No arm pain, No back pain, No hand pain, No leg pain, No foot pain Skin: No Rash, No Lesions, No Jaundice, No Bruising, No Other Objective Vitals Vital Signs Date Time Temp Pulse Resp B/P (MAP) Pulse Ox O2 Delivery O2 Flow Rate FiO2 04/22/24 10:38 82 17 110/59 (76) 99 04/22/24 10:00 Nasal Cannula* 3 32 04/22/24 08:01 97.9 97.9 Intake/Output Intake and Output 04/22/24 07:00 Intake Total 1805.375 ml Output Total 3600 ml Balance -1794.625 ml Intake Oral 1500 ml IV Total 305.375 ml Output Urine Total 3600 ml # Bowel Movements 1 General Appearance: Alert, Oriented X3, Cooperative Lungs: Clear to auscultation Cardiovascular: Regular rate, Normal S1, Normal S2 Abdomen: Normal bowel sounds, Soft, Other Musculoskeletal: Normal sensory function, Normal motor function Neuro: Normal speech, Strength at 5/5 X4 ext Psych/Mental Status: Mental status NL Medications Current Medications Medications Dose Ordered Sig/Peg Route Start Time Stop Time Status Last Admin Dose Admin Lactulose 30 ml BID PO 04/10/24 10:00 04/22/24 09:34 30 ML Midodrine 10 mg TID@0600,1200,1800 PO 04/10/24 06:00 Cancel Sodium Chloride 10 ml Q8HR IV 04/10/24 06:00 04/22/24 05:32 10 ML Meropenem 50 ml @ 17 mls/hr Q8H IV 04/10/24 18:00 04/22/24 10:33 17 MLS/HR Sodium Chloride 10 ml QSHIFT@ IV 04/11/24 22:00 04/22/24 09:09 10 ML Albuterol 2.5 mg Q6H NEB 04/12/24 18:00 04/22/24 05:46 2.5 MG Ipratropium [place] 0.5 mg Q6H NEB 04/12/24 18:00 04/22/24 05:46 0.5 MG Insulin Glargine 15 units DAILY@1000 SC 04/14/24 10:00 04/22/24 09:37 15 UNITS Diagnostic Test (Pha) 1 strip Q6HR 04/13/24 18:00 04/22/24 05:31 1 STRIP Insulin Human Regular Q6HR SC 04/13/24 18:00 04/22/24 05:31 4 UNITS Dextrose 50 ml UD PRN IV 04/13/24 15:45 Methylprednisolone Sodium Succinate 40 mg DAILY IV 04/15/24 10:00 04/22/24 09:09 40 MG Potassium Chloride 100 ml @ 50 mls/hr Q2H IV 04/15/24 11:45 04/15/24 15:44 Cancel Enteral Nutritional Formula 27.5 gm BIDWM PO 04/15/24 18:00 04/22/24 08:00 27.5 GM Norepinephrine Bitartrate 250 ml @ 1.875 mls/ hr Q24H IV 04/17/24 01:45 04/21/24 05:31 5.625 MLS/HR Midodrine 10 mg TID@0600,1200,1800 PO 04/17/24 18:00 04/22/24 05:31 10 MG Furosemide 40 mg DAILY PO 04/18/24 10:00 04/22/24 09:14 40 MG Pantoprazole Sodium 40 mg DAILY@0600 PO 04/18/24 06:00 04/22/24 05:31 40 MG Fluconazole 100 ml @ 100 mls/hr DAILY IV 04/19/24 10:00 04/22/24 09:09 100 MLS/HR Laboratory Results Laboratory Tests 04/22/24 04:40 Chemistry Test 04/22/24 04:40 Albumin 2.4 g/dL (3.2-4.8) L Calcium Level 8.3 mg/dL (8.7-10.4) L Total Protein 4.4 g/dL (5.7-8.2) L LFT Test 04/22/24 04:40 Alanine Aminotransferase (ALT) 80 U/L (7-40) H Alkaline Phosphatase 169 U/L (46-116) H Aspartate Amino Transferase (AST) 61 U/L (13-40) H Total Bilirubin 1.0 mg/dL (0.2-1.0) Urinalysis Test 04/10/24 03:17 Urine Color Yellow (Yellow) Urine Clarity Clear (Clear) Urine pH 6.0 (5.0-9.0) Urine Specific [place] 1.021 (1.001-1.035) Urine Protein Negative (Negative) Urine Ketones Trace (Negative) Urine Blood Negative /uL (Negative) Urine Nitrite Negative (Negative) Urine Bilirubin Negative (Negative) Urine Urobilinogen Normal mg/dL (Negative) Urine Leukocyte Esterase Negative /uL (Negative) Urine RBC 1 /hpf (0 - 3) Urine WBC 2 /hpf (0 - 3) Urine Squamous Epithelial Cells None seen /hpf (<5) Urine Bacteria None seen /hpf (None Seen) Urine Hyaline Casts Few /lpf (0 - 2) Urine Granular Casts Few /lpf (0) Urine Mucus Few (None Seen) Urine Glucose Normal mg/dL (Normal) Microbiology Microbiology Date/Time Source Procedure Growth Status 04/12/24 04:50 Sputum Gram Stain - Final Complete 04/12/24 04:50 Respiratory Culture - Final Presumptive Talia albicans Complete 04/12/24 04:30 Nose MRSA Screen - Final Complete 04/11/24 08:55 Blood Blood Culture - Final NO GROWTH AFTER 5 DAYS OF INCUBATION. 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 The patient is still requiring Levophed. Continuing to titrate off Levophed. Continuing with midodrine. Continuing with IV antibiotic. Continuing with physical therapy to get the patient out of bed and ambulate. Will start soft diet. Down grade to telemetry. Plan discussed with: Patient My Orders Orders - ABRAHAM SHIELDS MD Procedure Category Date Status Time Mechanical Soft Diet DIET 04/21/24 Transmitted Dinner Date of Service: Apr 22, 2024 Billing Provider: ABRAHAM SHIELDS MD Common Visit Codes: [id number] INP/OBS CARE(HIGH) ABRAHAM SHIELDS MD Apr 22, 2024 11:02
--- NOTE | 2024-04-22 20:32 | DVHPN2 ---
Progress Note - Dictate Date Seen: Apr 22, 2024 Has the PT tested + for MRSA If YES, has PT been informed?: Yes Medical Necessity Reason Pt with a Central, PICC or Fol: Yes The following are medically ne: Edward Catheter Reason for edward catheter: Strict I&O Subjective Patient seen and examined at bedside. Remains on supplemental oxygen Overnight events reviewed vital signs Vital Sign Date Time Temp Pulse Resp B/P (MAP) Pulse Ox O2 Delivery O2 Flow Rate FiO2 04/22/24 18:48 87 18 100 04/22/24 18:42 Nasal Cannula* 2 28 04/22/24 16:30 110/65 (80) 04/22/24 16:00 98.6 98.6 Total Intake and Output 04/21/24 04/21/24 04/22/24 15:00 23:00 07:00 Intake Total 181.00 ml 1168.750 ml 455.625 ml Output Total 1550 ml 2050 ml Balance 181.00 ml -381.250 ml -1594.375 ml medications Current Medications Medications Dose Ordered Sig/Peg Route Start Time Stop Time Status Last Admin Dose Admin Lactulose 30 ml BID PO 04/10/24 10:00 04/22/24 09:34 30 ML Midodrine 10 mg TID@0600,1200,1800 PO 04/10/24 06:00 Cancel Sodium Chloride 10 ml Q8HR IV 04/10/24 06:00 04/22/24 14:00 10 ML Meropenem 50 ml @ 17 mls/hr Q8H IV 04/10/24 18:00 04/22/24 17:24 17 MLS/HR Sodium Chloride 10 ml QSHIFT@ IV 04/11/24 22:00 04/22/24 09:09 10 ML Albuterol 2.5 mg Q6H NEB 04/12/24 18:00 04/22/24 18:42 2.5 MG Ipratropium [place] 0.5 mg Q6H NEB 04/12/24 18:00 04/22/24 18:42 0.5 MG Insulin Glargine 15 units DAILY@1000 SC 04/14/24 10:00 04/22/24 09:37 15 UNITS Diagnostic Test (Pha) 1 strip Q6HR 04/13/24 18:00 04/22/24 17:49 1 STRIP Insulin Human Regular Q6HR SC 04/13/24 18:00 04/22/24 17:56 12 UNITS Dextrose 50 ml UD PRN IV 04/13/24 15:45 Methylprednisolone Sodium Succinate 40 mg DAILY IV 04/15/24 10:00 04/22/24 09:09 40 MG Potassium Chloride 100 ml @ 50 mls/hr Q2H IV 04/15/24 11:45 04/15/24 15:44 Cancel Enteral Nutritional Formula 27.5 gm BIDWM PO 04/15/24 18:00 04/22/24 08:00 27.5 GM Norepinephrine Bitartrate 250 ml @ 1.875 mls/ hr Q24H IV 04/17/24 01:45 04/21/24 05:31 5.625 MLS/HR Midodrine 10 mg TID@0600,1200,1800 PO 04/17/24 18:00 04/22/24 17:24 10 MG Furosemide 40 mg DAILY PO 04/18/24 10:00 04/22/24 09:14 40 MG Pantoprazole Sodium 40 mg DAILY@0600 PO 04/18/24 06:00 04/22/24 05:31 40 MG Fluconazole 100 ml @ 100 mls/hr DAILY IV 04/19/24 10:00 04/22/24 09:09 100 MLS/HR objective Gen.: Patient lying in bed in no apparent distress. On supplemental oxygen. Head: Normocephalic, atraumatic. Eyes: EOMI/PERRLA. Ears: Normal hearing. Normal anatomy. Neck/trachea: Trachea midline, supple. Nose: Normal external anatomy. Mouth: Moist mucous membranes. Chest: Decreased air entry bilaterally. No wheezing or rhonchi. Cardiovascular: Positive S1, positive S2. Regular rate and rhythm. Abdomen: Positive bowel sounds in all 4 quadrants. Soft, non-tender, non- distended. : Deferred. Rectal: Deferred. Skin: Warm, dry. Intact. Extremities: 2+ radial pulses bilaterally. No lower extremity edema. Neuro: Awake, alert, oriented x3. No gross motor or sensory deficits. Cranial nerves II through XII intact. Gait not assessed. laboratory and microbiology Laboratory Tests 04/22/24 04:40 Test 04/22/24 04:40 Range/Units Serum Glucose 182 H 74-106 mg/dL Assessment/Plan Impression: Acute hypoxic respiratory failure Pulmonary edema Sepsis Pneumonia, likely gram negative Acute metabolic encephalopathy Events: On supplemental O2 at 3 LPM NC Taper O2 as tolerated Patient is out of bed to chair. Off Levophed since 2 AM. On midodrine 10 mg PO q.8 hours. Incentive spirometry Continue antibiotics Monitor renal function Edward - monitor ins and outs PT Supportive care Patient is stable for downgrade from the pulmonary standpoint. Labs and imaging reviewed. Rest of plan as noted below. Plan: Supplemental Oxygen Titrate to keep O2 sats above 92%. CXR image and report reviewed. Increased pulmonary vascular congestion. No pleural effusion or pneumothorax. ABG reviewed. Pressors as necessary for hemodynamic support - currently off. Titrate to keep MAP above 65 mmHg/SBP above 90 mmHg. Continue antibiotics. F/u cultures. WBC trending down. Monitor renal function. Monitor electrolytes. Supplement as necessary. Maintain euvolemia Monitor ins/outs. Nutritional support. Accucheks, ISS. GI/DVT prophylaxis. Prognosis: Poor given multiple comorbidities. Rest of plan per hospitalist and other consultants. Thank you Dr. Mary for allowing me to participate in this patient's care. Further recommendations will depend on patient's clinical course. Please do not hesitate to contact me if you have any questions or concerns. This medical document was created using an electronic medical record system with [employer] dictation system. Although this document has been carefully reviewed, there may still be some phonetic and typographical errors. These areas are purely typographical due to imperfections of the software programs, and do not reflect any compromise in the patient's medical care. Dietary Evaluation Review Comments: 1) Provide Glucerna 1.2 @ 60ml/hr x24 hrs as tolerated to meet pt estimated needs 2) Advance pt diet when medically feasible to a CCHO 60g diet modified per GEOGRAPHIC INFORMATION SYSTEMS ANALYST recommendations 3) Consider DAWN 1 pkt BID for wound 4) Continue current plan of care Expected Outcomes/Goals: 1) Pt to receive adequate nutrition support 2) Pt diet to advance 3) F/U in 2-3 days Plan discussed with: Patient, Other (JENNIFER Christian) TIMI ONEIL MD Apr 22, 2024 20:32
[2024-04-23] VITALS (17 sets, daily range): BP systolic 106–134; BP diastolic 54–74; PULSE 70–105; RESP 16–20; TEMP 97.5–98.7; O2SAT 90–100
[2024-04-23 09:57] LABS: Basophils # (auto) 0 10 ^3/uL (0-0.2); Basophils % (auto) 0.2 % (0.0-2.0); Eosinophils # (auto) 0.5 10 ^3/uL (0-0.8); Hemoglobin 9.8 g/dL (13.5-17.5); Lymphocytes # (auto) 2.6 10 ^3/uL (0.4-5.4); Lymphocytes % (auto) 11.6 % (10.0-50.0); Mean Corpuscular Hemoglobin 33.7 pg (28.0-32.0); Mean Corpuscular Hgb Conc. 32.6 g/dL (32.0-36.0); Mean Corpuscular Volume 103.5 fL (80.0-100.0); Monocytes % (auto) 8.8 % (0.0-12.0); Neutrophils # (auto) 17.7 10 ^3/uL (1.6-8.6); Neutrophils % (auto) 77.4 % (37.0-80.0); Nucleated Red Blood Cells % 0.1 %; Platelet Count (auto) 114 10^3/uL (140-450); Red Blood Cells 2.89 10^6/uL (4.5-5.90); Red Cell Distribution Width 17.4 % (11.8-14.3); White Blood Cell 22.9 10^3/uL (4.4-10.8)
[2024-04-23 10:14] LABS: Alanine Aminotransferase 98 U/L (7-40); Albumin 2.9 g/dL (3.2-4.8); Alkaline Phosphatase 209 U/L (46-116); Anion Gap 5 (5-15); Aspartate Aminotransferase 73 U/L (13-40); BUN/Creatinine Ratio 24.6 (10.0-20.0); Bilirubin, Total 1.1 mg/dL (0.2-1.0); Blood Urea Nitrogen 16 mg/dL (9-23); Calcium 8.9 mg/dL (8.7-10.4); Carbon Dioxide 29 mmol/L (20-31); Chloride 102 mmol/L (98-107); Glucose 151 mg/dL (74-106); Potassium 3.9 mmol/L (3.5-5.1); Total Protein 5.4 g/dL (5.7-8.2)
[2024-04-23 10:16] LABS: Sodium 136 mmol/L (136-145)
--- NOTE | 2024-04-23 13:33 | MEDREC ---
[facility] Intervention Section I [facility] Intervention: Deescalate AB based on CS (PATIENT IS AFEBRILE, LEVOPHED HAS BEEN DISCONTINUED. ELEVATED WBCCOULD BE CAUSED BY IV STEROID - THE RESPIRATORY CULUTRE SHOWS PRESUMPTIVE SPENSER ALBICANS TREATING WITH FLUCONAZOLE (04/19- ONGOING). PATIENT HAS BEEN ON MEROPENEM FOR 14 DAYS. PLEASE CONSIDER DE- ESCALATION IF CLINICALLY APPROPRIATE) JIHAN PITT Apr 23, 2024 13:32
--- NOTE | 2024-04-23 13:58 | DVHPN2 ---
Subjective The patient seen and examined at bedside. No events overnight. Reviewed: Care Plan, H&P, Labs, Medications, Previous Orders, Radiology Changes from previous H/P or p: No Changes Eyes: No Pain, No Vision change, No Conjunctivae inflammation, No Eyelid inflammation, No Other, No Redness ENT: No Ear pain, No Ear discharge, No Nose pain, No Nose discharge, No Nose congestion, No Mouth pain, No Mouth swelling, No Throat pain, No Throat swelling, No Other Cardiovascular: No Chest Pain, No Palpitations, No Orthopnea, No Paroxysmal Noc. Dyspnea, No Edema, No Lt Headedness, No Other Respiratory: No Cough, No Dry; Shortness of breath; No SOB with excertion, No Wheezing, No Hemoptysis, No Pleuritic Pain, No Sputum, No Other Gastrointestinal: No Nausea, No Vomiting; Abdominal Pain; No Diarrhea, No Constipation, No Melena, No Hematochezia, No Other Genitourinary: No Dysuria, No Frequency, No Incontinence, No Hematuria, No Retention, No Other Musculoskeletal: other (Bilateral leg swelling); No neck pain, No shoulder pain, No arm pain, No back pain, No hand pain, No leg pain, No foot pain Skin: No Rash, No Lesions, No Jaundice, No Bruising, No Other Objective Vitals Vital Signs Date Time Temp Pulse Resp B/P (MAP) Pulse Ox O2 Delivery O2 Flow Rate FiO2 04/23/24 12:05 98.4 89 17 106/58 (74) 91 98.4 04/23/24 11:04 Nasal Cannula* 2 28 Intake/Output Intake and Output 04/23/24 07:00 Intake Total 2358 ml Output Total 2625 ml Balance -267 ml Intake Oral 2140 ml IV Total 218 ml Output Urine Total 2625 ml # Bowel Movements 1 General Appearance: Alert, Oriented X3, Cooperative Lungs: Clear to auscultation Cardiovascular: Regular rate, Normal S1, Normal S2 Abdomen: Normal bowel sounds, Soft, Other Musculoskeletal: Normal sensory function, Normal motor function Neuro: Normal speech, Strength at 5/5 X4 ext Psych/Mental Status: Mental status NL Medications Current Medications Medications Dose Ordered Sig/Peg Route Start Time Stop Time Status Last Admin Dose Admin Lactulose 30 ml BID PO 04/10/24 10:00 04/23/24 09:41 30 ML Midodrine 10 mg TID@0600,1200,1800 PO 04/10/24 06:00 Cancel Sodium Chloride 10 ml Q8HR IV 04/10/24 06:00 04/23/24 06:15 10 ML Meropenem 50 ml @ 17 mls/hr Q8H IV 04/10/24 18:00 04/23/24 11:15 17 MLS/HR Sodium Chloride 10 ml QSHIFT@ IV 04/11/24 22:00 04/23/24 09:41 10 ML Albuterol 2.5 mg Q6H NEB 04/12/24 18:00 04/23/24 11:04 2.5 MG Ipratropium [place] 0.5 mg Q6H NEB 04/12/24 18:00 04/23/24 11:04 0.5 MG Insulin Glargine 15 units DAILY@1000 SC 04/14/24 10:00 04/23/24 10:02 15 UNITS Diagnostic Test (Pha) 1 strip Q6HR 04/13/24 18:00 04/23/24 12:03 1 STRIP Insulin Human Regular Q6HR SC 04/13/24 18:00 04/23/24 11:37 4 UNITS Dextrose 50 ml UD PRN IV 04/13/24 15:45 Methylprednisolone Sodium Succinate 40 mg DAILY IV 04/15/24 10:00 04/23/24 09:42 40 MG Potassium Chloride 100 ml @ 50 mls/hr Q2H IV 04/15/24 11:45 04/15/24 15:44 Cancel Enteral Nutritional Formula 27.5 gm BIDWM PO 04/15/24 18:00 04/23/24 08:00 27.5 GM Midodrine 10 mg TID@0600,1200,1800 PO 04/17/24 18:00 04/23/24 11:35 10 MG Furosemide 40 mg DAILY PO 04/18/24 10:00 04/23/24 09:42 40 MG Pantoprazole Sodium 40 mg DAILY@0600 PO 04/18/24 06:00 04/23/24 06:15 40 MG Fluconazole 100 ml @ 100 mls/hr DAILY IV 04/19/24 10:00 04/23/24 09:41 100 MLS/HR Laboratory Results Laboratory Tests 04/23/24 09:22 Chemistry Test 04/23/24 09:22 Albumin 2.9 g/dL (3.2-4.8) L Calcium Level 8.9 mg/dL (8.7-10.4) Total Protein 5.4 g/dL (5.7-8.2) L LFT Test 04/23/24 09:22 Alanine Aminotransferase (ALT) 98 U/L (7-40) H Alkaline Phosphatase 209 U/L (46-116) H Aspartate Amino Transferase (AST) 73 U/L (13-40) H Total Bilirubin 1.1 mg/dL (0.2-1.0) H Urinalysis Test 04/10/24 03:17 Urine Color Yellow (Yellow) Urine Clarity Clear (Clear) Urine pH 6.0 (5.0-9.0) Urine Specific [place] 1.021 (1.001-1.035) Urine Protein Negative (Negative) Urine Ketones Trace (Negative) Urine Blood Negative /uL (Negative) Urine Nitrite Negative (Negative) Urine Bilirubin Negative (Negative) Urine Urobilinogen Normal mg/dL (Negative) Urine Leukocyte Esterase Negative /uL (Negative) Urine RBC 1 /hpf (0 - 3) Urine WBC 2 /hpf (0 - 3) Urine Squamous Epithelial Cells None seen /hpf (<5) Urine Bacteria None seen /hpf (None Seen) Urine Hyaline Casts Few /lpf (0 - 2) Urine Granular Casts Few /lpf (0) Urine Mucus Few (None Seen) Urine Glucose Normal mg/dL (Normal) Microbiology Microbiology Date/Time Source Procedure Growth Status 04/12/24 04:50 Sputum Gram Stain - Final Complete 04/12/24 04:50 Respiratory Culture - Final Presumptive Talia albicans Complete 04/12/24 04:30 Nose MRSA Screen - Final Complete 04/11/24 08:55 Blood Blood Culture - Final NO GROWTH AFTER 5 DAYS OF INCUBATION. 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 Continuing with midodrine. Continuing with IV antibiotic. Continuing with physical therapy to get the patient out of bed and ambulate. Discharge planning. Plan discussed with: Patient Date of Service: Apr 23, 2024 Billing Provider: ABRAHAM SHIELDS MD Common Visit Codes: [id number] INP/OBS CARE(HIGH) ABRAHAM SHIELDS MD Apr 23, 2024 13:58
[2024-04-24] VITALS (18 sets, daily range): BP systolic 106–124; BP diastolic 53–71; PULSE 71–106; RESP 16–20; TEMP 98.1–98.4; O2SAT 91–100
[2024-04-24 07:05] LABS: Basophils # (auto) 0.1 10 ^3/uL (0-0.2); Basophils % (auto) 0.5 % (0.0-2.0); Eosinophils # (auto) 0.4 10 ^3/uL (0-0.8); Eosinophils % (auto) 2.2 % (0.0-7.0); Hematocrit 26.5 % (41.0-53.0); Hemoglobin 8.7 g/dL (13.5-17.5); Lymphocytes # (auto) 2.5 10 ^3/uL (0.4-5.4); Lymphocytes % (auto) 13.2 % (10.0-50.0); Mean Corpuscular Hemoglobin 34.3 pg (28.0-32.0); Mean Corpuscular Hgb Conc. 32.9 g/dL (32.0-36.0); Monocytes # (auto) 1.8 10 ^3/uL (0-1.3); Monocytes % (auto) 9.8 % (0.0-12.0); Neutrophils # (auto) 13.8 10 ^3/uL (1.6-8.6); Neutrophils % (auto) 74.3 % (37.0-80.0); Platelet Count (auto) 104 10^3/uL (140-450); Red Blood Cells 2.55 10^6/uL (4.5-5.90); Red Cell Distribution Width 16.9 % (11.8-14.3); White Blood Cell 18.6 10^3/uL (4.4-10.8)
[2024-04-24 07:22] LABS: Alanine Aminotransferase 77 U/L (7-40); Albumin 2.4 g/dL (3.2-4.8); Alkaline Phosphatase 168 U/L (46-116); Anion Gap 5 (5-15); Aspartate Aminotransferase 49 U/L (13-40); Blood Urea Nitrogen 20 mg/dL (9-23); Calcium 8.5 mg/dL (8.7-10.4); Carbon Dioxide 30 mmol/L (20-31); Chloride 107 mmol/L (98-107); Glucose 72 mg/dL (74-106); Potassium 3.7 mmol/L (3.5-5.1); Sodium 142 mmol/L (136-145)
[2024-04-24 07:23] LABS: Total Protein 4.4 g/dL (5.7-8.2)
--- NOTE | 2024-04-24 10:12 | DVHPN2 ---
Subjective The patient seen and examined at bedside. No events overnight. Reviewed: Care Plan, H&P, Labs, Medications, Previous Orders, Radiology Changes from previous H/P or p: No Changes Eyes: No Pain, No Vision change, No Conjunctivae inflammation, No Eyelid inflammation, No Other, No Redness ENT: No Ear pain, No Ear discharge, No Nose pain, No Nose discharge, No Nose congestion, No Mouth pain, No Mouth swelling, No Throat pain, No Throat swelling, No Other Cardiovascular: No Chest Pain, No Palpitations, No Orthopnea, No Paroxysmal Noc. Dyspnea, No Edema, No Lt Headedness, No Other Respiratory: No Cough, No Dry; Shortness of breath; No SOB with excertion, No Wheezing, No Hemoptysis, No Pleuritic Pain, No Sputum, No Other Gastrointestinal: No Nausea, No Vomiting; Abdominal Pain; No Diarrhea, No Constipation, No Melena, No Hematochezia, No Other Genitourinary: No Dysuria, No Frequency, No Incontinence, No Hematuria, No Retention, No Other Musculoskeletal: other (Bilateral leg swelling); No neck pain, No shoulder pain, No arm pain, No back pain, No hand pain, No leg pain, No foot pain Skin: No Rash, No Lesions, No Jaundice, No Bruising, No Other Objective Vitals Vital Signs Date Time Temp Pulse Resp B/P (MAP) Pulse Ox O2 Delivery O2 Flow Rate FiO2 04/24/24 10:02 93 Nasal Cannula 3.0 04/24/24 10:02 32 04/24/24 09:10 124/64 04/24/24 08:39 98.1 83 17 98.1 Intake/Output Intake and Output 04/24/24 07:00 Intake Total 2150 ml Output Total 2150 ml Balance 0 ml Intake Oral 1900 ml IV Total 250 ml Output Urine Total 2150 ml # Bowel Movements 2 General Appearance: Alert, Oriented X3, Cooperative Lungs: Clear to auscultation Cardiovascular: Regular rate, Normal S1, Normal S2 Abdomen: Normal bowel sounds, Soft, Other Musculoskeletal: Normal sensory function, Normal motor function Neuro: Normal speech, Strength at 5/5 X4 ext Psych/Mental Status: Mental status NL Medications Current Medications Medications Dose Ordered Sig/Peg Route Start Time Stop Time Status Last Admin Dose Admin Lactulose 30 ml BID PO 04/10/24 10:00 04/24/24 08:49 30 ML Midodrine 10 mg TID@0600,1200,1800 PO 04/10/24 06:00 Cancel Sodium Chloride 10 ml Q8HR IV 04/10/24 06:00 04/24/24 05:08 10 ML Meropenem 50 ml @ 17 mls/hr Q8H IV 04/10/24 18:00 04/24/24 08:49 17 MLS/HR Sodium Chloride 10 ml QSHIFT@, IV 04/11/24 22:00 04/24/24 08:49 10 ML Albuterol 2.5 mg Q6H NEB 04/12/24 18:00 04/24/24 07:33 2.5 MG Ipratropium [place] 0.5 mg Q6H NEB 04/12/24 18:00 04/24/24 07:33 0.5 MG Insulin Glargine 15 units DAILY@1000 SC 04/14/24 10:00 04/24/24 09:13 15 UNITS Diagnostic Test (Pha) 1 strip Q6HR 04/13/24 18:00 04/24/24 05:16 1 STRIP Insulin Human Regular Q6HR SC 04/13/24 18:00 04/24/24 00:02 16 UNITS Dextrose 50 ml UD PRN IV 04/13/24 15:45 Methylprednisolone Sodium Succinate 40 mg DAILY IV 04/15/24 10:00 04/24/24 08:49 40 MG Potassium Chloride 100 ml @ 50 mls/hr Q2H IV 04/15/24 11:45 04/15/24 15:44 Cancel Enteral Nutritional Formula 27.5 gm BIDWM PO 04/15/24 18:00 04/24/24 08:00 27.5 GM Midodrine 10 mg TID@0600,1200,1800 PO 04/17/24 18:00 04/24/24 05:08 10 MG Furosemide 40 mg DAILY PO 04/18/24 10:00 04/24/24 09:10 40 MG Pantoprazole Sodium 40 mg DAILY@0600 PO 04/18/24 06:00 04/24/24 05:08 40 MG Fluconazole 100 ml @ 100 mls/hr DAILY IV 04/19/24 10:00 04/24/24 08:49 100 MLS/HR Laboratory Results Laboratory Tests 04/24/24 06:42 Chemistry Test 04/24/24 06:42 Albumin 2.4 g/dL (3.2-4.8) L Calcium Level 8.5 mg/dL (8.7-10.4) L Total Protein 4.4 g/dL (5.7-8.2) L LFT Test 04/24/24 06:42 Alanine Aminotransferase (ALT) 77 U/L (7-40) H Alkaline Phosphatase 168 U/L (46-116) H Aspartate Amino Transferase (AST) 49 U/L (13-40) H Total Bilirubin 1.0 mg/dL (0.2-1.0) Urinalysis Test 04/10/24 03:17 Urine Color Yellow (Yellow) Urine Clarity Clear (Clear) Urine pH 6.0 (5.0-9.0) Urine Specific [place] 1.021 (1.001-1.035) Urine Protein Negative (Negative) Urine Ketones Trace (Negative) Urine Blood Negative /uL (Negative) Urine Nitrite Negative (Negative) Urine Bilirubin Negative (Negative) Urine Urobilinogen Normal mg/dL (Negative) Urine Leukocyte Esterase Negative /uL (Negative) Urine RBC 1 /hpf (0 - 3) Urine WBC 2 /hpf (0 - 3) Urine Squamous Epithelial Cells None seen /hpf (<5) Urine Bacteria None seen /hpf (None Seen) Urine Hyaline Casts Few /lpf (0 - 2) Urine Granular Casts Few /lpf (0) Urine Mucus Few (None Seen) Urine Glucose Normal mg/dL (Normal) Microbiology Microbiology Date/Time Source Procedure Growth Status 04/12/24 04:50 Sputum Gram Stain - Final Complete 04/12/24 04:50 Respiratory Culture - Final Presumptive Talia albicans Complete 04/12/24 04:30 Nose MRSA Screen - Final Complete 04/11/24 08:55 Blood Blood Culture - Final NO GROWTH AFTER 5 DAYS OF INCUBATION. 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 Continuing with midodrine. Continuing with IV antibiotic. Continuing with physical therapy to get the patient out of bed and ambulate. Downgrade to telemetry . Discharge planning. Plan discussed with: Patient Date of Service: Apr 24, 2024 Billing Provider: ABRAHAM SHIELDS MD Common Visit Codes: [id number] INP/OBS CARE(HIGH) ABRAHAM SHIELDS MD Apr 24, 2024 10:12
[2024-04-25] VITALS (15 sets, daily range): BP systolic 116–122; BP diastolic 53–72; PULSE 70–99; RESP 17–20; TEMP 97.7–98.6; O2SAT 94–100
[2024-04-25] MEDS: FUROSEMIDE 40 MG TAB PO SCH (09:28)
[2024-04-25 09:34] LABS: Alanine Aminotransferase 86 U/L (7-40); Albumin 2.8 g/dL (3.2-4.8); Alkaline Phosphatase 192 U/L (46-116); Anion Gap 5 (5-15); Aspartate Aminotransferase 60 U/L (13-40); BUN/Creatinine Ratio 29.8 (10.0-20.0); Bilirubin, Total 1.6 mg/dL (0.2-1.0); Blood Urea Nitrogen 17 mg/dL (9-23); Calcium 8.7 mg/dL (8.7-10.4); Carbon Dioxide 28 mmol/L (20-31); Chloride 107 mmol/L (98-107); Glucose 123 mg/dL (74-106); Potassium 3.6 mmol/L (3.5-5.1); Sodium 140 mmol/L (136-145); Total Protein 5.3 g/dL (5.7-8.2)
[2024-04-25 09:37] LABS: Basophils # (auto) 0.1 10 ^3/uL (0-0.2); Basophils % (auto) 0.5 % (0.0-2.0); Eosinophils # (auto) 0.8 10 ^3/uL (0-0.8); Eosinophils % (auto) 4.2 % (0.0-7.0); Hematocrit 31.6 % (41.0-53.0); Hemoglobin 10.3 g/dL (13.5-17.5); Lymphocytes # (auto) 3.1 10 ^3/uL (0.4-5.4); Lymphocytes % (auto) 16.9 % (10.0-50.0); Mean Corpuscular Hemoglobin 33.9 pg (28.0-32.0); Mean Corpuscular Hgb Conc. 32.7 g/dL (32.0-36.0); Mean Corpuscular Volume 103.7 fL (80.0-100.0); Monocytes # (auto) 1.5 10 ^3/uL (0-1.3); Monocytes % (auto) 8.3 % (0.0-12.0); Neutrophils # (auto) 12.9 10 ^3/uL (1.6-8.6); Neutrophils % (auto) 70.1 % (37.0-80.0); Nucleated Red Blood Cells % 0.2 %; Platelet Count (auto) 115 10^3/uL (140-450); Red Blood Cells 3.05 10^6/uL (4.5-5.90); Red Cell Distribution Width 17.2 % (11.8-14.3); White Blood Cell 18.4 10^3/uL (4.4-10.8)
--- NOTE | 2024-04-25 11:21 | DVHPN2 ---
Subjective The patient seen and examined at bedside. No events overnight. The patient work with physical therapy. Reviewed: Care Plan, H&P, Labs, Medications, Previous Orders, Radiology Changes from previous H/P or p: No Changes Eyes: No Pain, No Vision change, No Conjunctivae inflammation, No Eyelid inflammation, No Other, No Redness ENT: No Ear pain, No Ear discharge, No Nose pain, No Nose discharge, No Nose congestion, No Mouth pain, No Mouth swelling, No Throat pain, No Throat swelling, No Other Cardiovascular: No Chest Pain, No Palpitations, No Orthopnea, No Paroxysmal Noc. Dyspnea, No Edema, No Lt Headedness, No Other Respiratory: No Cough, No Dry; Shortness of breath; No SOB with excertion, No Wheezing, No Hemoptysis, No Pleuritic Pain, No Sputum, No Other Gastrointestinal: No Nausea, No Vomiting; Abdominal Pain; No Diarrhea, No Constipation, No Melena, No Hematochezia, No Other Genitourinary: No Dysuria, No Frequency, No Incontinence, No Hematuria, No Retention, No Other Musculoskeletal: other (Bilateral leg swelling); No neck pain, No shoulder pain, No arm pain, No back pain, No hand pain, No leg pain, No foot pain Skin: No Rash, No Lesions, No Jaundice, No Bruising, No Other Objective Vitals Vital Signs Date Time Temp Pulse Resp B/P (MAP) Pulse Ox O2 Delivery O2 Flow Rate FiO2 04/25/24 10:00 95 Nasal Cannula 2.0 04/25/24 10:00 28 04/25/24 09:28 116/56 04/25/24 09:00 98.4 74 17 98.4 Intake/Output Intake and Output 04/25/24 07:00 Intake Total 200 ml Output Total 1600 ml Balance -1400 ml Intake Oral 0 ml IV Total 200 ml Output Urine Total 1600 ml General Appearance: Alert, Oriented X3, Cooperative Lungs: Clear to auscultation Cardiovascular: Regular rate, Normal S1, Normal S2 Abdomen: Normal bowel sounds, Soft, Other Musculoskeletal: Normal sensory function, Normal motor function Neuro: Normal speech, Strength at 5/5 X4 ext Psych/Mental Status: Mental status NL Medications Current Medications Medications Dose Ordered Sig/Peg Route Start Time Stop Time Status Last Admin Dose Admin Midodrine 10 mg TID@0600,1200,1800 PO 04/10/24 06:00 Cancel Sodium Chloride 10 ml Q8HR IV 04/10/24 06:00 04/25/24 05:34 10 ML Meropenem 50 ml @ 17 mls/hr Q8H IV 04/10/24 18:00 04/25/24 09:26 17 MLS/HR Sodium Chloride 10 ml QSHIFT@10,22 IV 04/11/24 22:00 04/25/24 09:27 10 ML Albuterol 2.5 mg Q6H NEB 04/12/24 18:00 04/25/24 06:39 2.5 MG Ipratropium [place] 0.5 mg Q6H NEB 04/12/24 18:00 04/25/24 06:39 0.5 MG Insulin Glargine 15 units DAILY@1000 SC 04/14/24 10:00 04/24/24 09:13 15 UNITS Diagnostic Test (Pha) 1 strip Q6HR 04/13/24 18:00 04/25/24 05:41 1 STRIP Insulin Human Regular Q6HR SC 04/13/24 18:00 04/24/24 23:21 16 UNITS Dextrose 50 ml UD PRN IV 04/13/24 15:45 Methylprednisolone Sodium Succinate 40 mg DAILY IV 04/15/24 10:00 04/25/24 09:27 40 MG Potassium Chloride 100 ml @ 50 mls/hr Q2H IV 04/15/24 11:45 04/15/24 15:44 Cancel Enteral Nutritional Formula 27.5 gm BIDWM PO 04/15/24 18:00 04/25/24 09:26 27.5 GM Midodrine 10 mg TID@0600,1200,1800 PO 04/17/24 18:00 04/25/24 05:34 10 MG Pantoprazole Sodium 40 mg DAILY@0600 PO 04/18/24 06:00 04/25/24 05:33 40 MG Fluconazole 100 ml @ 100 mls/hr DAILY IV 04/19/24 10:00 04/25/24 09:26 100 MLS/HR Furosemide 40 mg DAILY PO 04/25/24 10:00 04/25/24 09:28 40 MG Laboratory Results Laboratory Tests 04/25/24 08:50 Chemistry Test 04/25/24 08:50 Albumin 2.8 g/dL (3.2-4.8) L Calcium Level 8.7 mg/dL (8.7-10.4) Total Protein 5.3 g/dL (5.7-8.2) L LFT Test 04/25/24 08:50 Alanine Aminotransferase (ALT) 86 U/L (7-40) H Alkaline Phosphatase 192 U/L (46-116) H Aspartate Amino Transferase (AST) 60 U/L (13-40) H Total Bilirubin 1.6 mg/dL (0.2-1.0) H Urinalysis Test 04/10/24 03:17 Urine Color Yellow (Yellow) Urine Clarity Clear (Clear) Urine pH 6.0 (5.0-9.0) Urine Specific [place] 1.021 (1.001-1.035) Urine Protein Negative (Negative) Urine Ketones Trace (Negative) Urine Blood Negative /uL (Negative) Urine Nitrite Negative (Negative) Urine Bilirubin Negative (Negative) Urine Urobilinogen Normal mg/dL (Negative) Urine Leukocyte Esterase Negative /uL (Negative) Urine RBC 1 /hpf (0 - 3) Urine WBC 2 /hpf (0 - 3) Urine Squamous Epithelial Cells None seen /hpf (<5) Urine Bacteria None seen /hpf (None Seen) Urine Hyaline Casts Few /lpf (0 - 2) Urine Granular Casts Few /lpf (0) Urine Mucus Few (None Seen) Urine Glucose Normal mg/dL (Normal) Microbiology Microbiology Date/Time Source Procedure Growth Status 04/12/24 04:50 Sputum Gram Stain - Final Complete 04/12/24 04:50 Respiratory Culture - Final Presumptive Talia albicans Complete 04/12/24 04:30 Nose MRSA Screen - Final Complete 04/11/24 08:55 Blood Blood Culture - Final NO GROWTH AFTER 5 DAYS OF INCUBATION. Complete 04/11/24 08:45 Voided Urine Urine Culture - Final Complete Labs and/or images reviewed: Labs reviewed by me Assessment/Plan Assessment/Plan sepsis secondary to pneumonia Pneumonia possible Gram- positive bacteria acute respiratory failure secondary to pneumonia improved liver cirrhosis secondary to hepatitis c and alcohol thrombocytopenia pancreatic mass- f/u gi/at [facility] as op - r/o cyst vs cancer/pt aware Leukocytosis -monitor closely /secondary to steroids/ Continuing current management. Continuing with midodrine. Continuing with IV antibiotic. Continue with wound care. Continue pain medications. Continuing with physical therapy to get the patient out of bed and ambulate. Discharge planning. Plan discussed with: Patient Date of Service: Apr 25, 2024 Billing Provider: ABRAHAM SHIELDS MD Common Visit Codes: [id number] INP/OBS CARE(HIGH) ABRAHAM SHIELDS MD Apr 25, 2024 11:21
[2024-04-26] VITALS (16 sets, daily range): BP systolic 108–129; BP diastolic 58–76; PULSE 68–108; RESP 18–22; TEMP 97.7–98.4; O2SAT 93–100
--- NOTE | 2024-04-26 11:27 | DVHPN2 ---
Subjective The patient seen and examined at bedside. No events overnight. Feel much better Reviewed: Care Plan, H&P, Labs, Medications, Previous Orders, Radiology Changes from previous H/P or p: No Changes Eyes: No Pain, No Vision change, No Conjunctivae inflammation, No Eyelid inflammation, No Other, No Redness ENT: No Ear pain, No Ear discharge, No Nose pain, No Nose discharge, No Nose congestion, No Mouth pain, No Mouth swelling, No Throat pain, No Throat swelling, No Other Cardiovascular: No Chest Pain, No Palpitations, No Orthopnea, No Paroxysmal Noc. Dyspnea, No Edema, No Lt Headedness, No Other Respiratory: No Cough, No Dry; Shortness of breath; No SOB with excertion, No Wheezing, No Hemoptysis, No Pleuritic Pain, No Sputum, No Other Gastrointestinal: No Nausea, No Vomiting; Abdominal Pain; No Diarrhea, No Constipation, No Melena, No Hematochezia, No Other Genitourinary: No Dysuria, No Frequency, No Incontinence, No Hematuria, No Retention, No Other Musculoskeletal: other (Bilateral leg swelling); No neck pain, No shoulder pain, No arm pain, No back pain, No hand pain, No leg pain, No foot pain Skin: No Rash, No Lesions, No Jaundice, No Bruising, No Other Objective Vitals Vital Signs Date Time Temp Pulse Resp B/P (MAP) Pulse Ox O2 Delivery O2 Flow Rate FiO2 04/26/24 10:08 120/75 04/26/24 08:56 97.7 82 18 99 97.7 04/26/24 07:15 Nasal Cannula 2.0 04/26/24 07:15 28 Intake/Output Intake and Output 04/26/24 07:00 Intake Total 1925 ml Output Total 3650 ml Balance -1725 ml Intake Oral 1725 ml IV Total 200 ml Output Urine Total 3650 ml # Bowel Movements 2 General Appearance: Alert, Oriented X3, Cooperative Lungs: Clear to auscultation Cardiovascular: Regular rate, Normal S1, Normal S2 Abdomen: Normal bowel sounds, Soft, Other Musculoskeletal: Normal sensory function, Normal motor function Neuro: Normal speech, Strength at 5/5 X4 ext Psych/Mental Status: Mental status NL Medications Current Medications Medications Dose Ordered Sig/Peg Route Start Time Stop Time Status Last Admin Dose Admin Midodrine 10 mg TID@0600,1200,1800 PO 04/10/24 06:00 Cancel Sodium Chloride 10 ml Q8HR IV 04/10/24 06:00 04/26/24 05:05 10 ML Meropenem 50 ml @ 17 mls/hr Q8H IV 04/10/24 18:00 04/26/24 11:25 17 MLS/HR Sodium Chloride 10 ml QSHIFT@, IV 04/11/24 22:00 04/26/24 10:08 10 ML Albuterol 2.5 mg Q6H NEB 04/12/24 18:00 04/26/24 07:15 2.5 MG Ipratropium [place] 0.5 mg Q6H NEB 04/12/24 18:00 04/26/24 07:15 0.5 MG Insulin Glargine 15 units DAILY@1000 SC 04/14/24 10:00 04/25/24 11:53 15 UNITS Diagnostic Test (Pha) 1 strip Q6HR 04/13/24 18:00 04/26/24 05:10 1 STRIP Insulin Human Regular Q6HR SC 04/13/24 18:00 04/26/24 00:09 16 UNITS Dextrose 50 ml UD PRN IV 04/13/24 15:45 Methylprednisolone Sodium Succinate 40 mg DAILY IV 04/15/24 10:00 04/26/24 10:08 40 MG Potassium Chloride 100 ml @ 50 mls/hr Q2H IV 04/15/24 11:45 04/15/24 15:44 Cancel Enteral Nutritional Formula 27.5 gm BIDWM PO 04/15/24 18:00 04/26/24 10:09 27.5 GM Midodrine 10 mg TID@0600,1200,1800 PO 04/17/24 18:00 04/26/24 05:05 10 MG Pantoprazole Sodium 40 mg DAILY@0600 PO 04/18/24 06:00 04/26/24 05:05 40 MG Fluconazole 100 ml @ 100 mls/hr DAILY IV 04/19/24 10:00 04/26/24 10:08 100 MLS/HR Furosemide 40 mg DAILY PO 04/25/24 10:00 04/26/24 10:08 40 MG Laboratory Results Laboratory Tests 04/25/24 08:50 Urinalysis Test 04/10/24 03:17 Urine Color Yellow (Yellow) Urine Clarity Clear (Clear) Urine pH 6.0 (5.0-9.0) Urine Specific [place] 1.021 (1.001-1.035) Urine Protein Negative (Negative) Urine Ketones Trace (Negative) Urine Blood Negative /uL (Negative) Urine Nitrite Negative (Negative) Urine Bilirubin Negative (Negative) Urine Urobilinogen Normal mg/dL (Negative) Urine Leukocyte Esterase Negative /uL (Negative) Urine RBC 1 /hpf (0 - 3) Urine WBC 2 /hpf (0 - 3) Urine Squamous Epithelial Cells None seen /hpf (<5) Urine Bacteria None seen /hpf (None Seen) Urine Hyaline Casts Few /lpf (0 - 2) Urine Granular Casts Few /lpf (0) Urine Mucus Few (None Seen) Urine Glucose Normal mg/dL (Normal) Microbiology Microbiology Date/Time Source Procedure Growth Status 04/12/24 04:50 Sputum Gram Stain - Final Complete 04/12/24 04:50 Respiratory Culture - Final Presumptive Talia albicans Complete 04/12/24 04:30 Nose MRSA Screen - Final Complete 04/11/24 08:55 Blood Blood Culture - Final NO GROWTH AFTER 5 DAYS OF INCUBATION. Complete 04/11/24 08:45 Voided Urine Urine Culture - Final Complete Labs and/or images reviewed: Labs reviewed by me Assessment/Plan Assessment/Plan sepsis secondary to pneumonia Pneumonia possible Gram- positive bacteria acute respiratory failure secondary to pneumonia improved liver cirrhosis secondary to hepatitis c and alcohol thrombocytopenia pancreatic mass- f/u gi/at [facility] as op - r/o cyst vs cancer/pt aware Leukocytosis -monitor closely /secondary to steroids/ Continuing current management. Continuing with midodrine. Continuing with IV antibiotic. Continuing with physical therapy to get the patient out of bed and ambulate. Continue woundcare Continue pain meds. Discharge planning. Plan discussed with: Patient My Orders Orders - ABRAHAM SHIELDS MD Procedure Category Date Status Time * Wound Consult CONS 04/26/24 Transmitted Complete Blood Count LAB 04/26/24 Transmitted 11: Basic Metabolic Panel LAB 04/26/24 Transmitted 11: Date of Service: Apr 26, 2024 Billing Provider: ABRAHAM SHIELDS MD Common Visit Codes: [id number] INP/OBS CARE(HIGH) ABRAHAM SHIELDS MD Apr 26, 2024 11:27
[2024-04-26 13:58] LABS: Basophils # (auto) 0.1 10 ^3/uL (0-0.2); Eosinophils # (auto) 0.1 10 ^3/uL (0-0.8); Eosinophils % (auto) 0.8 % (0.0-7.0)
[2024-04-26 14:00] LABS: Basophils % (auto) 0.7 % (0.0-2.0); Hematocrit 31.1 % (41.0-53.0); Hemoglobin 10.2 g/dL (13.5-17.5); Lymphocytes # (auto) 0.3 10 ^3/uL (0.4-5.4); Lymphocytes % (auto) 2.3 % (10.0-50.0); Mean Corpuscular Hemoglobin 33.9 pg (28.0-32.0); Mean Corpuscular Hgb Conc. 32.9 g/dL (32.0-36.0); Monocytes # (auto) 0.4 10 ^3/uL (0-1.3); Neutrophils # (auto) 12.9 10 ^3/uL (1.6-8.6); Neutrophils % (auto) 93.2 % (37.0-80.0); Nucleated Red Blood Cells % 0.1 %; Platelet Count (auto) 113 10^3/uL (140-450); Red Blood Cells 3.02 10^6/uL (4.5-5.90); Red Cell Distribution Width 16.9 % (11.8-14.3); White Blood Cell 13.8 10^3/uL (4.4-10.8)
[2024-04-26 14:12] LABS: Chloride 103 mmol/L (98-107); Potassium 4.3 mmol/L (3.5-5.1)
[2024-04-26 14:13] LABS: Anion Gap 6 (5-15); Calcium 8.3 mg/dL (8.7-10.4); Carbon Dioxide 25 mmol/L (20-31)
[2024-04-26 14:18] LABS: Blood Urea Nitrogen 17 mg/dL (9-23)
[2024-04-26 14:19] LABS: Glucose 323 mg/dL (74-106); Sodium 134 mmol/L (136-145)
[2024-04-27] VITALS (19 sets, daily range): BP systolic 108–120; BP diastolic 56–73; PULSE 82–112; RESP 18–20; TEMP 98–98.3; O2SAT 92–100
--- NOTE | 2024-04-27 13:54 | DVHPN2 ---
Subjective Continues to complain of shortness upon exertion Reviewed: Care Plan, H&P, Labs, Medications, Previous Orders, Radiology, Other (Consultations) Changes from previous H/P or p: No Changes Objective Vitals Vital Signs Date Time Temp Pulse Resp B/P (MAP) Pulse Ox O2 Delivery O2 Flow Rate FiO2 04/27/24 12:11 98.1 86 18 118/70 (86) 96 98.1 04/27/24 11:27 Nasal Cannula* 2 28 Intake/Output Intake and Output 04/27/24 07:00 Intake Total 1720 ml Output Total 4600 ml Balance -2880 ml Intake Oral 1570 ml IV Total 150 ml Output Urine Total 4600 ml # Bowel Movements 3 General Appearance: Alert, Oriented X3, Cooperative, No acute distress Lungs: Other (Decreased air entry bilateral with diffuse scattered crackles) Cardiovascular: Regular rate, Normal S1, Normal S2 Abdomen: Normal bowel sounds, Soft, No tenderness Genitourinary: Other (Clark's catheter) Extremities: Other (Left upper extremity PICC line) Neuro: Normal speech, Cranial nerves 3-12 NL Skin: Wounds Psych/Mental Status: Mental status NL, Mood NL Medications Current Medications Medications Dose Ordered Sig/Peg Route Start Time Stop Time Status Last Admin Dose Admin Midodrine 10 mg TID@0600,1200,1800 PO 04/10/24 06:00 Cancel Sodium Chloride 10 ml Q8HR IV 04/10/24 06:00 04/27/24 06:04 10 ML Sodium Chloride 10 ml QSHIFT@10,22 IV 04/11/24 22:00 04/27/24 09:35 10 ML Albuterol 2.5 mg Q6H NEB 04/12/24 18:00 04/27/24 11:26 2.5 MG Ipratropium Immaculata 0.5 mg Q6H NEB 04/12/24 18:00 04/27/24 11:27 0.5 MG Insulin Glargine 15 units DAILY@1000 SC 04/14/24 10:00 04/27/24 09:57 15 UNITS Diagnostic Test (Pha) 1 strip Q6HR 04/13/24 18:00 04/27/24 11:43 1 STRIP Insulin Human Regular Q6HR SC 04/13/24 18:00 04/27/24 11:43 12 UNITS Dextrose 50 ml UD PRN IV 04/13/24 15:45 Methylprednisolone Sodium Succinate 40 mg DAILY IV 04/15/24 10:00 04/27/24 09:36 40 MG Potassium Chloride 100 ml @ 50 mls/hr Q2H IV 04/15/24 11:45 04/15/24 15:44 Cancel Enteral Nutritional Formula 27.5 gm BIDWM PO 04/15/24 18:00 04/27/24 09:40 27.5 GM Midodrine 10 mg TID@0600,1200,1800 PO 04/17/24 18:00 04/27/24 11:43 10 MG Pantoprazole Sodium 40 mg DAILY@0600 PO 04/18/24 06:00 04/27/24 05:45 40 MG Fluconazole 100 ml @ 100 mls/hr DAILY IV 04/19/24 10:00 04/27/24 09:36 100 MLS/HR Furosemide 40 mg DAILY PO 04/25/24 10:00 04/27/24 09:37 40 MG Laboratory Results Laboratory Tests 04/26/24 13:47 Urinalysis Test 04/10/24 03:17 Urine Color Yellow (Yellow) Urine Clarity Clear (Clear) Urine pH 6.0 (5.0-9.0) Urine Specific [place] 1.021 (1.001-1.035) Urine Protein Negative (Negative) Urine Ketones Trace (Negative) Urine Blood Negative /uL (Negative) Urine Nitrite Negative (Negative) Urine Bilirubin Negative (Negative) Urine Urobilinogen Normal mg/dL (Negative) Urine Leukocyte Esterase Negative /uL (Negative) Urine RBC 1 /hpf (0 - 3) Urine WBC 2 /hpf (0 - 3) Urine Squamous Epithelial Cells None seen /hpf (<5) Urine Bacteria None seen /hpf (None Seen) Urine Hyaline Casts Few /lpf (0 - 2) Urine Granular Casts Few /lpf (0) Urine Mucus Few (None Seen) Urine Glucose Normal mg/dL (Normal) Microbiology Microbiology Date/Time Source Procedure Growth Status 04/12/24 04:50 Sputum Gram Stain - Final Complete 04/12/24 04:50 Respiratory Culture - Final Presumptive Talia albicans Complete 04/12/24 04:30 Nose MRSA Screen - Final Complete 04/11/24 08:55 Blood Blood Culture - Final NO GROWTH AFTER 5 DAYS OF INCUBATION. Complete 04/11/24 08:45 Voided Urine Urine Culture - Final Complete Labs and/or images reviewed: Labs reviewed by me, Image(s) reviewed by me Assessment/Plan Assessment/Plan Covering Dr. 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 complicated by thrombocytopenia and elevated LFTs; avoid hepatotoxic agents; continue monitoring #Macrocytic anemia in the setting of alcohol use disorder; no signs/symptoms of bleeding; continue monitoring #Polysubstance use disorder including alcohol and tobacco; counseled on cessation for 18 minutes; continue monitoring #Diabetes mellitus type 2; continue glargine and insulin sliding scale with hypoglycemia protocol; continue monitoring #Severe protein malnutrition; nutrition onboard; continue monitoring #JAYLENE secondary to septic shock; avoid nephrotoxic agents; resolved; continue monitoring #Multiple wounds including sacral decubitus and left upper arm; wound Care is following; continue monitoring #Physical deconditioning; PT inpatient; pending getting insurance in order to be discharged to SNF or with home health; 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 Although this document has been carefully reviewed, there might still be some phonetic and typographical errors. These areas are purely typographical due to imperfections of the software programs, and do not reflect any compromise in the patient's medical care. Plan discussed with: Patient, Other (Nurse) Date of Service: Apr 27, 2024 Billing Provider: VIKTOR NAJERA MD Common Visit Codes: [id number] INP/OBS CARE(HIGH) Secondary Visit Codes: [id number] CHNG SMOKING >10MIN (18 minutes), 22945- ADVANCED CARE PLAN 30 MINUTES (20 minutes) VIKTOR NAJERA MD Apr 27, 2024 13:54
[2024-04-28] VITALS (15 sets, daily range): BP systolic 112–121; BP diastolic 62–79; PULSE 65–110; RESP 16–18; TEMP 98.1–98.7; O2SAT 91–100
[2024-04-28 06:22] LABS: Basophils # (auto) 0 10 ^3/uL (0-0.2); Eosinophils # (auto) 0.4 10 ^3/uL (0-0.8); Hemoglobin 9.1 g/dL (13.5-17.5); Platelet Count (auto) 95 10^3/uL (140-450)
[2024-04-28 06:26] LABS: Basophils % (auto) 0.2 % (0.0-2.0); Eosinophils % (auto) 2.8 % (0.0-7.0); Hematocrit 27.7 % (41.0-53.0); Lymphocytes # (auto) 2.4 10 ^3/uL (0.4-5.4); Lymphocytes % (auto) 17.6 % (10.0-50.0); Mean Corpuscular Hemoglobin 33.5 pg (28.0-32.0); Mean Corpuscular Hgb Conc. 32.9 g/dL (32.0-36.0); Mean Corpuscular Volume 101.9 fL (80.0-100.0); Monocytes # (auto) 1.4 10 ^3/uL (0-1.3); Monocytes % (auto) 10.2 % (0.0-12.0); Neutrophils # (auto) 9.4 10 ^3/uL (1.6-8.6); Neutrophils % (auto) 69.2 % (37.0-80.0); Red Blood Cells 2.72 10^6/uL (4.5-5.90); Red Cell Distribution Width 16.6 % (11.8-14.3); White Blood Cell 13.7 10^3/uL (4.4-10.8)
[2024-04-28 06:42] LABS: Anion Gap 7 (5-15); BUN/Creatinine Ratio 30.2 (10.0-20.0); Blood Urea Nitrogen 16 mg/dL (9-23); Carbon Dioxide 28 mmol/L (20-31); Sodium 143 mmol/L (136-145)
[2024-04-28 06:43] LABS: Bilirubin, Total 0.9 mg/dL (0.2-1.0)
[2024-04-28 06:48] LABS: Alanine Aminotransferase 77 U/L (7-40); Albumin 2.5 g/dL (3.2-4.8); Alkaline Phosphatase 160 U/L (46-116); Aspartate Aminotransferase 47 U/L (13-40); Calcium 8.5 mg/dL (8.7-10.4); Chloride 108 mmol/L (98-107); Glucose 110 mg/dL (74-106); Potassium 3.4 mmol/L (3.5-5.1); Total Protein 4.6 g/dL (5.7-8.2)
--- NOTE | 2024-04-28 11:24 | DVHDS2 ---
Discharge Summary Date of Admission Apr 09, 2024 at 23:09 Date of Discharge: Apr 28, 2024 Admitting Diagnosis Hypotension Labs/Diagnostic Data: Laboratory Results Test 04/28/24 09:15 04/28/24 06:00 04/22/24 12:50 04/16/24 06:16 POC Glucose 171 mg/dl (70-106) White Blood Count 13.7 10^3/uL (4.4-10.8) Red Blood Count 2.72 10^6/uL (4.5-5.90) Hemoglobin 9.1 g/dL (13.5-17.5) Hematocrit 27.7 % (41.0-53.0) Mean Corpuscular Volume 101.9 fL (80.0-100.0) Mean Corpuscular Hemoglobin 33.5 pg (28.0-32.0) Mean Corpuscular Hemoglobin Concent 32.9 g/dL (32.0-36.0) Red Cell Distribution Width 16.6 % (11.8-14.3) Platelet Count 95 10^3/uL (140-450) Mean Platelet Volume 8.8 fL (6.9-10.8) Neutrophils (%) (Auto) 69.2 % (37.0-80.0) Lymphocytes (%) (Auto) 17.6 % (10.0-50.0) Monocytes (%) (Auto) 10.2 % (0.0-12.0) Eosinophils (%) (Auto) 2.8 % (0.0-7.0) Basophils (%) (Auto) 0.2 % (0.0-2.0) Neutrophils # (Auto) 9.4 10 ^3/uL (1.6-8.6) Lymphocytes # (Auto) 2.4 10 ^3/uL (0.4-5.4) Monocytes # (Auto) 1.4 10 ^3/uL (0-1.3) Eosinophils # (Auto) 0.4 10 ^3/uL (0-0.8) Basophils # (Auto) 0 10 ^3/uL (0-0.2) Nucleated Red Blood Cells 0.0 % Sodium Level 143 mmol/L (136-145) Potassium Level 3.4 mmol/L (3.5-5.1) Chloride Level 108 mmol/L (98-107) Carbon Dioxide Level 28 mmol/L (20-31) Anion Gap 7 (5-15) Blood Urea Nitrogen 16 mg/dL (9-23) Creatinine 0.53 mg/dL (0.700-1.30) Glomerular Filtration Rate Calc 113 mL/min (>90) BUN/Creatinine Ratio 30.2 (10.0-20.0) Serum Glucose 110 mg/dL (74-106) Calcium Level 8.5 mg/dL (8.7-10.4) Total Bilirubin 0.9 mg/dL (0.2-1.0) Aspartate Amino Transferase (AST) 47 U/L (13-40) Alanine Aminotransferase (ALT) 77 U/L (7-40) Alkaline Phosphatase 160 U/L (46-116) Total Protein 4.6 g/dL (5.7-8.2) Albumin 2.5 g/dL (3.2-4.8) Ammonia 30 umol/L (11-32) Blood Gas Specimen Type Arterial Blood Gas Sample Site Right radial Blood Gas Patient Temperature 37.0 Arterial Blood Date Drawn Arterial Blood pH 7.492 (7.350-7.450) Arterial Blood Partial Pressure CO2 40.2 mmHg (35.0-48.0) Arterial Blood Partial Pressure O2 56.9 mmHg (83.0-108.0) Arterial Blood HCO3 30.1 mmol/L (21.0-28.0) Arterial Blood Oxygen Saturation 88.6 % (94.0-98.0) Arterial Blood Base Excess 6.3 mmol/L (-2.0-3.0) Arterial Blood Oxyhemoglobin 86.0 % (94.0-98.0) Arterial Blood Carboxyhemoglobin 2.1 % (0.5-1.5) Arterial Blood Methemoglobin 0.8 % (0.0-1.5) Prosper Test Yes Blood Gas Total Hemoglobin 9.80 g/dL (13.5-17.5) Blood Gas Liter Flow 2.00 Blood Gas Modality Nasal cannula FiO2 % 28.0 Test 04/15/24 05:03 04/14/24 04:41 04/13/24 04:44 04/12/24 07:32 Differential Total Cells Counted 100.0 (100) Neutrophils % (Manual) 85 (37.0-80.0) Band Neutrophils % (Manual) 1 Lymphocytes % (Manual) 7 (10.0-50.0) Monocytes % (Manual) 6 (0-12) Eosinophils % (Manual) 1 (0-7) Basophils % (Manual) 0 (0.0-2.0) Metamyelocytes % (manual) 0 Myelocytes % (Manual) 0 Promyelocytes % (Manual) 0 Blast Cells % (Manual) 0 Reactive Lymphocytes 0 Platelet Estimate Decreased Hypochromasia (manual) Slight Target Cells Few Stomatocytes Few Magnesium Level 2.2 mg/dL (1.6-2.6) Tumor Marker Alpha Fetoprotein 6.1 ng/mL (0.0-8.4) Vitamin B12 Level 4747 pg/mL (211-911) Folic Acid 16.05 ng/mL (>5.38) Blood Gas Critical Value Read Back Yes Blood Gas Notified Whom alfred Falcon md Blood Gas Notified Time [id number] Blood Gas Notified By Regulator Inspector miguel angel ramos Test 04/12/24 04:32 04/11/24 11:05 04/10/24 15:04 04/10/24 13:55 Anisocytosis (manual) Slight Macrocytosis Moderate Prothrombin Time 19.3 sec (9.3-11.8) Prothrombin Time INR 1.91 (0.9-1.15) Activated Partial Thromboplast Time 43.9 SEC (24.5-34.5) Triglycerides Level 68 mg/dL (< 150) Cholesterol Level 59 mg/dL (< 200) LDL Cholesterol 35 mg/dL (< 100) HDL Cholesterol < 5 mg/dL (40-59) Lipase 66 U/L (12-53) CA 19-9 Antigen 374 U/mL (0-35) Vancomycin Level Trough 10.6 ug/mL (5-10) Lactic Acid Level 2.0 mmol/L (0.4-2.0) Influenza Type A Antigen Negative (Negative) Influenza Type B Antigen Negative (Negative) Test 04/10/24 13:42 04/10/24 12:57 04/10/24 05:42 04/10/24 03:17 Blood Gas Set Respiration Rate 14.0 Blood Gas EPAP 5 Blood Gas IPAP 12 Hemoglobin A1c 5.8 % A1C (<5.7) Hepatitis A Antibody Total Negative (Negative) Hepatitis B Surface Antigen Negative (Negative) Hepatitis B Surface Antibody Positive (Negative) Hepatitis B Core Total Antibody Positive (Negative) Hepatitis C Antibody Positive (Negative) HIV (1&2) Antibody Negative (Negative) B-Type Natriuretic Peptide 212.48 pg/mL (0-100) Thyroid Stimulating Hormone (TSH) 1.06 uIU/mL (0.55-4.78) Urine Color Yellow (Yellow) Urine Clarity Clear (Clear) Urine pH 6.0 (5.0-9.0) Urine Specific [place] 1.021 (1.001-1.035) Urine Protein Negative (Negative) Urine Ketones Trace (Negative) Urine Blood Negative /uL (Negative) Urine Nitrite Negative (Negative) Urine Bilirubin Negative (Negative) Urine Urobilinogen Normal mg/dL (Negative) Urine Leukocyte Esterase Negative /uL (Negative) Urine RBC 1 /hpf (0 - 3) Urine WBC 2 /hpf (0 - 3) Urine Squamous Epithelial Cells None seen /hpf (<5) Urine Bacteria None seen /hpf (None Seen) Urine Hyaline Casts Few /lpf (0 - 2) Urine Granular Casts Few /lpf (0) Urine Mucus Few (None Seen) Urine Glucose Normal mg/dL (Normal) Urine Opiates Screen Neg (NEGATIVE) Urine Fentanyl Screen Neg (NEGATIVE) Urine Barbiturates Screen Neg (NEGATIVE) Urine Phencyclidine Screen Neg (NEGATIVE) Urine Amphetamines Screen Neg (NEGATIVE) Urine Benzodiazepines Screen Neg (NEGATIVE) Urine Cocaine Screen Neg (NEGATIVE) Urine Cannabinoids Screen Neg (NEGATIVE) Test 04/10/24 00:36 04/09/24 20:03 04/09/24 19:00 SARS-CoV-2 Antigen (Rapid) Negative (NEGATIVE) Troponin I High Sensitivity 6 ng/L (</=54) Plasma/Serum Blood Alcohol < 3.0 mg/dL (<10) Other Laboratory Tests 04/28/24 06:00 Brief Hx & Hospital Course: History of Present Illness Patient is a 63-year-old male past medical history of DM, liver disease, alcohol abuse, gastritis, and GI bleeding who presented to [facility] ED for evaluation of generalized weakness. Patient reports symptoms progressively get worse with lower abdominal pain, bilateral leg swelling, increased confusion, getting worse that prompted this visit. Patient is a poor historian but is able to state feels generally weak and has had difficulty ambulating due to the leg swelling. Patient was seen and evaluated in the ED, laboratory data shows elevated WBC 25.2, hemoglobin 9.9, hematocrit 29.6, platelets 186, sodium 140, potassium 3.6, BUN 29, creatinine 1.08, glucose 222, calcium 8.5, total bilirubin 2.1, AST 112, ALT 81, albumin 2.5, protein 5.5, BNP 129.38, troponin 6, ammonia 30, lactic acid 5.1 trending down to 3.3, blood pressure 118/38, heart rate 88, temperature 97.9 F, O2 saturation 93% on oxygen. Chest x-ray revealing mild pulmonary vascular congestion and edema; abdomen/pelvis CT revealing development of ground-glass infiltrates in both lung bases, no pneumothorax, pleural effusions, or consolidations. Patient was started on IV antibiotic regimen vancomycin, IV azithromycin, please see medication orders section in the computer. On my assessment, patient denied chest pain, no headache, no dizziness, no diaphoresis, currently on oxygen, no nausea, no vomiting, no fever, no chills. Patient was admitted for further evaluation and medical management. Course of hospitalization: Patient had CT scan of the abdomen and pelvis which revealed ground-glass opacities as well as questionable mass of the pancreas. Patient was treated with empiric antibiotic therapy. Patient had no growth on blood culture, urine cultures, with sputum culture being positive for Talia albicans. Patient has been weaned off of antibiotic therapy. Patient's hypotension has resolved. Currently his systolic blood pressures ranging between 110 mmHg to 120 mmHg with the patient able to ambulate approximately 40 ft without any dyspnea or exertion. Patient was noted to be on O2 at 2 L today. I myself ambulate with the patient approximately 40 ft with a saturation remaining 90% and the patient staying asymptomatic. Patient's CA 19-9 was noted to be significantly elevated at 374. Patient had MRI of the pancreas. GI consultation was obtained. Patient is requiring EUS with possible biopsy which was not available as a medical intervention at this facility or any facility in the [facility]. Attempts were made to transfer the patient. This was unsuccessful. Patient's overall clinical status has improved. He has been instructed that he needs to follow up as an outpatient at a tertiary care facility such as [facility] or [facility]. Currently patient does not have insurance, for which drug abuse social worker has been consulted with the patient who has given him instructions to the best of their ability. Patient states he has a walker. Patient does not qualify for oxygen. In fact, he states he has smoked since age of 18, and states that his dyspnea has resolved at 100% and is currently at his baseline status prior to becoming ill. Long discussion was made with the patient regarding diagnostic findings and further diagnostic testing to further diagnose pancreatic cancer. The patient states that pancreatic cancer does run in his family, with his brother passing away from this diagnosis. The patient will be discharged home not requiring any DME at this time. He will be continued on midodrine 5 mg p.o. 3 times a day. Currently does have leukocytosis which was probably attributed to IV Solu-Medrol for which he has been on since admission. Patient has been afebrile and hemodynamically stable. An appointment will be made for the discharge Clinic in one week. Physical examination General: Alert and Oriented x3. No acute distress. Well-nourished. Eyes: EOMI. Anicteric. HENT: Moist mucous membranes. Lungs: Clear to auscultation bilaterally. No accessory muscle use. Cardiovascular: Regular rate and rhythm. No murmur. No JVD. Abdomen: Soft, non-tender and non-distended. No palpable masses. Extremities: No edema. Non-tender. Skin: No rashes or lesions. Warm. Neurologic: No focal neurological deficits. CN II-XII grossly intact, but not individually tested. Psychiatric: Cooperative. Appropriate mood and affect. Total time spent with patient discussing and formulating plan of care: 35 minutes. This medical document was created using an electronic medical record system with [employer] dictation system. Although this document has been carefully reviewed, there may still be some phonetic and typographical errors. These areas are purely typographical due to imperfections of the software programs, and do not reflect any compromise in the patient's medical care. Consults/Reason for consult Gastroenterology Critical care team Pulmonology Condition at Discharge: Poor Final Diagnosis/Problems List Septic shock Secondary Diagnosis: Cirrhosis of the liver Alcoholism Septic shock Probable pancreatic cancer Community-acquired pneumonia, probable Gram-positive/Gram-negative Hepatitis B and C Chronic hypoxic respiratory failure Nicotine dependence Anemia of chronic disease Discharge Disposition: Home Discharge Instruct/Medications Diet: Regular Activity: No Restrictions, As Tolerated Follow Up/Referral: Discharge Clinic in one week Instructed to follow up at [facility] for EUS, biopsy of pancreas to rule out pancreatic cancer Medications: Midodrine 5 mg p.o. t.i.d. Lasix 40 mg p.o. daily 36 Discharge Statement: "Patient was advised to return to the ER or call 911 if any headaches, dizziness, shortness of breath, chest pain, abdominal pain, bleeding, fevers, or worsening of medical condition. Patient was counseled about treatment plan, medications, possible side effects, patientverbalized understanding. All questions were answered to the best of my ability. This discharge took greater then 30 minutes in planning, reviewing documentation, counseling the patient, and discussing with other team members." ASSESSMENT ASSESSMENT Assessment Septic shock Date of Service: Apr 28, 2024 Billing Provider: WILFREDO GEE NP Common Visit Codes: [id number] INP/OBS CARE(HIGH), 20040-JYE/OBS DISCH DAY >30min WILFREDO GEE NP Apr 28, 2024 11:24
[2024-04-28] MEDS ORDERED: FURO1TAB31 PO (11:55)
[2024-04-28] MEDS ORDERED: MIDO5TAB4 PO (11:55)
== END 2024-04-28 19:29 | disposition home or self-care (01) | DRG 720 ==
LOC: ER 16:19 → TELE 23:09 → ICU CENTRL 04-12 02:16 → TELE-EAST 04-22 18:26
PROVIDERS: ADMIT Internal Medicine Pulmonary Disease; ATTEND Internal Medicine
PROC: 5A09357 Assistance with Respiratory Ventilation, Less than 24 Consecutive Hours, Continuous Positive Airway Pressure (ICD-10-PCS; principal; 2024-04-10)
PROC: 5A0935A Assistance with Respiratory Ventilation, Less than 24 Consecutive Hours, High Flow/Velocity Cannula (ICD-10-PCS; 2024-04-11)
PROC: 02HV33Z Insertion of Infusion Device into Superior Vena Cava, Percutaneous Approach (ICD-10-PCS; 2024-04-11)
PROC: B548ZZA Ultrasonography of Superior Vena Cava, Guidance (ICD-10-PCS; 2024-04-11)
PROC: 5A0935A Assistance with Respiratory Ventilation, Less than 24 Consecutive Hours, High Flow/Velocity Cannula (ICD-10-PCS; 2024-04-12)
DX: A41.50 Gram-negative sepsis, unspecified (principal); R65.21 Severe sepsis with septic shock; G93.41 Metabolic encephalopathy; J15.69 Pneumonia due to other Gram-negative bacteria; E43 Unspecified severe protein-calorie malnutrition; K76.82 Hepatic encephalopathy; C25.9 Malignant neoplasm of pancreas, unspecified; D68.9 Coagulation defect, unspecified; D69.6 Thrombocytopenia, unspecified; E87.0 Hyperosmolality and hypernatremia; Z20.822 Contact with and (suspected) exposure to COVID-19; J81.1 Chronic pulmonary edema; K70.31 Alcoholic cirrhosis of liver with ascites; D63.8 Anemia in other chronic diseases classified elsewhere; E87.70 Fluid overload, unspecified; F17.210 Nicotine dependence, cigarettes, uncomplicated; N17.9 Acute kidney failure, unspecified; L89.159 Pressure ulcer of sacral region, unspecified stage; B19.20 Unspecified viral hepatitis C without hepatic coma; K29.90 Gastroduodenitis, unspecified, without bleeding; K70.9 Alcoholic liver disease, unspecified; K86.9 Disease of pancreas, unspecified; T38.0X5A Adverse effect of glucocorticoids and synthetic analogues, initial encounter; F10.139 Alcohol abuse with withdrawal, unspecified; E87.6 Hypokalemia; J15.9 Unspecified bacterial pneumonia; J44.1 Chronic obstructive pulmonary disease with (acute) exacerbation; J44.0 Chronic obstructive pulmonary disease with (acute) lower respiratory infection; D53.9 Nutritional anemia, unspecified; E11.649 Type 2 diabetes mellitus with hypoglycemia without coma; Y90.9 Presence of alcohol in blood, level not specified; Z83.3 Family history of diabetes mellitus; Z81.3 Family history of other psychoactive substance abuse and dependence; Z79.899 Other long term (current) drug therapy; Z63.72 Alcoholism and drug addiction in family; J96.11 Chronic respiratory failure with hypoxia; B19.10 Unspecified viral hepatitis B without hepatic coma; Z68.24 Body mass index [BMI] 24.0-24.9, adult
CPT/HCPCS: 36415; 36569; 36600; 70450; 71045; 74176; 74183; 76604; 76705; 76937; 80048; 80053; 80061; 80202; 80307; 80320; 81001; 82105; 82140; 82607; 82746; 82805; 82962; 83036; 83605; 83690; 83735; 83880; 84443; 84484; 85007; 85025; 85027; 85610; 85730; 86301; 86703; 86704; 86706; 86708; 86803; 86850; 86900; 86901; 87040; 87070; 87077; 87081; 87086; 87205; 87340; 87426; 87804; 92507; 92610; 93005; 94640; 94660; 96365; 96367; 97110; 97116; 97163; 97530; G0378; J1450; J1815; J2185; J2470; J2543; J3430; J3480; J7060; P9047

== ENCOUNTER 2024-05-05 08:33 | Inpatient (IN) | payer MEDICAID ==
[2024-05-05] VITALS (49 sets, daily range): BP systolic 69–101; BP diastolic 35–65; PULSE 107–127; RESP 17–21; TEMP 85.1–98.8; O2SAT 83–100
[~2024-05-05] VITALS: Ht 165.1 cm; Wt 81.8 kg
[~2024-05-05 08:33] MED LIST changes: +FURO1TAB31 PO; +MIDO5TAB4 PO
--- NOTE | 2024-05-05 08:55 | ED.PDOC ---
GI ASSESSMENT HPI Comments 63 year old male presents to the ED with chief complaint of abdominal distention. Patient reports that he has been experiencing abdominal distention with associated dizziness and bilateral ankle swelling for the past few days. Patient relays that he cut his ankles earlier when trying to cut off his own socks. EMS states patient was seen in the ED 4 days ago for ETOH abuse in which he went on a week long drinking binge. EMS notes patient's BG was noted to be 225. Patient denies any N/V/D, abdominal pain, dizziness, headache, SOB, or chest pain. Time Seen by MD: 08:51 Primary Care Provider: NONE Reviewed Notes: Nurses Notes, Overlock Sleeve Setter Notes, Medications, Allergies Allergies: Coded Allergies: NO KNOWN ALLERGIES (Unverified , 03/15/16) Home Meds Active Scripts Furosemide (Lasix) 40 Mg Tab, 40 MG PO DAILY for 30 Days, #30 TAB Prov:WILFREDO GEE DRUM TENDER 04/28/24 Sucralfate (CARAFATE SUSP) 1 Gm/10 Ml Ss, 10 ML PO QID for 30 Days, #1200 ML 1 Refill Prov:AKASH WALKER MD 04/02/24 Pantoprazole Sodium Sesquihydr (Protonix) 40 Mg Tab, 40 MG PO BID for 30 Days, #60 TAB 0 Refills Prov:AKASH WALKER MD 04/02/24 Midodrine Hcl (Midodrine Hcl) 10 Mg Tab, 10 MG PO TID for 30 Days, #90 TAB 0 Refills Prov:AKASH WALKER MD 04/02/24 Discontinued Scripts Midodrine Hcl (Midodrine Hcl) 5 Mg Tab, 5 MG PO TID for 30 Days, #90 TAB Prov:WILFREDO GEE NP 04/28/24 Information Source: Patient, Emergency Med Personnel Mode of Arrival: EMS Timing: Days Duration: Since onset Prehospital treatment: None Vomitus: None Stool: Normal Severity: Moderate Recent: Ingestion of ETOH Recent Hx of: None Pain Location: None Modifying Factors: Nothing Associated sign and symptoms: Other (Dizziness, distention) Past Medical History PAST MEDICAL HISTORY: DM, Liver Surgical History: Denies all surgeries Family History Family History: Unknown Social History Smoker: Cigarettes Alcohol: Heavy Drugs: Denies Drug Use Lives In: Home Constitutional: denies: chills, diaphoresis, fatigue, fever, malaise, sweats, weakness, others EENTM: denies: blurred vision, double vision, ear bleeding, ear discharge, ear drainage, ear pain, ear ringing, eye pain, eye redness, hearing loss, mouth pain, mouth swelling, nasal discharge, nose bleeding, nose congestion, nose pain, photophobia, tearing, throat pain, throat swelling, voice changes, others Respiratory: denies: cough, hemoptysis, orthopnea, SOB at rest, shortness of breath, SOB with excertion, stridor, wheezing, others Cardiovascular: reports: edema (Bilateral ankles); denies: chest pain, dizzy spells, diaphoresis, Dyspnea on exertion, irregular heart beat, left arm pain, l ightheadedness, palpitations, PND, syncope, others Gastrointestinal: reports: abdomen distended; denies: abdominal pain, blood streaked bowels, constipated, diarrhea, dysphagia, difficulty swallowing, hematemesis, melena, nausea, poor appetite, poor fluid intake, rectal bleeding, rectal pain, vomiting, others Genitourinary: denies: burning, dysuria, flank pain, frequency, hematuria, incontinence, penile discharge, penile sore, pain, testicle pain, testicle swelling, urgency, others Neurological: reports: dizziness; denies: fainting, headache, left sided numbness, left sided weakness, numbness, paresthesia, pre-existing deficit, right sided numbness, right sided weakness, seizure, speech problems, tingling, tremors, weakness, others Musculoskeletal: denies: back pain, gout, joint pain, joint swelling, muscle pain, muscle stiffness, neck pain, others Integumetry: denies: bruises, change in color, change in hair/nails, dryness, laceration, lesions, lumps, rash, wounds, others Allergic/Immunocompromised: denies: Difficulty Healing, Frequent Infections, Hives, Itching, others Hematologic/Lymphatic: denies: anemia, blood clots, easy bleeding, easy bruising, swollen glands, others Endocrine: denies: excessive hunger, excessive sweating, excessive thirst, excessive urination, flushing, intolerance to cold, intolerance to heat, unexplained weight gain, unexplained weight loss, others Psychiatric: denies: anxiety, bipolar disorder, depression, hopeless, panic disorder, schizophrenia, sleepless, suicidal, others All Other Systems: Reviewed and Negative Physical Exam General Appearance: Moderate Distress, Normal HEENT: Normal ENT Inspection, PERRL/EOMI Neck: Full Range of Motion, Non-Tender, Normal, Normal Inspection Respiratory: Chest Non-Tender, Lungs Clear, No Accessory Muscle Use, No Respira tory Distress, Normal Breath Sounds Cardiovascular: No Edema, No JVD, No Murmur, No Gallop, Normal Peripheral Pulses, Regular Rate/Rhythm Breast Exam: Deferred Gastrointestinal: No Organomegaly, Non Tender, No Pulsatile Mass, Normal Bowel Sounds, Soft Genitalia: Deferred Pelvic: Deferred Rectal: Deferred Extremities: No calf tenderness, Normal capillary refill, Normal range of motion, Non-tender, Pedal edema, Swelling (Bilateral lower extremity) Musculoskeletal : Apperance: Normal Neurologic: Alert, set up mechanic II-XII nml as Tested, No Motor Deficits, Normal Affect, Normal Mood, No Sensory Deficits Cerebellar Function: NOT DONE Reflexes: NOT DONE Skin: Dry, Normal Color, Warm Peripheral Pulses: 3+ Radial (R), 3+ Radial (L) Lymphatic: No Adenopathy Was a procedure done? Was a procedure done?: Yes Sedation Sedation?: Yes Informed consent obtained: Yes Sedation start time: 13:40 Sedation end time: 13:55 Sedation total time: 15min Central Line Recorder of insertion practice: Stone Carver Occupation of curing finisher: Attending Physician Indication: Hypotension, Inability to obtain IV Room prepared for procedure: Yes Stone Carver performed hand hygien: Yes Maximal sterile barrier precau: Mask/Eye shield, Sterile gown, Cap, Sterlie gloves, Large sterlie drape Skin Preparation: Chlorhexidine gluconate Skin preparation completely dr: Yes Insertion site: Right, Internal jugular Central line catheter type: [id number] dialysis Number of lumens: 3 Post Assessment: Chest X-Ray, Proper placement Informed consent obtained: Yes Risks/benefits/alt described: Yes Intubation Indication: Respiratory Insufficiency, Airway Protection Prep: Preoxygenation Pretreated with: Sedation Medicated with: Other (20mg Etomidate, 100mg Rocuronium ) Intubation Approach: Orotracheal Intubation size: cm (8) Informed consent obtained: Yes Risks/benefits/alt described: Yes GI differential Dx Differential Diagnosis: Constipation, Diverticular disease, Esophagitis, Gastritis/PUD, Gastroenteritis X-Ray, Labs, Meds, VS Vital Signs Date Time Temp Pulse Resp B/P (MAP) Pulse Ox O2 Delivery O2 Flow Rate FiO2 05/05/24 14:27 101/62 05/05/24 14:22 86/50 05/05/24 14:05 95/50 05/05/24 14:00 93/63 05/05/24 13:59 93/63 05/05/24 13:55 121 18 74/28 (43) 100 100 05/05/24 12:27 104 18 89/50 (63) 99 05/05/24 11:47 109 18 86/51 (63) 99 05/05/24 10:00 107 18 99 Nasal Cannula* 2 28 05/05/24 10:00 98.8 107 18 99/63 (75) 99 98.8 05/05/24 08:33 98.9 102 16 87/58 (68) 98 Lab Test 05/05/24 14:15 05/05/24 11:25 05/05/24 10:05 05/05/24 08:55 Range/Units Urine Opiates Screen Neg NEGATIVE Urine Fentanyl Screen Neg NEGATIVE Urine Barbiturates Screen Neg NEGATIVE Urine Phencyclidine Screen Neg NEGATIVE Urine Amphetamines Screen Neg NEGATIVE Urine Benzodiazepines Screen Neg NEGATIVE Urine Cocaine Screen Neg NEGATIVE Urine Cannabinoids Screen Neg NEGATIVE Ammonia 262 *H 11-32 umol/L POC Glucose 211 H 70-106 mg/dl White Blood Count 12.2 H 4.4-10.8 10^3/uL Red Blood Count 2.26 L 4.5-5.90 10^6/uL Hemoglobin 7.5 L 13.5-17.5 g/dL Hematocrit 23.4 L 41.0-53.0 % Mean Corpuscular Volume 103.4 H 80.0-100.0 fL Mean Corpuscular Hemoglobin 33.0 H 28.0-32.0 pg Mean Corpuscular Hemoglobin Concent 31.9 L 32.0-36.0 g/dL Red Cell Distribution Width 16.7 H 11.8-14.3 % Platelet Count 114 L 140-450 10^3/uL Mean Platelet Volume 9.1 6.9-10.8 fL Neutrophils (%) (Auto) 77.9 37.0-80.0 % Lymphocytes (%) (Auto) 12.4 10.0-50.0 % Monocytes (%) (Auto) 9.0 0.0-12.0 % Eosinophils (%) (Auto) 0.2 0.0-7.0 % Basophils (%) (Auto) 0.5 0.0-2.0 % Neutrophils # (Auto) 9.5 H 1.6-8.6 10 ^3/uL Lymphocytes # (Auto) 1.5 0.4-5.4 10 ^3/uL Monocytes # (Auto) 1.1 0-1.3 10 ^3/uL Eosinophils # (Auto) 0 0-0.8 10 ^3/uL Basophils # (Auto) 0.1 0-0.2 10 ^3/uL Nucleated Red Blood Cells 0.1 % Sodium Level 139 136-145 mmol/L Potassium Level 4.7 3.5-5.1 mmol/L Chloride Level 104 98-107 mmol/L Carbon Dioxide Level 16 L 20-31 mmol/L Anion Gap 19 H 5-15 Blood Urea Nitrogen 26 H 9-23 mg/dL Creatinine 0.97 0.700-1.30 mg/dL Glomerular Filtration Rate Calc 88 >90 mL/min BUN/Creatinine Ratio 26.8 H 10.0-20.0 Serum Glucose 219 H 74-106 mg/dL Calcium Level 7.9 L 8.7-10.4 mg/dL Magnesium Level 1.6 1.6-2.6 mg/dL Total Bilirubin 1.3 H 0.2-1.0 mg/dL Aspartate Amino Transferase (AST) 65 H 13-40 U/L Alanine Aminotransferase (ALT) 60 H 7-40 U/L Alkaline Phosphatase 119 H 46-116 U/L Troponin I High Sensitivity 17 </=54 ng/L B-Type Natriuretic Peptide 65.65 0-100 pg/mL Total Protein 4.1 L 5.7-8.2 g/dL Albumin 2.3 L 3.2-4.8 g/dL Plasma/Serum Blood Alcohol < 3.0 <10 mg/dL Current Medications Medications (Trade) Dose Ordered Sig/Peg Route Start Time Stop Time Status Last Admin Sodium Chloride 500 ml @ 500 mls/hr Q1H ONCE IV 05/05/24 10:15 05/05/24 11:14 DC 05/05/24 10:38 Pantoprazole Sodium 50 ml @ 10 mls/hr Q5H ONCE IV 05/05/24 12:00 05/05/24 16:59 DC 05/05/24 12:28 Octreotide Acetate 500 mcg/ Sodium Chloride 100 ml @ 10 mls/hr Q10H IV 05/05/24 12:00 05/05/24 12:00 Thiamine HCl 100 mg ONCE ONCE IV 05/05/24 12:00 05/05/24 12:01 DC 05/05/24 12:28 Lactulose 60 ml ONCE ONCE PO 05/05/24 13:00 05/05/24 13:01 DC 05/05/24 13:00 Rocuronium [place] 100 mg ONCE ONCE IV 05/05/24 13:45 05/05/24 13:46 DC 05/05/24 13:59 Etomidate 20 mg ONCE ONCE IV 05/05/24 13:45 05/05/24 13:46 DC 05/05/24 13:58 Midazolam HCl 50 ml @ 1 mls/hr Q24H IV 05/05/24 13:45 05/05/24 14:00 Norepinephrine Bitartrate 250 ml @ 3.75 mls/hr Q24H IV 05/05/24 14:15 05/05/24 14:22 Chest XR: FINDINGS: Lines and Tubes: None Lungs: Pulmonary vascular congestion Pleura: No effusion. No pneumothorax. Cardiomediastinal contours: Unremarkable Bones: Unremarkable IMPRESSION: 1. Pulmonary vascular congestion . no significant interval change. Patient alert. Bilateral lower extremity swelling. Chest x-ray reviewed does show congestion. Vitals stable. Was recently discharged from this hospital. Reviewed his previous visit. BNP within normal limits. Liver profile elevated. His last drink was few weeks ago. Explained to the patient. Patient continues to vomit bright red blood. CT scan of the abdomen reviewed shows ascites. Had to intubate the patient. Images Reviewed?: Images reviewed and evaluated by me Time of 1ST Reevaluation: 09:51 Reevaluation 1ST: Unchanged Patient Education/Counseling: Diagnosis, Treatment Family Education/Counseling: No Family Present Departure 1 Departure Time of Disposition: 10:43 Impression: Primary Impression: CHF (congestive heart failure) Qualified Codes: I50.43 - Acute on chronic combined systolic (congestive) and diastolic (congestive) heart failure Additional Impressions: Alcoholic liver disease GI bleed Qualified Codes: K92.2 - Gastrointestinal hemorrhage, unspecified Hepatic encephalopathy Acute respiratory failure Qualified Codes: J96.01 - Acute respiratory failure with hypoxia Disposition: ADMITTED INPATIENT Admit to: Med Surg Condition: Guarded Critical Care Note Critical Care Time?: Yes (45 min-critical care time only) Stability Stability form required: No Heart Score Heart Score: Heart Score Response (Comments) Value History Slightly Suspicious 0 EKG Normal 0 Age 45-64 1 Risk Factors >3 or Hx ASHD 2 Troponin Normal limit 0 Total 3 I personally scribed for PARKER TILLMAN MD ([email or web address]) on 05/05/24 at 08:55. Electronically submitted by Jt Burdick ([email or web address]). I personally scribed for PARKER TILLMAN MD ([email or web address]) on 05/05/24 at 09:58. Electronically submitted by Jt Burdick ([email or web address]). I personally scribed for PARKER TILLMAN MD ([email or web address]) on 05/05/24 at 13:53. Electronically submitted by Jt Burdick ([email or web address]). PARKER TILLMAN MD May 05, 2024 08:55
[2024-05-05 09:09] LABS: Basophils # (auto) 0.1 10 ^3/uL (0-0.2); Basophils % (auto) 0.5 % (0.0-2.0); Eosinophils # (auto) 0 10 ^3/uL (0-0.8); Eosinophils % (auto) 0.2 % (0.0-7.0); Hematocrit 23.4 % (41.0-53.0); Hemoglobin 7.5 g/dL (13.5-17.5); Lymphocytes # (auto) 1.5 10 ^3/uL (0.4-5.4); Lymphocytes % (auto) 12.4 % (10.0-50.0); Mean Corpuscular Hgb Conc. 31.9 g/dL (32.0-36.0); Mean Corpuscular Volume 103.4 fL (80.0-100.0); Monocytes # (auto) 1.1 10 ^3/uL (0-1.3); Neutrophils # (auto) 9.5 10 ^3/uL (1.6-8.6); Neutrophils % (auto) 77.9 % (37.0-80.0); Nucleated Red Blood Cells % 0.1 %; Platelet Count (auto) 114 10^3/uL (140-450); Red Blood Cells 2.26 10^6/uL (4.5-5.90); Red Cell Distribution Width 16.7 % (11.8-14.3); White Blood Cell 12.2 10^3/uL (4.4-10.8)
[2024-05-05 09:46] LABS: Anion Gap 19 (5-15); BUN/Creatinine Ratio 26.8 (10.0-20.0); Chloride 104 mmol/L (98-107); Magnesium 1.6 mg/dL (1.6-2.6); Potassium 4.7 mmol/L (3.5-5.1); Sodium 139 mmol/L (136-145)
--- NOTE | 2024-05-05 09:46 | DVH ---
CHEST RADIOGRAPH Indication: DIZZINESS Technique: Single frontal view of the chest was obtained Comparison: XY CHEST XRAY 1 VIEW on DOS: 04/16/24, XY CHEST PORTABLE on DOS: 04/15/24, XY CHEST XRAY 1 VIEW on DOS: 04/14/24, XY CHEST XRAY 1 VIEW on DOS: 04/13/24, XY CHEST XRAY 1 VIEW on DOS: 04/12/24 , XY CHEST XRAY 1 VIEW on DOS: 04/16/24 FINDINGS: Lines and Tubes: None Lungs: Pulmonary vascular congestion Pleura: No effusion. No pneumothorax. Cardiomediastinal contours: Unremarkable Bones: Unremarkable IMPRESSION: 1. Pulmonary vascular congestion . no significant interval change.
[2024-05-05 09:48] LABS: Alanine Aminotransferase 60 U/L (7-40); Albumin 2.3 g/dL (3.2-4.8); Alkaline Phosphatase 119 U/L (46-116); Aspartate Aminotransferase 65 U/L (13-40); Bilirubin, Total 1.3 mg/dL (0.2-1.0); Blood Alcohol < 3.0 mg/dL (<10); Blood Urea Nitrogen 26 mg/dL (9-23); Calcium 7.9 mg/dL (8.7-10.4); Carbon Dioxide 16 mmol/L (20-31); Glucose 219 mg/dL (74-106); Total Protein 4.1 g/dL (5.7-8.2)
[2024-05-05] MEDS: SODIUM CHLORIDE 0.9% 500 ML IV ONE (10:38)
[2024-05-05] MEDS: OCTREOTIDE ACETATE 500 MCG in SODIUM CHL 0.9% 99 ML IV SCH (12:00)
[2024-05-05] MEDS: PANTOPRAZOLE 40mg/50ML NS AE 50 ML IV ONE (12:28)
[2024-05-05] MEDS: THIAMINE 100mg/ml INJ (200mg/2ml VIAL) IV ONE (12:28)
[2024-05-05] MEDS: LACTULOSE 20Gm/30ML SOLN PO ONE (13:00)
[2024-05-05] MEDS: ROCURONIUM 10MG/ML 10ML VIAL IV ONE ×2 (13:54→13:59)
[2024-05-05] MEDS: ETOMIDATE (2MG/ML) 20ML VIAL IV ONE ×2 (13:54→13:58)
[2024-05-05] MEDS: MIDAZOLAM DRIP 50 mg/50mL 50 ML IV ONE (13:55)
[2024-05-05] MEDS: NOREPINEPHRINE 8 MG/250ML KIT 250 ML IV ONE (13:55)
[2024-05-05] MEDS: MIDAZOLAM DRIP 50 mg/50mL 50 ML IV SCH (14:00)
[2024-05-05] MEDS: NOREPINEPHRINE 8 MG/250ML KIT 250 ML IV SCH (14:22)
[2024-05-05 14:58] LABS: Benzodiazephine Screen, Urine Neg (NEGATIVE); Cannabinoid Screen, Urine Neg (NEGATIVE)
[2024-05-05 14:59] LABS: Amphetamine Screen, Urine Neg (NEGATIVE); Barbiturate Scree,Urine Neg (NEGATIVE); Cocaine Screen, Urine Neg (NEGATIVE); Opiate Scree,Urine Neg (NEGATIVE); Phencyclidine Screen, Urine Neg (NEGATIVE)
[2024-05-05] MEDS ORDERED: MORPHINE SULFATE INJ 2 MG/ml SYRG IV PRN (15:00)
[2024-05-05] MEDS ORDERED: NITROGLYCERIN 0.4 MG SL TAB SL PRN (15:00)
--- NOTE | 2024-05-05 15:24 | DVH ---
Exam: CT CT AB PEL WO CON-NO ORAL OR IV History: gibleed Comparison Study: CT CT AB PEL WO CON-NO ORAL OR IV on DOS: 04/09/24, CT CT AB PEL WO CON-NO ORAL OR IV on DOS: 03/27/24 Technique: Multidetector spiral CT of the abdomen and pelvis was performed from lung bases to pubic symphysis. Imaging was performed without IV contrast. Axial, coronal and sagittal multiplanar reform ats were obtained from the axial data set by the technologist. Radiation dose : Abdomen/Pelvis: CTDIvol 20 mGy, DLP 1056 mGy*cm. Findings: Evaluation of solid organs is limited due to lack of intravenous contrast use. Lung Bases: Consolidation in the right lower lung. Liver: Cirrhotic liver morphology. No focal liver lesion identified. Gallbladder and biliary Tree: Cholelithiasis. Contracted. Gallbladder wall thickening. Spleen: Unremarkable Pancreas: The pancreas is grossly normal in appearance. Adrenal Glands: Unremarkable Kidneys: Kidneys are grossly normal without calculi or hydronephrosis. Bladder: Bladder is decompressed with a Clark catheter and cannot be adequately assessed. Bowel: The stomach is grossly normal in appearance. Small bowel and colon are normal in caliber and d istribution. The appendix is not visualized; however, no secondary findings of acute appendicitis id entified. Ascites: Moderate abdominal and pelvic ascites. Lymphadenopathy: No mesenteric, retroperitoneal or periportal lymphadenopathy. Abdominal wall and Mesentery: Fat containing umbilical hernia. Vasculature: The visualized abdominal aorta is normal in size and caliber. There is extensive athero sclerotic calcification of the aorta and its branches. Evaluation of abdominal and pelvic vessels is limited due to lack of intravenous contrast. Gastroesophageal varices are suspected. Pelvic Organs: Unremarkable Musculoskeletal: No aggressive focal bony lesions, acute fractures or dislocation. IMPRESSION: 1. Right lower lobe pneumonia. 2. Moderate amount of abdominal ascites, increased compared to prior. 3. Abnormal appearing gallbladder which is contracted, thick-walled, and demonstrates cholelithiasis. Consider further evaluation with right upper quadrant ultrasound or HIDA scan. 4. Cirrhotic liver morphology. Gastroesophageal varices are suspected. 5. Fat containing umbilical hernia. Calcified atherosclerotic disease. Radiation optimization: All CT scans at this facility use at least one of these dose optimization darci hniques: Automated exposure control mA and/or kV adjustment per patient size (includes targeted exams where dose is matched to clinical indication) or iterative reconstruction. HS:Y
--- NOTE | 2024-05-05 15:56 | DVHHP2 ---
History of Present Illness Reason for Visit: Abdominal distention History of Present Illness Otis Manjarrez is a 63-year-old male with past medical history of diabetes, liver cirrhosis, and possible pancreatic cancer, who came in with abdominal distention, dizziness, and bilateral lower extremities edema. Patient stated that he has not had a drink in a couple weeks. He came in alert and talking but was intubated for airway protection due to vomiting blood. I was able to complete a brief assessment prior to him being intubated, the rest of my assessment and history came from the chart. Hepatobiliary: Cirrhosis Endocrine: Diabetes Smoke: <1 pack per day ALCOHOL: heavy Review of Systems Constitutional: No: Fever, Chills, Sweats, Weakness, Malaise, Other Eyes: No: Pain, Vision change, Conjunctivae inflammation, Eyelid inflammation, Other, Redness ENT: No: Ear pain, Ear discharge, Nose pain, Nose discharge, Nose congestion, Mouth pain, Mouth swelling, Throat pain, Throat swelling, Other Respiratory: No: Cough, Dry, Shortness of breath, SOB with excertion, Wheezing, Hemoptysis, Pleuritic Pain, Sputum, Wheezing, Other Cardiovascular: Edema (bilateral lower extremity edema); No: Chest Pain, Palpitations, Orthopnea, Paroxysmal Noc. Dyspnea, Lt Headedness, Other Gastrointestinal: Abdominal Pain; No: Nausea, Vomiting, Diarrhea, Constipation, Melena, Hematochezia, Other Genitourinary: No Dysuria, No Frequency, No Incontinence, No Hematuria, No Retention, No Other Musculoskeletal: No: other, neck pain, shoulder pain, arm pain, back pain, hand pain, leg pain, foot pain Skin: No: Rash, Lesions, Jaundice, Bruising, Other Neurological: No: Weakness, Numbness, Incoordination, Change in speech, Confusion, Seizures, Other Allergies: Coded Allergies: NO KNOWN ALLERGIES (Unverified , 03/15/16) Medications Current Medications Medications Dose Ordered Sig/Peg Route Start Time Stop Time Status Last Admin Dose Admin Octreotide Acetate 500 mcg/ Sodium Chloride 100 ml @ 10 mls/hr Q10H IV 05/05/24 12:00 05/05/24 12:00 10 MLS/HR Midazolam HCl 50 ml @ 1 mls/hr Q24H IV 05/05/24 13:45 05/05/24 14:00 1 MLS/HR Norepinephrine Bitartrate 250 ml @ 3.75 mls/hr Q24H IV 05/05/24 14:15 05/05/24 14:22 3.75 MLS/HR Nitroglycerin 0.4 mg Q5MINP PRN SL 05/05/24 15:00 UNV Morphine Sulfate 2 mg Q30M PRN IV 05/05/24 15:00 UNV Folic Acid 1 mg/ Multivitamins 10 ml/Magnesium Sulfate 8 meq/ Thiamine HCl 100 mg/Dextrose 1,013.2 ml @ 125.001 mls/hr DAILY@1800 INJ 05/05/24 18:00 UNV Exam Vital Signs Vital Signs Date Time Temp Pulse Resp B/P (MAP) Pulse Ox O2 Delivery O2 Flow Rate FiO2 05/05/24 14:22 86/50 05/05/24 13:55 121 18 100 100 05/05/24 10:00 Nasal Cannula* 2 05/05/24 10:00 98.8 98.8 General Appearance: Alert, moderate distress HEENT: Atraumatic, PERRLA Cardiovascular: Other (tachycardia) Abdominal: Other (distneded) Extremities: Other (bilateral lower extremity edema with multiple abrassions ) Skin: No significant lesion (mulitple lesions to bilateral lower extremities, and skin tear to left upper arm) Labs/Xrays Labs Test 05/05/24 14:15 05/05/24 11:25 05/05/24 10:05 05/05/24 08:55 Range/Units Urine Opiates Screen Neg NEGATIVE Urine Fentanyl Screen Neg NEGATIVE Urine Barbiturates Screen Neg NEGATIVE Urine Phencyclidine Screen Neg NEGATIVE Urine Amphetamines Screen Neg NEGATIVE Urine Benzodiazepines Screen Neg NEGATIVE Urine Cocaine Screen Neg NEGATIVE Urine Cannabinoids Screen Neg NEGATIVE Ammonia 262 *H 11-32 umol/L POC Glucose 211 H 70-106 mg/dl White Blood Count 12.2 H 4.4-10.8 10^3/uL Red Blood Count 2.26 L 4.5-5.90 10^6/uL Hemoglobin 7.5 L 13.5-17.5 g/dL Hematocrit 23.4 L 41.0-53.0 % Mean Corpuscular Volume 103.4 H 80.0-100.0 fL Mean Corpuscular Hemoglobin 33.0 H 28.0-32.0 pg Mean Corpuscular Hemoglobin Concent 31.9 L 32.0-36.0 g/dL Red Cell Distribution Width 16.7 H 11.8-14.3 % Platelet Count 114 L 140-450 10^3/uL Mean Platelet Volume 9.1 6.9-10.8 fL Neutrophils (%) (Auto) 77.9 37.0-80.0 % Lymphocytes (%) (Auto) 12.4 10.0-50.0 % Monocytes (%) (Auto) 9.0 0.0-12.0 % Eosinophils (%) (Auto) 0.2 0.0-7.0 % Basophils (%) (Auto) 0.5 0.0-2.0 % Neutrophils # (Auto) 9.5 H 1.6-8.6 10 ^3/uL Lymphocytes # (Auto) 1.5 0.4-5.4 10 ^3/uL Monocytes # (Auto) 1.1 0-1.3 10 ^3/uL Eosinophils # (Auto) 0 0-0.8 10 ^3/uL Basophils # (Auto) 0.1 0-0.2 10 ^3/uL Nucleated Red Blood Cells 0.1 % Sodium Level 139 136-145 mmol/L Potassium Level 4.7 3.5-5.1 mmol/L Chloride Level 104 98-107 mmol/L Carbon Dioxide Level 16 L 20-31 mmol/L Anion Gap 19 H 5-15 Blood Urea Nitrogen 26 H 9-23 mg/dL Creatinine 0.97 0.700-1.30 mg/dL Glomerular Filtration Rate Calc 88 >90 mL/min BUN/Creatinine Ratio 26.8 H 10.0-20.0 Serum Glucose 219 H 74-106 mg/dL Calcium Level 7.9 L 8.7-10.4 mg/dL Magnesium Level 1.6 1.6-2.6 mg/dL Total Bilirubin 1.3 H 0.2-1.0 mg/dL Aspartate Amino Transferase (AST) 65 H 13-40 U/L Alanine Aminotransferase (ALT) 60 H 7-40 U/L Alkaline Phosphatase 119 H 46-116 U/L Troponin I High Sensitivity 17 </=54 ng/L B-Type Natriuretic Peptide 65.65 0-100 pg/mL Total Protein 4.1 L 5.7-8.2 g/dL Albumin 2.3 L 3.2-4.8 g/dL Plasma/Serum Blood Alcohol < 3.0 <10 mg/dL CHEST RADIOGRAPH FINDINGS: Lines and Tubes: None Lungs: Pulmonary vascular congestion Pleura: No effusion. No pneumothorax. Cardiomediastinal contours: Unremarkable Bones: Unremarkable IMPRESSION: 1. Pulmonary vascular congestion . no significant interval change. Assessment/Plan Assessment/Plan Assessment: Alcoholic liver disease, GI Bleed, Malnutrition, Hypovolemic shock, Hyperglycemia, Ascites, Anemia, Fluid overload, Plan: Admit to ICU, GI consult, Protonix drip, Sandostatin drip, Vasopressors as needed, PT/PTT, Home medications held at this time, Please speak with GI regarding OG tube placement, Lactulose [place], Transfuse 2 units PRBC, Wound care consult, Accu checks Q AC&HS with sliding scale, Plan discussed with: Patient My Orders Orders - FER MURCIA Procedure Category Date Status Time Admit ADMIT 05/05/24 Transmitted 14:56 Code Status CODE 05/05/24 Transmitted 14:56 Complete Blood Count LAB 05/06/24 Verified 04:00 Comprehensive LAB 05/06/24 Verified Metabolic Panel 04:00 Npo (Nothing By DIET 05/05/24 Transmitted Mouth) Diet Dinner Condition: Critical JOHNNA 05/05/24 In Process 14:56 Nitroglycerin PHA 05/05/24 Logged Sublingual (Ntrostat 15:00 Morphine Sulfate PHA 05/05/24 Logged Injection 15:00 Stat Ekg For Chest JOHNNA 05/05/24 In Process Pain 14:56 Notify Md Of Changes [facility] 05/05/24 In Process From Base 14:56 Transportation Manager For JOHNNA 05/05/24 In Process 24 Hours 14:56 Emergency Dysrhythmia [facility] 05/05/24 In Process Protocol 14:56 Rhythm Strips Once [facility] 05/05/24 In Process Every Shift 14:56 Oxygen By Nasal RT 05/05/24 Transmitted Cannula 14:56 * Gi D[facility] Server Service Assistant CONS 05/05/24 Transmitted 14:56 Folic Acid... PHA 05/05/24 Logged 18:00 PTPTT LAB 05/05/24 Logged 15:00 Ammonia LAB 05/06/24 Verified 04:00 Date of Service: May 05, 2024 Billing Provider: FER MURCIA Common Visit Codes: [id number] INP/OBS CARE (HIGH) FER MURCIA May 05, 2024 15:55
[2024-05-05 16:14] LABS: Hematocrit 21.5 % (41.0-53.0)
[2024-05-05 16:21] LABS: INR 2.14 (0.9-1.15); Partial Thromboplastin Time 34.4 SEC (24.5-34.5); Prothrombin Time 21.4 sec (9.3-11.8)
[2024-05-05 16:28] LABS: Hemoglobin 6.5 g/dL (13.5-17.5)
[2024-05-05] MEDS: PHENYLEPHRINE IV 250 ML IV SCH (16:53)
[2024-05-05] MEDS: SODIUM BICARB 8.4% 50Meq/50ml SYR Vial IV ONE ×5 (17:15→23:58)
[2024-05-05] MEDS: PANTOPRAZOLE 40mg/50ML NS AE 50 ML IV SCH (18:10)
[2024-05-05] MEDS: VASOPRESSIN 20 UNITS in SODIUM CHL 0.9% 99 ML IV SCH (18:58)
[2024-05-05] MEDS: SODIUM BICARB 50mEq/50ml Vial 50 ML in D5W 5% 1,000 ML IV SCH (20:30)
[2024-05-05 20:57] LABS: Base Excess -17.8 mmol/L (-2.0-3.0)
[2024-05-05] MEDS: FOLIC ACID 1 MG, MULTIPLE VITAMIN 10 ML, MAGNESIUM SULF SDV 50% 8 MEQ, THIAMINE INJ 100... INJ SCH (21:50)
[2024-05-05] MEDS: PHENYLEPHRINE INJ 80 MG in SODIUM CHL 0.9% 242 ML IV SCH (22:41)
[2024-05-05] MEDS: EPINEPHrine HCL 250 ML IV SCH (22:42)
[2024-05-05] MEDS: EPINEPHrine HCL 250 ML IV ONE (22:43)
[2024-05-05 23:05] LABS: Hematocrit 26.2 % (41.0-53.0); Hemoglobin 7.5 g/dL (13.5-17.5)
[2024-05-05 23:11] LABS: Base Excess -15.6 mmol/L (-2.0-3.0)
[2024-05-05] MEDS: LACTULOSE 10g/15ml SOLN 473ML PR ONE (23:16)
[2024-05-05] MEDS: NOREPINEPHRINE BITARTRATE 32 MG in SODIUM CHL 0.9% 218 ML IV SCH (23:57)
[2024-05-05] MEDS: SODIUM BICARB 50mEq/50ml Vial 150 ML in D5W 5% 1,000 ML IV SCH (23:58)
[2024-05-06] VITALS (79 sets, daily range): BP systolic 56–94; BP diastolic 32–66; PULSE 76–122; RESP 18–97; TEMP 91.8–98.4; O2SAT 81–100
[2024-05-06] MEDS: ALBUMIN 25% 100 ML IV ONE (02:12)
[2024-05-06 02:50] LABS: Base Excess -18.5 mmol/L (-2.0-3.0)
[2024-05-06] MEDS: SODIUM BICARB 8.4% 50Meq/50ml SYR Vial IV ONE ×2 (03:35→08:30)
[2024-05-06] MEDS: DOPamine 1600MCG/ML D5W 250 ML IV SCH (06:00)
[2024-05-06 07:32] LABS: Base Excess -18.3 mmol/L (-2.0-3.0)
[2024-05-06] MEDS ORDERED: VANCOMYCIN PER PHARMACY 0 MG IV SCH (10:15)
[2024-05-06] MEDS ORDERED: PIPERACILLIN-TAZOB 3.375GM 100 ML IV ONE (12:00)
[2024-05-06] MEDS: VANCOMYCIN 1GM/250ML KIT 250 ML IV SCH (12:45)
[2024-05-06 15:32] LABS: Hematocrit 15.7 % (41.0-53.0); Mean Corpuscular Hemoglobin 32.2 pg (28.0-32.0); Mean Corpuscular Hgb Conc. 27.4 g/dL (32.0-36.0); Mean Corpuscular Volume 117.5 fL (80.0-100.0); Platelet Count (auto) 38 10^3/uL (140-450); Red Blood Cells 1.34 10^6/uL (4.5-5.90); White Blood Cell 12.7 10^3/uL (4.4-10.8)
[2024-05-06 15:33] LABS: Red Cell Distribution Width 20.8 % (11.8-14.3)
[2024-05-06 15:35] LABS: Hemoglobin 4.3 g/dL (13.5-17.5)
[2024-05-06 15:38] LABS: Anion Gap 34.00001 (5-15); BUN/Creatinine Ratio 11.3 (10.0-20.0); Basophils % (manual) 0 (0.0-2.0); Blast Cells 0; Eosinophils % (manual) 0 (0-7); Metamyelocytes % 0; Myelocytes % 0; Promyelocytes % 0; Reactive Lymphocytes 0; Sodium 139 mmol/L (136-145)
[2024-05-06 15:41] LABS: Albumin 1.6 g/dL (3.2-4.8); Alkaline Phosphatase 484 U/L (46-116); Bilirubin, Total 3.2 mg/dL (0.2-1.0); Blood Urea Nitrogen 31 mg/dL (9-23); Calcium 7.1 mg/dL (8.7-10.4); Chloride 95 mmol/L (98-107); Glucose 351 mg/dL (74-106); Total Protein 2.5 g/dL (5.7-8.2)
[2024-05-06 15:42] LABS: Carbon Dioxide < 10 mmol/L (20-31); Potassium 7.5 mmol/L (3.5-5.1)
[2024-05-06 15:58] LABS: Alanine Aminotransferase 2320 U/L (7-40)
[2024-05-06] MEDS ORDERED: NOREPINEPHRINE BITARTRATE 32 MG in D5W 5% 218 ML IV SCH (16:30)
[2024-05-06 19:11] LABS: Band Neutrophils % (manual) 1; Lymphocytes % (manual) 46 (10.0-50.0); Monocytes % (manual) 4 (0-12)
[2024-05-06 19:12] LABS: Platelet Estimate Decreased
[2024-05-06] MEDS ORDERED: PIPERACILLIN-TAZOB 3.375GM 100 ML IV SCH (20:00)
[2024-05-06] MEDS ORDERED: HYDROCORTISONE SOD SUCC 100 MG/2ML INJ VIAL IV SCH (22:00)
--- NOTE | 2024-05-06 23:11 | DVHDSRES ---
Discharge Summary Date of Admission Resident Creating Document: PASTORA WHYTE RESDIBLADIMIR May 05, 2024 at 14:56 Date of Discharge: May 06, 2024 Admitting Diagnosis Alcoholic liver disease Labs/Diagnostic Data: Laboratory Results Test 05/06/24 15:01 05/06/24 07:28 05/05/24 15:25 05/05/24 14:15 White Blood Count 12.7 10^3/uL (4.4-10.8) Red Blood Count 1.34 10^6/uL (4.5-5.90) Hemoglobin 4.3 g/dL (13.5-17.5) Hematocrit 15.7 % (41.0-53.0) Mean Corpuscular Volume 117.5 fL (80.0-100.0) Mean Corpuscular Hemoglobin 32.2 pg (28.0-32.0) Mean Corpuscular Hemoglobin Concent 27.4 g/dL (32.0-36.0) Red Cell Distribution Width 20.8 % (11.8-14.3) Platelet Count 38 10^3/uL (140-450) Mean Platelet Volume 10.7 fL (6.9-10.8) Neutrophils (%) (Auto) % (37.0-80.0) Lymphocytes (%) (Auto) % (10.0-50.0) Monocytes (%) (Auto) % (0.0-12.0) Basophils (%) (Auto) % (0.0-2.0) Neutrophils # (Auto) 10 ^3/uL (1.6-8.6) Lymphocytes # (Auto) 10 ^3/uL (0.4-5.4) Monocytes # (Auto) 10 ^3/uL (0-1.3) Differential Total Cells Counted 100.0 (100) Neutrophils % (Manual) 49 (37.0-80.0) Band Neutrophils % (Manual) 1 Lymphocytes % (Manual) 46 (10.0-50.0) Monocytes % (Manual) 4 (0-12) Eosinophils % (Manual) 0 (0-7) Basophils % (Manual) 0 (0.0-2.0) Metamyelocytes % (manual) 0 Myelocytes % (Manual) 0 Promyelocytes % (Manual) 0 Blast Cells % (Manual) 0 Reactive Lymphocytes 0 Platelet Estimate Decreased Sodium Level 139 mmol/L (136-145) Potassium Level 7.5 mmol/L (3.5-5.1) Chloride Level 95 mmol/L (98-107) Carbon Dioxide Level < 10 mmol/L (20-31) Anion Gap 34.05490 (5-15) Blood Urea Nitrogen 31 mg/dL (9-23) Creatinine 2.74 mg/dL (0.700-1.30) Glomerular Filtration Rate Calc 25 mL/min (>90) BUN/Creatinine Ratio 11.3 (10.0-20.0) Serum Glucose 351 mg/dL (74-106) Calcium Level 7.1 mg/dL (8.7-10.4) Total Bilirubin 3.2 mg/dL (0.2-1.0) Aspartate Amino Transferase (AST) U/L (13-40) Alanine Aminotransferase (ALT) 2320 U/L (7-40) Alkaline Phosphatase 484 U/L (46-116) Ammonia 220 umol/L (11-32) Total Protein 2.5 g/dL (5.7-8.2) Albumin 1.6 g/dL (3.2-4.8) Blood Gas Specimen Type Arterial Blood Gas Sample Site Other Blood Gas Patient Temperature 37.0 Arterial Blood Date Drawn [id number] Arterial Blood pH 7.032 (7.350-7.450) Arterial Blood Partial Pressure CO2 42.7 mmHg (35.0-48.0) Arterial Blood Partial Pressure O2 61.6 mmHg (83.0-108.0) Arterial Blood HCO3 11.1 mmol/L (21.0-28.0) Arterial Blood Oxygen Saturation 79.7 % (94.0-98.0) Arterial Blood Base Excess -18.3 mmol/L (-2.0-3.0) Arterial Blood Oxyhemoglobin 77.9 % (94.0-98.0) Arterial Blood Carboxyhemoglobin 1.1 % (0.5-1.5) Arterial Blood Methemoglobin 1.2 % (0.0-1.5) Prosper Test Modified Blood Gas Total Hemoglobin 7.10 g/dL (13.5-17.5) Blood Gas Set Respiration Rate 18.0 Blood Gas Modality Vent - ac FiO2 % 70.0 Blood Gas Tidal Volume 500.0 Blood Gas PEEP or CPAP 5.0 Blood Gas Critical Value Read Back Yes Blood Gas Notified Whom [employer] Supervisor okpan Blood Gas Notified Time [id number] Blood Gas Notified By Production Control Expediter mina Prothrombin Time 21.4 sec (9.3-11.8) Prothrombin Time INR 2.14 (0.9-1.15) Activated Partial Thromboplast Time 34.4 SEC (24.5-34.5) Urine Opiates Screen Neg (NEGATIVE) Urine Fentanyl Screen Neg (NEGATIVE) Urine Barbiturates Screen Neg (NEGATIVE) Urine Phencyclidine Screen Neg (NEGATIVE) Urine Amphetamines Screen Neg (NEGATIVE) Urine Benzodiazepines Screen Neg (NEGATIVE) Urine Cocaine Screen Neg (NEGATIVE) Urine Cannabinoids Screen Neg (NEGATIVE) Test 05/05/24 10:05 05/05/24 08:55 POC Glucose 211 mg/dl (70-106) Eosinophils (%) (Auto) 0.2 % (0.0-7.0) Eosinophils # (Auto) 0 10 ^3/uL (0-0.8) Basophils # (Auto) 0.1 10 ^3/uL (0-0.2) Nucleated Red Blood Cells 0.1 % Magnesium Level 1.6 mg/dL (1.6-2.6) Troponin I High Sensitivity 17 ng/L (</=54) B-Type Natriuretic Peptide 65.65 pg/mL (0-100) Plasma/Serum Blood Alcohol < 3.0 mg/dL (<10) Other Laboratory Tests 05/06/24 15:01 Brief Hx & Hospital Course: This is a 63-year-old male with a past medical history of diabetes, liver cirrhosis secondary to alcohol use disorder, pancreatic cancer, and heavy alcohol use disorder, brought to the hospital with abdominal distention, dizziness, and bilateral lower limb edema. The patient stated that he had not urinated in a couple of weeks during admission in the ER. During admission, the patient was awake but could not communicate. Due to bloody vomiting, the patient was sedated and put on mechanical ventilation to secure the airway. Physical examination was significant for a tense and distended abdomen, and bilateral pedal edema with ulcers on the lower limbs. Lab studies showed raised WBC at 12.2, Hb 7.5, platelets 114, INR 2.14, ABGs showing severe metabolic acidosis, ammonia 262, ALT 2320, and potassium 7.5. During hospital admission, the patient's BP dropped, and the patient was put on septic shock and upper GI bleeding protocol. The patient was given antibiotics including Zosyn, vancomycin, hydrocortisone, vasopressors (including norepinephrine, vasopressin, epinephrine, dopamine, phenylephrine), octreotide, pantoprazole, and sodium bicarbonate for the ongoing metabolic acidosis. Despite these interventions, the patient's condition deteriorated, and despite 5 vasopressors, the patient's BP remained in the 70s. The patient continued to have bloody vomiting, and later the patient's heart stopped beating. The patient was assessed for any response to verbal and tactile stimuli; no response was observed. Checked for the pupillary light reflex; pupils were fixed and dilated, indicating no response to light. Listened for heart sounds using a stethoscope; no heart sounds were detected. [place] for the carotid pulse for a full 60 seconds; no pulse was detected. Observed the air sampling and monitoring; confirmed no heart activity was present. The patient was terminally extubated. Confirmed the absence of spontaneous respiration by listening for breath sounds and observing chest movements; no breath sounds or chest movements were detected. Pronouncement of : After completing the above examinations and confirming the absence of vital signs, was pronounced at 1505 on 05/06/2024. Critical Care Time: Critical care time spent more than 107 minutes, including patient care, chart review and updating, discussing all imaging findings, and discussing options with the family, excluding any procedures. Operations or Procedures [place] [id number] Ph: [phone] DIAGNOSTIC IMAGING Diagnostic Imaging Report : [id number] Signed PATIENT: ALICIA PURDY ACCT: [id number] UNIT: [id number] : 1960 LOC: ER ROOM / BED: / AGE / SEX: 63 / M ADM STATUS: REG ER SERVICE [id number] ORDERING PHYSICIAN: PARKER TILLMAN MD PROCEDURE(s): CXR1 - CHEST XRAY 1 VIEW REASON: DIZZINESS ORDER NUMBER(s): [id number], ACCESSION NUMBER(s): [id number] CHEST RADIOGRAPH Indication: DIZZINESS Technique: Single frontal view of the chest was obtained Comparison: XY CHEST XRAY 1 VIEW on DOS: 04/16/24, XY CHEST PORTABLE on DOS: 04/15/24, XY CHEST XRAY 1 VIEW on DOS: 04/14/24, XY CHEST XRAY 1 VIEW on DOS: 04/13/24, XY CHEST XRAY 1 VIEW on DOS: 04/12/24, XY CHEST XRAY 1 VIEW on DOS: 04/16/24 FINDINGS: Lines and Tubes: None Lungs: Pulmonary vascular congestion Pleura: No effusion. No pneumothorax. Cardiomediastinal contours: Unremarkable Bones: Unremarkable IMPRESSION: 1. Pulmonary vascular congestion . no significant interval change. ATED BY: PRECIOUS POLANCO MD DICTATED DATE/TIME: 05/05/24943 SIGNED BY: PRECIOUS POLANCO MD SIGNED DATE/TIME: 05/05/24943 CC: [place] [id number] Ph: [phone] DIAGNOSTIC IMAGING Diagnostic Imaging Report : [id number] Signed PATIENT: ALICIA PURDY ACCT: [id number] UNIT: [id number] : 1960 LOC: ER ROOM / BED: / AGE / SEX: 63 / M ADM STATUS: REG ER SERVICE 20 ORDERING PHYSICIAN: PARKER TILLMAN MD PROCEDURE(s): ABPL - CT AB PEL WO CON-NO ORAL OR IV REASON: gibleed ORDER NUMBER(s): [id number], ACCESSION NUMBER(s): [id number] Exam: CT CT AB PEL WO CON-NO ORAL OR IV History: [facility] [place]: CT CT AB PEL WO CON-NO ORAL OR IV on DOS: 04/09/24, CT CT AB PEL WO CON-NO ORAL OR IV on DOS: 03/27/24 Technique: Multidetector spiral CT of the abdomen and pelvis was performed from lung bases to pubic symphysis. Imaging was performed without IV contrast. Axial, coronal and sagittal multiplanar reformats were obtained from the axial data set by the technologist. Radiation dose : Abdomen/Pelvis: CTDIvol 20 mGy, DLP 1056 mGy*cm. Findings: Evaluation of solid organs is limited due to lack of intravenous contrast use. Lung Bases: Consolidation in the right lower lung. Liver: Cirrhotic liver morphology. No focal liver lesion identified. Gallbladder and biliary Tree: Cholelithiasis. Contracted. Gallbladder wall thickening. Spleen: Unremarkable Pancreas: The pancreas is grossly normal in appearance. Adrenal Glands: Unremarkable Kidneys: Kidneys are grossly normal without calculi or hydronephrosis. Bladder: Bladder is decompressed with a Clark catheter and cannot be adequately assessed. Bowel: The stomach is grossly normal in appearance. Small bowel and colon are normal in caliber and distribution. The appendix is not visualized; however, no secondary findings of acute appendicitis identified. Ascites: Moderate abdominal and pelvic ascites. Lymphadenopathy: No mesenteric, retroperitoneal or periportal lymphadenopathy. Abdominal wall and Mesentery: Fat containing umbilical hernia. Vasculature: The visualized abdominal aorta is normal in size and caliber. There is extensive atherosclerotic calcification of the aorta and its branches. Evaluation of abdominal and pelvic vessels is limited due to lack of intravenous contrast. Gastroesophageal varices are suspected. Pelvic Organs: Unremarkable Musculoskeletal: No aggressive focal bony lesions, acute fractures or dislocation. IMPRESSION: 1. Right lower lobe pneumonia. 2. Moderate amount of abdominal ascites, increased compared to prior. 3. Abnormal appearing gallbladder which is contracted, thick-walled, and demonstrates cholelithiasis. Consider further evaluation with right upper quadrant ultrasound or HIDA scan. 4. Cirrhotic liver morphology. Gastroesophageal varices are suspected. 5. Fat containing umbilical hernia. Calcified atherosclerotic disease. Radiation optimization: All CT scans at this facility use at least one of these dose optimization techniques: Automated exposure control mA and/or kV adjustment per patient size (includes targeted exams where dose is matched to clinical indication) or iterative reconstruction. HS:Y ATED BY: ROLAND JOHNSON MD DICTATED DATE/TIME: 05/05/24 152 SIGNED BY: ROLAND JOHNSON MD SIGNED DATE/TIME: 05/05/24 152 CC: Condition at Discharge: Undetermined Final Diagnosis/Problems List Acute metabolic encephalopathy likely due to liver failure/sepsis Acute hypoxic respiratory failure likely due to pneumonia Septic shock likely due to pneumonia/SBP Pneumonia likely due to Gram-positive Gram-negative bacteria Acute on chronic liver failure, likely due to alcohol abuse Abdominal ascites, likely due to liver cirrhosis Liver cirrhosis likely due to alcohol use disorder Upper GI bleeding, likely from esophageal varices, likely due to liver cirrhosis Possible cholecystitis Cholelithiasis, based on CT scan finding Umbilical hernia, based on CT scan finding Gastroesophageal varices, likely due to liver cirrhosis JAYLENE, likely due to hemodynamically mediated/septic shock/hepatorenal syndrome Moderate malnutrition Metabolic acidosis, anion gap, likely due to septic shock Hyper ammonia, likely due to liver failure Acquired coagulopathy, likely due to liver failure Severe macrocytic Anemia likely, likely due to upper GI bleeding/alcohol use disorder/liver cirrhosis Thrombocytopenia, likely due to liver failure Uncontrolled diabetes mellitus Hyperbilirubinemia, likely due to liver failure Hypomagnesemia Hyperkalemia Volume overload, likely due to liver failure Possible acute on chronic congestive heart failure Spontaneous bacterial pneumonitis in the setting of decompensated liver failure Discharge Disposition: at Hospital Discharge Statement: "Patient was advised to return to the ER or call 911 if any headaches, dizziness, shortness of breath, chest pain, abdominal pain, bleeding, fevers, or worsening of medical condition. Patient was counseled about treatment plan, medications, possible side effects, patientverbalized understanding. All questions were answered to the best of my ability. This discharge took greater then 30 minutes in planning, reviewing documentation, counseling the patient, and discussing with other team members." ASSESSMENT ASSESSMENT Assessment Date of Service: May 06, 2024 Billing Provider: ANAND MOSER MD Common Visit Codes: 15811-DTX/OBS DISCH DAY >30min PASTORA WHYTE May 06, 2024 23:11 ANAND MOSER MD May 13, 2024 14:45
== END 2024-05-06 15:02 | DRG 720 ==
LOC: ER 08:33 → EDBD 08:33 → OVERFLOW 14:56
PROVIDERS: ADMIT Nurse Practitioner Family; ATTEND Internal Medicine Pulmonary Disease
PROC: 05HM33Z Insertion of Infusion Device into Right Internal Jugular Vein, Percutaneous Approach (ICD-10-PCS; principal; 2024-05-05)
PROC: 5A1935Z Respiratory Ventilation, Less than 24 Consecutive Hours (ICD-10-PCS; 2024-05-05)
PROC: 30233N1 Transfusion of Nonautologous Red Blood Cells into Peripheral Vein, Percutaneous Approach (ICD-10-PCS; 2024-05-05)
PROC: 0BH17EZ Insertion of Endotracheal Airway into Trachea, Via Natural or Artificial Opening (ICD-10-PCS; 2024-05-05)
PROC: 30233K1 Transfusion of Nonautologous Frozen Plasma into Peripheral Vein, Percutaneous Approach (ICD-10-PCS; 2024-05-06)
DX: A41.50 Gram-negative sepsis, unspecified (principal); J96.01 Acute respiratory failure with hypoxia; K76.7 Hepatorenal syndrome; G93.41 Metabolic encephalopathy; R57.1 Hypovolemic shock; R65.21 Severe sepsis with septic shock; E44.0 Moderate protein-calorie malnutrition; I85.01 Esophageal varices with bleeding; J15.69 Pneumonia due to other Gram-negative bacteria; J15.9 Unspecified bacterial pneumonia; K70.31 Alcoholic cirrhosis of liver with ascites; E11.65 Type 2 diabetes mellitus with hyperglycemia; F10.10 Alcohol abuse, uncomplicated; F17.210 Nicotine dependence, cigarettes, uncomplicated; Y90.9 Presence of alcohol in blood, level not specified; K80.10 Calculus of gallbladder with chronic cholecystitis without obstruction; K42.9 Umbilical hernia without obstruction or gangrene; D68.4 Acquired coagulation factor deficiency; I11.0 Hypertensive heart disease with heart failure; I50.9 Heart failure, unspecified; D53.9 Nutritional anemia, unspecified; D69.6 Thrombocytopenia, unspecified; E80.6 Other disorders of bilirubin metabolism; E83.42 Hypomagnesemia; E87.5 Hyperkalemia; K65.2 Spontaneous bacterial peritonitis; Z79.899 Other long term (current) drug therapy; Z68.30 Body mass index [BMI] 30.0-30.9, adult
CPT/HCPCS: 31500; 36415; 36556; 36600; 71045; 74176; 80053; 80307; 80320; 82140; 82805; 82962; 83735; 83880; 84484; 85007; 85014; 85018; 85025; 85027; 85610; 85730; 86850; 86900; 86901; 86920; 87070; 87081; 87205; 94002; 94003; 99291; G0378; J0171; J2543; J7060; P9047